=== PATIENT | male | born 1970 | race Caucasian/White ===

== ENCOUNTER 2024-07-26 08:21 | Outpatient (AMB) | payer BC, SELFPAY ==
--- NOTE | 2024-07-26 08:25 | MHC.PC.OV ---
Vital Signs 07/26/24 08:59 Height 6 ft Weight 229 lb 2 oz BMI 31.1 BP 124/70 Blood Pressure Location Lt brachial Position Sitting Respiration 13 Pulse 56 Pulse Source Pulse Oximeter Temp 97.5 F Temp Source Oral Pulse Oximetry (%) 98 Oxygen Delivery Method Room Air Intake Visit Reasons: Prescription refills Intake Note: New patient to establish care and patient also needs refill on meds. 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 Allergies No Known Allergies Allergy (Verified 07/26/24 09:33) Medication List - Last Reconciled 07/26/24 by Crista Hammond, [facility]- albuterol-budesonide 90-80 mcg/actuation 2 inhalations inhalation DAILY PRN fenofibrate 160 mg PO DAILY lisinopril-hydrochlorothiazide 20-12.5 mg 1 tab PO DAILY montelukast 10 mg PO DAILY tadalafil 5 mg PO DAILY tamsulosin 0.4 mg PO DAILY Tobacco use date assessed: 07/26/24 Dental Screening Dental Screen Date: 07/26/24 Did you have a dental visit in the last 12 months?: Yes Did you have a dental problem in the last 6 months where you did not have access to dental care?: No Was dental information given to patient?: Patient has dentist HPI HPI Comments History of Present Illness Details 53 y/o M with anemia, R bakers cyst, low Testosterone, Renal cysts, Bilat nephromegaly (US 08/2023, MRI 02/2023 Bosniak IIF L cyst) L renal cyst requires US q6-12months, T11 Vertebral hemangioma, JETT on CPAP, HTN, CHLOE, Asthma, HLD, R banda cyst, chronic low back pain, cigar use, eczema, BPH with LUTS, Surgery: L medial meniscectomy 2022, amputation of toe L and R foot d/t necrotizing fascitis and several other ortho surgeries Social: , Retired Government, 1 dtr Health Maintenance Colon 2020 + polyp, repeat 5 years Tdap 2024, admin today Specialists: Podiatry Ortho Renal Here today to est care Previous PCP: Hattie Be, records reviewed; last visit 04/2024 Low Testosterone - uses T gel, needs refill - sent. Renal cyst and Bilar nephromegaly - incidental finding on imaging done for his back; has not been told of PCK however US and MRI are suspicous for this. JETT on CPAP - [facility]. Using as directed. Head strap wears out q2 months HTN managed on current meds, would like to get off if able. Taking lots of supplements. Asthma - exercise induced, sparing use of ERIC, Tdap updated today, Cigar smoker BPH with LUTS on flomax. 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 Needs handicap placard. Completed and returned to him today Has chronic foot pain; uses inserts; will need podiatry referral in the future but not now. Exam Awake alert NAD Scleras nonicteric RRR LS CTAB Abd soft, nontender Mood and affect appropriate Plan Refill on meds sent to [facility] today Renal referral RTO 6-9 mo CPE with labs, sooner PRN l Total time spent caring for the patient today was 60 minutes. This includes time spent before the visit reviewing the chart, time spent during the visit, and time spent after the visit on documentation, reviewing laboratory results, diagnostic imaging, medications, performing a medically necessary evaluation, counseling on diagnoses, care coordination, ordering appropriate tests, ordering appropriate medications, review of tests performed by other providers, reporting test results with the patient, communication with other healthcare providers. [facility] Medical History (Updated 07/26/24 @ 12:37 by Crista Hammond, [facility]) Arthritis Asthma Hemangioma of vertebral body High cholesterol Synovial cyst of popliteal space [Banda], right knee Surgical History (Updated 07/26/24 @ 09:15 by Alan Grajeda MA) H/O shoulder surgery History of colonoscopy (~2020) Family History (Updated 07/26/24 @ 09:15 by Alan Grajeda MA) Father Diabetes Social History (Updated 07/26/24 @ 09:16 by Alan Grajeda MA) Household Members: Spouse Both parents involved: No Caregiver staying overnight: No Housing: House Are you a primary intensive care nurse to a significant other at home: No Do you presently have visiting nurse or other home services: No 75 years or older and lives alone: No Alcohol intake: current Alcohol intake frequency: a few times a month Patient Tobacco Use Status: Never used Tobacco e-Cigarette/Vaping Use: Never Used Second Hand Smoke Exposure: No Current occupational status: unemployed and retired Cognitive needs: No Hearing needs: No Vision needs: No Questionnaire PHQ-9 Over the last 2 weeks, how often have you been bothered by any of the following problems? 1. Little interest or pleasure in doing things: not at all 2. Feeling down, depressed, or hopeless: not at all 3. Trouble falling or staying asleep, or sleeping too much: not at all 4. Feeling tired or having little energy: not at all 5. Poor appetite or overeating: not at all 6. Feeling bad about yourself - or that you are a failure or have let yourself or your family down: not at all 7. Trouble concentrating on things, such as reading the newspaper or watching television: not at all 8. Moving or speaking so slowly that other people could have noticed. Or the opposite - being so fidgety or restless that you have been moving around a lot more than usual: not at all 9. Thoughts that you would be better off or of hurting yourself in some way: not at all Total score: 0 Depression Screening Interpretation: Negative Depression Screening Done: Yes 51673 - PHQ-9 Billing: Yes Source: Developed by Drs. Yves Gillespie, Yamini Cabrera, Shon Prater and colleagues, with an educational shree from [employer]. Thrive Questionnaire Date Thrive assessed: 07/26/24 I am a: Patient What is your living situation today?: I have a steady place to live Within the past 12 months, did the food you bought not last and you didn't have the money to get more?: Never true Within the past 12 months, did you worry whether your food would run out before you got money to buy more?: Never true Do you have trouble paying for medicines?: No Do you have trouble getting transportation to medical appointments?: No Do you have trouble paying your heating and electricity bill?: No Do you have trouble taking care of your child, family member or friend?: No Do you have trouble with day-to-day activities such as bathing, preparing meals, shopping, managing finances, etc.?: No Are you currently unemployed and looking for a job?: No Are you interested in more education?: No Please select the resources that you would like help with: None Currently or been in a relationship where the following occur: No concerns reported THRIVE Score: 0 AUDIT C Alcohol Use Questionnaire (AUDIT-C) 1. How often do you have a drink containing alcohol?: Never 3. How often do you have six or more drinks on one occasion?: Never Total Score: 0 Score Reviewed/Action Taken: Yes CHLOE-7 AMB Questionnaire CHLOE-7 Date CHLOE - 7 assessed: 07/26/24 Feeling nervous, anxious, or on edge: 0 = Not at all Not being able to stop or control worryin = Not at all Worrying too much about different things: 0 = Not at all Trouble relaxin = Not at all Being so restless that it is hard to sit still: 0 = Not at all Becoming easily annoyed or irritable: 0 = Not at all Feeling afraid as if something awful might happen: 0 = Not at all Total CHLOE-7 score (0-4 normal; 5-9 mild; 10-14 moderate; 15-21 severe): 0 Source: Developed by Drs. Yves Gillespie, Yamini Cabrera, Shon Prater and colleagues, with an educational shree from [employer]. CHLOE-7 Assessment Billing CHLOE-7 Assessment Tool: CHLOE-7 Assessment 65320 Physical exam (Primary Care) Vital Signs: Last Vital Signs Temp 97.5 F 07/26/24 08:59 Pulse 56 07/26/24 08:59 Resp 13 07/26/24 08:59 BP 124/70 07/26/24 08:59 Pulse Ox 98 07/26/24 08:59 Oxygen Delivery Method Room Air 07/26/24 08:59 BMI result Body Mass Index 31.1 BMI Assessment/Plan discussion: High BMI High, discussed plan: lifestyle Tobacco/Smoking Status: Tobacco use Status Tobacco use date assessed 07/26/24 07/26/24 08:26 Patient Tobacco Use Status Never used Tobacco 07/26/24 09:16 e-Cigarette/Vaping Use Never Used 07/26/24 09:16 PHQ-9: PHQ-9 Score PHQ-9: Total score 0 07/26/24 09:33 Depression Screening Interpretation: Negative Thrive Assessment: Date of Thrive Assessment Date Thrive assessed 07/26/24 07/26/24 08:26 Currently or been in a relationship where the following occur: No concerns reported Immunizations Boostrix Tdap 2.5 Lf unit-8 mcg-5 Lf/0.5 mL intramuscular syringe Performing Provider: IRINA Dyer [place] [facility] [place] [facility] Administered by: Alan Grajeda MA on 07/26/24 09:07 Dose Route Admin Location Dispensed Lot Number Expiration Date NDC Crop Or Livestock Tenant Farmer 0.5 mL IM Right Deltoid 0.5 mL [id number] 10/14/26 [id number] [employer] VIS Given Date VIS Provided VIS Publication Date 07/26/24 Single Vaccine 20 Eligibility Eligibility Date Funding Source Not [facility] Eligible 07/26/24 Private Coding Level of Care Code New Pt Level 5 (70993) Complex EM visit Add On G2211 Diagnoses Encounter to establish care Z76.89 Amputated toe of left foot S98.132A Amputated toe of right foot S98.131A Bilateral renal cysts N28.1 BPH w urinary obs/LUTS N40.1; N13.8 Mixed hyperlipidemia E78.2 Hyperlipidemia type: mixed hyperlipidemia CHLOE (generalized anxiety disorder) F41.1 Primary hypertension I10 Hypertension type: primary hypertension Nephromegaly N28.81 JETT on CPAP G47.33 Mild intermittent asthma without complication J45.20 Asthma complication type: uncomplicated Obesity (BMI 30-39.9) E66.9 Need for Tdap vaccination Z23 Low testosterone in male R79.89 Additional Codes CHLOE-7 Assessment Billing - CHLOE-7 Assessment Tool: CHLOE-7 Assessment 42670 ([id number]) PHQ-9 - 27767 - PHQ-9 Billing: Yes ([id number]) Assessment & Plan Assessment & Plan (1) Encounter to establish care: Code(s): Z76.89 - Persons encountering health services in other specified circumstances (2) Amputated toe of left foot: Comment: active Code(s): S98.132A - Complete traumatic amputation of one left lesser toe, initial encounter Category: Medical (3) Amputated toe of right foot: Comment: active Code(s): S98.131A - Complete traumatic amputation of one right lesser toe, initial encounter Category: Medical (4) Bilateral renal cysts: Comment: (US 08/2023, MRI 02/2023 Bosniak IIF L cyst) L renal cyst requires US q6-12 months [place] [facility] [place] Code(s): N28.1 - Cyst of kidney, acquired Category: Medical (5) BPH w urinary obs/LUTS: Comment: on flomax Code(s): N40.1 - Benign prostatic hyperplasia with lower urinary tract symptoms; N13.8 - Other obstructive and reflux uropathy Category: Medical (6) HLD (hyperlipidemia): Comment: on fenofibrate Code(s): E78.5 - Hyperlipidemia, unspecified Category: Medical Qualifiers: Hyperlipidemia type: mixed hyperlipidemia Qualified Code(s): E78.2 - Mixed hyperlipidemia (7) CHLOE (generalized anxiety disorder): Comment: stable w/o meds Code(s): F41.1 - Generalized anxiety disorder Category: Medical (8) HTN (hypertension): Comment: at goal on lis/hctz wants to stop Code(s): I10 - Essential (primary) hypertension Category: Medical Qualifiers: Hypertension type: primary hypertension Qualified Code(s): I10 - Essential (primary) hypertension (9) Nephromegaly: Comment: (US 08/2023, MRI 02/2023 Bosniak IIF L cyst) referral to [facility] [place] Code(s): N28.81 - Hypertrophy of kidney Category: Medical (10) JETT on CPAP: Comment: [place] Code(s): G47.33 - Obstructive sleep apnea (adult) (pediatric) Category: Medical (11) Mild intermittent asthma: Comment: prn eric Code(s): J45.20 - Mild intermittent asthma, uncomplicated Category: Medical Qualifiers: Asthma complication type: uncomplicated Qualified Code(s): J45.20 - Mild intermittent asthma, uncomplicated (12) Obesity (BMI 30-39.9): Code(s): E66.9 - Obesity, unspecified Category: Medical (13) Need for Tdap vaccination: Code(s): Z23 - Encounter for immunization Category: Medical (14) Low testosterone in male: Code(s): R79.89 - Other specified abnormal findings of blood chemistry Category: Medical Plan . Orders: Orders TDaP Immunization Today Z23 - Encounter for immunization Comprehensive Met. Panel Today E78.2 - Mixed hyperlipidemia, I10 - Essential (primary) hypertension, R79.89 - Other specified abnormal findings of blood chemistry Lipid Panel Today E78.2 - Mixed hyperlipidemia, I10 - Essential (primary) hypertension, R7.89 - Other specified abnormal findings of blood chemistry Microalbumin, Random (w Creat) Today E78.2 - Mixed hyperlipidemia, I10 - Essential (primary) hypertension, R7.89 - Other specified abnormal findings of blood chemistry Vitamin D 25-OH Total Today E78.2 - Mixed hyperlipidemia, I10 - Essential (primary) hypertension, R7.89 - Other specified abnormal findings of blood chemistry PSA, Ultra Sensitive Today E78.2 - Mixed hyperlipidemia, I10 - Essential (primary) hypertension, R79.89 - Other specified abnormal findings of blood chemistry Complete Blood Count no Diff Today E78.2 - Mixed hyperlipidemia, I10 - Essential (primary) hypertension, R7.89 - Other specified abnormal findings of blood chemistry Hemoglobin A1c Today E78.2 - Mixed hyperlipidemia, I10 - Essential (primary) hypertension, R7.89 - Other specified abnormal findings of blood chemistry TSH reflex Free T4 Today E78.2 - Mixed hyperlipidemia, I10 - Essential (primary) hypertension, R7.89 - Other specified abnormal findings of blood chemistry Vitamin B12 and Folate Today E78.2 - Mixed hyperlipidemia, I10 - Essential (primary) hypertension, R7.89 - Other specified abnormal findings of blood chemistry Testosterone, Total Today E78.2 - Mixed hyperlipidemia, I10 - Essential (primary) hypertension, R7.89 - Other specified abnormal findings of blood chemistry Referrals Nephrology Referral N28.1 - Cyst of kidney, acquired, N28.81 - Hypertrophy of kidney Medications: New tadalafil 2.5 mg PO DAILY lisinopril-hydrochlorothiazide 20-12.5 mg 0.5 tabs PO DAILY 45 tabs 2RF montelukast 10 mg PO DAILY 90 tabs 2RF testosterone apply 4 pump amount over max area of EACH upper arm and shoulder 4 pumps topical DAILY 75 grams 5RF fenofibrate 160 mg PO DAILY 90 tabs 2RF albuterol sulfate 90 mcg/actuation 2 puffs inhalation Q4-6H 30 days PRN 8.5 grams 0RF shortness of breath or wheezing Patient Instructions: Walk-In Care (Urgent Care): We Make it Easy Walk-in for urgent medical issues such as: ? Seasonal Allergies ? Insect Bites ? Cough ? Diarrhea ? Acute Asthma Attacks ? Back, Knee or Joint Pain ? Ear Infection ? Fever without a Rash ? Headaches ? Nausea ? [place] [facility], Rash or Skin Irritation ? Sore Throat ? Sports Physicals ? Vomiting Most insurances are accepted. Patients do not need to be part of the [facility] to seek care at the walk-in clinic. Locations [address] [place] [address] ? [phone] [facility] [facility] in [place] provides services to ages 18 and over. Open Thursday-Thursday: 8 a.m. to 5 p.m. and Thursday: 9 a.m. to 3 p.m.* *Hours may vary due to staffing availability. To confirm Walk-In Care hours in [place], please call [phone]. [address] [place] [address] ? [phone] [facility] in [place] provides services to ages 12 and over. Open Thursday-Thursday: 8 a.m. to 5 p.m. Hours may vary due to staffing availability. To confirm Walk-In Care hours in [place], please call [phone]. LABORATORY SERVICES: [facility] [place] Primary Location [address] [place] [address] Thursday through Thursday 6:00 AM ? 5:00 PM Thursday 7:00 AM ? 11:00 AM* [phone] The [facility] is centrally located near the front entrance of the [facility] for easy outpatient access. Convenient parking is provided for outpatients. *Hours may vary due to staffing availability. To confirm Laboratory hours for any location, please call [phone]. Offsite Location For your convenience, we offer offsite laboratory draw stations at the following locations: [address] [place] [address] ? [facility] [address], [address] [place] [address] Thursday through Thursday 7:30 AM ? 1:00 PM* [phone] *Hours may vary due to staffing availability. To confirm Laboratory hours for any location, please call [phone]. [place] ? [address] Thursday through Thursday 6:00 AM ? 3:30 PM* Thursday 6:30 AM ? 3 PM* [phone] *Hours may vary due to staffing availability. To confirm Laboratory hours for any location, please call [phone]. [address] [facility] Thursday through Thursday 7:30 AM ? 4:00 PM* [phone] *Hours may vary due to staffing availability. To confirm Laboratory hours for any location, please call [phone]. [address] [facility] Thursday through 9:00 AM ? 4:00 PM* *Hours may vary due to staffing availability. To confirm Laboratory hours for any location, please call [phone]. Appointments are not necessary. Walk-ins are welcome. Like all the departments throughout the [facility], our Lab undergoes frequent reviews to ensure the quality and accuracy of test results, and our staff takes special pride in its status as a nationally accredited facility. Patient Portal: ONE PATIENT. ONE RECORD. BETTER CARE. [facility] has a fully integrated, cutting-edge mobile electronic health information system that has revolutionized the way we care for our patients and manage our organization. This system improves communication and coordination enabling us to provide safe, higher-quality care, and an overall positive experience for staff and patients. Our first priority, as always, is to deliver the highest quality care possible. The system is running in the background supporting that priority. This portal is for all [facility] and [facility] services and practices. If you are experiencing any technical difficulties with enrolling or logging into the Patient Portal please complete the [facility] Patient [place] Technical Support Form. [facility] now offers a new secure on-line interactive tool for patients to review their health information ? ?Patient Portal. This interactive web portal will enable patients and their families to take an active role in their care by providing easy, secure access to their health information via the internet. The Patient Portal provides patients with instant access to their health information, including laboratory results, medications, allergies, demographic information, visit history, and more. In addition to managing their own care, parents and health care proxies with authorized consent will appreciate the ability to access the records of those individuals for whom they provide care. Please note: if you wish to gain access (Proxy) to another patient?s portal, you will be required to come to the Medical Records Department in person at [facility]. Both the patient giving proxy access and the proxy will need to provide photo identification and complete the appropriate authorization. The Patient Portal also allows track their appointments online. The [facility] [place] also saves patients time by allowing them to submit updates to their demographic and contact information prior to their visits. Portal email notifications will also alert patients to any new activity on their portal, such as test results and new appointments. In order to initially enroll in the [facility] Patient Portal, you will need to enter some required information including the following: your [facility] Medical Record number your personal home email address name date of Please note: In order to enroll in the [facility] Patient Portal, we need to have your email address on file in your electronic medical record. ?The email address needs to be specific for one person (yourself) in order for your Portal enrollment to be successful. ?You can update your email address in person with our Registration staff when you are registering for a hospital visit. ?Otherwise, you will need to come to the Health Information Management (Medical Records) Department at [facility]. ?We are open from Thursday ? Thursday from 7:30 a.m. ? 4:30 p.m. ?You will be required to present a photo id. Once you have successfully enrolled in the Patient Portal, you will receive a one-time user id and password for the Portal, sent to your email address. ?This will allow you to log into the Patient Portal within 99 hrs and reset your own logon id and password, and define personal security questions. ?Once your permanent login and password have been set, you can log into the [facility] Patient Portal at any time via the blue button above or from the Portal Logon button on any page of the [facility] website. [facility] encourage all of our patients to enroll in Patient Portal as it presents a valuable opportunity for patients and their families to actively participate in their care and stay healthy Welcome to [facility]. ?We look forward to working with you.
[2024-07-26 08:59] VITALS: BP 124/70; PULSE 56; RESP 13; TEMP 36.4; O2SAT 98; BMI 31.1
== END 2024-07-26 09:54 | disposition home or self-care (01) ==
LOC: HO.HMCFM 08:22
PROVIDERS: PCP Nurse Practitioner Family; Visit Provider Nurse Practitioner Family
DX: S98.132A Complete traumatic amputation of one left lesser toe, initial encounter (principal); S98.131A Complete traumatic amputation of one right lesser toe, initial encounter; Z76.89 Persons encountering health services in other specified circumstances; N28.1 Cyst of kidney, acquired; N40.1 Benign prostatic hyperplasia with lower urinary tract symptoms; N13.8 Other obstructive and reflux uropathy; E78.2 Mixed hyperlipidemia; F41.1 Generalized anxiety disorder; I10 Essential (primary) hypertension; N28.81 Hypertrophy of kidney; G47.33 Obstructive sleep apnea (adult) (pediatric); J45.20 Mild intermittent asthma, uncomplicated; Z23 Encounter for immunization

== ENCOUNTER → 2024-07-26 08:21 | Outpatient (BNVA) | payer BC, SELFPAY | PROVIDERS: PCP Nurse Practitioner Family; Visit Provider Nurse Practitioner Family | DX: Z76.89 Persons encountering health services in other specified circumstances (principal); Z23 Encounter for immunization; N28.1 Cyst of kidney, acquired; N40.1 Benign prostatic hyperplasia with lower urinary tract symptoms; N13.8 Other obstructive and reflux uropathy; E78.2 Mixed hyperlipidemia; F41.1 Generalized anxiety disorder; I10 Essential (primary) hypertension; N28.81 Hypertrophy of kidney; G47.33 Obstructive sleep apnea (adult) (pediatric); J45.20 Mild intermittent asthma, uncomplicated; E66.9 Obesity, unspecified; Z68.31 Body mass index [BMI] 31.0-31.9, adult; R79.89 Other specified abnormal findings of blood chemistry; Z79.899 Other long term (current) drug therapy; Z89.422 Acquired absence of other left toe(s); Z89.421 Acquired absence of other right toe(s); Z99.89 Dependence on other enabling machines and devices; Z13.31 Encounter for screening for depression; Z13.30 Encounter for screening examination for mental health and behavioral disorders, unspecified | CPT/HCPCS: 90471; 90715; 96127 ==

== ENCOUNTER 2024-07-28 13:13 | Outpatient (AMB) | payer BC, SELFPAY ==
--- NOTE | 2024-07-28 13:27 | HO.NEPHOV ---
Vital Signs 07/28/24 13:28 Height 6 ft Weight 223 lb 6 oz BMI 30.3 BP 130/70 Blood Pressure Location Lt brachial Position Sitting Pulse 86 Pulse Source Pulse Oximeter Pulse Oximetry (%) 97 Oxygen Delivery Method Room Air Intake Visit Reasons: INP:Polycystic kidney disease, See US and MRI test Inspector Shells Required: No Accompanied by: Self / Same As Patient Allergies No Known Allergies Allergy (Verified 07/28/24 13:28) HPI Comments Details: 53-year-old gentleman with past medical history of Hypertension, hyperlipidemia, JETT on CPAP is here to establish care. He had a fall last year and underwent MRI in 02/2023 which showed multiple bilateral simple renal cysts and a 12x 25mm Bosniak IIF cyst in left kidney. Ultrasound done in August 2023 showed right knee was 13.1 cm with multiple cortical cyst, left kidney is 14.8 cm with multiple cortical cyst with a 2.4 into 2.7 cm Bosniak 2 F cyst. He is here to establish care. [facility] Medical History (Updated 07/28/24 @ 14:29 by Jaiden Del Rosario MD) Arthritis High cholesterol Asthma Hemangioma of vertebral body Synovial cyst of popliteal space [Banda], right knee Surgical History H/O shoulder surgery History of colonoscopy (~2020) Family History Father Diabetes Social History Household Members: Spouse Both parents involved: No Caregiver staying overnight: No Housing: House Are you a primary medicare contact specialist to a significant other at home: No Do you presently have visiting nurse or other home services: No 75 years or older and lives alone: No Alcohol intake: current Alcohol intake frequency: a few times a month Patient Tobacco Use Status: Never used Tobacco e-Cigarette/Vaping Use: Never Used Second Hand Smoke Exposure: No Current occupational status: unemployed and retired Cognitive needs: No Hearing needs: No Vision needs: No Review of Systems Const Details: Const Denies body aches, Denies chills. Eyes Denies blurry vision and Denies change in vision ENT Denies bleeding gums and Denies change in voice Card Denies chest pain and Denies leg ulcers Resp Denies cough and Denies excessive phlegm production GI Denies abdominal pain and Denies bloating Denies hematuria, Denies urinary frequency and Denies difficulty voiding Musc Denies abnormal gait Neuro Denies Neuro-related abnormal movements, Denies abnormal gait and Denies behavioral changes Psych Denies behavioral changes and Denies change in appetite Endo Denies change in body appearance, Denies cold intolerance, Denies excessive sweating and Denies fatigue Physical Exam Vital Signs: Last Vital Signs Pulse 86 07/28/24 13:28 BP 130/70 07/28/24 13:28 Pulse Ox 97 07/28/24 13:28 Oxygen Delivery Method Room Air 07/28/24 13:28 BMI result Body Mass Index 30.3 General: Well-built healthy-appearing middle-aged male, looks stressed Nutritional Appearance: well built and nourished Eyes: appearance normal, both eyes and all related structures; Alignment and Position: alignment normal and position normal Neck: No lymphadenopathy, no thyromegaly Resp: bilateral air entry equal, no added sounds present Cardio: Regular rate, regular rhythm; Heart sounds: S1 normal heart sound present and S2 normal heart sound present, no edema GI: soft, nontender, no guarding, no hepatosplenomegaly : bladder normal to inspection, bladder normal to palpation, no renal angle tenderness Skin: no rashes or lesions noted and elasticity normal Neuro: oriented to person, oriented to place, oriented to time and moves all extremities Results Reviewed Nephrology Results: No Data to Display Assessment & Plan Assessment & Plan (1) HTN (hypertension): Code(s): I10 - Essential (primary) hypertension Category: Medical Qualifiers: Hypertension type: primary hypertension Qualified Code(s): I10 - Essential (primary) hypertension (2) Obesity (BMI 30-39.9): Code(s): E66.9 - Obesity, unspecified Category: Medical (3) Nephromegaly: Comment: (US 08/2023, MRI 02/2023 Bosniak IIF L cyst) Code(s): N28.81 - Hypertrophy of kidney Category: Medical (4) Bilateral renal cysts: Code(s): N28.1 - Cyst of kidney, acquired Category: Medical (5) JETT on CPAP: Comment: Lencho Code(s): G47.33 - Obstructive sleep apnea (adult) (pediatric) Category: Medical (6) Cystic disease of kidney: Code(s): Q61.9 - Cystic kidney disease, unspecified Category: Medical Plan Multiple bilateral renal cyst: Possibility of autosomal recessive polycystic kidney disease can not be ruled out, there is no family history of PCKD Mom 89 years old- HTN, arrythmias; dad at 64 had heart failure/obesity. Youngest of 6 siblings, one brother from from pancreatic cancer. No family history of kidney disease or liver disease. 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 Plan: - we will get MRI of bilateral kidneys to look for any signs of polycystic kidney disease - explained him that he needs a yearly ultrasound follow-up of Bosniak 2 F kidney cysts. (also explained him what are kidney cysts, how do they progress and when to intervene). - explained him to drink at least 3 L of water every day to suppress vasopressin - explained him to stopped smoking (smokes cigar once in a while), explained him the benefits of losing weight - explained him about the benefits of good blood pressure control - we will get urine protein creatinine ratio, urine albumin creatinine ratio, urinalysis and a BMP. If there is significant proteinuria we will increase the dose of lisinopril. We will look at the renal function, no indication for any other disease modifying therapy unless there is progression of the renal disease. HTN: - well-controlled on lisnopril 20/HCTZ 12.5 Spent about 45 minutes of time, 10 minutes in chart review, 10 minutes in documentation and lab orders, 25 minutes in encounter, explaining him the plan of action, prognosis. Orders: Orders Microalbumin, Random (w Creat) 1 Day Q61.9 - Cystic kidney disease, unspecified Total Protein Urine Random 1 Day Q61.9 - Cystic kidney disease, unspecified Creatinine Urine 1 Day Q61.9 - Cystic kidney disease, unspecified MR abd polycystic kid wo con 1 Day Q61.9 - Cystic kidney disease, unspecified Basic Metabolic Panel 1 Day Q61.9 - Cystic kidney disease, unspecified UA and rflx microscopic 1 Day Q61.9 - Cystic kidney disease, unspecified Coding Level of Care Code New Pt Level 4 (86823) Diagnoses Primary hypertension I10 Hypertension type: primary hypertension Obesity (BMI 30-39.9) E66.9 Nephromegaly N28.81 Bilateral renal cysts N28.1 JETT on CPAP G47.33 Cystic disease of kidney Q61.9
[2024-07-28 13:28] VITALS: BP 130/70; PULSE 86; O2SAT 97; BMI 30.3
== END 2024-07-28 14:28 | disposition home or self-care (01) ==
LOC: HO.HKAS 13:14
PROVIDERS: PCP Nurse Practitioner Family; Referring Provider Nurse Practitioner Family; Visit Provider Internal Medicine Critical Care Medicine
DX: I10 Essential (primary) hypertension (principal); E66.9 Obesity, unspecified; N28.81 Hypertrophy of kidney; N28.1 Cyst of kidney, acquired; G47.33 Obstructive sleep apnea (adult) (pediatric); Q61.9 Cystic kidney disease, unspecified
CPT/HCPCS: 99204

== ENCOUNTER → 2024-07-28 13:13 | Outpatient (BNVA) | payer BC, SELFPAY | PROVIDERS: PCP Nurse Practitioner Family; Referring Provider Nurse Practitioner Family; Visit Provider Internal Medicine Critical Care Medicine ==

== ENCOUNTER 2024-08-01 11:42 | Outpatient (REF) | payer BC, SELFPAY ==
--- OUTSIDE RECORDS SUMMARY | 2024-08-01 13:19 | XMS_ITS | Continuity of Care Document ---
Author Organization [facility] Address [address] [place] [address] Phone Care Team Providers Care Manager Of Financial Name Role Phone Glenn Zheng MD Unavailable [...] PREP FOR COST/INSURANCE - $40 Coupon, BIN: [id number], PCN: [id number], Group: [id number], ID: [id number] Naprosyn 500 mg tablet take 1 tablet [...] route every day 10 MG - Active Procedures Procedure Date Orthotic Molded To Patient Model 2022 Orthotic Molded To Patient Model 2022 No Service Colonoscopy Flexible; W/removal Lesions Moderate Sedation 15 Min Level Iv-surg Path Gross/micro Administration Inj. Allergy- Single Orthotic Molded To Patient Model 2021 Administration Inj. Allergy- Single Administration Inj. Allergy- Single Postop Followup Visit Included In Global Office Or Out Patient E&M Est Moderate F Administration Inj. Allergy- Single Diastolic BP 80-89mm Hg Systolic BP 130 To 139mm Hg Routine Venipunct/finger/heel 2 Prostate Spec Antig; Tot Office Or Out Patient E&M Est Moderate J Arthrocentesis aspir inj Valerie 2 Xray, Shoulder, Complete, Ortho Views Zackery Administration Inj. Allergy- Single Postop Followup Visit Included In Global Administration Inj. Allergy- Single Administration Inj. Allergy- Single Xray, Foot, Complete, 3 Views 1 Postop Followup Visit Included In Global Part Exc Bone; Tarsal Ex Talus Office Or Out Patient E&M Est Moderate D Diastolic BP 80-89mm Hg Systolic BP 140mm Hg Xray, Foot, Complete, 3 Views 1 Post Op Cast Shoe Pro Serv-immunotx; 1/mx Antig 1 Administration Inj. Allergy- Single Administration Inj. Allergy- Single Office Or Out Patient E&M Est - Low Administration Inj. Allergy- Single Adminstration Inj. Immunization 1 Flu Vaccince Flublok Administration Inj. Allergy- Single Administration Inj. Allergy- Single Administration Inj. Allergy- Single Administration Inj. Allergy- Single Administration Inj. Allergy- Single Administration Inj. Allergy- Single Adminstration Inj. Allergy- Multidose Ap Office Or Out Patient E&M Est Moderate F Diastolic BP 90mm Hg Systolic BP 140mm Hg Orthotic Molded To Patient Model 2020 Orthotic Molded To Patient Model 2020 Administration Inj. Allergy- Single Office Or Out Patient E&M New Low-mod Tangential Biopsy Skin Single 1 Administration Inj. Allergy- Single Administration Inj. Allergy- Single Pro Serv-immunotx; 1/mx Antig 0 Administration Inj. Allergy- Single Administration Inj. Allergy- Single Adminstration Inj. Immunization 1 Zoster Vaccine-Shingrix Administration Inj. Allergy- Single Adminstration Inj. Immunization 1 Flu Vaccine Quad .5 ML Administration Inj Immun- Ea Add Vaccine Prevnar 13 Administration Inj. Allergy- Single Administration Inj. Allergy- Single Administration Inj. Allergy- Single Office Or Out Patient E&M Est Moderate A Diastolic BP 80-89mm Hg Systolic BP 130 To 139mm Hg Prostate Spec Antig; Tot Comp Metabolic Panel Routine Venipunct/finger/heel 0 Complete Blood Count; Hgb/pltlt Automate d Administration Inj. Allergy- Single Orthotic Molded To Patient Model 2019 Administration Inj. Allergy- Single Office Visit Established Moderate Diastolic BP 80-89mm Hg Systolic BP 130 To 139mm Hg Administration Inj. Allergy- Single Pro Serv-immunotx; 1/mx Antig 0 Administration Inj. Allergy- Single Administration Inj. Allergy- Single Administration Inj. Allergy- Single Office Visit Established - Low 20 Orthotic Molded To Patient Model 2019 Cv Stress Test W/Suprvsn Interpret & Rep ort Administration Inj. Allergy- Single Adminstration Inj. Immunization 1 Flu Vaccine Quad .5 ML Office Visit Established - Moderate-high Diastolic BP 90mm Hg Systolic BP 140mm Hg Administration Inj. Allergy- Single Administration Inj. Allergy- Single Administration Inj. Allergy- Single Administration Inj. Allergy- Single Administration Inj. Allergy- Single Pro Serv-immunotx; 1/mx Antig 9 Administration Inj. Allergy- Single Administration Inj. Allergy- Single Administration Inj. Allergy- Single Administration Inj. Allergy- Single Orthotic Molded To Patient Model 2018 Administration Inj. Allergy- Single Office Visit Established - Low 19 Administration Inj. Allergy- Single Administration Inj. Allergy- Single Administration Inj. Allergy- Single Administration Inj. Allergy- Single Routine Venipunct/finger/heel 9 Lipid Panel Comp Metabolic Panel Prostate Spec Antig; Tot Office Visit Established Moderate Diastolic BP 90mm Hg Systolic BP 140mm Hg Administration Inj. Allergy- Single Administration Inj. Allergy- Single Pro Serv-immunotx; 1/mx Antig 9 No Service Lower Extremity Venous Doppler Unilatera l Administration Inj. Allergy- Single Office Visit Established Moderate Administration Inj. Allergy- Single Diastolic BP 90mm Hg Systolic BP 140mm Hg Administration Inj. Allergy- Single Office Visit Established - Low 18 Orthotic Molded To Patient Model 2017 Office Consult New/established Minimal S Office Visit Established - Low 18 Administration Inj. Allergy- Single Administration Inj. Allergy- Single Administration Inj. Allergy- Single Office Visit Established - Moderate-high Diastolic BP 80-89mm Hg Systolic BP 140mm Hg Administration Inj. Allergy- Single Office Visit Established Moderate Arthrocentesis aspir inj Valerie 8 Lidocaine Injection Triamcinolone Czehlaeyl33 Mg Kenalog Jul Administration Inj. Allergy- Single Postop Followup Visit Included In Global Postop Followup Visit Included In Global Arthrocentesis aspir inj Valerie 8 MRI, Upper Extremity, Joint (shoulder, E lbow, Wrist), Wo Contrast Postop Followup Visit Included In Global Office Visit Established - Low 18 Diastolic BP 80-89mm Hg Systolic BP < 130mm Hg Administration Inj. Allergy- Single Inj Testosterone Cypionate 1 Mg 018 Injection Administration Theraputic Routine Venipunct/finger/heel 8 Complete Blood Count; Hgb/pltlt Automate d Inj Testosterone Cypionate 1 Mg 018 Injection Administration Theraputic Administration Inj. Allergy- Single Postop Followup Visit Included In Inj Testosterone Cypionate 1 Mg 018 Injection Administration Theraputic Administration Inj. Allergy- Single Inj Testosterone Cypionate 1 Mg 018 Injection Administration Theraputic Administration Inj. Allergy- Single Postop Followup Visit Included In Inj Testosterone Cypionate 1 Mg 018 Injection Administration Theraputic Administration Inj. Allergy- Single Scope Shldr Surg; Repr Slap Le 18 Arthroscp Shouldr Surg;debrid 8 Arthro Shoulder, Biceps Tenodesis Arthroscpy Shldr; Decomp Subac 18 Inj Testosterone Cypionate 1 Mg 2 018 Injection Administration Theraputic Administration Inj. Allergy- Single Inj Testosterone Cypionate 1 Mg 018 Injection Administration Theraputic Administration Inj. Allergy- Single Pro Serv-immunotx; 1/mx Antig 8 Inj Testosterone Cypionate 1 Mg 018 Injection Administration Theraputic Administration Inj. Allergy- Single Office Visit Established Moderate MRI, Upper Extremity, Joint (shoulder, E lbow, Wrist), Wo Contrast Office Visit Established Moderate Xray, Shoulder, Complete, Ortho Views Ja Injection Administration Theraputic Administration Inj. Allergy- Single Inj Testosterone Cypionate 1 Mg 018 Inj Testosterone Cypionate 1 Mg 017 Injection Administration Theraputic Administration Inj. Allergy- Single Arthrocentesis aspir inj Valerie 7 Inj. Depo-Medrol 40 Mg Diastolic BP 80-89mm Hg Systolic BP < 130mm Hg Phlebotomy Therap (separt Proc 17 Routine Venipunct/finger/heel 7 Routine Venipunct/finger/heel 7 Sex Hormone Binding Glob Testosterone; Tot Lipid Panel Comp Metabolic Panel Prostate Spec Antig; Tot Complete Blood Count; Hgb/pltlt Automate d Inj Testosterone Cypionate 1 Mg 017 Injection Administration Theraputic Adminstration Inj. Immunization 1 Flu Vaccine Quad 3 Years And Older Administration Inj. Allergy- Single Office Visit Established Moderate Diastolic BP 80-89mm Hg Systolic BP 140mm Hg Inj Testosterone Cypionate 1 Mg 017 Injection Administration Theraputic Administration Inj. Allergy- Single Inj Testosterone Cypionate 1 Mg 017 Injection Administration Theraputic Administration Inj. Allergy- Single Inj Testosterone Cypionate 1 Mg 017 Injection Administration Theraputic Administration Inj. Allergy- Single Inj Testosterone Cypionate 1 Mg 017 Injection Administration Theraputic Administration Inj. Allergy- Single Inj Testosterone Cypionate 1 Mg 017 Injection Administration Theraputic Administration Inj. Allergy- Single Administration Inj. Allergy- Single Inj Testosterone Cypionate 1 Mg 017 Injection Administration Theraputic Inj Testosterone Cypionate 1 Mg 017 Injection Administration Theraputic Administration Inj. Allergy- Single Inj Testosterone Cypionate 1 Mg 017 Injection Administration Theraputic Administration Inj. Allergy- Single Pro Serv-immunotx; 1/mx Antig 7 Inj Testosterone Cypionate 1 Mg 017 Injection Administration Theraputic Administration Inj. Allergy- Single Inj Testosterone Cypionate 1 Mg 017 Injection Administration Theraputic Administration Inj. Allergy- Single Inj Testosterone Cypionate 1 Mg 017 Injection Administration Theraputic Administration Inj. Allergy- Single Injection Administration Theraputic Inj Testosterone Cypionate 1 Mg 017 Administration Inj. Allergy- Single Inj Testosterone Cypionate 1 Mg 017 Injection Administration Theraputic Inj Testosterone Cypionate 1 Mg 017 Injection Administration Theraputic Administration Inj. Allergy- Single Inj Testosterone Cypionate 1 Mg 017 Injection Administration Theraputic Administration Inj. Allergy- Single Office Visit Established Moderate Inj Testosterone Cypionate 1 Mg 017 Administration Inj. Allergy- Single Injection Administration Theraputic Inj Testosterone Cypionate 1 Mg 017 Administration Inj. Allergy- Single Injection Administration Theraputic Pro Serv-immunotx; 1/mx Antig 6 Inj Testosterone Cypionate 1 Mg 016 Injection Administration Theraputic Administration Inj. Allergy- Single Inj Testosterone Cypionate 1 Mg 016 Injection Administration Theraputic Administration Inj. Allergy- Single Inj Testosterone Cypionate 1 Mg 016 Injection Administration Theraputic Administration Inj. Allergy- Single Inj Testosterone Cypionate 1 Mg 016 Injection Administration Theraputic Administration Inj. Allergy- Single Inj Testosterone Cypionate 1 Mg 016 Injection Administration Theraputic Administration Inj. Allergy- Single Hip 2-3 Views Routine Venipunct/finger/heel 6 Sex Hormone Binding Glob Testosterone; Tot Adminstration Inj. Immunization 1 Flu Vaccine Quad 3 Years And Older Preven Meds E&m Estab Pt; 40-64 Yrs Routine Venipunct/finger/heel 6 Complete Blood Count; Hgb/pltlt Automate d Sex Hormone Binding Glob Testosterone; Tot Lipid Panel Prostate Spec Antig; Tot Inj Testosterone Cypionate 1 Mg 016 Injection Administration Theraputic Administration Inj. Allergy- Single Inj Testosterone Cypionate 1 Mg 016 Injection Administration Theraputic Administration Inj. Allergy- Single Inj Testosterone Cypionate 1 Mg 016 Injection Administration Theraputic Administration Inj. Allergy- Single Inj Testosterone Cypionate 1 Mg 016 Administration Inj. Allergy- Single Injection Administration Theraputic Office Visit New - Moderate Office Visit Established Moderate Inj Testosterone Cypionate 1 Mg 016 Injection Administration Theraputic Administration Inj. Allergy- Single Inj Testosterone Cypionate 1 Mg 016 Injection Administration Theraputic Administration Inj. Allergy- Single Inj Testosterone Cypionate 1 Mg 016 Injection Administration Theraputic Administration Inj. Allergy- Single Administration Inj. Allergy- Single Inj Testosterone Cypionate 1 Mg 016 Injection Administration Theraputic Office Visit Established Moderate Inj Testosterone Cypionate 1 Mg 016 Injection Administration Theraputic Administration Inj. Allergy- Single Pro Serv-immunotx; 1/mx Antig 6 Injection Administration Theraputic Inj Testosterone Cypionate 1 Mg 016 Administration Inj. Allergy- Single Administration Inj. Allergy- Single Inj Testosterone Cypionate 1 Mg 016 Injection Administration Theraputic Administration Inj. Allergy- Single Inj Testosterone Cypionate 1 Mg 016 Injection Administration Theraputic Administration Inj. Allergy- Single Inj Testosterone Cypionate 1 Mg 016 Injection Administration Theraputic Administration Inj. Allergy- Single Administration Inj. Allergy- Single Inj Testosterone Cypionate 1 Mg 016 Injection Administration Theraputic Inj Testosterone Cypionate 1 Mg 016 Injection Administration Theraputic Administration Inj. Allergy- Single Pro Serv-immunotx; 1/mx Antig 6 Administration Inj. Allergy- Single Administration Inj. Allergy- Single Inj Testosterone Cypionate 1 Mg 015 Injection Administration Theraputic Administration Inj. Allergy- Single Inj Testosterone Cypionate 1 Mg 015 Injection Administration Theraputic Administration Inj. Allergy- Single Sleep Study; W/4+ Parameters W/airway Th erapy Inj Testosterone Cypionate 1 Mg 015 Administration Inj. Allergy- Single Injection Administration Theraputic Inj Testosterone Cypionate 1 Mg -2 015 Injection Administration Theraputic Administration Inj. Allergy- Single Administration Inj. Allergy- Single Noninvasive Oximetry; Overnite 15 Routine Venipunct/finger/heel 5 Complete Blood Count; Hgb/pltlt Automate d Lipid Panel Comp Metabolic Panel Prostate Spec Antig; Tot Preven Meds E&m Estab Pt; 40-64 Yrs Inj Testosterone Cypionate 1 Mg 015 Injection Administration Theraputic Lower Extremity Venous Doppler Unilatera l Office Visit Established Moderate Adminstration Inj. Immunization 1 Flu Vaccine Quad 3 Years And Older Office Visit Established - Low 15 Adminstration Inj. Immunization 1 Flu Vaccine Quad 3 Years And Older Inj Testosterone Cypionate 1 Mg 015 Inj Xolair Per 5mg Injection Administration Theraputic Inj Testosterone Cypionate 1 Mg 015 Inj Xolair Per 5mg Injection Administration Theraputic Inj Xolair Per 5mg Injection Administration Theraputic Inj Testosterone Cypionate 1 Mg 015 Administration Inj. Allergy- Single Injection Administration Theraputic Inj Xolair Per 5mg Inj Testosterone Cypionate 1 Mg 015 Injection Administration Theraputic Administration Inj. Allergy- Single Inj Testosterone Cypionate 1 Mg 015 Injection Administration Theraputic Administration Inj. Allergy- Single Pro Serv-immunotx; 1/mx Antig 5 Administration Inj. Allergy- Single Inj Testosterone Cypionate 1 Mg 015 Injection Administration Theraputic Inj Xolair Per 5mg Injection Administration Theraputic Inj Testosterone Cypionate 1 Mg 015 Administration Inj. Allergy- Single Injection Administration Theraputic Administration Inj. Allergy- Single Inj Testosterone Cypionate 1 Mg 015 Injection Administration Theraputic Excision Benign Lesion Trunk; 1.1 To 2.0 Inj Xolair Per 5mg Injection Administration Theraputic Inj Testosterone Cypionate 1 Mg 015 Injection Administration Theraputic Administration Inj. Allergy- Single Office Visit Established Moderate Administration Inj. Allergy- Single Inj Xolair Per 5mg Inj Testosterone Cypionate 1 Mg 015 Injection Administration Theraputic Inj Testosterone Cypionate 1 Mg 015 Injection Administration Theraputic Administration Inj. Allergy- Single Administration Inj. Allergy- Single Injection Administration Theraputic Inj Testosterone Cypionate 1 Mg 015 Pro Serv-immunotx; 1/mx Antig 4 No Service Administration Inj. Allergy- Single Inj. Depo-Testosterone Cypionate-1 Cc-20 0 Mg Injection Administration Theraputic Administration Inj. Allergy- Single Inj Xolair Per 5mg Inj. Depo-Testosterone Cypionate-1 Cc-20 0 Mg Injection Administration Theraputic Administration Inj. Allergy- Single Inj Xolair Per 5mg Inj. Depo-Testosterone Cypionate-1 Cc-20 0 Mg Injection Administration Theraputic Administration Inj. Allergy- Single Inj. Depo-Testosterone Cypionate-1 Cc-20 0 Mg Inj Xolair Per 5mg Injection Administration Theraputic Adminstration Inj. Immunization 1 Flu Vaccine Quad 3 Years And Older Administration Inj. Allergy- Single Inj. Depo-Testosterone Cypionate-1 Cc-20 0 Mg Inj Xolair Per 5mg Injection Administration Theraputic Office Visit Established Moderate Inj Xolair Per 5mg Injection Administration Theraputic Inj. Depo-Testosterone Cypionate-1 Cc-20 0 Mg Administration Inj. Allergy- Single Injection Administration Theraputic No Service Administration Inj. Allergy- Single Inj. Depo-Testosterone Cypionate-1 Cc-20 0 Mg Inj Xolair Per 5mg Injection Administration Theraputic Administration Inj. Allergy- Single Pro Serv-immunotx; 1/mx Antig 4 Sleep Study; W/4+ Parameters W/airway Th erapy Inj Xolair Per 5mg Inj. Depo-Testosterone Cypionate-1 Cc-20 0 Mg Injection Administration Theraputic Administration Inj. Allergy- Single Postop Followup Visit Included In Inj. Depo-Testosterone Cypionate-1 Cc-20 0 Mg Inj Xolair Per 5mg Injection Administration Theraputic Administration Inj. Allergy- Single Inj. Depo-Testosterone Cypionate-1 Cc-20 0 Mg Injection Administration Theraputic Inj Xolair Per 5mg Postop Followup Visit Included In Global Inj Xolair Per 5mg Injection Administration Theraputic Inj. Depo-Testosterone Cypionate-1 Cc-20 0 Mg Inj. Depo-Testosterone Cypionate-1 Cc-20 0 Mg Injection Administration Theraputic Administration Inj. Allergy- Single Inj Xolair Per 5mg Injection Administration Theraputic Postop Followup Visit Included In Inj. Depo-Testosterone Cypionate-1 Cc-20 0 Mg Injection Administration Theraputic Administration Inj. Allergy- Single Inj Xolair Per 5mg Administration Inj. Allergy- Single Administration Inj. Allergy- Single Inj. Depo-Testosterone Cypionate-1 Cc-20 0 Mg Injection Administration Theraputic Inj Xolair Per 5mg Injection Administration Theraputic Postop Followup Visit Included In Global Inj. Depo-Testosterone Cypionate-1 Cc-20 0 Mg Injection Administration Theraputic Repr Tend/musc-arm/elb-ea-chris/ 14 Scope Shldr Surg; Repr Slap Le 14 Scope Shldr Surg;dist Clavicul 14 Arthroscpy Shldr; Decomp Subac 14 Office Visit New - Moderate MRI, Upper Extremity, Joint (shoulder, E lbow, Wrist), Wo Contrast Administration Inj. Allergy- Single No Service Noninvasive Ear Or Pulse Oximetry - Oxyg en Sat Single Inj Xolair Per 5mg Injection Administration Theraputic Xray, Shoulder, Complete, Ortho Views Ap Office Visit Established Moderate Inj. Depo-Testosterone Cypionate-1 Cc-20 0 Mg Injection Administration Theraputic Administration Inj. Allergy- Single Inj Xolair Per 5mg Injection Administration Theraputic Inj. Depo-Testosterone Cypionate-1 Cc-20 0 Mg Injection Administration Theraputic Pro Serv-immunotx; 1/mx Antig 4 Administration Inj. Allergy- Single Inj Xolair Per 5mg Inj. Depo-Testosterone Cypionate-1 Cc-20 0 Mg Injection Administration Theraputic Administration Inj. Allergy- Single Administration Inj. Allergy- Single Inj Xolair Per 5mg Inj. Depo-Testosterone Cypionate-1 Cc-20 0 Mg Injection Administration Theraputic Administration Inj. Allergy- Single Inj Xolair Per 5mg Administration Inj. Allergy- Single Inj. Depo-Testosterone Cypionate-1 Cc-20 0 Mg Administration Inj. Allergy- Single Inj Xolair Per 5mg Injection Administration Theraputic No Service Administration Inj. Allergy- Single Office Visit Established Moderate Inj Xolair Per 5mg Injection Administration Theraputic Administration Inj. Allergy- Single Inj. Depo-Testosterone Cypionate-1 Cc-20 0 Mg Injection Administration Theraputic Administration Inj. Allergy- Single Inj Xolair Per 5mg Injection Administration Theraputic Inj. Depo-Testosterone Cypionate-1 Cc-20 0 Mg Injection Administration Theraputic Administration Inj. Allergy- Single Inj Xolair Per 5mg Injection Administration Theraputic Administration Inj. Allergy- Single Inj. Depo-Testosterone Cypionate-1 Cc-20 0 Mg Injection Administration Theraputic Pro Serv-immunotx; 1/mx Antig 3 Administration Inj. Allergy- Single Adminstration Inj. Allergy- Multidose Inj Xolair Per 5mg Injection Administration Theraputic Inj. Depo-Testosterone Cypionate-1 Cc-20 0 Mg Injection Administration Theraputic Administration Inj. Allergy- Single Administration Inj. Allergy- Single Inj Xolair Per 5mg Inj. Depo-Testosterone Cypionate-1 Cc-20 0 Mg Injection Administration Theraputic Level Iv-surg Path Gross/micro 13 Excision Benign Lesion Scalp; 0.6 To 1.0 cm Level Iii-surg Path Gross/micro 013 Administration Inj. Allergy- Single Inj Xolair Per 5mg Inj. Depo-Testosterone Cypionate-1 Cc-20 0 Mg Injection Administration Theraputic Administration Inj. Allergy- Single Inj Xolair Per 5mg Inj. Depo-Testosterone Cypionate-1 Cc-20 0 Mg Injection Administration Theraputic Administration Inj. Allergy- Single Administration Inj. Allergy- Single Inj Xolair Per 5mg Inj. Depo-Testosterone Cypionate-1 Cc-20 0 Mg Injection Administration Theraputic Administration Inj. Allergy- Single Inj. Depo-Testosterone Cypionate-1 Cc-20 0 Mg Inj Xolair Per 5mg Injection Administration Theraputic Administration Inj. Allergy- Single Office Visit Established - Low 13 Inj Xolair Per 5mg Inj. Depo-Testosterone Cypionate-1 Cc-20 0 Mg Injection Administration Theraputic Administration Inj. Allergy- Single Administration Inj. Allergy- Single Inj. Depo-Testosterone Cypionate-1 Cc-20 0 Mg Injection Administration Theraputic Inj Xolair Per 5mg Administration Inj. Allergy- Single Inj. Depo-Testosterone Cypionate-1 Cc-20 0 Mg Injection Administration Theraputic Inj Xolair Per 5mg Inj. Depo-Testosterone Cypionate-1 Cc-20 0 Mg Injection Administration Theraputic Inj Xolair Per 5mg Administration Inj. Allergy- Single Inj. Depo-Testosterone Cypionate-1 Cc-20 0 Mg Injection Administration Theraputic Inj Xolair Per 5mg Pro Serv-immunotx; 1/mx Antig 3 Administration Inj. Allergy- Single Inj. Depo-Testosterone Cypionate-1 Cc-20 0 Mg Injection Administration Theraputic Inj Xolair Per 5mg Administration Inj. Allergy- Single Inj Xolair Per 5mg Inj. Depo-Testosterone Cypionate-1 Cc-20 0 Mg Injection Administration Theraputic Administration Inj. Allergy- Single No Service Routine Venipunct/finger/heel 3 Lipid Panel Complete Blood Count; Hgb/pltlt Automate d Hepatic Function Panel Sex Hormone Binding Glob Testosterone; Tot Administration Inj. Allergy- Single Lipoprotein Direct Measur; Ldl 13 Administration Inj. Allergy- Single Inj. Depo-Testosterone Cypionate-1 Cc-20 0 Mg Inj Xolair Per 5mg Injection Administration Theraputic Administration Inj. Allergy- Single Inj Xolair Per 5mg Inj. Depo-Testosterone Cypionate-1 Cc-20 0 Mg Injection Administration Theraputic Administration Inj. Allergy- Single Inj Xolair Per 5mg Injection Administration Theraputic Inj. Depo-Testosterone Cypionate-1 Cc-20 0 Mg Injection Administration Theraputic Administration Inj. Allergy- Single Administration Inj. Allergy- Single Administration Inj. Allergy- Single Inj Xolair Per 5mg Inj. Depo-Testosterone Cypionate-1 Cc-20 0 Mg Injection Administration Theraputic Administration Inj. Allergy- Single Inj Xolair Per 5mg Inj. Depo-Testosterone Cypionate-1 Cc-20 0 Mg Injection Administration Theraputic Pro Serv-immunotx; 1/mx Antig 3 Administration Inj. Allergy- Single Inj. Depo-Testosterone Cypionate-1 Cc-20 0 Mg Injection Administration Theraputic Inj Xolair Per 5mg Administration Inj. Allergy- Single Inj Xolair Per 5mg Inj. Depo-Testosterone Cypionate-1 Cc-20 0 Mg Injection Administration Theraputic Administration Inj. Allergy- Single Inj. Depo-Testosterone Cypionate-1 Cc-20 0 Mg Injection Administration Theraputic Inj Xolair Per 5mg Administration Inj. Allergy- Single Inj Xolair Per 5mg Inj. Depo-Testosterone Cypionate-1 Cc-20 0 Mg Injection Administration Theraputic Administration Inj. Allergy- Single Inj. Depo-Testosterone Cypionate-1 Cc-20 0 Mg Injection Administration Theraputic Inj Xolair Per 5mg Inj Xolair Per 5mg Inj. Depo-Testosterone Cypionate-1 Cc-20 0 Mg Injection Administration Theraputic Administration Inj. Allergy- Single Inj Xolair Per 5mg Injection Administration Theraputic Administration Inj. Allergy- Single Inj Xolair Per 5mg Injection Administration Theraputic Administration Inj. Allergy- Single Administration Inj. Allergy- Single Inj. Depo-Testosterone Cypionate-1 Cc-20 0 Mg Injection Administration Theraputic Administration Inj. Allergy- Single Administration Inj. Allergy- Single Inj. Depo-Testosterone Cypionate-1 Cc-20 0 Mg Inj Xolair Per 5mg Injection Administration Theraputic No Service Administration Inj. Allergy- Single Inj. Depo-Testosterone Cypionate-1 Cc-20 0 Mg Injection Administration Theraputic Inj Xolair Per 5mg Administration Inj. Allergy- Single Inj. Depo-Testosterone Cypionate-1 Cc-20 0 Mg Injection Administration Theraputic Inj Xolair Per 5mg Injection Administration Theraputic Pro Serv-immunotx; 1/mx Antig 2 Administration Inj. Allergy- Single Administration Inj. Allergy- Single Inj. Depo-Testosterone Cypionate-1 Cc-20 0 Mg Injection Administration Theraputic Inj Xolair Per 5mg Injection Administration Theraputic Administration Inj. Allergy- Single Adminstration Inj. Allergy- Multidose Au Inj. Depo-Testosterone Cypionate-1 Cc-20 0 Mg Injection Administration Theraputic Inj Xolair Per 5mg Injection Administration Theraputic Administration Inj. Allergy- Single Office Visit Established Moderate Administration Inj. Allergy- Single Inj. Depo-Testosterone Cypionate-1 Cc-20 0 Mg Injection Administration Theraputic Inj Xolair Per 5mg Injection Administration Theraputic Administration Inj. Allergy- Single Administration Inj. Allergy- Single Administration Inj. Allergy- Single Inj Xolair Per 5mg Injection Administration Theraputic Inj. Depo-Testosterone Cypionate-1 Cc-20 0 Mg Injection Administration Theraputic Administration Inj. Allergy- Single Administration Inj. Allergy- Single Inj Xolair Per 5mg Inj. Depo-Testosterone Cypionate-1 Cc-20 0 Mg Injection Administration Theraputic Inj. Depo-Testosterone Cypionate-1 Cc-20 0 Mg Injection Administration Theraputic Inj Xolair Per 5mg Administration Inj. Allergy- Single Administration Inj. Allergy- Single Pro Serv-immunotx; 1/mx Antig 2 Inj. Depo-Testosterone Cypionate-1 Cc-20 0 Mg Inj Xolair Per 5mg Injection Administration Theraputic Noninvasive Ear Or Pulse Oximetry - Oxyg en Sat Single Routine Venipunct/finger/heel 2 Lipid Panel Complete Blood Count; Hgb/pltlt Automate d Hepatic Function Panel Prostate Spec Antig; Tot Thyroxine; Free Thyroid Stim Hormone Administration Inj. Allergy- Single Office Visit Established Moderate Inj Xolair Per 5mg Inj. Depo-Testosterone Cypionate-1 Cc-20 0 Mg Injection Administration Theraputic Administration Inj. Allergy- Single Administration Inj. Allergy- Single Inj. Depo-Testosterone Cypionate-1 Cc-20 0 Mg Injection Administration Theraputic Inj Xolair Per 5mg Administration Inj. Allergy- Single Administration Inj. Allergy- Single Inj. Depo-Testosterone Cypionate-1 Cc-20 0 Mg Inj Xolair Per 5mg Injection Administration Theraputic Administration Inj. Allergy- Single Inj. Depo-Testosterone Cypionate-1 Cc-20 0 Mg Injection Administration Theraputic Inj Xolair Per 5mg Administration Inj. Allergy- Single Inj. Depo-Testosterone Cypionate-1 Cc-20 0 Mg Inj Xolair Per 5mg Injection Administration Theraputic Administration Inj. Allergy- Single Inj. Depo-Testosterone Cypionate-1 Cc-20 0 Mg Injection Administration Theraputic Inj Xolair Per 5mg Administration Inj. Allergy- Single Inj. Depo-Testosterone Cypionate-1 Cc-20 0 Mg Injection Administration Theraputic Inj Xolair Per 5mg Administration Inj. Allergy- Single Inj. Depo-Testosterone Cypionate-1 Cc-20 0 Mg Injection Administration Theraputic Inj Xolair Per 5mg Injection Administration Theraputic Pro Serv-immunotx; 1/mx Antig 2 Administration Inj. Allergy- Single Administration Inj. Allergy- Single Administration Inj. Allergy- Single Inj Xolair Per 5mg Inj. Depo-Testosterone Cypionate-1 Cc-20 0 Mg Injection Administration Theraputic Administration Inj. Allergy- Single Inj Xolair Per 5mg Injection Administration Theraputic Inj. Depo-Testosterone Cypionate-1 Cc-20 0 Mg Injection Administration Theraputic Administration Inj. Allergy- Single Administration Inj. Allergy- Single Administration Inj. Allergy- Single Inj. Depo-Testosterone Cypionate-1 Cc-20 0 Mg Inj Xolair Per 5mg Injection Administration Theraputic Administration Inj. Allergy- Single Administration Inj. Allergy- Single Office Visit Established - Moderate Destruction Of Lesion Inj. Depo-Testosterone Cypionate-1 Cc-20 0 Mg Injection Administration Theraputic Inj Xolair Per 5mg Administration Inj. Allergy- Single Administration Inj. Allergy- Single Inj. Depo-Testosterone Cypionate-1 Cc-20 0 Mg Injection Administration Theraputic Inj Xolair Per 5mg Administration Inj. Allergy- Single Pro Serv-immunotx; 1/mx Antig 1 Administration Inj. Allergy- Single Inj. Depo-Testosterone Cypionate-1 Cc-20 0 Mg Injection Administration Theraputic Administration Inj. Allergy- Single Inj Xolair Per 5mg Injection Administration Theraputic Injection Administration Theraputic Inj Xolair Per 5mg Inj. Depo-Testosterone Cypionate-1 Cc-20 0 Mg Injection Administration Theraputic Administration Inj. Allergy- Single Administration Inj. Allergy- Single Administration Inj. Allergy- Single Inj. Depo-Testosterone Cypionate-1 Cc-20 0 Mg Administration Inj. Allergy- Single Injection Administration Theraputic Administration Inj. Allergy- Single Routine Venipunct/finger/heel 1 Agt-dna/rna; Neisser Gonorrhea 11 Agt-dna/rna; Chlamydia Trach-a 11 Antib; Hiv-1 & Hiv-2 Sngl Assa 11 Syphilis Test; Qual Acute Hepatitis Panel Inj Rocephin 250 Mg Injection Administration Theraputic Office Visit New - Moderate Inj Rocephin 250 Mg Routine Venipunct/finger/heel 1 Agt-dna/rna; Chlamydia Trach-a 11 Antib; Hiv-1 & Hiv-2 Sngl Assa 11 Acute Hepatitis Panel Syphilis Test; Qual Inj. Depo-Testosterone Cypionate-1 Cc-20 0 Mg Administration Inj. Allergy- Single Injection Administration Theraputic Administration Inj. Allergy- Single Administration Inj. Allergy- Single Inj. Depo-Testosterone Cypionate-1 Cc-20 0 Mg Injection Administration Theraputic Administration Inj. Allergy- Single Administration Inj. Allergy- Single Administration Inj. Allergy- Single Routine Venipunct/finger/heel 1 Gg; Ige Office Visit Established - Moderate Administration Inj. Allergy- Single Inj. Depo-Testosterone Cypionate-1 Cc-20 0 Mg Administration Inj. Allergy- Single Injection Administration Theraputic Pro Serv-immunotx; 1/mx Antig 1 Administration Inj. Allergy- Single Inj. Depo-Testosterone Cypionate-1 Cc-20 0 Mg Administration Inj. Allergy- Single Injection Administration Theraputic Administration Inj. Allergy- Single Administration Inj. Allergy- Single Inj. Depo-Testosterone Cypionate-1 Cc-20 0 Mg Administration Inj. Allergy- Single Injection Administration Theraputic Administration Inj. Allergy- Single Administration Inj. Allergy- Single Routine Venipunct/finger/heel 1 Complete Blood Count; Hgb/pltlt Automate d Hepatic Function Panel Sex Hormone Binding Glob Testosterone; Tot Administration Inj. Allergy- Single Inj. Depo-Testosterone Cypionate-1 Cc-20 0 Mg Injection Administration Theraputic Administration Inj. Allergy- Single Inj. Depo-Testosterone Cypionate-1 Cc-20 0 Mg Injection Administration Theraputic Administration Inj. Allergy- Single Office Visit Established - Moderate Pro Serv-immunotx; 1/mx Antig 1 Administration Inj. Allergy- Single Administration Inj. Allergy- Single Administration Inj. Allergy- Single Inj. Depo-Testosterone Cypionate-1 Cc-20 0 Mg Injection Administration Theraputic Administration Inj. Allergy- Single Office Visit Established - Moderate Adacel 7IM Adminstration Inj. Immunization 1 Administration Inj. Allergy- Single Administration Inj. Allergy- Single Inj. Depo-Testosterone Cypionate-1 Cc-20 0 Mg Injection Administration Theraputic Administration Inj. Allergy- Single Inj. Depo-Testosterone Cypionate-1 Cc-20 0 Mg Administration Inj. Allergy- Single Administration Inj. Allergy- Single Inj. Depo-Testosterone Cypionate-1 Cc-20 0 Mg Injection Administration Theraputic Administration Inj. Allergy- Single Urinalysis Dipstick/tablet; W/micro Office Visit Established Low After Hours Service Urinalysis Dipstick/tablet; W/micro Administration Inj. Allergy- Single Inj. Depo-Testosterone Cypionate-1 Cc-20 0 Mg Administration Inj. Allergy- Single Inj. Depo-Testosterone Cypionate-1 Cc-20 0 Mg Administration Inj. Allergy- Single Administration Inj. Allergy- Single Inj. Depo-Testosterone Cypionate-1 Cc-20 0 Mg Injection Administration Theraputic Administration Inj. Allergy- Single Pro Serv-immunotx; 1/mx Antig Administration Inj. Allergy- Single Administration Inj. Allergy- Single Inj. Depo-Testosterone Cypionate-1 Cc-20 0 Mg Injection Administration Theraputic Administration Inj. Allergy- Single Administration Inj. Allergy- Single Inj. Depo-Testosterone Cypionate-1 Cc-20 0 Mg Administration Inj. Allergy- Single Inj. Depo-Testosterone Cypionate-1 Cc-20 0 Mg Administration Inj. Allergy- Single Injection Administration Theraputic No Service Inj. Depo-Testosterone Cypionate-1 Cc-20 0 Mg Injection Administration Theraputic Administration Inj. Allergy- Single Administration Inj. Allergy- Single Pro Serv-immunotx; 1/mx Antig 1 Inj. Depo-Testosterone Cypionate-1 Cc-20 0 Mg Injection Administration Theraputic Administration Inj. Allergy- Single Administration Inj. Allergy- Single Administration Inj. Allergy- Single Administration Inj. Allergy- Single Inj. Depo-Testosterone Cypionate-1 Cc-20 0 Mg Inj. Depo-Testosterone Cypionate Up To 1 00 MG Injection Administration Theraputic Lipoprotein Direct Measur; Ldl 11 Routine Venipunct/finger/heel 1 Lipid Panel Prostate Spec Antig; Tot Office Visit Established Low Routine Venipunct/finger/heel 1 Lipid Panel Prostate Spec Antig; Tot Administration Inj. Allergy- Single Administration Inj. Allergy- Single Inj. Depo-Testosterone Cypionate-1 Cc-20 0 Mg Administration Inj. Allergy- Single Administration Inj. Allergy- Single Administration Inj. Allergy- Single Injection Administration Theraputic Inj. Depo-Testosterone Cypionate-1 Cc-20 0 Mg Administration Inj. Allergy- Single Administration Inj. Allergy- Single Administration Inj. Allergy- Single Inj. Depo-Testosterone Cypionate-1 Cc-20 0 Mg Inj. Depo-Testosterone Cypionate-1 Cc-20 0 Mg Administration Inj. Allergy- Single Injection Administration Theraputic Administration Inj. Allergy- Single Inj. Depo-Testosterone Cypionate-1 Cc-20 0 Mg Administration Inj. Allergy- Single Pro Serv-immunotx; 1/mx Antig 0 Administration Inj. Allergy- Single Administration Inj. Allergy- Single Inj. Depo-Testosterone Cypionate-1 Cc-20 0 Mg Injection Administration Theraputic Administration Inj. Allergy- Single Inj. Depo-Testosterone Cypionate-1 Cc-20 0 Mg Administration Inj. Allergy- Single Injection Administration Theraputic Administration Inj. Allergy- Single Administration Inj. Allergy- Single Administration Inj. Allergy- Single Administration Inj. Allergy- Single Inj. Depo-Testosterone Cypionate-1 Cc-20 0 Mg Administration Inj. Allergy- Single Routine Venipunct/finger/heel [address]; Hg/pltlt Ct Auto/compl 10 Hepatic Function Panel Inj. Depo-Testosterone Cypionate-1 Cc-20 0 Mg Administration Inj. Allergy- Single Routine Venipunct/finger/heel 0 Hepatic Function Panel Complete Blood Count; Hgb/pltlt Automate d Inj. Depo-Testosterone Cypionate-1 Cc-20 0 Mg Injection Administration Theraputic Administration Inj. Allergy- Single Administration Inj. Allergy- Single Administration Inj. Allergy- Single Administration Inj. Allergy- Single Administration Inj. Allergy- Single Administration Inj. Allergy- Single Inj. Depo-Testosterone Cypionate-1 Cc-20 0 Mg Administration Inj. Allergy- Single Administration Inj. Allergy- Single Administration Inj. Allergy- Single Pro Serv-immunotx; 1/mx Antig 0 Inj. Depo-Testosterone Cypionate-1 Cc-20 0 Mg Perq W/allerg Extract-spec # T 10 Injection Administration Theraputic Inj. Depo-Testosterone Cypionate-1 Cc-20 0 Mg Inj. Depo-Testosterone Cypionate-1 Cc-20 0 Mg Injection Administration Theraputic Inj. Depo-Testosterone Cypionate-1 Cc-20 0 Mg Injection Administration Theraputic Inj. Depo-Testosterone Cypionate-1 Cc-20 0 Mg Injection Administration Theraputic Inj. Depo-Testosterone Cypionate-1 Cc-20 0 Mg Injection Administration Theraputic Inj. Depo-Testosterone Cypionate-1 Cc-20 0 Mg Injection Administration Theraputic Injection Administration Theraputic Inj. Depo-Testosterone Cypionate-1 Cc-20 0 Mg Inj. Depo-Testosterone Cypionate-1 Cc-20 0 Mg Inj. Depo-Testosterone Cypionate-1 Cc-20 0 Mg Injection Administration Theraputic Inj. Depo-Testosterone Cypionate-1 Cc-20 0 Mg Inj. Depo-Testosterone Cypionate-1 Cc-20 0 Mg Injection Administration Theraputic Inj. Depo-Testosterone Cypionate-1 Cc-20 0 Mg Inj. Depo-Testosterone Cypionate-1 Cc-20 0 Mg Injection Administration Theraputic Inj. Depo-Testosterone Cypionate-1 Cc-20 0 Mg Inj. Depo-Testosterone Cypionate-1 Cc-20 0 Mg Injection Administration Theraputic Inj. Depo-Testosterone Cypionate-1 Cc-20 0 Mg Injection Administration Theraputic Inj. Depo-Testosterone Cypionate-1 Cc-20 0 Mg Inj. Depo-Testosterone Cypionate-1 Cc-20 0 Mg Injection Administration Theraputic Injection Administration Theraputic Inj. Depo-Testosterone Cypionate-1 Cc-20 0 Mg Inj. Depo-Testosterone Cypionate-1 Cc-20 0 Mg Inj. Depo-Testosterone Cypionate-1 Cc-20 0 Mg Inj. Depo-Testosterone Cypionate-1 Cc-20 0 Mg Injection Administration Theraputic Routine Venipunct/finger/heel 0 Testosterone; Free Routine Venipunct/finger/heel 0 Testosterone; Free Lipid Panel Hepatic Function Panel Testosterone; Tot As per patient privacy policy some of the clinical information may not be visible. Advance Directives Directive Yes / No Effective Date File Name No Information Encounters Encounter Description Practice Location Reason(s) For Visit Diagnoses Date Provider Providers Copied on Encounter [facility], [address] [place] [address], [facility], tel:[phone] [facility] No Information 3 Norm Glenn. [address], [facility], . tel:[phone] [facility], [address] [place] [address], [facility], tel:[phone] [facility] No Information 3 Norm Glenn. [address], [facility], . [phone] [facility] [address] [place] [address], [facility], tel:[phone] [facility] History of partial amputation of toe of right footHistory of partial amputation of toe of left foot 3 Isabella Wang. [address], [id number], [place]. [phone] Referring Provider: Felipe Hutchison, [address], [address]. tel:[phone] [facility], [address] [place] [address], [facility], tel:[phone] [facility] No Information 3 Norm Glenn. [address], [facility], [place]. tel:[phone] [facility], [address] [place] [address], [facility], tel:[phone] [facility] No Information 2 Norm Glenn. [address], [facility], . [phone] [facility], [address] [place] [address], [facility], tel:[phone] [facility] No Information 2 Norm Elizabeth. [address] [place], [address], [place]. tel:[phone] [facility], [address] [place] [address], [address], tel:[phone] [facility] Encounter for screening for malignant neoplasm of colonBenign neoplasm of ascending colonDvrtclos of lg int w/o perforation or abscess w/o bleeding 2 Demond Samuesl. [address], [place], [place], [id number], [place]. tel:[phone] Referring Provider: Arvind Lagos, [address], [place], [address]. tel:[phone] [address], [place], [facility], [place] tel:[phone] [facility] Benign neoplasm of ascending colon 2 Ding Hu. [address], [place], [place], [id number]. tel:[phone] Referring Provider: Arvind aLgos, [address], [place], [address]. tel:[phone] [facility], [address] [place] [address], [facility], [place] tel:[phone] [facility] Allergic rhinitis due to pollen 2 Norm Elizabeth. [address], [facility], [place]. tel:[phone] Referring Provider: Glenn Valle, [address] [place] [address], [address]. tel:[phone] [facility], [address] [place] [address], [address], [place] tel:[phone] [facility] No Information 2 Demond Samuels. [address], [place], [place], [id number], [place]. tel:[phone] [facility], [address] [place] [address], [facility], [place] tel:[phone] [facility] Abnormal gaitHistory of partial amputation of toe of left footHistory of partial amputation of toe of right foot 2 Naomijennifer Felipe. [address], [id number], [place]. tel:[phone] Referring Provider: Felipe Hutchison, [address], [address]. tel:[phone] [facility], [address] [place] [address], [facility], tel:[phone] [facility] Allergic rhinitis due to pollen 2 Norm Elizabeth. [address], [facility], . tel:[phone] Referring Provider: Glenn Valle, [address], [address]. tel:[phone] [facility], [address], [facility], tel:[phone] [facility] No Information 2 Norm Elizabeth. [address], [facility], . tel:[phone] [facility], [address], [facility], tel:[phone] [facility] Allergic rhinitis due to pollen 2 Norm Elizabeth. [address], [facility], . tel:[phone] Referring Provider: Glenn Valle, [address], [address]. tel:[phone] [facility], [address], [facility], tel:[phone] [facility] History of partial amputation of toe of right footHistory of partial amputation of toe of left footPain aggravated by activities of daily livingAbnorma l gait 2 Isabella Wang. [address], [id number], . tel:[phone] Referring Provider: Felipe Hutchison, [address], [address]. tel:[phone] Office Or Out Patient E&M Est [facility], [place], [address] [place] [address], [facility], tel:[phone] [facility] *Moving- has questions about moving records and allergy (chief complaint) Seasonal allergic rhinitis due to pollenProstat e cancer screeningLow testosteroneO SA (obstructive sleep apnea)Essenti al hypertensionB johanna mass index (BMI) 33.0-33.9, adultAllergic rhinitis due to pollenEncount er for screening for other disorder 2 Norm Elizabeth. [address], [facility], . tel:[phone] Referring Provider: Glenn Valle, [address], [facility]. tel:[phone] Office Or Out Patient E&M Est [facility], [place], [address] [place] [address], [facility], [place] tel:[phone] [facility] left shoulder (chief complaint) Pain, joint, shoulder, left 2 Bill Plummer. [address], [place], [place], [id number], [place]. tel:[phone] Referring Provider: Elian Leyva, [address], [place], [address]. tel:[phone] [facility], [address] [place] [address], [facility], [place] tel:[phone] [facility] Allergic rhinitis due to pollen 2 Norm Elizabeth. [address], [facility], [place]. tel:[phone] Referring Provider: Glenn Valle, [address], [address]. tel:[phone] [facility], [address] [place] [address], [facility], tel:[phone] [facility] *Suture Removal (chief complaint) Postoperative examinationBo dy mass index (BMI) 33.0-33.9, adult Bill-0 2 Jill Dent. [address], [id number], [place]. [phone] Referring Provider: Felipe Hutchison, [address], [address]. tel:[phone] [facility], [address] [place] [address], [address], [place] tel: [phone] [facility] Allergic rhinitis due to pollen 1 Norm Elizabeth. [facility] [address], [address], [place]. tel:[phone] Referring Provider: Glenn Valle, [address], [address]. tel:[phone] [facility], [address] [place] [address], [address], [place] tel: [phone] [facility] Allergic rhinitis due to pollen 1 Norm Elizabeth. [address], [address], [place]. [phone] Referring Provider: Glenn Valle, [address], [address]. [phone] [facility], [address] [place] [address], [address], [place] tel: [phone] [facility] Exostosis of left footHistory of partial amputation of toe of left foot 1 Isabella Wang. [address], [id number], [place]. [phone] Referring Provider: Felipe Hutchison, [address], [address]. tel:[phone] [facility], [address] [place] [address], [address], [place] tel: [phone] [facility] Other specified disorders of bone, ankle and footAcquired absence of other left toe(s) Jan- 1 Isabella Wang. [address], [id number], [place]. tel:[phone] Referring Provider: Felipe Hutchison, [address] [place] [address], [address]. tel:[phone] Office Or Out Patient E&M Est Moderate [address], [address], [place] tel:[phone] [facility] Pre op Lt foot (chief complaint) Exostosis of left footEncounter for screening for other disorder 1 Isabella Wang. [address], [id number], [place]. tel:[phone] Referring Provider: Felipe Hutchison, [facility] [address], [address]. tel:[phone] [facility], [address], [address], [place] tel:[phone] [facility] Allergic rhinitis due to pollen 1 Norm Ho [address] [place] [address], [address], [place]. tel:[phone] Referring Provider: Glenn Valle, [address] [place] [address], [address]. tel:[phone], [address], [place] tel:[phone] [facility] Allergic rhinitis due to pollen 1 Norm Ho [facility] [address], [address], [place]. tel:[phone] Referring Provider: Glenn Valle, [facility] [address], [address]. tel:[phone] [facility], [address] [place] [address], [address], [place] tel:[phone] [facility] Allergic rhinitis due to pollen 1 Norm Ho [facility] [place] [address], [facility], . tel:[phone] Referring Provider: Glenn Valle, [facility] [address], [address]. tel:[phone] Office Or Out Patient E&M [address], [facility], tel:[phone] [facility] History of partial amputation of toe of left footExostosis of left foot 1 Isabella Wang. [facility] [address], [id number], [place]. tel:[phone] Referring Provider: Felipe Hutchison, [address] [place] [address], [address]. tel:[phone], [facility], [phone] [facility] Allergic rhinitis due to pollen 1 Norm Elizabeth. [address] [place] [address], [facility], . tel:[phone] Referring Provider: Glenn Valle, [facility] [address], [address]. tel:[phone], [place] [facility] tel:[phone] [facility] Allergic rhinitis due to pollen Sep-2 0- 1 Norm Elizabeth. [address], [facility], [place]. tel:[phone] Referring Provider: Glenn Valle, [facility] [address], [address]. tel:[phone], [facility], tel:[phone] [facility] Allergic rhinitis due to pollen Sep-0 - 1 Norm Ho [facility] [address], [facility], [place]. tel:[phone] Referring Provider: Glenn Valle, [facility] [address], [facility]. tel:[phone] [facility], [address] [place] [address], [address], [place] tel:[phone] [facility] Allergic rhinitis due to pollen 1 Norm Ho [address], [address], . [phone] Referring Provider: Glenn Valle, [address], [address]. tel:[phone] [facility], [address] [place] [address], [address], [place] tel:[phone] [facility] Allergic rhinitis due to pollen 1 Norm Ho [facility] [address], [address], [place]. [phone] Referring Provider: Glenn Valle, [address], [address]. tel:[phone] [place], [place] [address]er [facility], [address] [place] [address], [address], [place] tel:[phone] [facility] Allergic rhinitis due to pollen 1 Norm Ho [facility] [address], [address], [place]. [phone] Referring Provider: Glenn Valle, [address], [address]. tel:[phone] [facility], [address] [place] [address], [address], [place] tel:[phone] [facility] Allergic rhinitis due to pollen 1 Norm Ho [address], [address], [place]. tel:[phone] Referring Provider: Glenn Valle, [address], [address]. tel:[phone] [facility], [address] [place] [address], [address], [place] tel:[phone] [facility] Allergic rhinitis due to pollen 1 Norm Ho [facility] [address], [facility], . tel:[phone] Referring Provider: Glenn Valle, [address], [address]. tel:[phone] Office Or Out Patient E&M Est Moderate [facility], [address], [facility], tel:[phone] [facility] *Leg Pain (chief complaint) Left leg painSeasonal allergic rhinitis due to pollenBody mass index (BMI) 35.0-35.9, adultEncounte r for screening for other disorder 1 Norm Elizabeth. [address], [facility], . tel:[phone] Referring Provider: Glenn Valle, [address], [facility]. tel:[phone], [facility], tel:[phone] [facility] Pt's custom inserts came in, pt billed for 2 pair (chief complaint) History of partial amputation of toe of right footHistory of partial amputation of toe of left foot 1 Isabella Wang. [address], [id number], [place]. tel:[phone] Referring Provider: Felipe Hutchison, [address], [address]. tel:[phone], [facility], tel:[phone] [facility] Allergic rhinitis due to pollen 1 Norm Elizabeth. [address], [facility], [place]. tel:[phone] Referring Provider: Glenn Valle, [address], [facility]. tel:[phone] Office Or Out Patient E&M New Low-mod [facility], [address], [facility], [place] tel:[phone] [facility] Seborrheic dermatitisNeo plasm of uncertain behavior of skin 1 Mary Iniguez. [address], [id number], [place]. tel:[phone] Referring Provider: Dre Delgadillo, [address], [address]. [phone] [facility], [address] [place] [address], [address], [place] tel:[phone] [facility] Allergic rhinitis due to pollen 1 Norm Ho [facility] [address], [facility], . tel:[phone] Referring Provider: Glenn Valle, [address], [address]. tel:[phone] [facility], [address] [place] [address], [address], [place] tel:[phone] [facility] Allergic rhinitis due to pollen 1 Norm Ho [address], [address], . tel:[phone] Referring Provider: Glenn Valle, [address], [address]. tel:[phone] [facility], [address] [place] [address], [address], tel:[phone] [facility] Allergic rhinitis due to pollen Jan- 0 Norm Ho [address], [address], [place]. tel:[phone] Referring Provider: Glenn Valle, [address], [address]. tel:[phone] [facility], [address] [place] [address], [address], tel:[phone] [facility] Allergic rhinitis due to pollen Jan- 0 Norm Ho [address], [facility], [place]. tel:[phone] Referring Provider: Glenn Valle, [address], [address]. tel:[phone] [facility], [address], [address], [place] tel:[phone] [facility] Allergic rhinitis due to pollen Nov-1 3-202 0 Norm Ho [facility] [address], [facility], [place]. tel:[phone] Referring Provider: Glenn Valle, [address], [address]. tel:[phone] [place] [address], [address], [facility], tel:[phone] [facility] Allergic rhinitis due to pollen Nov-0 0 Norm Ho [address] [place] [address], [facility], . tel:[phone] Referring Provider: Glenn Valle, [facility] [address], [address]. tel:[phone] [place] [address], [address], [facility], tel:[phone] [facility] Allergic rhinitis due to pollen Nov-0 - 0 Norm Ho [address], [facility], [place]. tel:[phone] Referring Provider: Glenn Valle, [address], [address]. tel:[phone] [place] [address], [address], [address], [place] tel:[phone] [facility] Allergic rhinitis due to pollen Sep-1 - 0 Norm Ho [facility] [address], [facility], [place]. tel:[phone] Referring Provider: Glenn Valle, [address], [address]. tel:[phone] Office Or Out Patient E&M Est Moderate [address], [facility], [place] tel:[phone] [facility] *Cyst (chief complaint) Essential hypertensionP rostate cancer screeningLoca lized infection of skinAllergic rhinitis due to pollenBody mass index (BMI) 34.0-34.9, adultEncounte r for screening for other disorder 0 Norm Elizabeth. [address], [facility], [place]. tel:[phone] Referring Provider: Glenn Valle, [address], [facility]. tel:[phone] [facility], [address] [place] [address], [facility], tel:[phone] [facility] *Allergy Shot (62452) (chief complaint) Allergic rhinitis due to pollen Jul- 0 Norm Elizabeth. [address], [facility], [place]. tel:[phone] Referring Provider: Glenn Valle, [address], [facility]. tel:[phone] [facility], [address] [place] [address], [address], [place] tel:[phone] [facility] Pt called stating he wanted another pair of custom inse (chief complaint) History of partial amputation of toe of right footHistory of partial amputation of toe of left foot 0 Isabella Wang. [address], [id number], [place]. tel:[phone] Referring Provider: Felipe Hutchison, [address], [address]. tel:[phone] [facility], [address] [place] [address], [address], [place] tel:[phone] [facility] Allergic rhinitis due to pollen 0 Norm Elizabeth. [address], [address], [place]. tel:[phone] Referring Provider: Glenn Valle, [address], [address]. tel:[phone] Office Visit Established Moderate [facility], [address] [place] [address], [address], [place] tel:[phone] [facility] *Med Review (chief complaint) Viral warts, unspecified typeChronic bilateral low back pain, unspecified whether sciatica presentOther chronic painBody mass index (BMI) 32.0-32.9, [facility] for screening for other disorder 0 Norm Ho [address] [place] [address], [facility], [place]. tel:[phone] Referring Provider: Glenn Valle, [address] [place] [address], [address]. tel:[phone] [facility], [address] [place] [address], [facility], [phone] [facility] Allergic rhinitis due to pollen 0 Norm Ho [address] [place] [address], [facility], [place]. tel:[phone] Referring Provider: Glenn Valle, [facility] [address], [address]. tel:[phone] [facility], [address] [place] [address], [facility], [place] tel:[phone] [facility] Allergic rhinitis due to pollen Apr-2 0 Norm Ho [address] [place] [address], [facility], [place]. tel:[phone] Referring Provider: Glenn Valle, [facility] [address], [address]. tel:[phone] [facility], [address] [place] [address], [address], [place] tel:[phone] [facility] Allergic rhinitis due to pollen Apr-3 0 Norm Ho [facility] [address], [address], [place]. tel:[phone] Referring Provider: Glenn Valle, [facility] [address], [address]. tel:[phone] [facility] [address], [address], tel:[phone] [facility] Allergic rhinitis due to pollen 0 Norm Elizabeth. [address], [facility], . tel:[phone] Referring Provider: Glenn Valle, [address], [address]. tel:[phone], [address], tel:[phone] [facility] Allergic rhinitis due to pollen 0 Norm Elizabeth. [address], [facility], . tel:[phone] Referring Provider: Glenn Valle, [address], [address]. tel:[phone] Office Visit [facility] - [address], [facility], tel:[phone] [facility] re check inserts, callus (chief complaint) History of partial amputation of toe of right foot 0 Isabella Wang. [address], [id number], [place]. tel:[phone] Referring Provider: Felipe Hutchison, [address], [address]. tel:[phone], [facility], tel:[phone] [facility] Stress Test (chief complaint) Precordial chest pain 0 Checketts Lyndon. [address], [id number], [place]. tel:[phone] Referring Provider: Glenn Valle, [address], [address]. tel:[phone], [address], tel:[phone] [facility] Allergic rhinitis due to pollen 0- 0 Norm Ho [facility] [address], [facility], . tel:[phone] Referring Provider: Glenn Valle, [facility] [address], [address]. tel:[phone] Office Visit Established - Moderate-hig h [facility], [address], [facility], tel:[phone] [facility] *ER F/U (chief complaint) Anterior chest wall painAnxietyEs sential hypertensionB johanna mass index (BMI) 33.0-33.9, adultEncounte r for screening for other disorder 6 0 Norm Ho [address] [place] [address], [facility], . tel:[phone] Referring Provider: Glenn Valle, [facility] [address], [address]. tel:[phone] [facility], [address], [facility], tel:[phone] [facility] Allergic rhinitis due to pollen Jan- 9 Norm Ho [address] [place] [address], [facility], . tel:[phone] Referring Provider: Glenn Valle, [address], [address]. tel:[phone] [facility], [address], [facility], tel:[phone] [facility] Allergic rhinitis due to pollen 9 Norm Ho [facility] [address], [facility], . tel:[phone] Referring Provider: Glenn Valle, [facility] [address], [address]. tel:[phone] [facility], [address] [place] [address], [facility], tel:[phone] [facility] Allergic rhinitis due to pollen 0 9 Norm Ho [address], [address], [place]. tel:[phone] Referring Provider: Glenn Valle, [address], [address]. tel:[phone] [facility], [address] [place] [address], [address], [place] tel:[phone] [facility] Allergic rhinitis due to pollen Sep-2 6-201 9 Norm Elizabeth. [address], [address], [place]. tel:[phone] Referring Provider: Glenn Valle, [address], [address]. tel:[phone] [facility], [address], [address], [place] tel:[phone] [facility] Allergic rhinitis due to pollen Sep-2 0-201 9 Norm Elizabeth. [address], [facility], [place]. tel:[phone] Referring Provider: Glenn Valle, [address], [address]. tel:[phone] [facility], [address] [place] [address], [address], [place] tel:[phone] [facility] Allergic rhinitis due to pollen Sep-1 1-201 9 Norm Elizabeth. [address], [address], [place]. [phone] Referring Provider: Glenn Valle, [address], [address]. tel:[phone] [facility], [address] [place] [address], [address], [place] tel:[phone] [facility] Allergic rhinitis due to pollen Sep-0 6-201 9 Norm Elizabeth. [address], [address], [place]. tel:[phone] Referring Provider: Glenn Valle, [address], [address]. tel:[phone] [facility], [address] [place] [address], [address], [place] tel:[phone] [facility] Allergic rhinitis due to pollen 9 Norm Elizabeth. [facility] [address], [address], [place]. tel:[phone] Referring Provider: Glenn Valle, [address], [address]. tel:[phone] [facility], [address] [place] [address], [address], [place] tel:[phone] [facility] Allergic rhinitis due to pollen 9 Norm Elizabeth. [address], [address], [place]. tel:[phone] Referring Provider: Glenn Valle, [address], [address]. tel:[phone] [facility], [address], [address], tel:[phone] [facility] Allergic rhinitis due to pollen Norm Ho [address], [address], [place]. tel:[phone] Referring Provider: Glenn Valle, [address], [address]. [phone] [facility], [address], [address], [place] tel:[phone] [facility] custom inserts (chief complaint) History of partial amputation of toe of right footHistory of partial amputation of toe of left foot 9 Isabella Wang. [address], [id number], [place]. tel:[phone] Referring Provider: Felipe Hutchison, [address], [address]. tel:[phone] [facility], [address] [place] [address], [address], [place] tel:[phone] [facility] Allergic rhinitis due to pollen 9 Norm Ho [address], [address], [place]. tel:[phone] Referring Provider: Glenn Valle, [address], [address]. tel:[phone] Office Visit Established - [facility], [address], [address], [place] tel:[phone] [facility] History of partial amputation of toe of right footHistory of partial amputation of toe of left foot Hebert-0 9 Isabella Wang. [address], [id number], [place]. tel:[phone] Referring Provider: Felipe Hutchison, [address], [address]. tel:[phone], [address], [place] tel:[phone] [facility] Allergic rhinitis due to pollen June- 0 9 Norm Elizabeth. [address], [address], [place]. tel:[phone] Referring Provider: Glenn Valle, [address], [address]. tel:[phone], [address], [place] tel:[phone] [facility] Allergic rhinitis due to pollen May-2 9 Norm Elizabeth. [address], [address], [place]. tel:[phone] Referring Provider: Glenn Valle, [address], [address]. tel:[phone] [facility], [address], [address], tel:[phone] [facility] Allergic rhinitis due to pollen May- 2- 9 Norm Elizabeth. [address], [address], [place]. tel:[phone] Referring Provider: Glenn Valle, [address], [address]. tel:[phone] [facility], [address], [address], [place] tel:[phone] [facility] Allergic rhinitis due to pollen Apr-2 9 Norm Ho [address], [address], [place]. tel:[phone] Referring Provider: Glenn Valle, [address], [address]. tel:[phone] [facility], [address], [address], [place] tel:[phone] [facility] Malignant essential hypertensionO ther intermediate school teacher (current) drug therapy 9 Norm Ho [address], [facility], [place]. tel:[phone] Referring Provider: Glenn Valle, [address], [facility]. tel:[phone] Office Visit Established Moderate [facility], [address], [address], [place] tel:[phone] [facility] bp check and wart on hand (chief complaint) Hypertension, unspecified typeLong term use of drugViral warts, unspecified typeBody mass index (BMI) 34.0-34.9, adultEncounte r for screening for other disorder 0 9 Norm Ho [address], [facility], [place]. tel:[phone] Referring Provider: Glenn Valle, [address], [address]. tel:[phone] [facility], [address], [address], [place] tel:[phone] [facility] Allergic rhinitis due to pollen Apr-0 9 Norm Ho [address], [facility], [place]. tel:[phone] Referring Provider: Glenn Valle, [address], [address]. tel:[phone] [facility], [address] [place] [address], [address], [place] tel:[phone] [facility] Allergic rhinitis due to pollen 9 Norm Elizabeth. [facility] [address], [address], [place]. tel:[phone] Referring Provider: Glenn Valle, [address], [address]. tel:[phone] [facility], [address] [place] [address], [address], [place] tel:[phone] [facility] Allergic rhinitis due to pollen 9 Norm Elizabeth. [facility] [address], [address], [place]. tel:[phone] Referring Provider: Glenn Valle, [address], [address]. tel:[phone] [facility], [address] [place] [address], [facility], [place] tel:[phone] [facility] No Information 9 Norm Elizabeth. [address], [facility], [place]. tel:[phone] Referring Provider: Glenn Valle, [address], [address]. tel:[phone] [facility], [address] [place] [address], [address], [place] tel:[phone] [facility] Pain in right legAllergic rhinitis due to pollen 8 Norm Elizabeth. [address], [address], [place]. tel:[phone] Referring Provider: Glenn Valle, [address], [address]. tel:[phone] Office Visit Established Moderate [facility], [address] [place] [address], [address], [place] [phone] [facility] Rt leg pain and swelling (chief complaint) Right leg painAllergic rhinitis due to pollenBody mass index (BMI) 19 or less, adultAllergic rhinitis due to pollenEncount er for screening for other disorder 8 Norm Elizabeth. [address], [facility], [place]. tel:[phone] Referring Provider: Glenn Valle, [address], [address]. tel:[phone] [facility], [address], [facility], tel:[phone] [facility] Allergic rhinitis due to pollen Dec- 8 Norm Elizabeth. [address], [address], [place]. tel:[phone] Referring Provider: Glenn Valle, [address], [facility]. tel:[phone] Office Visit [facility], [address], [facility], tel:[phone] [facility] History of partial amputation of toe of right footHistory of partial amputation of toe of left foot Sep-1 8 Isabella Wang. [address], [id number], [place]. tel:[phone] Referring Provider: Felipe Hutchison, [address], [address]. tel:[phone] Office Consult New/establis hed Minimal [facility], [address], [address], [place] tel:[phone] [facility] History of partial amputation of toe of left footHistory of partial amputation of toe of right footPain aggravated by activities of daily living Sep-0 8 Isabella Wang. [address], [id number], [place]. tel:[phone] Referring Provider: Felipe Hutchison, [address], [address]. tel:[phone] [facility], [address], [address], [place] tel:[phone] [facility] Allergic rhinitis due to pollen Sep- 8 Norm Ho [facility] [address], [address], [place]. tel:[phone] Referring Provider: Glenn Valle, [address], [address]. [phone] [facility], [address], [address], [place] tel:[phone] [facility] Allergic rhinitis due to pollen Sep- 8 Norm oH [address], [address], [place]. tel:[phone] Referring Provider: Glenn Valle, [address], [address]. tel:[phone] [facility], [address], [address], [place] tel:[phone] [facility] Allergic rhinitis due to pollen Sep-0 8 Norm Ho [address], [address], [place]. tel:[phone] Referring Provider: Glenn Valle, [address], [address]. tel:[phone] Office Visit Established - Moderate-hig h [facility], [address], [address], [place] tel:[phone] [facility] [facility] *Lower back pain (chief complaint) Strain of lumbar region, initial encounterBody mass index (BMI) 34.0-34.9, adultEncounte r for screening for other disorder 8 Karthik Edgar. [address], [place], [place], [id number], [place]. tel:[phone] Referring Provider: Herve Meraz, [address], [place], [address]. tel:[phone] [facility], [address] [place] [address], [address], [place] tel:[phone] [facility] Allergic rhinitis due to pollen 8 Norm Elizabeth. [address], [address], [place]. tel:[phone] Referring Provider: Glenn Valle, [address], [address]. tel:[phone] Office Visit Established [facility], [place], [address] [place] [address], [address], [place] tel:[phone] [facility] 4 month left shoulder (chief complaint) Impingement syndrome of left shoulder 8 Bill Plummer. [address], [place], [place], [id number], [place]. tel:[phone] Referring Provider: Elian Leyva, [address], [place], [address]. tel:[phone] [facility], [address] [place] [address], [address], [place] tel:[phone] [facility] Seasonal allergic rhinitis due to pollen Norm Elizabeth. [address], [address], [place]. tel:[phone] Referring Provider: Glenn Valle, [address], [address]. tel:[phone] [facility], [address] [place] [address], [address], [place] tel:[phone] [facility] * LT Shoulder (chief complaint) Superior glenoid labrum lesion of left shoulder, subsequent encounter 8 Law Rodriguez. [address], [place], [place], [id number], [place]. tel:[phone] Referring Provider: Elian Leyva, [address], [place], [address]. tel:[phone] [facility], [address] [place] [address], [address], [place] tel:[phone] [facility] *Left shoulder (chief complaint) Superior glenoid labrum lesion of left shoulder, subsequent encounterInco mplete rotatr-cuff tear/ruptr of l shoulder, not trauma Apr- 8 Bill Plummer. [address], [place], [place], [id number], [place]. tel:[phone] Referring Provider: Elian Leyva, [address], [place], [address]. tel:[phone] [facility], [address] [place] [address], [address], [place] tel:[phone] [facility] Superior glenoid labrum lesion of left shoulder, subs encntr Apr- 8 Bill Plummer. [address], [place], [place], [id number], [place]. tel:[phone] Referring Provider: Elian Leyva, [address], [place], [address]. tel:[phone] [facility], [address], [address], [place] tel:[phone] [facility] *L shoulder (chief complaint) Superior glenoid labrum lesion of left shoulder, subsequent encounterBody mass index (BMI) 34.0-34.9, adult May- 8 Bill Plummer. [address], [place], [place], [id number], [place]. tel:[phone] Referring Provider: Elian Leyva, [address], [place], [address]. tel:[phone] Office Visit Established - Low [facility], [address] [place] [address], [address], [place] tel:[phone] [facility] *testosterone injections (chief complaint) Low testosteroneB johanna mass index (BMI) 34.0-34.9, adultEncounte r for screening for other disorder May- 8 Norm Elizabeth. [address], [address], [place]. tel:[phone] Referring Provider: Glenn Valle, [address], [address]. tel:[phone] [facility], [address], [facility], [place] tel:[phone] [facility] Seasonal allergic rhinitis due to pollenTesticu lar hypofunction Apr-0 9-201 8 Norm Ho [address], [facility], [place]. tel:[phone] Referring Provider: Glenn Valle, [address], [address]. [phone] [facility], [address] [place] [address], [facility], [place] tel:[phone] [facility] Testicular hypofunction Mar-2 2-201 8 Norm Ho [address] [place] [address], [facility], [place]. tel:[phone] Referring Provider: Glenn Valle, [address], [facility]. [phone] [facility], [address], [facility], tel:[phone] [facility] Seasonal allergic rhinitis due to pollen Mar-2 0-201 8 Norm Ho [address], [facility], [place]. tel:[phone] Referring Provider: Glenn Valle, [address], [facility]. tel:[phone] [facility], [address], [facility], [place] tel:[phone] [facility] 4 week left shoulder (chief complaint) Superior glenoid labrum lesion of left shoulder, subsequent encounter Mar-2 0-201 8 Law Rodriguez. [address], [place], [place], [id number], [place]. tel:[phone] Referring Provider: Elian Leyva, [address], [place], [address]. tel:[phone] [facility], [address] [place] [address], [address], [place] tel:[phone] [facility] Testicular hypofunctionA llergic rhinitis due to pollen Mar-1 6-201 8 Norm Ho [address], [address], [place]. tel:[phone] Referring Provider: Glenn Valle, [address], [address]. tel:[phone], [address], [place] tel:[phone] [facility] Testicular hypofunctionA llergic rhinitis due to pollen 8 Norm Elizabeth. [address], [address], [place]. tel:[phone] Referring Provider: Glenn Valle, [address], [address]. tel:[phone], [address], [place] tel:[phone] [facility] *post Op (chief complaint) Superior glenoid labrum lesion of left shoulder, subs encntrIncompl ete rotatr-cuff tear/ruptr of l shoulder, not trauma 8 Bill Plummer. [address], [place], [place], [id number], [place]. tel:[phone] Referring Provider: Elian Leyva, [address], [place], [address]. tel:[phone], [address], [place] tel:[phone] [facility] Testicular hypofunctionA llergic rhinitis due to pollen Mar- 8 Norm Elizabeth. [address], [address], [place]. tel:[phone] Referring Provider: Glenn Valle, [address], [address]. tel:[phone] [facility], [address], [address], [place] tel:[phone] [facility] Superior glenoid labrum lesion of left shoulder, subs encntrIncompl ete rotatr-cuff tear/ruptr of l shoulder, not traumaBicipit al tendinitis, left shoulderImpin gement syndrome of left shoulder 8 Bill Plummer. [address], [place], [place], [id number], [place]. tel:[phone] Referring Provider: Elian Leyva, [address], [place], [address]. tel:[phone] [facility], [address] [place] [address], [address], [place] tel:[phone] [facility] Testicular hypofunctionS easonal allergic rhinitis due to pollen 8 Norm Ho [address] [place] [address], [address], [place]. tel:[phone] Referring Provider: Glenn Valle, [address], [address]. tel:[phone] [facility], [address], [address], tel:[phone] [facility] Testicular hypofunctionA llergic rhinitis due to pollen 8 Norm Ho [address], [address], [place]. tel:[phone] Referring Provider: Glenn Valle, [address], [address]. tel:[phone] [facility], [address], [address], tel:[phone] [facility] Allergic rhinitis due to pollen 8 Norm Ho [address], [address], [place]. tel:[phone] Referring Provider: Glenn Valle, [address], [address]. tel:[phone] [facility], [address] [place] [address], [address], [place] tel:[phone] [facility] Testicular hypofunctionN on-seasonal allergic rhinitis due to pollen 8 Norm Ho [address], [address], . tel:[phone] Referring Provider: Glenn Zheng O, [address] [place], [address]. tel:[phone] Office Visit Established Moderate [facility], [address] [place] [address], [address], [phone] [facility] *L shoulder (chief complaint) Pain in left shoulderSuper ior glenoid labrum lesion of left shoulder, subsequent encounterArth ritis of left acromioclavic ular jointBody mass index (BMI) 36.0-36.9, adult 8 Law Rodriguez. [address], [place], [place], [id number], [place]. tel:[phone] Referring Provider: Elian Leyva, [address], [place], [address]. tel:[phone] [facility], [address], [facility], tel:[phone] [facility] Pain in left shoulder 8 Bill Plummer. [address], [place], [place], [id number], [place]. tel:[phone] Referring Provider: Elian Leyva, [address], [place], [address]. tel:[phone] Office Visit Established Moderate [facility], [address] [place] [address], [facility], [place] tel:[phone] [facility] left shoulder pain (chief complaint) Acute pain of left shoulder 8 Bill Plummer. [address], [place], [place], [id number], [place]. tel:[phone] Referring Provider: Elian Leyva, [address], [place], [address]. tel:[phone] [facility], [address] [place] [address], [address], [place] [phone] [facility] Non-seasonal allergic rhinitis due to pollenTesticu lar hypofunction 8 Norm Elizabeth. [address], [address], [place]. tel:[phone] Referring Provider: Glenn Valle, [address], [address]. tel:[phone] [facility], [address], [address], [place] tel:[phone] [facility] Testicular hypofunctionA llergic rhinitis due to pollen Norm Elizabeth. [address], [address], [place]. tel:[phone] Referring Provider: Glenn Valle, [address], [address]. tel:[phone] [facility], [address], [address], [place] tel:[phone] [facility] *Left Shoulder Injection (chief complaint) Acute pain of left shoulderEncou nter for screening for other disorder Norm Ho [address], [address], [place]. tel:[phone] Referring Provider: Glenn Valle, [address], [address]. tel:[phone] [facility], [address], [address], [place] tel:[phone] [facility] Secondary polycythemia Norm Ho [address], [address], [place]. tel:[phone] Referring Provider: Glenn Valle, [address], [address]. tel:[phone] Office Visit Established [facility], [place], [address], [address], [place] tel:[phone] [facility] *Medication Review (chief complaint) Testicular hypofunctionP rostate cancer screeningScre ening cholesterol levelAllergic rhinitis due to pollenLeft arm painLong term use of drugBody mass index (BMI) 35.0-35.9, adultEncounte r for screening for other disorder Norm Elizabeth. [address], [address], [place]. tel:[phone] Referring Provider: Glenn Valle, [address], [address]. tel:[phone] [facility], [address] [place] [address], [address], [place] tel:[phone] [facility] Testicular hypofunctionA llergic rhinitis due to pollen Dec- Norm Elizabeth. [address], [address], [place]. tel:[phone] Referring Provider: Glenn Valle, [address], [address]. tel:[phone] [facility], [address] [place] [address], [address], [place] tel:[phone] [facility] Testicular hypofunctionA llergic rhinitis due to pollen Norm Ho [address], [address], [place]. tel:[phone] Referring Provider: Glenn Valle, [address], [address]. tel:[phone] [facility], [address] [place] [address], [address], [place] tel:[phone] [facility] Testicular hypofunctionA llergic rhinitis due to pollen Norm Ho [address], [facility], [place]. tel:[phone] Referring Provider: Glenn Valle, [address], [address]. tel:[phone] [facility], [address] [place] [address], [address], [place] tel:[phone] [facility] Testicular hypofunctionA llergic rhinitis due to pollen Norm Ho [address], [facility], [place]. tel:[phone] Referring Provider: Glenn Valle, [address], [address]. [phone], [address], tel:[phone] [facility] Testicular hypofunctionC hronic seasonal allergic rhinitis due to pollenAllergi c rhinitis due to animal (cat) (dog) hair and dander Norm Elizabeth. [address], [facility], [place]. [phone] Referring Provider: Glenn Valle, [facility] [address], [address]. tel:[phone], [facility], [place] tel:[phone] [facility] Allergic rhinitis due to pollenTesticu lar hypofunction Norm Elizabeth. [address], [facility], [place]. [phone] Referring Provider: Glenn Valle, [address], [address]. [phone], [facility], tel:[phone] [facility] Testicular hypofunctionC hronic seasonal allergic rhinitis due to pollen Norm Elizabeth. [address], [facility], [place]. [phone] Referring Provider: Glenn Valle, [address], [address]. tel:[phone], [facility], tel:[phone] [facility] Testicular hypofunctionA llergic rhinitis due to pollen Norm Elizabeth. [address], [facility], [place]. [phone] Referring Provider: Glenn Valle, [address], [address]. tel:[phone] [facility], [address] [place] [address], [address], [place] tel: [phone] [facility] Allergic rhinitis due to pollen Hebert-2 7 Norm Elizabeth. [address], [facility], [place]. tel:[phone] Referring Provider: Glenn Valle, [address], [address]. tel:[phone] [facility], [address] [place] [address], [address], [place] tel: [phone] [facility] Testicular hypofunctionA llergic rhinitis due to pollen Hebert-0 7 Norm Elizabeth. [address], [facility], [place]. tel:[phone] Referring Provider: Glenn Valle, [address], [address]. tel:[phone] [facility], [address] [place] [address], [facility], [place] tel: [phone] [facility] Testicular hypofunctionA llergic rhinitis due to pollen June- 7 Norm Elizabeth. [address], [facility], [place]. tel:[phone] Referring Provider: Glenn Valle, [address], [address]. tel:[phone] [facility], [address] [place] [address], [facility], [place] tel: [phone] [facility] Testicular hypofunctionA llergic rhinitis due to pollen June-0 7 Norm Elizabeth. [address], [address], [place]. tel:[phone] Referring Provider: Glenn Valle, [address], [address]. tel:[phone] [facility], [address] [place] [address], [address], [place] tel: [phone] [facility] Low testosteroneA llergic rhinitis due to pollen, unspecified rhinitis seasonality 7 Norm Elizabeth. [facility] [address], [address], . tel:[phone] Referring Provider: Glenn Valle, [address], [address]. tel:[phone] [facility], [address], [address], tel:[phone] [facility] Testicular hypofunction 7 Norm Elizabeth. [facility] [address], [facility], [place]. tel:[phone] Referring Provider: Glenn Valle, [facility] [address], [address]. tel:[phone] [facility], [address], [facility], tel:[phone] [facility] Testicular hypofunctionA llergic rhinitis due to pollen 7 Norm Ho [address], [facility], [place]. tel:[phone] Referring Provider: Glenn Valle, [address], [address]. tel:[phone] [facility], [address], [facility], [place] tel:[phone] [facility] Testicular hypofunctionA llergic rhinitis due to pollen 7 Norm Elizabeth. [address], [facility], [place]. tel:[phone] Referring Provider: Glenn Valle, [facility] [address], [address]. tel:[phone] Office Visit Established [facility], [place], [address], [facility], tel:[phone] [facility] follow up right shoulder (chief complaint)ravi n with bilateral elbow (chief complaint) Chronic right shoulder painOther chronic painBiceps tendinitis of right upper extremity 7 Law Rodriguez. [address], [place], [place], [id number], . tel:[phone] Referring Provider: Elian Leyva, [address], [place], [address]. tel:[phone] [facility], [address] [place] [address], [facility], tel:[phone] [facility] Testicular hyperfunction Allergic rhinitis due to pollen Feb-2 6- 7 Norm Elizabeth. [address] [place] [address], [facility], [place]. tel:[phone] Referring Provider: Glenn Valle, [facility] [address], [address]. tel:[phone] [facility], [address] [place] [address], [facility], [phone] [facility] Testicular hypofunctionA llergic rhinitis due to pollen Feb-0 9 7 Norm Elizabeth. [address] [place] [address], [facility], . tel:[phone] Referring Provider: Glenn Valle, [address], [address]. tel:[phone] [facility], [address] [place] [address], [facility], tel:[phone] [facility] Allergic rhinitis due to pollen Dec-2 8-201 6 Norm Elizabeth. [facility] [address], [facility], . tel:[phone] Referring Provider: Glenn Valle, [address], [address]. tel:[phone] [facility], [address] [place] [address], [address], tel:[phone] [facility] Testicular hypofunctionA llergic rhinitis due to pollen Dec-2 2-201 6 Norm Elizabeth. [address], [facility], [place]. tel:[phone] Referring Provider: Glenn Valle, [address], [address]. tel:[phone] [facility], [address] [place] [address], [address], tel:[phone] [facility] Testicular hypofunctionA llergic rhinitis due to pollen Dec-0 9-201 6 Norm Elizabeth. [address], [facility], [place]. tel:[phone] Referring Provider: Glenn Valle, [address], [address]. [phone] [facility], [address] [place] [address], [facility], [place] tel:[phone] [facility] Testicular hypofunctionA llergic rhinitis due to pollen Dec-2 2- 6 Norm Elizabeth. [address], [facility], [place]. tel:[phone] Referring Provider: Glenn Valle, [address], [address]. tel:[phone] [facility], [address] [place] [address], [facility], [place] tel:[phone] [facility] Testicular hypofunctionA llergic rhinitis due to pollen Dec- 0-201 6 Norm Elizabeth. [address], [facility], [place]. tel:[phone] Referring Provider: Glenn Valle, [address], [address]. [phone] [facility], [address] [place] [address], [facility], [place] tel:[phone] [facility] Testicular hypofunctionA llergic rhinitis due to pollen Nov-2 4-201 6 Norm Elizabeth. [address], [facility], [place]. tel:[phone] Referring Provider: Glenn Valle, [address], [address]. tel:[phone] Prev Meds E&m Estab Pt; 40-64 Yrs [facility], [address] [place] [address], [facility], [place] tel:[phone] [facility] * Physical (chief complaint) Routine physical examinationOS A (obstructive sleep apnea)Moderat e persistent asthma without complicationL eft hip painTesticula r hypofunctionB johanna mass index (BMI) 35.0-35.9, adult 6 Norm Elizabeth. [address], [facility], . tel:[phone] Referring Provider: Glenn Valle, [address], [facility]. [phone] [facility], [address] [place] [address], [facility], [place] tel:[phone] [facility] Testicular hypofunctionA llergic rhinitis due to pollen 6 Norm Elizabeth. [address], [facility], [place]. tel:[phone] Referring Provider: Glenn Valle, [address], [facility]. tel:[phone] [facility], [address] [place] [address], [facility], [place] tel:[phone] [facility] Testicular hypofunctionA llergic rhinitis due to pollen 6 Norm Elizabeth. [address], [facility], [place]. tel:[phone] Referring Provider: Glenn Valle, [address], [address]. [phone] [facility], [address] [place] [address], [facility], [place] tel:[phone] [facility] Testicular hypofunctionA llergic rhinitis due to pollen 6 Norm Elizabeth. [address], [facility], [place]. tel:[phone] Referring Provider: Glenn Valle, [address], [address]. tel:[phone] [facility], [address] [place] [address], [facility], tel:[phone] [facility] Testicular hypofunctionA llergic rhinitis due to pollen 6 Norm Elizabeth. [address], [address], [place]. tel:[phone] Referring Provider: Glenn Valle, [address], [address]. tel:[phone] Office Visit New - Moderate [facility], [address] [place] [address], [address], tel:[phone] [facility] corns B/L foot (chief complaint) Amputation foot, bilat ^Complete traumatic amputation of left foot, level unsp, initCallus of footBody mass index (BMI) 33.0-33.9, adult 6 Jill Dent. [address], [id number], [place]. tel:[phone] Referring Provider: Glenn Valle, [address], [address]. tel:[phone] Office Visit Established Moderate [facility], [address] [place] [address], [address], [place] [phone] [facility] *back pain (chief complaint) Acute bilateral low back pain without sciaticaCorn of footBody mass index (BMI) 34.0-34.9, adult 6 Norm Elizabeth. [address], [address], [place]. tel:[phone] Referring Provider: Glenn Valle, [address], [address]. tel:[phone] [facility], [address] [place] [address], [address], [place] tel:[phone] [facility] Testicular hypofunctionS easonal allergic rhinitisAller gic rhinitis due to pollen 6 Norm Elizabeth. [address], [address], [place]. tel:[phone] Referring Provider: Glenn Valle, [address], [address]. tel:[phone] [facility], [address] [place] [address], [address], tel:[phone] [facility] Testicular hypofunctionA llergic rhinitis due to pollen 6 Norm Elizabeth. [address], [facility], . tel:[phone] Referring Provider: Glenn Valle, [address], [address]. tel:[phone] [facility], [address], [facility], [place] tel:[phone] [facility] Seasonal allergic rhinitisTesti cular hypofunctionA llergic rhinitis due to pollen 6 Norm Elizabeth. [address], [facility], . tel:[phone] Referring Provider: Glenn Valle, [address], [facility]. tel:[phone] [facility], [address], [facility], tel:[phone] [facility] Testicular dysfunction, unspecifiedAl lergic rhinitis due to pollen Norm Elizabeth. [address], [facility], . tel:[phone] Referring Provider: Glenn Valle, [address], [address]. tel:[phone] Office Visit Established Moderate [facility], [address], [facility], tel:[phone] [facility] *left foot problem (chief complaint)*re view medications (chief complaint) Chronic left-sided low back pain without sciaticaNon morbid obesity due to excess caloriesAcute deep vein thrombosis (DVT) of other specified vein of right lower extremityCorn 6 Norm Elizabeth. [address], [facility], [place]. tel:[phone] Referring Provider: Greyson Zheng MD, 7321 [facility] [address], [place], [address]. tel:[phone] [facility], [address] [place] [address], [address], tel: [phone] [facility] Low testosteroneA llergic rhinitis due to pollen Apr-1 1-201 6 Norm Elizabeth. [address], [facility], [place]. tel:[phone] Referring Provider: Glenn Valle, [address], [address]. tel:[phone] [facility], [address] [place] [address], [facility], [place] tel: [phone] [facility] Allergic rhinitis due to pollen Mar-3 0-201 6 Norm Ho [facility] [address], [facility], [place]. tel:[phone] Referring Provider: Glenn Valle, [address], [address]. tel:[phone] [place] [address], [address] [place] [address], [facility], [place] tel: [phone] [facility] Testicular hypofunctionA llergic rhinitis due to pollen Mar-2 8-201 6 Norm Ho [address], [facility], [place]. tel:[phone] Referring Provider: Glenn Valle, [address], [address]. tel:[phone] [facility], [address] [place] [address], [facility], [place] tel: [phone] [facility] Allergic rhinitis due to pollen Mar-2 1-201 6 Norm Ho [address], [facility], [place]. tel:[phone] Referring Provider: Glenn Valle, [address], [address]. tel:[phone] [facility], [address] [place] [address], [facility], [place] tel: [phone] [facility] Low testosteroneA llergic rhinitis due to pollen Mar-1 4-201 6 Norm Ho [address], [facility], . tel:-[phone] Referring Provider: Glenn Valle, [address], [address]. tel:[phone] [facility], [address] [place] [address], [facility], tel:[phone] [facility] Low testosteroneA llergic rhinitis due to pollen 6 Norm Elizabeth. [address], [facility], [place]. tel:[phone] Referring Provider: Glenn Valle, [address], [address]. [phone] [facility], [address] [place] [address], [facility], [place] tel:[phone] [facility] Low testosteroneA llergic rhinitis due to pollen 6 Norm Elizabeth. [address], [facility], [place]. tel:[phone] Referring Provider: Glenn Valle, [address], [address]. tel:[phone] [facility], [address], [facility], tel:[phone] [facility] Allergic rhinitis due to pollenLow testosterone 6 Norm Elizabeth. [address], [facility], [place]. tel:[phone] Referring Provider: Glenn Valle, [address], [address]. tel:[phone] [facility], [address] [place] [address], [address], [place] tel:[phone] [facility] Testicular hypofunctionA llergic rhinitis due to pollen 6 Norm Elizabeth. [address], [facility], [place]. [phone] Referring Provider: Glenn Valle, [address], [address]. tel:[phone] [place] [address], [address] [place] [address], [address], [place] tel:[phone] [facility] Allergic rhinitis due to pollen Bill-0 6-201 6 Norm Ho [address], [facility], [place]. tel:[phone] Referring Provider: Glenn Valle, [address], [address]. tel:[phone] [place] [address], [address] [place] [address], [address], [place] tel:[phone] [facility] Allergic rhinitis due to pollen Bill-0 5-201 6 Norm Ho [facility] [address], [facility], [place]. [phone] Referring Provider: Glenn Valle, [address], [address]. tel:[phone] [place] [address], [address] [place] [address], [facility], [place] tel:[phone] [facility] Allergic rhinitis due to pollenLow testosterone Dec-2 8-201 5 Norm Ho [address], [address], [place]. tel:[phone] Referring Provider: Glenn Valle, [address], [address]. tel:[phone] [place] [address], [address] [place] [address], [facility], [place] tel:[phone] [facility] Allergic rhinitis due to pollen Dec-0 7-201 5 Norm Ho [address], [address], [place]. [phone] Referring Provider: Glenn Valle, [address], [address]. tel:-[phone] [facility], [address] [place] [address], [address], [place] tel:[phone] [facility] Testicular hypofunctionA llergic rhinitis due to pollen Nov-3 0-201 5 Norm Ho [address], [facility], . tel:[phone] Referring Provider: Glenn Valle, [address], [address]. tel:-[phone] [facility], [address], [facility], tel:[phone] [facility] Obstructive sleep apnea 5 Kb Jamison. [address], [id number], [place]. [phone] Referring Provider: Glenn Valle, [address], [address]. tel:-[phone], [facility], tel:[phone] [facility] Testicular hypofunctionA llergic rhinitis due to pollen 5 Norm Ho [address], [facility], . [phone] Referring Provider: Glenn Valle, [address], [facility]. tel:[phone] [facility], [address], [facility], tel:[phone] [facility] Testicular hypofunctionA llergic rhinitis due to pollen 5 Nrom Ho [address], [facility], . tel:-[phone] Referring Provider: Glenn Valle, [address], [facility]. [phone] [facility], [address] [place] [address], [facility], [place] tel:[phone] [facility] Obstructive sleep apnea 5 Norm Ho [facility] [address], [facility], [place]. [phone] [facility], [address] [place] [address], [facility], tel: [phone] [facility] Allergic rhinitis due to pollenAllergi c rhinitis due to animal (cat) (dog) hair and danderCODING COMPLETE 5 Norm Ho [address], [address], [place]. tel:[phone] Referring Provider: Glenn Valle, [address], [address]. tel:[phone], [address], [place] tel: [phone] [facility] No Information Sep-3 5 Kb Jamison. [address], [id number], [place]. tel:[phone] Referring Provider: Glenn Valle, [address], [address]. [phone] [facility] E&m Estab Pt; 40-[address], [address], [place] tel: [phone] [facility] *Physical Exam (chief complaint) Routine medical examTesticula r dysfunctionDV T (deep venous thrombosis)Ob structive sleep apnea Sep-2 5 Norm Ho [address], [facility], [place]. [phone] Referring Provider: Glenn Valle, [address], [address]. tel:[phone], [address], [place] tel: [phone] [facility] Other testicular hypofunction Sep-2 5 Norm Ho [address], [address], [place]. [phone] Referring Provider: Glenn Valle, [address], [address]. tel:[phone], [address], [place] tel: [phone] [facility] No Information Sep-1 5 Norm Ho [address], [facility], . tel:[phone] Referring Provider: Glenn Valle, [facility] [address], [address]. tel:[phone] Office Visit Established Moderate [facility], [address], [facility], tel:[phone] [facility] *Rt Leg Pain (chief complaint) Deep vein blood clot of right lower extremity Sep-1 5- 5 Norm Elizabeth. [facility] [address], [facility], [place]. tel:[phone] Referring Provider: Glenn Valle, [facility] [address], [facility]. tel:[phone] Office Visit Established - Low [facility], [address], [facility], tel:[phone] [facility] *moles (chief complaint) No Information Sep-0 5 Norm Elizabeth. [facility] [address], [facility], [place]. tel:[phone] Referring Provider: Glenn Valle, [address], [address]. tel:[phone] [facility], [address], [facility], [place] tel:[phone] [facility] Testicular dysfunctionAs thma Sep-0 5 Norm Elizabeth. [address], [facility], [place]. tel:[phone] Referring Provider: Glenn Valle, [address], [address]. tel:[phone] [facility], [address], [facility], [place] tel:[phone] [facility] Testicular dysfunctionAs thma Aug- 5 Norm Ho [address], [facility], [place]. tel:[phone] Referring Provider: Glenn Valle, [facility] [address], [facility]. tel:[phone] [facility], [address] [place] [address], [address], [place] tel: [phone] [facility] Allergic rhinitis 5 Norm Ho [address], [address], [place]. tel:[phone] Referring Provider: Glenn Valle, [address], [address]. tel:[phone] [facility], [address] [place] [address], [address], [place] tel: [phone] [facility] Testicular Dysfunct NosAllergic Rhinitis Nos 5 Norm Ho [address], [address], [place]. tel:[phone] Referring Provider: Glenn Valle, [address], [address]. tel:[phone] [facility], [address] [place] [address], [address], [place] tel: [phone] [facility] AsthmaTesticu lar hypofunction 5 Norm Ho [address], [address], [place]. tel:[phone] Referring Provider: Glenn Valle, [address], [address]. tel:[phone] [facility], [address] [place] [address], [address], [place] tel: [phone] [facility] Allergic Rhinitis Nos 5 Norm Ho [address], [address], [place]. tel:[phone] Referring Provider: Glenn Valle, [address], [address]. tel:[phone] [facility], [address] [place] [address], [address], [place] tel:[phone] [facility] Testicular Dysfunct NosAllergic Rhinitis Nos 5 Norm Ho [address], [facility], [place]. tel:[phone] Referring Provider: Glenn Valle, [address], [address]. tel:[phone] [facility], [address] [place] [address], [facility], [place] tel:[phone] [facility] Allergic Rhinitis Nos Apr-2 8 5 Norm Ho [facility] [address], [facility], [place]. tel:[phone] Referring Provider: Glenn Valle, [address], [address]. [phone] [facility], [address], [facility], [place] tel:[phone] [facility] Allergic Rhinitis NosTesticular hypofunction Apr-2 7 5 Norm Elizabeth. [address], [facility], [place]. tel:[phone] Referring Provider: Glenn Valle, [address], [address]. tel:[phone] [facility], [address], [facility], [place] tel:[phone] [facility] Extrinsic asthma Apr-2 5 Norm Ho [address], [facility], [place]. tel:[phone] Referring Provider: Glenn Valle, [address], [address]. tel:[phone] [facility], [address] [place] [address], [address], [place] tel:[phone] [facility] *Sutures out (chief complaint) Testicular hypofunctionA llergic Rhinitis NosVisit for suture removal Apr-1 3-201 5 Norm Ho [facility] [address], [address], [place]. tel:[phone] Referring Provider: Glenn Valle, [address], [address]. tel:[phone] [facility], [address], [facility], [place] tel: [phone] [facility] * post op (chief complaint) Allergic Rhinitis NosTesticular hypofunctionS ebaceous cyst Apr-3 5 Norm Ho [facility] [address], [facility], [place]. tel:[phone] Referring Provider: Glenn Valle, [address], [address]. [phone] [facility], [address], [facility], [place] tel:[phone] [facility] Asthma Apr-2 5 Norm Ho [facility] [address], [facility], [place]. tel:[phone] Referring Provider: Glenn Valle, [address], [facility]. tel:[phone] [facility], [address], [facility], [place] tel:[phone] [facility] Testicular hypofunctionA llergic Rhinitis Nos Apr- 5 Norm Ho [address], [facility], [place]. tel:[phone] Referring Provider: Glenn Valle, [address], [address]. tel:[phone] Office Visit Established Moderate [facility], [address], [facility], [place] tel:[phone] [facility] *Chest Cold/Bronchit is (chief complaint) No Information Apr-0 5 Norm Ho [address], [facility], [place]. tel:[phone] Referring Provider: Glenn Valle, [address], [address]. tel:[phone] [facility], [address] [place] [address], [facility], [place] tel:[phone] [facility] Allergic Rhinitis Nos Feb- 5 Norm Ho [address], [address], [place]. tel:[phone] Referring Provider: Glenn Valle, [address], [address]. tel:[phone] [facility], [address] [place] [address], [address], [place] tel:[phone] [facility] AsthmaTesticu lar hypofunction 5 Norm Elizabeth. [address], [address], [place]. tel:[phone] Referring Provider: Glenn Valle, [address], [address]. tel:[phone] [facility], [address] [place] [address], [address], [place] tel:[phone] [facility] Testicular hypofunction 5 Norm Ho [address], [facility], [place]. tel:[phone] Referring Provider: Glenn Valle, [address], [address]. tel:[phone] [facility], [address] [place] [address], [address], [place] tel:[phone] [facility] Allergic Rhinitis Nos 5 Norm Elizabeth. [address], [facility], [place]. tel:[phone] Referring Provider: Glenn Valle, [address], [address]. tel:[phone] [facility], [address] [place] [address], [address], [place] tel:[phone] [facility] Allergic Rhinitis NosTesticular hypofunction 5 Norm Ho [address], [facility], [place]. tel:[phone] Referring Provider: Glenn Valle, [address], [address]. tel:[phone] [facility], [address], [address], [place] tel: [phone] [facility] Allergic Rhinitis Nos Jan- 4 Norm GlennAlon [facility] [address], [address], [place]. tel:[phone] Referring Provider: Glenn Valle, [address], [address]. tel:[phone] [facility], [address], [address], [place] tel:[phone] [facility] No Information Jan- 4 Norm Ho [address], [address], [place]. tel:[phone] Referring Provider: Glenn Valle, [address], [address]. tel:[phone] [facility], [address], [facility], [place] tel: [phone] [facility] Allergic Rhinitis NosTesticular hypofunction Jan- 4 Norm Ho [address], [facility], [place]. tel:[phone] Referring Provider: Glenn Valle, [address], [address]. tel:[phone] [facility], [address] [place] [address], [address], [place] tel: [phone] [facility] Allergic Rhinitis Nos Jan-0 4 Norm Ho [address], [facility], [place]. tel:[phone] Referring Provider: Glenn Valle, [address], [address]. tel:[phone] [facility], [address] [place] [address], [address], [place] tel:[phone] [facility] AsthmaTesticu lar hypofunction Jan-0 4 Norm Ho [address], [facility], [place]. tel:[phone] Referring Provider: Glenn Valle, [address], [address]. tel:[phone] [facility], [address] [place] [address], [address], [place] tel:[phone] [facility] Allergic Rhinitis Nos Dec-1 7201 4 Norm Glenn. [address], [address], [place]. [phone] Referring Provider: Glenn Valle, [address], [address]. tel:[phone] [facility], [address] [place] [address], [address], [place] tel:[phone] [facility] Asthma, unspecifiedTe sticular hypofunction Dec- 0-201 4 Norm Glenn. [address], [address], [place]. [phone] Referring Provider: Glenn Valle, [address], [address]. tel:[phone] [facility], [address] [place] [address], [address], [place] tel:[phone] [facility] Allergic Rhinitis Nos Dec-0 3201 4 Norm Glenn. [address], [address], [place]. [phone] Referring Provider: Glenn Valle, [address], [address]. tel:[phone] [facility], [address] [place] [address], [address], [place] tel:[phone] [facility] Asthma, unspecifiedTe sticular hypofunction 7201 4 Norm Glenn. [address], [address], [place]. [phone] Referring Provider: Glenn Valle, [address], [address]. tel:[phone] [facility], [address] [place] [address], [address], [place] tel:[phone] [facility] Allergic Rhinitis Nos Nov-2 0 4 Norm Elizabeth. [address], [facility], [place]. tel:[phone] Referring Provider: Glenn Valle, [address], [address]. tel:[phone] [facility], [address] [place] [address], [facility], [place] tel:[phone] [facility] Other testicular hypofunctionA sthma, unspecified Oct-0 6 4 Norm Elizabeth. [address], [facility], [place]. tel:[phone] Referring Provider: Glenn Valle, [address], [facility]. tel:[phone] Office Visit Established Moderate [facility], [address], [facility], [place] tel:[phone] [facility] *chest congestion, uri (chief complaint) No Information Oct-2 4 Norm Elizabeth. [address], [facility], [place]. tel:[phone] Referring Provider: Glenn Valle, [address], [facility]. tel:[phone] [facility], [address] [place] [address], [facility], [place] tel:[phone] [facility] Allergic rhinitis Sep-1 4 Norm Elizabeth. [address], [facility], [place]. tel:[phone] Referring Provider: Glenn Valle, [address], [address]. tel:[phone] [facility], [address] [place] [address], [facility], [place] tel:[phone] [facility] Allergic rhinitis, cause unspecifiedOt her testicular hypofunctionA llergic Rhinitis Nos Sep-0 4 Norm Elizabeth. [address], [facility], [place]. tel:[phone] Referring Provider: Glenn Valle, [address], [address]. tel:[phone] [facility], [address] [place] [address], [address], [place] tel:[phone] [facility] No Information 4 Norm Elizabeth. [address], [address], [place]. [phone] Referring Provider: Glenn Valle, [address], [address]. tel:[phone] [facility], [address] [place] [address], [address], [place] tel: [phone] [facility] Allergic rhinitis, cause unspecifiedAl lergic Rhinitis Nos 4 Norm Elizabeth. [address], [address], [place]. [phone] Referring Provider: Glenn Valle, [address], [address]. tel:[phone] [facility], [address] [place] [address], [address], [place] tel:[phone] [facility] Other testicular hypofunctionA sthma, unspecified 4 Norm Elizabeth. [address], [address], [place]. tel:-[phone] Referring Provider: Glenn Valle, [address], [address]. tel:[phone] [facility], [address] [place] [address], [address], [place] tel: [phone] [facility] Allergic rhinitis, cause unspecifiedAl lergic Rhinitis Nos 4 Norm Elizabeth. [address], [address], [place]. tel:[phone] Referring Provider: Glenn Valle, [address], [address]. tel:[phone] [facility], [address] [place] [address], [address], [place] tel: [phone] [facility] Allergic Rhinitis Nos 4 Norm Elizabeth. [address], [address], [place]. tel:[phone] Referring Provider: Glenn Valle, [address], [address]. tel:[phone], [address], [place] tel: [phone] [facility] No Information 4 Kb Jamison. [address], [id number], [place]. tel:[phone] Referring Provider: Glenn Valle, [address], [address]. tel:-[phone], [address], [place] tel:[phone] [facility] Asthma, unspecifiedTe sticular hypofunction 4 Norm Elizabeth. [address], [address], [place]. tel:[phone] Referring Provider: Glenn Valle, [address], [address]. tel:[phone] [facility], [address], [address], [place] tel:[phone] [facility] No Information 4 Norm Elizabeth. [address], [address], [place]. tel:[phone] Referring Provider: Glenn Valle, [address], [address]. tel:[phone], [address], [place] tel:[phone] [facility] shoulder surgery followup (chief complaint) Shoulder pain 4 Bill Plummer. [address], [place], [place], [id number], [place]. tel:[phone] Referring Provider: Elian Leyva, [address], [place], [address]. tel:[phone] [facility], [address] [place] [address], [address], [place] tel: [phone] [facility] No Information 4-201 4 Norm Glenn. [address] [place] [address], [address], [place]. tel:[phone] Referring Provider: Glenn Valle, [address], [address]. tel:[phone] [facility], [address] [place] [address], [address], [place] tel: [phone] [facility] No Information 8 4 Norm Elizabeth. [address] [place] [address], [facility], [place]. tel:[phone] Referring Provider: Glenn Valle, [address], [address]. tel:[phone] [facility], [address] [place] [address], [facility], [place] tel: [phone] [facility] No Information 3 4 Norm Elizabeth. [address] [place] [address], [facility], [place]. tel:[phone] Referring Provider: Glenn Valle, [address], [address]. tel:[phone] [facility], [address] [place] [address], [facility], [place] tel: [phone] [facility] shoulder pain (chief complaint) No Information 4 Bill Plummer. [address], [place], [place], [id number], [place]. tel:[phone] Referring Provider: Elian Leyva, [address], [place], [address]. tel:[phone] [facility], [address] [place] [address], [address], [place] tel: [phone] [facility] No Information 4 Norm Glenn. [address], [address], [place]. tel:[phone] Referring Provider: Glenn Valle, [address], [address]. tel:[phone] [facility], [address] [place] [address], [address], [place] tel:[phone] [facility] No Information Jul-0 2 4 Norm Elizabeth. [address], [address], [place]. tel:[phone] Referring Provider: Glenn Valle, [address], [address]. tel:[phone] [facility], [address] [place] [address], [address], [place] tel:[phone] [facility] No Information 4 Norm Glenn. [address], [address], [place]. tel:[phone] Referring Provider: Glenn Valle, [address], [address]. tel:[phone] [facility], [address] [place] [address], [address], [place] tel:[phone] [facility] No Information 4 Norm Elizabeth. [address], [address], [place]. tel:[phone] Referring Provider: Glenn Valle, [address], [address]. tel:[phone] [facility], [address] [place] [address], [address], [place] tel:[phone] [facility] shoulder surgery (chief complaint) Superior glenoid labrum lesion 0 4 Bill Plummer. [address], [place], [place], [id number], [place]. tel:[phone] Referring Provider: Elian Leyva, [address], [place], [address]. tel:[phone] [facility], [address] [place] [address], [address], [place] tel:[phone] [facility] No Information June- 9- 4 Norm Glenn. [facility] [address], [facility], [place]. tel:[phone] Referring Provider: Glenn Valle, [address], [address]. tel:[phone] [facility], [address] [place] [address], [facility], [place] tel:[phone] [facility] Extrinsic asthma June-1 3-201 4 Norm Glenn. [address] [place] [address], [address], [place]. tel:[phone] Referring Provider: Glenn Valle, [address] [place] [address], [address]. tel:[phone] [facility], [address] [place] [address], [facility], [place] tel:[phone] [facility] No Information June-0 8-201 4 Norm Glenn. [address] [place] [address], [facility], [place]. tel:[phone] Referring Provider: Glenn Valle, [facility] [address], [address]. tel:[phone] [facility], [address] [place] [address], [address], [place] tel:[phone] [facility] No Information June-0 5-201 4 Norm Ho [address] [place] [address], [facility], [place]. tel:[phone] Referring Provider: Glenn Valle, [facility] [address], [address]. tel:[phone] [facility], [address] [place] [address], [facility], [place] tel:[phone] [facility] No Information May-2 9-201 4 Norm Ho [address] [place] [address], [facility], [place]. tel:[phone] Referring Provider: Glenn Valle, [address], [address]. tel:[phone] [facility], [address] [place] [address], [address], [place] tel:[phone] [facility] shoulder (chief complaint) Superior glenoid labrum lesion 4 Bill Plummer. [address], [place], [place], [id number], [place]. [phone] Referring Provider: Elian Leyva, [address], [place], [address]. tel:[phone] [facility], [address] [place] [address], [address], [place] tel:[phone] [facility] No Information 4 Norm Elizabeth. [address], [address], [place]. [phone] Referring Provider: Glenn Valle, [address], [address]. tel:[phone] [facility], [address] [place] [address], [address], [place] tel:[phone] [facility] Sprain Shoulder/arm NecJt Derangment Nec-shlderLoc Prim Osteoart-shld erRotator Cuff Synd Nos 4 Bill Plummer. [address], [place], [place], [id number], [place]. tel:[phone] Referring Provider: Elian Leyva, [address], [place], [address]. [phone] Office Visit New - Moderate [facility], [address] [place] [address], [address], [place] tel:[phone] [facility] shoulder (chief complaint) Pectoralis muscle rupture 4 Bill Plummer. [address], [place], [place], [id number], [place]. tel:[phone] Referring Provider: Elian Leyva, [address], [place], [address]. tel:[phone] [facility], [address] [place] [address], [address], [place] tel: [phone] [facility] No Information May-1 4-201 4 Norm Elizabeth. [address] [place] [address], [address], [place]. tel:[phone] Referring Provider: Glenn Valle, [address] [place] [address], [address]. tel:[phone] [facility], [address] [place] [address], [address], [place] tel: [phone] [facility] No Information May-1 4-201 4 Norm GlennAlon [address] [place] [address], [facility], [place]. tel:[phone] Referring Provider: Glenn Valle, [address] [place] [address], [address]. tel:[phone] [facility], [address] [place] [address], [facility], [place] tel: [phone] [facility] No Information May-1 0-201 4 Norm Glenn. [address] [place] [address], [address], [place]. tel:[phone] Referring Provider: Glenn Valle, [address] [place] [address], [address]. tel:[phone] Office Visit Established Moderate [facility], [address], [address], [place] tel: [phone] [facility] Joint Pain-shlder Apr-1 0-201 4 Norm GlennAlon [address] [place] [address], [address], [place]. tel:[phone] Referring Provider: Glenn Valle, [facility] [address], [address]. tel:[phone] [facility], [address] [place] [address], [address], [place] tel: [phone] [facility] No Information Apr-0 7-201 4 Norm Ho [address] [place] [address], [facility], [place]. tel:[phone] Referring Provider: Glenn Valle, [address], [address]. tel:[phone] [facility], [address] [place] [address], [address], [place] tel: [phone] [facility] No Information Apr-0 3-201 4 Norm Glenn. [address], [facility], [place]. tel:[phone] Referring Provider: Glenn Valle, [address], [address]. tel:[phone] [facility], [address] [place] [address], [address], [place] tel: [phone] [facility] No Information Mar-2 7-201 4 Norm Glenn. [address] [place] [address], [facility], [place]. tel:[phone] Referring Provider: Glenn Valle, [address], [address]. tel:[phone] [facility], [address] [place] [address], [facility], [place] tel: [phone] [facility] Testicular Dysfunct Nos Mar-2 5-201 4 Norm Glenn. [facility] [address], [facility], [place]. tel:[phone] Referring Provider: Glenn Valle, [address], [address]. tel:[phone] [facility], [address] [place] [address], [facility], [place] tel: [phone] [facility] No Information Apr-1 9-201 4 Norm Glenn. [address] [place] [address], [facility], [place]. tel:[phone] Referring Provider: Glenn Valle, [address], [address]. tel:[phone] [facility], [address] [place] [address], [facility], [place] tel: [phone] [facility] No Information Mar-1 7-201 4 Norm Elizabeth. [address], [address], [place]. tel:[phone] Referring Provider: Glenn Valle, [address], [address]. tel:[phone] [facility], [address] [place] [address], [address], [place] tel:[phone] [facility] Extrinsic asthma, unspecified Mar-1 3-201 4 Norm Elizabeth. [address], [address], [place]. tel:[phone] Referring Provider: Glenn Valle, [address], [address]. tel:[phone] [facility], [address] [place] [address], [address], [place] tel:[phone] [facility] No Information Mar-1 0-201 4 Norm Elizabeth. [address], [address], [place]. tel:[phone] Referring Provider: Glenn Valle, [address], [address]. tel:[phone] [facility], [address] [place] [address], [address], [place] tel:[phone] [facility] No Information Mar-0 4-201 4 Norm Elizabeth. [address], [address], [place]. [phone] Referring Provider: Glenn Valle, [address], [address]. tel:[phone] [facility], [address] [place] [address], [address], [place] tel:[phone] [facility] Asthma Feb-2 7-201 4 Norm Elizabeth. [address], [address], [place]. tel:[phone] Referring Provider: Glenn Valle, [address], [address]. tel:[phone] [facility], [address] [place] [address], [address], [place] tel: [phone] [facility] No Information 4 Norm Elizabeth. [facility] [address], [address], [place]. tel:[phone] Referring Provider: Glenn Valle, [address], [address]. tel:[phone] [facility], [address] [place] [address], [address], [place] tel:[phone] [facility] No Information 4 Norm Elizabeth. [address], [address], [place]. tel:[phone] Referring Provider: Glenn Valle, [address], [address]. tel:[phone] [facility], [address], [address], [place] tel:[phone] [facility] No Information 4 Norm Elizabeth. [address], [address], [place]. tel:[phone] Referring Provider: Glenn Valle, [address], [address]. tel:[phone] [facility], [address] [place] [address], [address], [place] tel:[phone] [facility] No Information 4 Norm Elizabeth. [address], [facility], [place]. tel:[phone] Referring Provider: Glenn Valle, [address], [address]. tel:[phone] [facility], [address] [place] [address], [address], [place] tel:[phone] [facility] No Information 4 Norm Elizabeth. [facility] [address], [address], [place]. tel:[phone] Referring Provider: Glenn Valle, [address], [address]. tel:[phone] [facility], [address] [place] [address], [address], [place] tel:[phone] [facility] No Information 4 Norm Glenn. [address], [address], [place]. tel:[phone] Referring Provider: Glenn Valle, [address], [address]. tel:[phone] Office Visit Established Moderate [facility], [address] [place] [address], [address], [place] tel:[phone] [facility] CoughInsomnia NecAllergic Rhinitis Nos 4 Norm Elizabeth. [address], [address], [place]. tel:[phone] Referring Provider: Glenn Valle, [address], [address]. tel:[phone] [facility], [address] [place] [address], [address], [place] tel:[phone] [facility] No Information 4 Norm Elizabeth. [address], [address], [place]. tel:[phone] Referring Provider: Glenn Valle, [address], [address]. tel:[phone] [facility], [address] [place] [address], [address], [place] tel:[phone] [facility] No Information 4 Norm Glenn. [address], [address], [place]. tel:[phone] Referring Provider: Glenn Valle, [address], [address]. tel:[phone] [facility], [address] [place] [address], [address], [place] tel:[phone] [facility] No Information 4 Norm Elizabeth. [address], [address], [place]. tel:[phone] Referring Provider: Glenn Valle, [address], [address]. tel:[phone] [facility], [address] [place] [address], [address], [place] tel: [phone] [facility] No Information Dec-3 0-201 3 Norm Elizabeth. [address], [address], [place]. tel:[phone] Referring Provider: Glenn Valle, [address], [address]. tel:[phone] [facility], [address] [place] [address], [address], [place] tel: [phone] [facility] No Information Dec-2 3-201 3 Norm Elizabeth. [address], [address], [place]. tel:[phone] Referring Provider: Glenn Valle, [address], [address]. tel:[phone] [facility], [address] [place] [address], [address], [place] tel: [phone] [facility] No Information Dec-1 7-201 3 Norm Elizabeth. [address], [address], [place]. tel:[phone] Referring Provider: Glenn Valle, [address], [address]. tel:[phone] [facility], [address] [place] [address], [address], [place] tel: [phone] [facility] No Information Dec-1 2-201 3 Norm Elizabeth. [address], [address], [place]. tel:[phone] Referring Provider: Glenn Valle, [address], [address]. tel:[phone] [facility], [address] [place] [address], [address], [place] tel:[phone] [facility] No Information Dec-1 0-201 3 Norm Elizabeth. [address], [address], [place]. tel:[phone] Referring Provider: Glenn Valle, [address], [address]. tel:[phone] [facility], [address] [place] [address], [address], [place] tel:[phone] [facility] No Information Dec-0 5-201 3 Norm Elizabeth. [address], [address], [place]. tel:[phone] Referring Provider: Glenn Valle, [address], [address]. tel:[phone] [facility], [address] [place] [address], [address], [place] tel:[phone] [facility] No Information Dec-0 2-201 3 Norm Elizabeth. [address], [address], [place]. tel:[phone] Referring Provider: Glenn Valle, [address], [address]. tel:[phone] [facility], [address] [place] [address], [address], [place] tel:[phone] [facility] No Information Dec-2 3 Norm Elizabeth. [address], [address], [place]. tel:[phone] Referring Provider: Glenn Valle, [address], [address]. tel:[phone] [facility], [address] [place] [address], [address], [place] tel:[phone] [facility] No Information Dec-1 9 3 Norm Elizabeth. [address], [address], [place]. tel:[phone] Referring Provider: Glenn Valle, [address], [address]. tel:[phone] [facility], [address] [place] [address], [address], [place] tel: [phone] [facility] No Information 3 Norm Elizabeth. [address], [address], [place]. [phone] Referring Provider: Glenn Valle, [address], [address]. tel:[phone] [facility], [address] [place] [address], [address], [place] tel: [phone] [facility] Skin lumps 3 Norm Ho [address] [place] [address], [facility], [place]. [phone] Referring Provider: Glenn Valle, [address], [address]. tel:[phone] [facility], [address], [facility], [place] tel:[phone] [facility] Sebaceous cyst 3 Elsi Lui. [address], [id number], [place]. [phone] Referring Provider: Glenn Valle, [address], [address]. tel:[phone] [facility], [address], [address], [place] tel: [phone] [facility] No Information 3 Norm Ho [address], [facility], [place]. [phone] Referring Provider: Glenn Valle, [address], [address]. tel:[phone] [facility], [address], [address], [place] tel:[phone] [facility] No Information 3 Norm Ho [address], [address], [place]. [phone] Referring Provider: Glenn Valle, [address], [address]. tel:[phone] [facility], [address] [place] [address], [address], [place] tel: [phone] [facility] No Information Oct-2 4-201 3 Norm Elizabeth. [address], [address], [place]. [phone] Referring Provider: Glenn Valle, [address], [address]. tel:[phone] [facility], [address] [place] [address], [address], [place] tel: [phone] [facility] No Information Oct-1 5-201 3 Norm Elizabeth. [address] [place] [address], [address], [place]. tel:[phone] Referring Provider: Glenn Valle, [address], [address]. tel:[phone] [facility], [address] [place] [address], [address], [place] tel:[phone] [facility] No Information Oct-1 0-201 3 Norm Elizabeth. [address], [address], [place]. tel:[phone] Referring Provider: Glenn Valle, [address], [address]. tel:[phone] [facility], [address] [place] [address], [address], [place] tel: [phone] [facility] No Information Oct-0 8-201 3 Norm Elizabeth. [address], [address], [place]. [phone] Referring Provider: Glenn Valle, [address], [address]. tel:[phone] [facility], [address] [place] [address], [address], [place] tel: [phone] [facility] No Information Sep-3 0-201 3 Norm Elizabeth. [address], [address], [place]. tel:-[phone] Referring Provider: lGenn Valle, [address], [address]. tel:[phone] [facility], [address] [place] [address], [address], [place] tel:[phone] [facility] No Information Sep-2 4-201 3 Norm Elizabeth. [address], [facility], [place]. tel:[phone] Referring Provider: Glenn Valle, [facility] [address], [address]. tel:[phone] [facility], [address], [facility], [place] tel:[phone] [facility] No Information Sep-1 6-201 3 Norm Elizabeth. [address] [place] [address], [facility], [place]. tel:[phone] Referring Provider: Glenn Valle, [facility] [address], [address]. tel:[phone] Office Visit Established - Low [facility], [address], [facility], [place] tel:[phone] [facility] Joint Pain-shlderAl lergic Rhinitis Nos Sep-1 0-201 3 Norm Elizabeth. [address] [place] [address], [facility], [place]. [phone] Referring Provider: Glenn Valle, [address], [address]. tel:[phone] [facility], [address] [place] [address], [address], [place] tel:[phone] [facility] No Information Sep-0 3-201 3 Norm Elizabeth. [address] [place] [address], [address], [place]. tel:[phone] Referring Provider: Glenn Valle, [address], [address]. tel:[phone] [facility], [address] [place] [address], [address], [place] tel:[phone] [facility] No Information Sep-2 3 Norm Glenn. [address], [address], [place]. tel:[phone] Referring Provider: Glenn Valle, [address], [address]. tel:[phone] [facility], [address] [place] [address], [address], [place] tel:[phone] [facility] No Information Sep-2 2 3 Norm Glenn. [address], [address], [place]. tel:[phone] Referring Provider: Glenn Valle, [address], [address]. tel:[phone] [facility], [address] [place] [address], [address], [place] tel:[phone] [facility] No Information Sep-2 3 Norm Glenn. [address], [address], [place]. tel:[phone] Referring Provider: Glenn Valle, [address], [address]. tel:[phone] [facility], [address] [place] [address], [address], [place] tel:[phone] [facility] No Information Sep-0 3 Norm Glenn. [address], [address], [place]. tel:[phone] Referring Provider: Glenn Valle, [address], [address]. tel:[phone] [facility], [address] [place] [address], [address], [place] tel:[phone] [facility] Asthma 0 3 Norm Glenn. [address], [address], [place]. tel:[phone] Referring Provider: Glenn Valle, [address], [address]. tel:[phone] [facility], [address] [place] [address], [address], [place] tel: [phone] [facility] No Information Aug-1 5-201 3 Norm Elizabeth. [address], [facility], [place]. tel:[phone] Referring Provider: Glenn Valle, [address], [facility]. tel:[phone] [facility], [address] [place] [address], [facility], [place] tel:[phone] [facility] No Information Aug-0 8-201 3 Norm Elizabeth. [address] [place] [address], [facility], [place]. tel:[phone] Referring Provider: Glenn Valle, [address], [facility]. tel:[phone] [facility], [address] [place] [address], [facility], [place] tel:[phone] [facility] No Information Aug-0 2-201 3 Norm Elizabeth. [address], [facility], [place]. tel:[phone] Referring Provider: Glenn Valle, [address], [address]. tel:[phone] [facility], [address] [place] [address], [facility], [place] tel: [phone] [facility] No Information Aug-0 1-201 3 Norm Elizabeth. [address], [facility], [place]. tel:[phone] Referring Provider: Glenn Valle, [address], [address]. tel:[phone] [facility], [address] [place] [address], [facility], [place] tel:[phone] [facility] No Information Hebert-2 5-201 3 Norm Glenn. [address], [facility], [place]. tel:[phone] Referring Provider: Glenn Valle, [address], [address]. tel:[phone] [facility], [address] [place] [address], [address], [place] tel: [phone] [facility] No Information Jul-1 8 3 Norm Elizabeth. [address], [address], [place]. tel:[phone] Referring Provider: Glenn Valle, [address], [address]. tel:[phone] [facility], [address] [place] [address], [address], [place] tel: [phone] [facility] No Information Jul-1 2 3 Norm Elizabeth. [address], [address], [place]. tel:[phone] Referring Provider: Glenn Valle, [address], [address]. tel:[phone] [facility], [address] [place] [address], [address], [place] tel: [phone] [facility] Extrinsic asthma Jul-0 3 Norm GlennAlon [address], [address], [place]. tel:[phone] Referring Provider: Glenn Valle, [address], [address]. tel:[phone] [facility], [address] [place] [address], [address], [place] tel: [phone] [facility] No Information Jul-0 3201 3 Norm Elizabeth. [address], [address], [place]. tel:[phone] Referring Provider: Glenn Valle, [address], [address]. tel:[phone] [facility], [address] [place] [address], [address], [place] tel: [phone] [facility] No Information June-2 9-201 3 Norm Elizabeth. [address], [address], [place]. tel:[phone] Referring Provider: Glenn Valle, [address], [address]. tel:[phone] [facility], [address] [place] [address], [address], [place] tel:[phone] [facility] No Information May-2 1-201 3 Norm ElizabethAlon [address], [address], [place]. tel:[phone] Referring Provider: Glenn Valle, [address], [address]. tel:[phone] [facility], [address] [place] [address], [facility], [place] tel:[phone] [facility] Testicular hypofunctionA llergic rhinitis May-1 3-201 3 Norm Ho [address], [facility], [place]. tel:[phone] Referring Provider: Glenn Valle, [address], [address]. tel:[phone] [facility], [address] [place] [address], [facility], [place] tel:[phone] [facility] No Information May-0 9-201 3 Norm Elizabeth. [address], [address], [place]. tel:[phone] Referring Provider: Glenn Valle, [address], [address]. tel:[phone] [facility], [address] [place] [address], [address], [place] tel:[phone] [facility] No Information May-0 7-201 3 Norm Ho [address], [address], [place]. tel:[phone] Referring Provider: Glenn Valle, [address], [address]. tel:[phone] [facility], [address] [place] [address], [address], [place] tel:[phone] [facility] No Information Apr-3 0-201 3 Norm Glenn. [facility] [address], [address], [place]. tel:[phone] Referring Provider: Glenn Valle, [address], [address]. tel:[phone] [facility], [address] [place] [address], [facility], [place] tel:[phone] [facility] No Information Apr-2 3-201 3 Norm Elizabeth. [address], [address], [place]. tel:[phone] Referring Provider: Glenn Valle, [address], [address]. tel:[phone] [facility], [address], [address], [place] tel:[phone] [facility] No Information Apr-1 6-201 3 Norm Glenn. [address], [address], [place]. tel:[phone] Referring Provider: Glenn Valle, [address], [address]. tel:[phone] [facility], [address] [place] [address], [address], [place] tel:[phone] [facility] No Information Apr-1 2-201 3 Norm Glenn. [address], [address], [place]. tel:[phone] Referring Provider: Glenn Valle, [address], [address]. tel:[phone] [facility], [address] [place] [address], [address], [place] tel:[phone] [facility] No Information Apr-0 8-201 3 Norm Glenn. [address], [address], [place]. tel:[phone] Referring Provider: Glenn Valle, [address], [address]. tel:[phone] [facility], [address] [place] [address], [address], [place] tel:[phone] [facility] No Information Apr-0 2-201 3 Norm Elizabeth. [address], [address], [place]. tel:[phone] Referring Provider: Glenn Valle, [address], [address]. tel:[phone] [facility], [address] [place] [address], [address], [place] tel:[phone] [facility] No Information Mar-2 - 3 Norm Glenn. [address], [address], [place]. tel:[phone] Referring Provider: Glenn Valle, [address], [address]. tel:[phone] [facility], [address] [place] [address], [facility], [place] tel:[phone] [facility] No Information Mar-2 -201 3 Norm Elizabeth. [address], [address], [place]. tel:[phone] Referring Provider: Glenn Valle, [address], [address]. tel:[phone] [facility], [address] [place] [address], [address], [place] tel: [phone] [facility] No Information Mar-1 - 3 Norm Glenn. [address], [address], [place]. tel:[phone] Referring Provider: Glenn Valle, [address], [address]. tel:[phone] [facility], [address] [place] [address], [address], [place] tel:[phone] [facility] No Information Mar-1 5-201 3 Norm Glenn. [address], [facility], [place]. tel:[phone] Referring Provider: Glenn Valle, [address], [address]. tel:[phone] [facility], [address] [place] [address], [address], [place] tel:[phone] [facility] No Information Mar-0 6-201 3 Norm Elizabeth. [address], [address], [place]. tel:[phone] Referring Provider: Glenn Valle, [address], [address]. tel:[phone] [facility], [address] [place] [address], [address], [place] tel: [phone] [facility] No Information Mar-0 4-201 3 Norm Glenn. [address] [place] [address], [address], [place]. tel:[phone] Referring Provider: Glenn Valle, [address], [address]. tel:[phone] [facility], [address] [place] [address], [address], [place] tel: [phone] [facility] No Information Mar-0 1-201 3 Norm GlennAlon [address], [address], [place]. tel:[phone] Referring Provider: Glenn Valle, [address], [address]. tel:[phone] [facility], [address] [place] [address], [address], [place] tel: [phone] [facility] No Information Feb-2 2-201 3 Norm Elizabeth. [address], [address], [place]. tel:[phone] Referring Provider: Glenn Valle, [address], [address]. tel:[phone] [facility], [address] [place] [address], [address], [place] tel: [phone] [facility] No Information Feb-1 4-201 3 Norm Elizabeth. [address], [address], [place]. tel:[phone] Referring Provider: Glenn Valle, [address], [address]. tel:[phone] [facility], [address] [place] [address], [address], [place] tel:[phone] [facility] No Information 3 Norm Elizabeth. [address], [address], [place]. tel:[phone] Referring Provider: Glenn Valle, [address], [address]. tel:[phone] [facility], [address] [place] [address], [address], [place] tel:[phone] [facility] No Information 3 Norm Elizabeth. [address], [address], [place]. tel:[phone] Referring Provider: Glenn Valle, [address], [address]. tel:[phone] [facility], [address] [place] [address], [address], [place] tel:[phone] [facility] No Information 3 Norm Elizabeth. [address], [address], [place]. tel:[phone] Referring Provider: Glenn Valle, [address], [address]. tel:[phone] [facility], [address] [place] [address], [address], [place] tel:[phone] [facility] No Information 3 Norm Elizabeth. [address], [address], [place]. tel:[phone] Referring Provider: Glenn Valle, [address], [address]. tel:[phone] [facility], [address] [place] [address], [address], [place] tel: [phone] [facility] No Information 0 7-201 3 Norm Elizabeth. [address], [facility], [place]. tel:[phone] Referring Provider: Glenn Valle, [address], [address]. tel:[phone] [facility], [address] [place] [address], [facility], [place] tel:[phone] [facility] No Information Feb-0 2-201 3 Norm Elizabeth. [address], [facility], [place]. tel:[phone] Referring Provider: Glenn Valle, [address], [address]. tel:[phone] [facility], [address] [place] [address], [facility], [place] tel: [phone] [facility] No Information Jan- 2 Norm Elizabeth. [address], [facility], [place]. tel:[phone] Referring Provider: Glenn Valle, [address], [address]. tel:[phone] [facility], [address] [place] [address], [facility], [place] tel:[phone] [facility] No Information Jan-1 0-201 2 Norm Elizabeth. [address], [facility], [place]. tel:[phone] Referring Provider: Glenn Valle, [address], [address]. tel:[phone] [facility], [address] [place] [address], [facility], [place] tel:[phone] [facility] No Information Jan-0 6-201 2 Norm Elizabeth. [address], [facility], [place]. tel:[phone] Referring Provider: Glenn Valle, [address], [facility]. tel:[phone] [facility], [address] [place] [address], [address], [place] tel: [phone] [facility] No Information 2 Norm Elizabeth. [facility] [address], [facility], [place]. tel:[phone] Referring Provider: Glenn Valle, [address], [address]. tel:[phone] [facility], [address] [place] [address], [facility], [place] tel: [phone] [facility] No Information 2 Norm Glenn. [address] [place] [address], [facility], [place]. tel:[phone] Referring Provider: Glenn Valle, [address], [facility]. tel:[phone] [facility], [address] [place] [address], [facility], [place] tel: [phone] [facility] No Information 2 Norm Glenn. [address], [facility], [place]. tel:[phone] Referring Provider: Glenn Valle, [address], [address]. tel:[phone] [facility], [address] [place] [address], [facility], [place] tel: [phone] [facility] No Information 0 2 Norm Glenn. [address], [facility], [place]. tel:[phone] Referring Provider: Glenn Valle, [address], [address]. tel:[phone] [facility], [address] [place] [address], [facility], [place] tel:[phone] [facility] No Information 0 2 Norm Glenn. [facility] [address], [facility], [place]. tel:[phone] Referring Provider: Glenn Valle, [address], [address]. tel:[phone] [facility], [address] [place] [address], [address], [place] tel:[phone] [facility] No Information Dec-0 1-201 2 Norm Elizabeth. [address], [address], [place]. tel:[phone] Referring Provider: Glenn Valle, [address], [address]. tel:[phone] [facility], [address] [place] [address], [address], [place] tel:[phone] [facility] No Information Nov-2 9 2 Norm Elizabeth. [address], [address], [place]. tel:[phone] Referring Provider: Glenn Valle, [address], [address]. tel:[phone] [facility], [address] [place] [address], [address], [place] tel:[phone] [facility] No Information 2 2- 2 Norm Elizabeth. [address], [address], [place]. [phone] Referring Provider: Glenn Valle, [address], [address]. tel:[phone] [facility], [address] [place] [address], [address], [place] tel: [phone] [facility] No Information 6 2 Moonjosiah Max. [address], [id number], [place]. tel:[phone] Referring Provider: Max Valdez, [address], [address]. tel:[phone] [facility], [address] [place] [address], [address], [place] tel:[phone] [facility] No Information 2 Norm lEizabeth. [address], [address], [place]. tel:[phone] Referring Provider: Glenn Valle, [address], [address]. tel:[phone] [facility], [address] [place] [address], [address], [place] tel:[phone] [facility] No Information Nov-0 2 Norm Elizabeth. [address], [address], [place]. tel:[phone] Referring Provider: Glenn Valle, [address], [address]. tel:[phone] [facility], [address], [address], [place] tel:[phone] [facility] No Information Oct-2 2 Norm Glenn. [address], [facility], [place]. tel:[phone] Referring Provider: Glenn Valle, [address], [address]. tel:[phone] [facility], [address] [place] [address], [address], [place] tel:[phone] [facility] No Information 2 Norm Elizabeth. [address], [address], [place]. tel:[phone] Referring Provider: Glenn Valle, [address], [address]. tel:[phone] [facility], [address] [place] [address], [address], [place] tel:[phone] [facility] No Information Oct- 2 Norm Elizabeth. [address], [address], [place]. tel:[phone] Referring Provider: Glenn Valle, [address], [address]. tel:[phone] [facility], [address] [place] [address], [address], [place] tel:[phone] [facility] No Information Sep-1 8-201 2 Norm Elizabeth. [facility] [address], [facility], [place]. tel:[phone] Referring Provider: Glenn Valle, [address], [address]. tel:[phone] [facility], [address] [place] [address], [facility], [place] tel:[phone] [facility] No Information Sep-1 3-201 2 Norm Elizabeth. [address], [facility], [place]. tel:[phone] Referring Provider: Glenn Valle, [address], [facility]. tel:[phone] [facility], [address], [facility], [place] tel:[phone] [facility] No Information Sep-1 0-201 2 Norm Elizabeth. [address], [facility], [place]. tel:[phone] Referring Provider: Glenn Valle, [address], [facility]. tel:[phone] [facility], [address] [place] [address], [facility], [place] tel:[phone] [facility] No Information Sep-0 4-201 2 Norm Glenn. [address], [facility], [place]. tel:[phone] Referring Provider: Glenn Valle, [address], [address]. tel:[phone] [facility], [address] [place] [address], [facility], [place] tel:[phone] [facility] No Information Aug-3 0-201 2 Norm Elizabeth. [address], [facility], [place]. tel:[phone] Referring Provider: Glenn Valle, [address], [facility]. tel:[phone] [facility], [address] [place] [address], [address], [place] tel:[phone] [facility] No Information 2 Norm Ho [address], [address], [place]. [phone] Referring Provider: Glenn Valle, [address], [address]. tel:-[phone] Office Visit Established Moderate [facility], [address] [place] [address], [address], [place] tel:[phone] [facility] Joint Pain-shlderDe pression 2 Norm Ho [address], [facility], [place]. tel:[phone] Referring Provider: Glenn Valle, [address], [address]. tel:[phone] [facility], [address] [place] [address], [facility], [place] tel:[phone] [facility] No Information 2 Norm Ho [address], [facility], [place]. [phone] Referring Provider: Glenn Valle, [address], [address]. tel:[phone] [facility], [address] [place] [address], [facility], [place] tel:[phone] [facility] No Information 2 Norm Ho [address], [address], [place]. [phone] Referring Provider: Glenn Valle, [address], [address]. tel:-[phone] [facility], [address] [place] [address], [address], [place] tel:[phone] [facility] No Information 2 Norm Ho [address], [facility], [place]. tel:[phone] Referring Provider: Glenn Valle, [address], [address]. tel:[phone] [facility], [address] [place] [address], [facility], [place] tel:[phone] [facility] No Information Sep-0 6-201 2 Norm Glenn. [address], [facility], [place]. tel:[phone] Referring Provider: Glenn Valle, [address], [address]. tel:[phone] [facility], [address] [place] [address], [facility], [place] tel:[phone] [facility] No Information Sep-0 2-201 2 Norm Glenn. [address], [facility], [place]. tel:[phone] Referring Provider: Glenn Valle, [address], [facility]. tel:[phone] [facility], [address] [place] [address], [facility], [place] tel: [phone] [facility] No Information 3 0201 2 Norm Glenn. [address], [facility], [place]. tel:[phone] Referring Provider: Glenn Valle, [address], [facility]. tel:[phone] [facility], [address] [place] [address], [facility], [place] tel: [phone] [facility] No Information 2 6201 2 Norm Glenn. [address], [facility], [place]. [phone] Referring Provider: Glenn Valle, [address], [address]. tel:[phone] [facility], [address] [place] [address], [facility], [place] tel: [phone] [facility] No Information 2 Norm Glenn. [address], [address], [place]. tel:[phone] Referring Provider: Glenn Valle, [address], [address]. tel:[phone] [facility], [address] [place] [address], [address], [place] tel:[phone] [facility] No Information 2 Norm Glenn. [address], [address], [place]. tel:[phone] Referring Provider: Glenn Valle, [address], [address]. tel:[phone] [facility], [address] [place] [address], [address], [place] tel:[phone] [facility] No Information 2 Norm Glenn. [address], [facility], [place]. tel:[phone] Referring Provider: Glenn Valle, [address], [address]. tel:[phone] [facility], [address] [place] [address], [address], [place] tel:[phone] [facility] No Information 2 Norm Glenn. [address], [address], [place]. tel:[phone] Referring Provider: Glenn Valle, [address], [address]. tel:[phone] [facility], [address] [place] [address], [address], [place] tel:[phone] [facility] No Information 2 Norm Glenn. [address], [address], [place]. tel:[phone] Referring Provider: Glenn Valle, [address], [address]. tel:[phone] [facility], [address], [facility], [place] tel: [phone] [facility] No Information 2 Norm GlennAlon [address] [place] [address], [facility], [place]. [phone] Referring Provider: Glenn Valle, [address] [place] [address], [address]. tel:[phone] [facility], [address], [facility], [place] tel: [phone] [facility] No Information 2 Norm GlennAlon [address] [place] [address], [facility], [place]. [phone] Referring Provider: Glenn Valle, [address] [place] [address], [facility]. [phone] Office Visit Established Moderate [address], [facility], [place] tel:[phone] [facility] Respiratory Abnorm NecCoughEncnt r Long-rx Use NecFatigue 2 Norm Ho [address] [place] [address], [facility], [place]. tel:[phone] Referring Provider: Glenn Valle, [address] [place] [address], [address]. tel:[phone] [facility], [address], [facility], tel:[phone] [facility] No Information 2 Norm Ho [address], [facility], [place]. [phone] Referring Provider: Glenn Valle, [facility] [address], [address]. tel:[phone] [facility], [address], [facility], [place] tel:[phone] [facility] No Information 2 Norm Ho [facility] [address], [facility], [place]. tel:[phone] Referring Provider: Glenn Valle, [address], [address]. tel:[phone] [facility], [address] [place] [address], [address], [place] tel: [phone] [facility] No Information May-2 4-201 2 Norm GlennAlon [address], [address], [place]. tel:[phone] Referring Provider: Glenn Valle, [address], [address]. tel:[phone] [facility], [address] [place] [address], [address], [place] tel:[phone] [facility] No Information May-2 1-201 2 Norm Glenn. [address] [place] [address], [address], [place]. [phone] Referring Provider: Glenn Valle, [address], [address]. tel:[phone] [facility], [address] [place] [address], [address], [place] tel:[phone] [facility] No Information May-1 0-201 2 Norm GlennAlon [address], [address], [place]. tel:[phone] Referring Provider: Glenn Valle, [address], [address]. tel:[phone] [facility], [address] [place] [address], [address], [place] tel: [phone] [facility] No Information May-0 3-201 2 Norm Elizabeth. [address], [address], [place]. [phone] Referring Provider: Glenn Valle, [address], [address]. tel:[phone] [facility], [address] [place] [address], [address], [place] tel:[phone] [facility] No Information Apr-3 0-201 2 Norm Elizabeth. [address], [address], [place]. tel:[phone] Referring Provider: Glenn Valle, [address], [address]. tel:[phone] [facility], [address] [place] [address], [address], [place] tel: [phone] [facility] No Information Apr-2 3-201 2 Norm Elizabeth. [address], [address], [place]. tel:[phone] Referring Provider: Glenn Valle, [address], [address]. tel:[phone] [facility], [address] [place] [address], [address], [place] tel: [phone] [facility] No Information Apr-1 6-201 2 Norm Elizabeth. [address], [address], [place]. tel:[phone] Referring Provider: Glenn Valle, [address], [address]. tel:[phone] [facility], [address] [place] [address], [address], [place] tel: [phone] [facility] No Information Apr-0 9-201 2 Norm Elizabeth. [address], [address], [place]. tel:[phone] Referring Provider: Glenn Valle, [address], [address]. tel:[phone] [facility], [address] [place] [address], [address], [place] tel: [phone] [facility] No Information Apr-0 2-201 2 Norm Elizabeth. [address], [address], [place]. tel:[phone] Referring Provider: Glenn Valle, [address], [address]. tel:[phone] [facility], [address] [place] [address], [address], [place] tel:[phone] [facility] No Information Mar-2 1-201 2 Norm Glenn. [address], [address], [place]. tel:[phone] Referring Provider: Glenn Valle, [address], [address]. tel:[phone] [facility], [address], [address], [place] tel:[phone] [facility] No Information Mar-1 9201 2 Norm Elizabeth. [address], [address], [place]. tel:[phone] Referring Provider: Glenn Valle, [address], [address]. tel:[phone] [facility], [address], [address], [place] tel:[phone] [facility] No Information Apr-1 2-201 2 Norm Glenn. [address], [address], [place]. tel:[phone] Referring Provider: Glenn Valle, [address], [address]. tel:[phone] [facility], [address] [place] [address], [address], [place] tel:[phone] [facility] No Information Mar-0 5 2 Norm Glenn. [address], [address], [place]. tel:[phone] Referring Provider: Glenn Valle, [address], [address]. tel:[phone] [facility], [address], [address], [place] tel:[phone] [facility] No Information Fe- 2 Norm Glenn. [address], [address], [place]. tel:[phone] Referring Provider: Glenn Valle, [address], [address]. tel:[phone] [facility], [address] [place] [address], [facility], [place] tel:[phone] [facility] No Information 2 Norm Glenn. [address] [place] [address], [facility], [place]. tel:[phone] Referring Provider: Glenn Valle, [address], [facility]. tel:[phone] [facility], [address] [place] [address], [facility], [place] tel:[phone] [facility] No Information 2 Norm Glenn. [address] [place] [address], [facility], [place]. tel:[phone] Referring Provider: Glenn Valle, [address], [facility]. tel:[phone] [facility], [address] [place] [address], [facility], [place] tel: [phone] [facility] No Information 2 Norm Elizabeth. [address], [facility], [place]. tel:[phone] Referring Provider: Glenn Valle, [address], [facility]. tel:[phone] [facility], [address] [place] [address], [facility], [place] tel: [phone] [facility] No Information 2 Norm Elizabeth. [address], [facility], [place]. tel:[phone] Referring Provider: Glenn Valle, [address], [facility]. tel:[phone] [facility], [address] [place] [address], [facility], [place] tel:[phone] [facility] No Information b 2 Norm Elizabeth. [address], [facility], [place]. tel:[phone] Referring Provider: Glenn Valle, [address], [address]. tel:[phone] [facility], [address] [place] [address], [address], [place] tel:[phone] [facility] No Information 2 Norm Elizabeth. [address], [address], [place]. tel:[phone] Referring Provider: Glenn Valle, [address], [address]. tel:[phone] [facility], [address] [place] [address], [address], [place] tel: [phone] [facility] No Information 2 Norm Elizabeth. [address], [address], [place]. tel:[phone] Referring Provider: Glenn Valle, [address], [address]. tel:[phone] [facility], [address] [place] [address], [address], [place] tel: [phone] [facility] No Information 2 Norm Glenn. [address], [address], [place]. tel:[phone] Referring Provider: Glenn Valle, [address], [address]. tel:[phone] [facility], [address] [place] [address], [address], [place] tel: [phone] [facility] No Information 2 Norm Elizabeth. [address], [address], [place]. tel:[phone] Referring Provider: Glenn Valle, [address], [address]. tel:[phone] [facility], [address] [place] [address], [address], [place] tel: [phone] [facility] No Information 2 Norm Elizabeth. [address], [address], [place]. tel:[phone] Referring Provider: Glenn Valle, [address], [address]. tel:[phone] [facility], [address] [place] [address], [address], [place] tel:[phone] [facility] No Information 2 Norm Elizabeth. [address], [address], [place]. tel:[phone] Referring Provider: Glenn Valle, [address], [address]. tel:[phone] [facility], [address], [address], [place] tel:[phone] [facility] No Information 2 Norm Glenn. [address], [address], [place]. tel:[phone] Referring Provider: Glenn Valle, [address], [address]. tel:[phone] [facility], [address] [place] [address], [address], [place] tel:[phone] [facility] No Information 2 Norm Elizabeth. [address], [address], [place]. tel:[phone] Referring Provider: Glenn Valle, [address], [address]. tel:[phone] [facility], [address] [place] [address], [address], [place] tel:[phone] [facility] No Information 2 Norm Elizabeth. [address], [address], [place]. tel:[phone] Referring Provider: Glenn Valle, [address], [address]. tel:[phone] Office Visit Established - Moderate [facility], [address], [address], [place] tel:[phone] [facility] hip (chief complaint)mol es (chief complaint)all ergy shot (chief complaint) Pain In LimbSeborrhei c Keratosis NecAllergic Rhinitis Nos 2 Norm Ho [address], [address], [place]. tel:[phone] Referring Provider: Glenn Valle, [address], [address]. tel:[phone] [facility], [address] [place] [address], [address], [place] tel:[phone] [facility] Ext Asthma W/o Stat Asth 1 Norm Ho [address] [place] [address], [facility], [place]. [phone] Referring Provider: Glenn Valle, [address], [address]. tel:[phone] [facility], [address] [place] [address], [facility], [place] tel:[phone] [facility] No Information 1 Norm Ho [address], [facility], [place]. tel:[phone] Referring Provider: Glenn Valle, [address], [address]. tel:[phone] [facility], [address] [place] [address], [address], [place] tel:[phone] [facility] No Information 1 Norm Ho [address], [address], [place]. tel:[phone] Referring Provider: Glenn Valle, [address], [address]. tel:[phone] [facility], [address] [place] [address], [address], [place] tel:[phone] [facility] No Information 1 Norm Ho [address], [facility], [place]. tel:[phone] Referring Provider: Glenn Valle, [address], [address]. tel:[phone] [facility], [address] [place] [address], [address], [place] tel: [phone] [facility] No Information Dec-0 9-201 1 Norm GlennAlon [address], [facility], [place]. tel:[phone] Referring Provider: Gelnn Valle, [address], [address]. tel:[phone] [facility], [address] [place] [address], [facility], [place] tel: [phone] [facility] No Information Dec-0 6-201 1 Norm Ho [address], [facility], [place]. tel:[phone] Referring Provider: Glenn Valle, [address], [facility]. tel:[phone] [facility], [address] [place] [address], [address], [place] tel: [phone] [facility] No Information Dec-0 6-201 1 Norm GlennAlon [address], [facility], [place]. tel:[phone] Referring Provider: Glenn Valle, [address], [address]. tel:[phone] [facility], [address] [place] [address], [facility], [place] tel: [phone] [facility] No Information Dec-0 1-201 1 Norm GlennAlon [address], [facility], [place]. tel:[phone] Referring Provider: Glenn Valle, [address], [address]. tel:[phone] [facility], [address] [place] [address], [facility], [place] tel: [phone] [facility] No Information 1 Norm Glenn. [address], [address], [place]. tel:[phone] Referring Provider: Glenn Valle, [address], [address]. tel:[phone] [facility], [address] [place] [address], [address], [place] tel:[phone] [facility] No Information 1 Norm Glenn. [address], [address], [place]. tel:[phone] Referring Provider: Glenn Valle, [address], [address]. tel:-[phone] [facility], [address] [place] [address], [address], [place] tel:[phone] [facility] No Information 1 Norm Elizabeth. [address], [address], [place]. tel:[phone] Referring Provider: Glenn Valle, [address], [address]. tel:[phone] [facility], [address] [place] [address], [address], [place] tel:[phone] [facility] No Information 1 Norm Elizabeth. [address], [address], [place]. [phone] Referring Provider: Glenn Valle, [address], [address]. tel:[phone] [facility], [address] [place] [address], [address], [place] tel:[phone] [facility] No Information 1 Norm Elizabeth. [address], [address], [place]. tel:[phone] Referring Provider: Glenn Valle, [address], [address]. tel:-[phone] [facility], [address] [place] [address], [address], [place] tel:[phone] [facility] No Information 1 Norm Ho [address], [address], [place]. tel:[phone] Referring Provider: Glenn Valle, [address], [address]. tel:[phone] [facility], [address] [place] [address], [address], [place] tel:[phone] [facility] No Information 1 Norm Ho [address], [address], [place]. tel:[phone] Referring Provider: Glenn Valle, [address], [address]. tel:[phone] Office Visit New - Moderate [facility], [address] [place] [address], [address], [place] tel:[phone] [facility] back pain (chief complaint) Genital Herpes NecGenital Herpes Nos 1 Chris Bower. [address], [place], [place], [id number], [place]. tel:[phone] Referring Provider: Bryan Wadsworth, [address], [address]. tel:[phone] [facility], [address] [place] [address], [address], [place] tel:[phone] [facility] No Information 1 Norm Ho [address], [address], [place]. [phone] Referring Provider: Glenn Valle, [address], [address]. tel:[phone] [facility], [address] [place] [address], [address], [place] tel:[phone] [facility] No Information 1 Norm Ho [address], [facility], [place]. tel:[phone] Referring Provider: Glenn Valle, [address], [address]. tel:[phone] [facility], [address] [place] [address], [address], [place] tel: [phone] [facility] No Information Nov- 1 Norm Glenn. [address], [facility], [place]. tel:[phone] Referring Provider: Glenn Valle, [address], [address]. tel:[phone] [facility], [address] [place] [address], [address], [place] tel: [phone] [facility] No Information Nov-0 [address]Al[address] [place] [address], [facility], [place]. [phone] Referring Provider: Glenn Valle, [address], [address]. tel:[phone] [facility], [address] [place] [address], [address], [place] tel: [phone] [facility] No Information Oct-2 1 Norm GlennAlon [facility] [address], [facility], [place]. tel:[phone] Referring Provider: Glenn Valle, [address], [address]. tel:[phone] [facility], [address] [place] [address], [facility], [place] tel: [phone] [facility] No Information Oct-2 1 Norm GlennAlon [address] [place] [address], [address], [place]. tel:[phone] Referring Provider: Gelnn Valle, [address], [address]. tel:[phone] Office Visit Established - Moderate [facility], [address] [place] [address], [facility], [place] tel: [phone] [facility] No Information Sep-2 3-201 1 Norm Glenn. [address], [address], [place]. tel:[phone] Referring Provider: Glenn Valle, [address], [address]. tel:[phone] [facility], [address] [place] [address], [address], [place] tel:[phone] [facility] No Information Sep-2 2-201 1 Norm Glenn. [address], [address], [place]. tel:[phone] Referring Provider: Glenn Valle, [address], [address]. tel:[phone] [facility], [address] [place] [address], [address], [place] tel:[phone] [facility] No Information Sep-2 0-201 1 Norm Elizabeth. [address], [address], [place]. tel:[phone] Referring Provider: Glenn Valle, [address], [address]. tel:[phone] [facility], [address] [place] [address], [address], [place] tel:[phone] [facility] No Information Sep-1 4-201 1 Norm Elizabeth. [address], [address], [place]. tel:[phone] Referring Provider: Glenn Valle, [address], [address]. tel:[phone] [facility], [address] [place] [address], [address], [place] tel:[phone] [facility] No Information Sep-1 3-201 1 Norm Elizabeth. [address], [address], [place]. tel:[phone] Referring Provider: Glenn Valle, [address], [address]. tel:[phone] [facility], [address] [place] [address], [address], [place] tel:[phone] [facility] No Information Sep-0 1 Norm GlennAlon [address], [address], [place]. tel:[phone] Referring Provider: Glenn Valle, [address], [address]. tel:[phone] [facility], [address] [place] [address], [address], [place] tel:[phone] [facility] Allergic Rhinitis Nos Sep-0 - 1 Norm GlennAlon [address], [address], [place]. tel:[phone] Referring Provider: Glenn Valle, [address], [address]. tel:[phone] [facility], [address], [address], [place] tel:[phone] [facility] No Information Sep-3 1 Norm Ho [address], [address], [place]. tel:[phone] Referring Provider: Glenn Valle, [address], [address]. tel:[phone] [facility], [address] [place] [address], [address], [place] tel:[phone] [facility] No Information Sep-2 1 Norm Ho [address], [address], [place]. tel:[phone] Referring Provider: Glenn Valle, [address], [address]. tel:[phone] [facility], [address] [place] [address], [address], [place] tel:[phone] [facility] No Information Sep-1 1 Norm Ho [address], [address], [place]. tel:[phone] Referring Provider: Glenn Valle, [address], [address]. tel:[phone] [facility], [address] [place] [address], [address], [place] tel: [phone] [facility] No Information 1 Norm Ho [address], [facility], [place]. [phone] Referring Provider: Glenn Valle, [address], [address]. tel:[phone] [facility], [address] [place] [address], [address], [place] tel: [phone] [facility] No Information 1 Norm Ho [address], [facility], [place]. [phone] Referring Provider: Glenn Valle, [address], [address]. tel:[phone] [facility], [address] [place] [address], [facility], [place] tel: [phone] [facility] Testicular Hypofunc NecCODING COMPLETE 1 Norm Ho [address], [facility], [place]. tel:[phone] Referring Provider: Glenn Valle, [address], [address]. tel:-[phone] Office Visit Established - Moderate [facility], [address] [place] [address], [address], [place] tel: [phone] [facility] R foot pain (chief complaint) Kidney StonePain In LimbKidney StoneAllergic Rhinitis Nos 1 Norm Elizabeth. [address], [facility], [place]. [phone] Referring Provider: Glenn Valle, [address], [address]. tel:[phone] [facility], [address] [place] [address], [facility], [place] tel: [phone] [facility] No Information Aug- 1 Norm Elizabeth. [address], [address], [place]. tel:[phone] Referring Provider: Glenn Valle, [address], [address]. tel:[phone] [facility], [address], [address], [place] tel:[phone] [facility] No Information 1 Norm Elizabeth. [address], [address], [place]. tel:[phone] Referring Provider: Glenn Valle, [facility] [address], [address]. tel:[phone] [facility], [address], [facility], [place] tel:[phone] [facility] No Information Aug-0 1 Norm Ho [address], [facility], [place]. tel:[phone] Referring Provider: Glenn Valle, [facility] [address], [address]. tel:[phone] [facility], [address], [facility], [place] tel:[phone] [facility] No Information 0 1 Norm Elizabeth. [address], [address], [place]. [phone] Referring Provider: Glenn Valle, [facility] [address], [address]. tel:[phone] [facility], [address], [address], [place] tel:[phone] [facility] No Information 1 Norm Ho [facility] [address], [facility], [place]. tel:[phone] Referring Provider: Glenn Valle, [address], [address]. tel:[phone] Office Visit Established - Moderate [facility], [address] [place] [address], [address], tel: [phone] [facility] wound check (chief complaint) No Information Jul- 1 Félix Poe. [address], [id number], [place]. tel:[phone] Referring Provider: Lui Delgadillo, [address], [address]. tel:[phone] [facility], [address] [place] [address], [facility], [place] tel: [phone] [facility] No Information Jul- 1 Norm Ho [address] [place] [address], [facility], . tel:[phone] Referring Provider: Glenn Valle, [facility] [address], [facility]. tel:[phone] [facility], [address] [place] [address], [facility], tel: [phone] [facility] No Information Jul- 1 Norm Ho [address] [place] [address], [facility], . tel:-[phone] Referring Provider: Glenn Valle, [facility] [address], [address]. tel:[phone] [facility], [address] [place] [address], [facility], tel: [phone] [facility] No Information Jul-0 1 Norm Ho [address], [facility], [place]. tel:[phone] Referring Provider: Glenn Valle, [facility] [address], [facility]. tel:[phone] [facility], [address] [place] [address], [facility], tel:[phone] [facility] No Information 1 Norm Ho [facility] [address], [facility], [place]. tel:[phone] Referring Provider: Glenn Valle, [address], [address]. tel:[phone] [facility], [address] [place] [address], [address], [place] tel:[phone] [facility] No Information 1 Norm Elizabeth. [address], [address], [place]. [phone] Referring Provider: Glenn Valle, [address], [address]. tel:[phone] [facility], [address] [place] [address], [address], [place] tel:[phone] [facility] No Information 1 Norm Elizabeth. [address], [address], [place]. [phone] Referring Provider: Glenn Valle, [address], [address]. tel:[phone] Office Visit Established [facility], [address] [place] [address], [address], [place] tel:[phone] [facility] UTI (chief complaint) No Information 1 Vitor Ponce. [address], [id number], [place]. [phone] Referring Provider: Kris Gan, [address], [address]. tel:[phone] [facility], [address] [place] [address], [address], [place] tel:[phone] [facility] No Information June- 1 Norm Elizabeth. [address], [address], [place]. [phone] Referring Provider: Glenn Valle, [address], [address]. tel:[phone] [facility], [address] [place] [address], [address], [place] tel: [phone] [facility] No Information May-2 1 Norm Glenn. [address], [address], [place]. tel:[phone] Referring Provider: Glenn Valle, [address], [address]. tel:[phone] [facility], [address] [place] [address], [address], [place] tel: [phone] [facility] No Information May-1 1 Norm Glenn. [address], [address], [place]. tel:[phone] Referring Provider: Glenn Valle, [address], [address]. tel:[phone] [facility], [address] [place] [address], [address], [place] tel:[phone] [facility] No Information May-1 1 Norm Ho [address], [address], [place]. tel:[phone] Referring Provider: Glenn Valle, [address], [address]. tel:[phone] [facility], [address] [place] [address], [address], [place] tel:[phone] [facility] No Information May-0 1 Norm Elizabeth. [address], [address], [place]. tel:[phone] Referring Provider: Glenn Valle, [address], [address]. tel:[phone] [facility], [address] [place] [address], [address], [place] tel:[phone] [facility] No Information Apr-0 1 Norm Ho [address], [address], [place]. tel:[phone] Referring Provider: Glenn Valle, [address], [address]. tel:[phone] [facility], [address] [place] [address], [address], [place] tel:[phone] [facility] No Information Mar-3 1-201 1 Norm Ho [address], [address], [place]. tel:[phone] Referring Provider: Glenn Valle, [address], [address]. tel:[phone] [facility], [address] [place] [address], [address], [place] tel:[phone] [facility] No Information Mar-2 9- 1 Norm Ho [address], [address], [place]. [phone] Referring Provider: Glenn Valle, [address], [address]. tel:[phone] [facility], [address] [place] [address], [address], [place] tel:[phone] [facility] No Information Mar-2 4- 1 Norm Ho [address], [address], [place]. tel:[phone] Referring Provider: Glenn Valle, [address], [address]. tel:[phone] [facility], [address] [place] [address], [address], [place] tel:[phone] [facility] No Information Mar-1 1 Norm Ho [address], [address], [place]. tel:[phone] Referring Provider: Glenn Valle, [address], [address]. tel:[phone] [facility], [address] [place] [address], [address], [place] tel:[phone] [facility] No Information Mar-0 7-201 1 Norm Ho [address], [address], [place]. tel:[phone] Referring Provider: Glenn Valle, [address], [address]. tel:[phone] [facility], [address] [place] [address], [address], [place] tel:[phone] [facility] No Information Feb-2 3 1 Norm Ho [address], [address], [place]. tel:[phone] Referring Provider: Glenn Valle, [address], [address]. tel:[phone] [facility], [address] [place] [address], [address], [place] tel:[phone] [facility] No Information b-2 2 1 Norm Ho [address], [address], [place]. tel:[phone] Referring Provider: Glenn Valle, [address], [address]. tel:[phone] [facility], [address] [place] [address], [address], [place] tel: [phone] [facility] No Information b-1 0- 1 Norm Ho [address], [address], [place]. tel:[phone] Referring Provider: Glenn Valle, [address], [address]. tel:[phone] [facility], [address] [place] [address], [address], [place] tel: [phone] [facility] No Information Feb-0 1 Norm Ho [address], [address], [place]. tel:[phone] Referring Provider: Glenn Valle, [address], [address]. tel:[phone] [facility], [address] [place] [address], [address], [place] tel:[phone] [facility] No Information Feb-0 2 1 Norm Ho [address], [address], [place]. [phone] Referring Provider: Glenn Valle, [address], [address]. tel:[phone] [facility], [address] [place] [address], [address], [place] tel: [phone] [facility] No Information 1 Norm Glenn. [address], [address], [place]. tel:[phone] Referring Provider: Glenn Valle, [address], [address]. tel:[phone] [facility], [address] [place] [address], [address], [place] tel:[phone] [facility] No Information 1 Norm Ho [facility] [address], [address], [place]. tel:[phone] Referring Provider: Glenn Valle, [address], [address]. tel:[phone] [facility], [address] [place] [address], [address], [place] tel:[phone] [facility] No Information 1 Norm Glenn. [address], [address], [place]. tel:[phone] Referring Provider: Glenn Valle, [address], [address]. tel:[phone] [facility], [address] [place] [address], [address], [place] tel: [phone] [facility] No Information 1 Norm Glenn. [facility] [address], [address], [place]. tel:[phone] Referring Provider: Glenn Valle, [address], [address]. tel:[phone] [facility], [address] [place] [address], [address], [place] tel: [phone] [facility] No Information 1 Norm Ho [address], [address], [place]. tel:[phone] Referring Provider: Glenn Valle, [address], [address]. tel:[phone] Office Visit Established [address], [address], [place] tel:[phone] [facility] recheck Medications (chief complaint) No Information 1 Norm Ho [address], [address], [place]. tel:[phone] Referring Provider: Glenn Valle, [address], [address]. tel:-[phone] [facility], [address], [address], [place] tel:[phone] [facility] No Information 1 Norm Ho [address], [address], [place]. tel:[phone] Referring Provider: Glenn Valle, [address], [address]. tel:-[phone] [facility], [address], [address], [place] tel:[phone] [facility] No Information 0 Norm Ho [address], [address], [place]. tel:[phone] Referring Provider: Glenn Valle, [address], [address]. tel:[phone] [facility], [address], [address], [place] tel:[phone] [facility] No Information 0 Norm Ho [address], [address], [place]. [phone] Referring Provider: Glenn Valle, [address], [address]. tel:[phone] [facility], [address] [place] [address], [facility], [place] tel: [phone] [facility] No Information Dec-1 7-201 0 Norm GlennAlon [address] [place] [address], [facility], [place]. tel:[phone] Referring Provider: Glenn Valle, [address] [place] [address], [facility]. tel:[phone] [facility], [address] [place] [address], [facility], [place] tel: [phone] [facility] No Information Dec-1 4-201 0 Norm Ho [address] [place] [address], [facility], [place]. tel:[phone] Referring Provider: Glenn Valle, [address] [place] [address], [facility]. tel:[phone] [facility], [address], [facility], [place] tel: [phone] [facility] No Information Dec-0 7-201 0 Norm Ho [address] [place] [address], [facility], [place]. tel:[phone] Referring Provider: Glenn Valle, [address] [place] [address], [facility]. tel:[phone] [facility], [address] [place] [address], [facility], [place] tel: [phone] [facility] No Information Dec-0 2-201 0 Norm Ho [address] [place] [address], [facility], [place]. tel:[phone] Referring Provider: Glenn Valle, [facility] [address], [address]. tel:[phone] [facility], [address] [place] [address], [facility], [place] tel:[phone] [facility] No Information Nov-3 0-201 0 Norm Ho [address] [place] [address], [facility], [place]. tel:[phone] Referring Provider: Glenn Valle, [address], [address]. tel:[phone] [facility], [address] [place] [address], [address], [place] tel: [phone] [facility] No Information 2 3-201 0 Norm Glenn. [address], [address], [place]. tel:[phone] Referring Provider: Glenn Valle, [address], [address]. tel:[phone] [facility], [address] [place] [address], [address], [place] tel: [phone] [facility] No Information 0 Norm Elizabeth. [address], [address], [place]. tel:[phone] Referring Provider: Glenn Valle, [address], [address]. tel:[phone] [facility], [address] [place] [address], [address], [place] tel: [phone] [facility] No Information 0 Norm Elizabeth. [address], [address], [place]. tel:[phone] Referring Provider: Glenn Valle, [address], [address]. tel:[phone] [facility], [address] [place] [address], [address], [place] tel: [phone] [facility] No Information 0 Norm Glenn. [address], [address], [place]. tel:[phone] Referring Provider: Glenn Valle, [address], [address]. tel:[phone] [facility], [address] [place] [address], [address], [place] tel: [phone] [facility] No Information 0 9-201 0 Norm Glenn. [address], [address], [place]. tel:[phone] Referring Provider: Glenn Valle, [address], [address]. tel:[phone] [facility], [address] [place] [address], [address], [place] tel:[phone] [facility] No Information Nov-0 4-201 0 Norm Elizabeth. [address], [address], [place]. tel:[phone] Referring Provider: Glenn Valle, [address], [address]. tel:[phone] [facility], [address] [place] [address], [address], [place] tel:[phone] [facility] No Information Nov-2 8-201 0 Norm Glenn. [address], [address], [place]. [phone] Referring Provider: Glenn Valle, [facility] [address], [address]. tel:[phone] [facility], [address] [place] [address], [address], [place] tel:[phone] [facility] No Information Nov-2 6-201 0 Norm Glenn. [address], [address], [place]. [phone] Referring Provider: Glenn Valle, [address], [address]. tel:[phone] [facility], [address] [place] [address], [address], [place] tel:[phone] [facility] No Information Nov-2 1-201 0 Norm Glenn. [facility] [address], [address], [place]. tel:[phone] Referring Provider: Glenn Valle, [address], [address]. tel:[phone] [facility], [address] [place] [address], [address], [place] tel:[phone] [facility] No Information Oct-1 9-201 0 Norm Glenn. [address], [address], [place]. [phone] Referring Provider: Glenn Valle, [address], [address]. tel:[phone] [facility], [address], [address], [place] tel:[phone] [facility] No Information Oct-1 5-201 0 Norm Glenn. [address], [address], [place]. [phone] Referring Provider: Glenn Valle, [address], [address]. tel:-[phone] [facility], [address], [address], [place] tel:[phone] [facility] No Information Nov-1 2-201 0 Norm Elizabeth. [address], [address], [place]. tel:[phone] Referring Provider: Glenn Valle, [address], [address]. tel:[phone] [facility], [address], [address], [place] tel:[phone] [facility] No Information Oct-0 7-201 0 Norm Elizabeth. [address], [address], [place]. tel:-[phone] Referring Provider: Glenn Valle, [address], [address]. tel:[phone] [facility], [address], [address], [place] tel:[phone] [facility] No Information Oct-0 5-201 0 Norm Elizabeth. [address], [address], [place]. tel:-[phone] Referring Provider: Glenn Valle, [address], [address]. tel:[phone] [facility], [address] [place] [address], [address], [place] tel:[phone] [facility] No Information Oct-0 1-201 0 Norm Glenn. [facility] [address], [address], [place]. tel:[phone] Referring Provider: Glenn Valle, [address], [address]. tel:[phone] [facility], [address] [place] [address], [address], [place] tel: [phone] [facility] No Information Sep-2 9-201 0 Norm Elizabeth. [address] [place] [address], [facility], [place]. tel:[phone] Referring Provider: Glenn Valle, [address], [address]. tel:[phone] [facility], [address] [place] [address], [facility], [place] tel: [phone] [facility] No Information Sep-2 3-201 0 Norm Elizabeth. [address], [facility], [place]. tel:-[phone] Referring Provider: Glenn Valle, [address], [address]. tel:[phone] [facility], [address] [place] [address], [address], [place] tel:[phone] [facility] No Information Sep-2 2-201 0 Norm Ho [address], [facility], [place]. tel:[phone] Referring Provider: Glenn Valle, [address], [address]. tel:[phone] [facility], [address] [place] [address], [facility], [place] tel:[phone] [facility] No Information Sep-1 6-201 0 Norm Ho [address], [address], [place]. tel:-[phone] Referring Provider: Glenn Valle, [address], [address]. tel:[phone] [facility], [address] [place] [address], [address], [place] tel:[phone] [facility] allergies (chief complaint) Sleep Apnea, ObstructiveAs thma W/o Status Asthm Sep-0 8-201 0 Norm Elizabeth. [address], [address], [place]. tel:[phone] Referring Provider: Glenn Valle, [address], [address]. tel:[phone] [facility], [address] [place] [address], [address], [place] tel:[phone] [facility] No Information Oct-0 7-201 0 oNrm Elizabeth. [address], [facility], [place]. tel:[phone] Referring Provider: Glenn Valle, [address], [address]. [phone] [facility], [address] [place] [address], [facility], [place] tel:[phone] [facility] depotestoster one inj. (chief complaint) No Information Sep-2 0-201 0 Norm Elizabeth. [address], [address], [place]. tel:[phone] Referring Provider: Glenn Valle, [address], [address]. tel:[phone] [facility], [address] [place] [address], [facility], [place] tel:[phone] [facility] No Information 7201 0 Sand[place] Ted. [facility] [address], [id number], [place]. tel:[phone] Referring Provider: Glenn Valle, [address], [address]. [phone] [facility], [address] [place] [address], [facility], [place] tel:[phone] [facility] No Information Jluis-0 8-201 0 Norm Glenn. [address], [address], [place]. [phone] Referring Provider: Glenn Valle, [address], [address]. tel:[phone] [facility], [address], [address], [place] tel: [phone] [facility] No Information Hebert-2 8-201 0 Norm Glenn. [address], [address], [place]. tel:-[phone] Referring Provider: Glenn Valle, [address], [address]. tel:[phone] [facility], [address], [address], [place] tel:[phone] [facility] No Information Hebert-1 0-201 0 Norm Elizabeth. [address], [address], [place]. tel:[phone] Referring Provider: Glenn Valle, [address], [address]. tel:[phone] [facility], [address] [place] [address], [address], [place] tel:[phone] [facility] No Information Hebert-0 1-201 0 Norm Elizabeth. [address], [address], [place]. tel:-[phone] Referring Provider: Glenn Valle, [address], [address]. tel:[phone] [facility], [address], [address], [place] tel:[phone] [facility] No Information May-1 3-201 0 Norm Glenn. [address], [address], [place]. tel:-[phone] Referring Provider: Glenn Valle, [address], [address]. tel:[phone] [facility], [address] [place] [address], [address], [place] tel:[phone] [facility] injection (chief complaint) No Information May- 0-201 0 [place] [address] [place] [address], [address], [place]. tel:[phone] Referring Provider: Glenn Valle, [facility] [address], [address]. tel:[phone] [facility], [address] [place] [address], [address], [place] tel: [phone] [facility] No Information 5-201 0 Norm Ho [address] [place] [address], [facility], [place]. [phone] Referring Provider: Glenn Valle, [address] [place] [address], [address]. tel:[phone] [facility], [address] [place] [address], [facility], [place] tel:[phone] [facility] No Information 1-201 0 Norm Ho [facility] [address], [address], [place]. tel:[phone] Referring Provider: Glenn Valle, [facility] [address], [address]. tel:[phone] [facility], [address] [place] [address], [facility], [place] tel: [phone] [facility] [facility] blood work recheck (chief complaint) No Information 6-201 0 Norm Ho [address], [address], [place]. tel:[phone] Referring Provider: Glenn Valle, [facility] [address], [address]. tel:[phone] [facility], [address], [facility], [place] tel:[phone] [facility] consult (chief complaint) No Information 2-201 0 Norm Ho [facility] [address], [address], [place]. tel:[phone] Referring Provider: Glenn Valle, [address], [address]. tel:[phone] Family History Family Member Type Diagnosis Age [...] Record Payers Payer name Insurance type Covered libertarian ID Authoriza tion(s) [facility] [id number] [facility] [id number] [facility] [id number] [facility] [id number] [facility] [id number] [facility] [id number] [facility] [id number] [facility] [id number] [facility] [id number] Social History Type Description Quantity Date Captured Comments Sex Male Smoking Status No Information Chief Complaint And Reason For Visit No Information Reason For Referral Reason For Referral No Information Plan Of Treatment Date Type [...] C scre ening. Due on due Goal Td vaccine. Due on due Goal Lipid panel. Due on due Goal COVID-19 Vaccine due Goal Colonoscopy. Due on due Goal Consider PSA Scr eening. Due on due Goal Tdap due Goal Pneumococcal vaccine (Prevna r 13) due Goal Influenza vaccin e. Due on due Goal Lipid panel. Due on due Goal COVID-19 Vaccine due Goal Zoster vaccine ( 2nd). Due on due Goal Td vaccine. Due on due Goal Tdap due Goal Colonoscopy. Due on 022 due Goal FIT-DNA (Cologua rd). Due on due Goal Consider PSA Scr eening. Due on due Goal FIT. Due on due Goal FOBT. Due on due Goal Zoster vaccine (1st) due Goal Zoster vaccine due Goal PHQ9/Depr/Suicid e Rsk Assessment. Due on due Goal Diabetes screeni ng. Due on due Goal ECG. Due on due Goal Colonoscopy. Due on due Goal Tdap due Goal PHQ9/Depr/Suicid e Rsk Assessment. Due on due Goal Diabetes screeni ng. Due on due Goal ECG. Due on due Goal COVID-19 Vaccine due Goal Zoster vaccine due Goal Influenza vaccin e. Due on due Goal FIT. Due on due Goal Pneumococcal vaccine (Prevna r 13) due Goal Consider PSA Scr eening. Due on due Goal FOBT. Due on due Goal Zoster vaccine ( 2nd). Due on due Goal Zoster vaccine (1st) due Goal FIT-DNA (Cologua rd). Due on due Goal Td vaccine. Due on due Goal Lipid panel. Due on due Goal Colonoscopy. Due on due Goal Zoster vaccine (1st) due Goal Influenza vaccin e. Due on due Goal FIT. Due on due Goal FOBT. Due on due Goal FIT-DNA (Cologua rd). Due on due Goal PHQ9/Depr/Suicid e Rsk Assessment. Due on due Goal Zoster vaccine ( 2nd). Due on due Goal Diabetes screeni ng. Due on due Goal ECG. Due on due Goal Tdap due Goal COVID-19 Vaccine due Goal Lipid panel. Due on due Goal Pneumococcal vaccine (Prevna r 13) due Goal Zoster vaccine due Goal Consider PSA Scr eening. Due on due Goal Td vaccine. Due on due Goal Zoster vaccine (1st) due Goal FIT. Due on due Goal Lipid panel. Due on due Goal Zoster vaccine ( 2nd). Due on due Goal Diabetes screeni ng. Due on due Goal ECG. Due on due Goal FIT-DNA (Cologua rd). Due on due Goal Consider PSA Scr eening. Due on due Goal Tdap due Goal Zoster vaccine due Goal Td vaccine. Due on due Goal Colonoscopy. Due on due Goal Influenza vaccin e. Due on due Goal COVID-19 Vaccine due Goal PHQ9/Depr/Suicid e Rsk Assessment. Due on due Goal FOBT. Due on due Goal Pneumococcal vaccine (Prevna r 13) due Goal PHQ9/Depr/Suicid e Rsk Assessment. Due on due Goal Tdap due Goal Diabetes screeni ng. Due on due Goal ECG. Due on due Goal Zoster vaccine ( 2nd). Due on due Goal Colonoscopy. Due on due Goal Pneumococcal vaccine (Prevna r 13) due Goal Zoster vaccine (1st) due Goal FIT. Due on due Goal Consider PSA Scr eening. Due on due Goal Td vaccine. Due on due Goal Zoster vaccine due Goal FOBT. Due on due Goal Influenza vaccin e. Due on due Goal COVID-19 Vaccine . Due on due Goal Lipid panel. Due on due Goal FIT-DNA (Cologua rd). Due on due Goal Colonoscopy. Due on due Goal Tdap due Goal Zoster vaccine ( 2nd). Due on due Goal FIT-DNA (Cologua rd). Due on due Goal FIT. Due on due Goal Zoster vaccine due Goal Consider PSA Scr eening. Due on due Goal Lipid panel. Due on due Goal Zoster vaccine (1st) due Goal Pneumococcal vaccine (Prevna r 13) due Goal COVID-19 Vaccine . Due on due Goal FOBT. Due on due Goal Td vaccine. Due on due Goal Diabetes screeni ng. Due on due Goal PHQ9/Depr/Suicid e Rsk Assessment. Due on due Goal ECG. Due on due Goal Influenza vaccin e. Due on due Goal Zoster vaccine ( 2nd). Due on due Goal Diabetes screeni ng. Due on due Goal COVID-19 Vaccine . Due on due Goal FIT. Due on due Goal Consider PSA Scr eening. Due on due Goal FOBT. Due on due Goal Td vaccine. Due on due Goal Zoster vaccine due Goal Lipid panel. Due on due Goal Zoster vaccine (1st) due Goal Colonoscopy. Due on due Goal ECG. Due on due Goal PHQ9/Depr/Suicid e Rsk Assessment. Due on due Goal Tdap due Goal Pneumococcal vaccine (Prevna r 13) due Goal FIT-DNA (Cologua rd). Due on due Goal Influenza vaccin e. Due on due Goal FIT-DNA (Cologua rd). Due on due Goal Zoster vaccine ( 2nd). Due on due Goal COVID-19 Vaccine . Due on due Goal FOBT. Due on due Goal Tdap due Goal Colonoscopy. Due on due Goal Zoster vaccine due Goal Consider PSA Scr eening. Due on due Goal Lipid panel. Due on due Goal FIT. Due on due Goal Zoster vaccine (1st) due Goal Diabetes screeni ng. Due on due Goal Pneumococcal vaccine (Prevna r 13) due Goal ECG. Due on due Goal PHQ9/Depr/Suicid e Rsk Assessment. Due on due Goal Influenza vaccin e. Due on due Goal Td vaccine. Due on due Goal Tdap due Goal FIT-DNA (Cologua rd). Due on due Goal Colonoscopy. Due on due Goal ECG. Due on due Goal Influenza vaccin e. Due on due Goal Zoster vaccine (1st) due Goal Pneumococcal vaccine (Prevna r 13) due Goal Diabetes screeni ng. Due on due Goal FIT. Due on due Goal Consider PSA Scr eening. Due on due Goal COVID-19 Vaccine . Due on due Goal Lipid panel. Due on due Goal Td vaccine. Due on due Goal FOBT. Due on due Goal PHQ9/Depr/Suicid e Rsk Assessment. Due on due Goal Zoster vaccine due Goal Zoster vaccine ( 2nd). Due on due Goal Td vaccine. Due on due Goal PHQ9/Depr/Suicid e Rsk Assessment. Due on due Goal Zoster vaccine ( [...] Due on due Goal Tdap due Goal FIT-DNA (Cologua rd). Due on due Goal Zoster vaccine due Goal Pneumococcal vaccine (Prevna r 13) due Goal Colonoscopy. Due on due Goal Consider PSA Scr eening. Due on due Goal FOBT. Due on due Goal COVID-19 Vaccine . Due on due Goal Influenza vaccin e. Due on due Goal Zoster vaccine due Goal Tdap due Goal Lipid panel. Due on due Goal FIT. Due on due Goal Zoster vaccine ( 2nd). Due on due Goal Zoster vaccine (1st) due Goal PHQ9/Depr/Suicid e Rsk Assessment. Due on due Goal Diabetes screeni ng. Due on due Goal ECG. Due on due Goal FIT-DNA (Cologua rd). Due on due Goal Td vaccine. Due on due Goal FOBT. Due on due Goal Tdap due Goal Zoster vaccine due Goal ECG. Due on due Goal Pneumococcal vaccine (Prevna r 13) due Goal Consider PSA Scr eening. Due on due Goal Diabetes screeni ng. Due on due Goal PHQ9/Depr/Suicid e Rsk Assessment. Due on due Goal Lipid panel. Due on due Goal FIT. Due on due Goal Zoster vaccine (1st) due Goal Influenza vaccin e. Due on due Goal Zoster vaccine ( 2nd). Due on due Goal FIT-DNA (Cologua rd). Due on due Goal Colonoscopy. Due on due Goal Zoster vaccine due Goal Zoster vaccine (1st) due Goal Diabetes screeni ng. Due on due Goal ECG. Due on due Goal FIT-DNA (Cologua rd). Due on due Goal Consider PSA Scr eening. Due on due Goal Zoster vaccine ( 2nd). Due on due Goal FOBT. Due on due Goal PHQ9/Depr/Suicid e Rsk Assessment. Due on due Goal FIT. Due on due Goal Tdap due Goal Pneumococcal vaccine (Prevna r 13) due Goal Influenza vaccin e. Due on due Goal Lipid panel. Due on due Goal Colonoscopy. Due on due Goal Influenza vaccin e. Due on due Goal PHQ9/Depr/Suicid e Rsk Assessment. Due on due Goal Zoster vaccine due Goal FOBT. Due on due Goal Tdap due Goal Consider PSA Scr eening. Due on due Goal Colonoscopy. Due on due Goal Pneumococcal vaccine (Prevna r 13) due Goal Diabetes screeni ng. Due on due Goal Lipid panel. Due on due Goal FIT. Due on due Goal Zoster vaccine (1st) due Goal ECG. Due on due Goal Zoster vaccine ( 2nd). Due on due Goal FIT-DNA (Cologua rd). Due on due Goal Diabetes screeni ng. Due on due Goal ECG. Due on due Goal PHQ9/Depr/Suicid e Rsk Assessment. Due on due Goal Consider PSA Scr eening. Due on due Goal Lipid panel. Due on due Goal Influenza vaccin e. Due on due Goal Tdap due Goal Influenza vaccin e. Due on due Goal ECG. Due on due Goal Diabetes screeni ng. Due on due Goal Consider PSA Scr eening. Due on due Goal PHQ9/Depr/Suicid e Rsk [...] risk ass essment. Due on due Goal ECG. Due on [...] risk ass essment. Due on due Goal ECG. Due on due Goal Influenza vaccin e. Due on due Goal Consider PSA Scr eening. Due on due Goal Tdap due Goal ECG. Due on due Goal Diabetes screeni ng. Due on due Goal Suicide risk ass essment. Due on due Goal PHQ9. Due on due Goal Influenza vaccin e. Due on due Goal Lipid panel. Due on due Goal Tdap due Goal Lipid panel. Due on due Goal Influenza vaccin e. Due on due Goal PHQ9. Due on due Goal Suicide risk ass essment. Due on due Goal ECG. Due on due Goal Diabetes screeni ng. Due on due Goal Lipid panel. Due on due Goal Suicide risk ass essment. Due on due Goal PHQ9. Due on due Goal Tdap due Goal [...] PSA Scr eening. Due on due Goal Diabetes screeni ng. [...] Influenza vaccin e. Due on due Goal PHQ9. Due on [...] due Goal PSA. Due on due Goal Influenza Vaccin e. Due on due Goal TD Vaccine. Due on due Goal H&P. Due on due Goal TSH. Due on due Goal AST. Due on due Goal ALT. Due on due Referral Ordered: Xray, Foot, [...] ay, Shoulder, Complete, Ortho Views Left shoulder ([id number]), Body Site: shoulder, Sent on: Sent Future Order: Radiology Order Xr ay, Foot, Complete, 3 Views Left foot ([id number]), Body Site: foot, Sent on: Sent Future Order: Radiology Order Xr ay, Foot, Complete, 3 Views Left foot ([id number]), Body Site: foot, Sent on: Sent Future Order: Radiology Order Lo wer Extremity Venous Doppler Unilateral Right leg ([id number]), Body Site: leg, Sent on: Sent Future Order: Radiology Order Lo wer Extremity Venous Doppler, Bilateral Right leg ([id number]), Body Site: leg, Sent on: Sent Future Order: Radiology Order MR I, Upper Extremity, Joint (shoulder, Elbow, Wrist), Wo Contrast Left shoulder ([id number]), Body Site: shoulder, Sent on: Sent Future Order: Radiology Order MR I, Upper Extremity, Joint (shoulder, Elbow, Wrist), Wo Contrast Left shoulder ([id number]), Body Site: shoulder, Sent on: Sent Future Order: Radiology Order Xr ay, Shoulder, Complete, Ortho Views Left shoulder ([id number]), Body Site: shoulder, Sent on: Sent Future Order: Radiology Order Hi p 2-3 Views Left ([id number]), Sent on: Sent Future Order: Lab Order Free Tracey t. Index (FTI) ([id number]), Sent on: Sent Future Order: Lab Order PATHOLOG Y, LEVEL IV (PATH4), Sent on: Sent History Of Present Illness Encounter Date Complaint History Of Prese nt Illness *Moving- has brittneyio ns about moving records and allergy left shoulder *Suture Removal Pre op Lt foot *Leg Pain Pt's custom inserts came in, pt billed for 2 pair *Cyst *Allergy Shot (16213) Pt called stating he wanted another pair [...] MRI results *L shoulder (comments) This peter ent is a 46-year-old male who returns to [...] and off. Really bad 1 week ago. *review medications *left foot problem *Physical Exam Patient presents for a physical. [...] lying down. *Chest Cold/Bronchitis *chest congestion, uri Functional Status Date Functional Assessmen t No Information Instructions Date Instruction Additional Infor teja Provided [...] Impingement syndrome of left shoulder Patient/problem spec ifi education/handout(s) given Related to Incomplete rotatr-cuff tear/ruptr of l shoulder, not trauma Provided disease spe cific handouts/patient education. Related to Superior glenoid labrum lesion of left shoulder, subs encntr pt education given Related to [place] pain of left shoulder We will call you wit h your blood results. Related to Routine medical exam Followup in 2 or 3 w eeks. Sooner if he should worsen. Related to Deep vein blood clot of right lower extremity Followup in 10 days for suture removal. Watch for any signs of infection. Related to Sebaceous cyst Assessments Type Assessment Date No Information Patient Care Teams Name Effective Dates (start - stop) Status Members No Information
[2024-08-01 14:20] LABS: Appearance Urine Clear; Color Urine Yellow; Glucose Urine UA Negative (Negative); Leukocyte Esterase Urine Negative (Negative); Nitrite Urine Negative (Negative); PH 7.5 (5.0-9.0); Specific Gravity - Urine <= 1.005 (1.005-1.025); Urine Blood Negative (Negative); Urine Ketones Negative (Negative); Urine Protein Negative (Neg-Trace)
[2024-08-01 14:34] LABS: Anion Gap 11 (12-20); Blood Urea Nitrogen 22 mg/dL (9-16); Carbon Dioxide 24 mmol/L (22-29); Chloride 109 mmol/L (96-108); Estimated Glomerular Filt Rate > 60; Glucose Random 96 mg/dL (60-115); Sodium 140 mmol/L (135-145)
[2024-08-01 14:59] LABS: Creatinine Urine 20.89 mg/dL; Microalbumin Urine < 5.0 mg/L; Total Protein Urine Random < 7 mg/dL (<12)
== END 2024-08-01 11:43 | disposition home or self-care (01) ==
LOC: HO.WFDLDS 11:42
PROVIDERS: Visit Provider Internal Medicine Critical Care Medicine
DX: Q61.9 Cystic kidney disease, unspecified (principal)
CPT/HCPCS: 36415; 80048; 81003; 82570; 84156

== ENCOUNTER 2024-08-08 18:16 | Outpatient (REF) | payer BC, SELFPAY ==
--- NOTE | ~2024-08-08 | MR_ITS ---
EXAMINATION: MR ABDOMEN WITHOUT IV CONTRAST HISTORY: Q61.9 - Cystic kidney disease, unspecified. TECHNIQUE: Sagittal, axial, and coronal T2, axial in and out of phase T1-weighted gradient echo, and axial fat suppressed T1 and fat-suppressed T2-weighted MR images of the abdomen were obtained. COMPARISON: There are no prior studies available for comparison. FINDINGS: There is no significant signal loss within the liver on opposed phase imaging to suggest steatosis. There are 10 mm T2 hyperintense foci in the left lobe, consistent with cysts or hemangiomas. There is no intra or extrahepatic biliary dilatation. The gallbladder is unremarkable. The spleen and pancreas have an unremarkable unenhanced appearance. The adrenals are unremarkable. The right kidney demonstrates multiple probable cysts measuring 9 mm at the upper pole, 1.8 cm at the lateral aspect of the interpolar region, 1.9 cm the medial aspect of the interpolar region, and 10 mm the lower pole. The left kidney demonstrates a probable 11 mm cyst at the upper pole and 2.1 and 0.8 cm probable cysts at the lower pole. At the posterior aspect of the interpolar region, there is a 2.8 cm multiseptated cystic lesion. Complete evaluation is not possible without intravenous contrast administration. There is no hydronephrosis. There is a retroaortic left renal vein. No retroperitoneal lymphadenopathy or ascites is identified in the upper abdomen. There is a probable hemangioma in the T11 vertebral body. There is slight spondylolisthesis of L3 on L4. MR/MR abd polycystic kid wo con IMPRESSION: Multiple probable bilateral renal cysts are identified as described above. There is a 2.8 cm multiseptated cystic lesion at the posterior aspect of the interpolar region of the left kidney which is incompletely evaluated without intravenous contrast. A postcontrast examination is recommended. If this is not possible, ultrasound follow-up is recommended. Electronically signed by: Yves Goff MD 08/09/2024 07:12 AM EDT
== END 2024-08-08 18:17 | disposition home or self-care (01) ==
LOC: HO.MRI 18:16
PROVIDERS: Visit Provider Internal Medicine Critical Care Medicine
DX: Q61.9 Cystic kidney disease, unspecified (principal)
CPT/HCPCS: 74181

== ENCOUNTER → 2024-08-08 18:24 | Outpatient (BNV) | payer BC, SELFPAY | PROVIDERS: Visit Provider Radiology Diagnostic Radiology | DX: N20.0 Calculus of kidney (principal) | CPT/HCPCS: 74181 ==

== ENCOUNTER 2024-10-25 10:45 | Outpatient (AMB) | payer BC, SELFPAY ==
--- NOTE | 2024-10-25 07:54 | MHC.PC.OV ---
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 Allergies No Known Allergies Allergy (Verified 10/25/24 14:32) Medication List - Last Reconciled 10/25/24 by Crista Hammond [facility]- albuterol sulfate 90 mcg/actuation 2 puffs inhalation Q4-6H PRN 30 days fenofibrate 160 mg PO DAILY lisinopril-hydrochlorothiazide 20-12.5 mg 0.5 tabs PO DAILY montelukast 10 mg PO DAILY tadalafil 2.5 mg PO DAILY tamsulosin 0.4 mg PO DAILY testosterone 4 pumps topical DAILY Tobacco use date assessed: 07/26/24 Dental Screening Dental Screen Date: 07/26/24 HPI HPI Comments History of Present Illness Details 53 y/o M with anemia, R bakers cyst, low Testosterone, Renal cysts, Bilat nephromegaly (US 08/2023, MRI 02/2023 Bosniak IIF L cyst) L renal cyst requires US q6-12months, T11 Vertebral hemangioma, JETT on CPAP, HTN, CHLOE, Asthma, HLD, R banda cyst, chronic low back pain, cigar use, eczema, BPH with LUTS, Surgery: L medial meniscectomy 2022, amputation of toe L and R foot d/t necrotizing fascitis and several other ortho surgeries Social: , Retired Government, 1 dtr family hx: Mom 89 years old- HTN, arrythmias; dad at 64 had heart failure/obesity. Youngest of 6 siblings, one brother from from pancreatic cancer. No family history of kidney disease or liver disease. Health Maintenance Colon 2020 + polyp, repeat 5 years Tdap 2024 Specialists: Podiatry Ortho Renal Telehealth visit today: Requesting Vitamin b12, CBC, Ultra Senstive estradiol and Testosterone Free and Total to be ordered for [facility] in [place]. States will only be covered if ordered by PCP. Hormone pellets placed 3 weeks ago; unsure if will cont to do this or not. Needs labs to be done before next appt 11/28/24 Plan Labs ordered advised to get them done 7-10 days before appt discussed uro referral for T therapy in the future (d/t cost); prefers more natural methods. but will consider if needed. Telehealth Attestation I attest that this visit was conducted via telehealth and the documentation accurately reflects the discussion and interactions with the patient. The patient has been explained that this is an interactive (audio/video) telehealth encounter and what that consists of. The patient understands and wishes to proceed. [employer] platform was used. Total time spent caring for the patient today was 15 minutes. This includes time spent before the visit reviewing the chart, time spent during the visit, and time spent after the visit on documentation, reviewing laboratory results, diagnostic imaging, medications, performing a medically necessary evaluation, counseling on diagnoses, care coordination, ordering appropriate tests, ordering appropriate medications, review of tests performed by other providers, reporting test results with the patient, communication with other healthcare providers. [facility] Medical History (Updated 07/28/24 @ 14:29 by Jaiden Del Rosario MD) Arthritis Asthma Hemangioma of vertebral body High cholesterol Synovial cyst of popliteal space [Banda], right knee Surgical History H/O shoulder surgery History of colonoscopy (~2020) Family History Father Diabetes Social History Household Members: Spouse Both parents involved: No Caregiver staying overnight: No Housing: House Are you a primary wound care specialist to a significant other at home: No Do you presently have visiting nurse or other home services: No 75 years or older and lives alone: No Alcohol intake: current Alcohol intake frequency: a few times a month Patient Tobacco Use Status: Never used Tobacco e-Cigarette/Vaping Use: Never Used Second Hand Smoke Exposure: No Current occupational status: unemployed and retired Cognitive needs: No Hearing needs: No Vision needs: No Questionnaire Thrive Questionnaire Date Thrive assessed: 07/26/24 CHLOE-7 AMB Questionnaire CHLOE-7 Date CHLOE - 7 assessed: 07/26/24 Source: Developed by Drs. Yves Gillespie, Yamini Cabrera, Shon Prater and colleagues, with an educational shree from [employer]. Physical exam (Primary Care) Tobacco/Smoking Status: Tobacco use Status Tobacco use date assessed 07/26/24 10/25/24 07:55 Patient Tobacco Use Status Never used Tobacco 10/25/24 07:55 e-Cigarette/Vaping Use Never Used 10/25/24 07:55 Thrive Assessment: Date of Thrive Assessment Date Thrive assessed 07/26/24 10/25/24 07:55 Telehealth Telehealth Telehealth Platform: [facility] Location of provider rendering services: practice address Location of patient: address on file Patient Identification confirmed using: Name, : Yes Telehealth method: voice only Patient verbally consented to treatment: Yes Patient verbally consented to billing insurance company: Yes Patient informed of any privacy concerns related to visit: Yes Minutes spent on Phone/Video with Pt.: 8 Coding Level of Care Code Tele Est Pt Level 2 (10145) Complex EM visit Add On G2211 Diagnoses Low testosterone in male R79.89 Assessment & Plan Assessment & Plan (1) Low testosterone in male: Code(s): R7.89 - Other specified abnormal findings of blood chemistry Category: Medical Plan . Orders: Orders Estradiol Ultra Sensitive Today R7. - Other specified abnormal findings of blood chemistry Complete Blood Count no Diff Today R7. - Other specified abnormal findings of blood chemistry Testosterone, Free/Total Today R79.89 - Other specified abnormal findings of blood chemistry Vitamin B12 Today R7.89 - Other specified abnormal findings of blood chemistry
== END 2024-10-25 14:39 | disposition home or self-care (01) ==
LOC: HO.HMCFM 10:45
PROVIDERS: PCP Nurse Practitioner Family; Visit Provider Nurse Practitioner Family
DX: R79.89 Other specified abnormal findings of blood chemistry (principal)

== ENCOUNTER 2024-11-11 12:39 | Outpatient (REF) | payer BC, SELFPAY ==
[2024-11-11 14:37] LABS: Hematocrit 41.8 % (42.0-52.0); Hemoglobin 13.6 g/dl (14.0-18.0); Mean Corpuscular HGB Conc 32.5 g/dl (31.0-36.0); Mean Corpuscular Hemoglobin 29.1 pg (27.0-33.0); Mean Corpuscular Volume 89.5 fL (80.0-98.0); NRBC Abs Auto 0.000 X10*3/uL (0.0-0.012); NRBC Pct Auto 0.0 /100WBC (0.0-0.2); Platelet Count 293 X10*3/uL (160-400); Red Blood Count 4.67 X10*6/uL (4.60-5.80); White Blood Count 7.3 X10*3/uL (4.8-10.8)
[2024-11-11 15:05] LABS: Alanine Aminotransferase 23 U/L (0-40); Albumin Level 4.3 g/dL (3.5-5.0); Alkaline Phosphatase 55 U/L (39-117); Anion Gap 10 (12-20); Aspartate Amino Transferase 24 U/L (5-37); Blood Urea Nitrogen 14 mg/dL (9-16); Calcium 9.5 mg/dL (8.4-10.2); Carbon Dioxide 23 mmol/L (22-29); Chloride 113 mmol/L (96-108); Cholesterol 130 mg/dL (<200); Estimated Glomerular Filt Rate > 60; HDL Cholesterol 31 mg/dL (>40); Potassium 4.4 mmol/L (3.3-5.1); Sodium 142 mmol/L (135-145); Total Protein 6.6 g/dL (6.5-8.0); Triglycerides 99 mg/dL (<150)
[2024-11-11 15:19] LABS: Folate 8.9 ng/mL (> or = 4.0); Vitamin B12 503 pg/mL (200-900)
[2024-11-16 19:33] LABS: PSA, Ultra Sensitive 1.22 ng/mL
[2024-11-17 17:23] LABS: Testosterone, Free 140.0 pg/mL (35.0-155.0)
[2024-12-02 06:59] LABS: Estradiol Ultra Sensitive 13 pg/mL (< OR = 29)
== END 2024-11-11 12:40 | disposition home or self-care (01) ==
LOC: HO.WFDLDS 12:39
PROVIDERS: Visit Provider Nurse Practitioner Family
DX: E78.2 Mixed hyperlipidemia (principal); I10 Essential (primary) hypertension; R79.89 Other specified abnormal findings of blood chemistry; Z12.5 Encounter for screening for malignant neoplasm of prostate; Z13.21 Encounter for screening for nutritional disorder
CPT/HCPCS: 36415; 80053; 80061; 82306; 82607; 82670; 82746; 83036; 84153; 84402; 84403; 84443; 85027

== ENCOUNTER 2024-11-25 08:10 | Emergency (ER) | payer BC, SELFPAY ==
--- NOTE | ~2024-11-25 | US_ITS ---
EXAMINATION: US TRIPLEX LOWER EXTREMITY, RIGHT CLINICAL INFORMATION: Right leg swelling. History of DVT. COMPARISON: None available. TECHNIQUE: Color-flow triplex imaging with spectral analysis and compression Doppler were performed on the right lower extremity. FINDINGS: There is mixed hyper and hypoechoic material seen in the proximal and mid right greater saphenous vein extending 1.9 cm from the saphenofemoral junction. This is partially occlusive. The greater saphenous vein appears noncompressible in the thigh. The visualized right greater saphenous vein is patent and compressible in the calf. Respiratory variation, normal compression and augmented flow are noted in the deep veins. The common femoral vein, superficial femoral vein, profunda femoral vein, popliteal vein and midcalf peroneal and posterior tibial venous segments show no evidence of deep venous thrombosis. There is no Banda's cyst. US/US venous duplex LE RT IMPRESSION: Thrombus in the proximal and mid greater saphenous vein extending 1.9 cm from the saphenofemoral junction, uncertain age. This is mixed echogenicity and partially occlusive. The vein is noncompressible questionable for both acute and chronic thrombus. Consider short-term follow-up exam in several days to evaluate for interval change. Findings were communicated to Susanita. Magallanse by telephone 11/25/2024 at 10:57 AM. Electronically signed by: Yolanda Hodge MD 11/25/2024 11:02 AM EDT
[2024-11-25 08:30] VITALS: BP 129/80; PULSE 61; RESP 16; TEMP 36.8; O2SAT 98; BMI 31.2
--- NOTE | 2024-11-25 08:32 | ED.GENADULT ---
HPI - General Adult General Chief complaint: Extremity Injury, Lower Stated complaint: possible blood clot R leg Time Seen by Provider: 11/25/24 08:14 Source: patient and family Mode of arrival: ambulatory Limitations: no limitations History of Present Illness ED Provider: GUILLERMINA Magallanes HPI narrative: This is a 54-year-old male history of hypertension, BPH, GERD, asthma, hyperlipidemia, mild anemia who presents to the emergency department with an aching pain to the medial aspect of right thigh. He denies any strenuous activity that could have caused this. He does report years ago he had history of DVT to right calf he was on Xarelto for this for 6 months and later discontinued this medication per Dr. Lovett. He denies associated chest pain, shortness of breath, nausea, vomiting, lower extremity numbness, tingling, fevers, chills. Patient on HRT and smokes cigars Related Data Home Medications ?Medication ?Instructions ?Recorded ?Confirmed tadalafil 5 mg tablet 2.5 mg PO DAILY 07/26/24 10/25/24 Previous Rx's ?Medication ?Instructions ?Recorded albuterol sulfate 90 mcg/actuation 2 puff inhalation Q4-6H PRN 07/26/24 aerosol inhaler shortness of breath or wheezing 30 days #8.5 grams fenofibrate 160 mg tablet 160 mg PO DAILY #90 tabs 07/26/24 lisinopril 20 0.5 tab PO DAILY #45 tabs 07/26/24 mg-hydrochlorothiazide 12.5 mg tablet montelukast 10 mg tablet 10 mg PO DAILY #90 tabs 07/26/24 testosterone 4 pump topical DAILY #75 grams 07/26/24 tamsulosin 0.4 mg capsule 0.4 mg PO DAILY #90 caps 08/25/24 apixaban 5 mg (74 tabs) tablets in 5 mg PO BID dvt #74 ea 11/25/24 a dose pack (Eliquis DVT-PE Treat 30D Start) Allergies Allergy/AdvReac Type Severity Reaction Status Date / Time No Known Allergies Allergy Verified 11/25/24 08:32 Review of Systems Review of Systems: Yes all other systems are reviewed and are negative PMFSH Past Medical History Attestation statement: The following information was validated with the patient. Source: old records reviewed and nursing notes reviewed Medical History Arthritis High cholesterol Asthma Hemangioma of vertebral body Synovial cyst of popliteal space [Banda], right knee Surgical History H/O shoulder surgery History of colonoscopy (~2020) Family History Family History Father Diabetes Social History Social History Household Members: Spouse Housing: House Are you a primary home day care provider to a significant other at home: No Do you presently have visiting nurse or other home services: No Alcohol intake: current Alcohol intake frequency: a few times a month Patient Tobacco Use Status: Never used Tobacco Smoked in Last 30 Days: No e-Cigarette/Vaping Use: Never Used Second Hand Smoke Exposure: No Use of substances other than those prescribed or required for medical reasons: No Advance Directives: Yes Advance Directives Information Provided: Yes Advance Directives on File: No Do you have a plan to hurt others: No Plan Current occupational status: unemployed and retired Cognitive needs: No Hearing needs: No Vision needs: No Physical Exam ED Exam Exam: Appearance: Alert.? Oriented X3.? No acute distress.? Head: Normocephalic, atraumatic, no step-offs or deformities Eyes: Pupils equal, round and reactive to light.? ENT: Pharynx normal.? Neck: Normal inspection.? Neck supple.? CVS: Normal heart rate and rhythm.? Pulses normal.? Respiratory: No respiratory distress.? Breath sounds normal.? Abdomen: Soft and nontender.? Skin: Skin warm and dry.? Normal skin color.? Normal skin turgor.? Extremities: No lower extremity edema.? No calf ttp. 5/5 strength to bilateral upper and lower extremities + amputated toe of right foot amputated toe of left foot, distal sensation intact bilaterally, 2+ dorsalis pedis, anterior tibialis and posterior tibialis pulses equal bilateral. Back: No midline tenderness, no C-spine tenderness, full range of motion, no CVA tenderness bilaterally Neuro: Oriented X 3.? No motor deficit.? No sensory deficit. CN 2-12 intact Vital Signs: Vital Signs - 24 hr 11/25/24 08:30 11/25/24 08:42 Temperature 98.2 F 97.6 F Pulse Rate 61 66 Respiratory Rate 16 16 Blood Pressure 129/80 123/71 Pulse Oximetry 98 97 Oxygen Delivery Method Room Air Room Air BMI result Body Mass Index 31.2 vss Course Reevaluation(s) Reevaluation #1: CBC with a normocytic anemia. Chemistry unremarkable. Coags unremarkable. Time: 09:05 Reevaluation #2: DVT stuy w/ a thrombus to greater saphenous vein to saphenous femoral junction. Will give 10 mg of Eliquis now educated patient on anticoagulant use. He verbalizes understanding and is willing to take this at home. He understands the risks of taking this medication he will follow up with PCP as he likely requires further evaluation as he has had multiple DVTs. Time: 10:57 Reevaluation #3: I spoke to patient's PCP Crista Cooper, she is okay with patient continuing aspirin and Eliquis. She wants patient to call and schedule follow up for repeat ultrasound of right lower extremity. And further evaluation of possible hypercoagulable state. Educated patient on diagnosis and treatment plan, answered all question, patient verbalizes understanding. At this time patient will be discharged home, advised to return with new or worsening symptoms. Educated on worrisome signs and symptoms and when to return. At this time I feel comfortable discharge home. Time: 11:12 Medications Administered Discontinued Medications Generic Name Dose Route Start Last Admin Trade Name Freq PRN Reason Stop Dose Admin Apixaban 10 mg 11/25/24 10:58 11/25/24 11:08 Apixaban 5 Mg Tablet PO 11/25/24 10:59 10 mg ONCE ONE Administration Medical Decision Making Medical Decision Making [facility] Narrative: 54-year-old male presents with aching pain to right medial thigh history of DVT in the past. Not currently anticoagulated. No chest pain or shortness of breath Physical examination no lower extremity edema, normal distal sensation normal pulses. History and physical exam concerning for possible muscle ache versus DVT which will be ruled out. I do not suspect acute threat to limb or arterial occlusion. Unlikely rhabdo Plan labs, imaging Differential Diagnosis Differential Diagnoses: The differential diagnosis associated with the presentation includes (History and physical exam concerning for possible muscle ache versus DVT which will be ruled out. I do not suspect acute threat to limb or arterial occlusion. Unlikely rhabdo) Admission/Observation Consideration of admission/observation: Escalation of care including admission/observation considered Lab Data MDM Lab Attestation statement: I reviewed the patient's lab results. 11/25/24 08:49 11/25/24 08:49 Labs: Lab Results 11/25/24 Range/Units 08:49 WBC 7.7 (4.8-10.8) X10*3/uL RBC 4.68 (4.60-5.80) X10*6/uL Hgb 13.3 L (14.0-18.0) g/dl Hct 41.3 L (42.0-52.0) % MCV 88.2 (80.0-98.0) fL MCH 28.4 (27.0-33.0) pg MCHC 32.2 (31.0-36.0) g/dl RDW 13.3 (11.0-16.0) % Plt Count 238 (160-400) X10*3/uL MPV 8.6 L (9.4-12.4) fL Immature Gran % (Auto) 0.6 H (0.0-0.4) % Neut % (Auto) 63.9 (45-73) % Lymph % (Auto) 19.2 L (20-40) % [place] % (Auto) 11.5 H (2-11) % Eos % (Auto) 4.0 (0-4) % Baso % (Auto) 0.8 (0-2) % Lymph # (Auto) 1.5 (1.2-4.9) X10*3/uL [place] # (Auto) 0.9 (0.1-1.2) X10*3/uL Eos # (Auto) 0.3 (0.0-0.4) X10*3/uL Baso # (Auto) 0.1 (0.0-0.2) X10*3/uL Abs Immat Gran (auto) 0.05 H (0.00-0.03) X10*3/uL Absolute Neuts (auto) 4.9 (2.0-8.3) x10*3/uL Absolute Nucleated RBC 0.000 (0.0-0.012) X10*3/uL Nucleated RBC % (auto) 0.0 (0.0-0.2) /100WBC PT 12.8 H (10.9-12.4) SEC INR 1.1 (0.9-1.1) Sodium 142 (135-145) mmol/L Potassium 3.9 (3.3-5.1) mmol/L Chloride 110 H (96-108) mmol/L Carbon Dioxide 23 (22-29) mmol/L Anion Gap 13 (12-20) BUN 14 (9-16) mg/dL Creatinine 1.08 (0.5-1.4) mg/dL Estim Creat Clear Calc 96.5 Estimated GFR > 60 Random Glucose 111 (60-115) mg/dL Calcium 9.2 (8.4-10.2) mg/dL Total Bilirubin 0.4 (0.0-1.0) mg/dL AST 24 (5-37) U/L ALT 16 (0-40) U/L Alkaline Phosphatase 50 (39-117) U/L Total Protein 6.5 (6.5-8.0) g/dL Albumin 4.3 (3.5-5.0) g/dL Independent Interpretation I performed an independent interpretation of an: Ultrasound Radiology Impression Discussion of test interpretation with radiology: I have reviewed the radiologist's reading. Independent Historian Clinical information obtained from an independent historian. History obtained from or confirmed by: Spouse External Record Review External record reviewed: Inpatient record, Office record, Outpatient record, Prior outpatient labs, Prior outpatient radiology, Primary care record and Outside ED record Critical Care Time Critical Care Time Critical Care Time: Yes Total Critical Care Time: 35 Attestation: I attest to this time spent taking care of the patient, obtaining history, physical, reviewing labs, imaging, treatment of patients condition +/- specialist/hospitalist consult +/- procedure Discharge Plan Discharge Clinical Impression: DVT (deep venous thrombosis) Patient Disposition: Home, Self-Care Instructions: Deep Vein Thrombosis (ED), Blood Thinners (ED) Additional Instructions: Take your medications as prescribed. If you were prescribed antibiotics today, it is important that you take your medication to their entirety, do not skip any doses, do not finish them early. Follow-up with your primary care provider this week. Return to the emergency department with new or worsening symptoms. Such as fevers, chills, chest pain, shortness of breath, nausea, vomiting, dizziness, headache, vision changes, lethargy In case of emergency call 911 On ultrasound you were noted to have a DVT US/US venous duplex LE RT IMPRESSION: Thrombus in the proximal and mid greater saphenous vein extending 1.9 cm from the saphenofemoral junction, uncertain age. This is mixed echogenicity and partially occlusive. The vein is noncompressible questionable for both acute and chronic thrombus. Consider short-term follow-up exam in several days to evaluate for interval change. Prescriptions: [place] DVT-PE Treat 30D Start 5 mg (74 tabs) tablets,dose pack 5 mg PO BID Qty: 74 0RF Rx Instructions: Take 10 mg b.i.d. x7 days followed by 5 mg b.i.d. thereafter. No Action tamsulosin 0.4 mg capsule 0.4 mg PO DAILY Qty: 90 2RF tadalafil 5 mg tablet 2.5 mg PO DAILY fenofibrate 160 mg tablet 160 mg PO DAILY Qty: 90 2RF lisinopril-hydrochlorothiazide 20-12.5 mg tablet 0.5 tab PO DAILY Qty: 45 2RF montelukast 10 mg tablet 10 mg PO DAILY Qty: 90 2RF albuterol sulfate 90 mcg/actuation HFA aerosol inhaler 2 puff inhalation Q4-6H PRN (Reason: shortness of breath or wheezing) 30 Days Qty: 8.5 0RF testosterone 20.25 mg/1.25 gram (1.62 %) gel in metered-dose pump 4 pump topical DAILY Qty: 75 5RF Rx Instructions: apply 4 pump amount over max area of EACH upper arm and shoulder Referrals: Crista Hammond, [facility]ING[facility]NOT[facility] [Primary Care Provider, Internal Medicine] - 1 week Stand Alone Forms: Work/School Release Print Language: Libyan
[2024-11-25 08:42] VITALS: BP 123/71; PULSE 66; RESP 16; TEMP 36.4; O2SAT 97
[2024-11-25 08:54] LABS: MANUAL DIFF FLAG NO
[2024-11-25 08:55] LABS: Hematocrit 41.3 % (42.0-52.0); Hemoglobin 13.3 g/dl (14.0-18.0); Imm Gran Abs Auto 0.05 X10*3/uL (0.00-0.03); Imm Gran Pct Auto 0.6 % (0.0-0.4); Lymphocytes Absolute Auto 1.5 X10*3/uL (1.2-4.9); Mean Corpuscular HGB Conc 32.2 g/dl (31.0-36.0); Mean Corpuscular Hemoglobin 28.4 pg (27.0-33.0); Mean Corpuscular Volume 88.2 fL (80.0-98.0); NRBC Abs Auto 0.000 X10*3/uL (0.0-0.012); NRBC Pct Auto 0.0 /100WBC (0.0-0.2); Platelet Count 238 X10*3/uL (160-400); Red Blood Count 4.68 X10*6/uL (4.60-5.80); White Blood Count 7.7 X10*3/uL (4.8-10.8)
[2024-11-25 09:00] LABS: INTERNATIONAL NORM RATIO 1.1 (0.9-1.1); Prothrombin Time 12.8 SEC (10.9-12.4)
[2024-11-25 09:10] LABS: Alanine Aminotransferase 16 U/L (0-40); Albumin Level 4.3 g/dL (3.5-5.0); Alkaline Phosphatase 50 U/L (39-117); Anion Gap 13 (12-20); Aspartate Amino Transferase 24 U/L (5-37); Blood Urea Nitrogen 14 mg/dL (9-16); Calcium 9.2 mg/dL (8.4-10.2); Carbon Dioxide 23 mmol/L (22-29); Chloride 110 mmol/L (96-108); Creatinine Clr Calc Pharmacy 96.5; Estimated Glomerular Filt Rate > 60; Potassium 3.9 mmol/L (3.3-5.1); Sodium 142 mmol/L (135-145); Total Protein 6.5 g/dL (6.5-8.0)
[2024-11-25 11:27] VITALS: BP 123/71; PULSE 66; RESP 16; TEMP 36.4; O2SAT 97
== END 2024-11-25 11:27 | disposition home or self-care (01) ==
PROVIDERS: Physician Assistant; Emergency Provider Emergency Medicine Emergency Medical Services; PCP Nurse Practitioner Family
DX: I82.4Y1 Acute embolism and thrombosis of unspecified deep veins of right proximal lower extremity (principal); Z89.432 Acquired absence of left foot; Z89.421 Acquired absence of other right toe(s); Z79.899 Other long term (current) drug therapy
CPT/HCPCS: 36415; 80053; 85025; 85610; 93971; 99284

== ENCOUNTER → 2024-11-25 08:14 | Outpatient (BNV) | payer BC, SELFPAY | PROVIDERS: Emergency Provider Emergency Medicine Emergency Medical Services; PCP Nurse Practitioner Family; Visit Provider Radiology Diagnostic Radiology | DX: I82.811 Embolism and thrombosis of superficial veins of right lower extremity (principal) | CPT/HCPCS: 93971 ==

== ENCOUNTER 2024-12-02 10:56 | Outpatient (AMB) | payer BC, SELFPAY ==
[2024-12-02 10:59] VITALS: BP 114/68; PULSE 66; O2SAT 96; BMI 32.1
--- NOTE | 2024-12-02 10:59 | HO.NEPHOV_ITS ---
Vital Signs 12/02/24 10:59 Height 6 ft Weight 237 lb BMI 32.1 BP 114/68 Blood Pressure Location Lt brachial Position Sitting Pulse 66 Pulse Source Pulse Oximeter Pulse Oximetry (%) 96 Oxygen Delivery Method Room Air Intake Visit Reasons: follow up confirmed Diet Clerk Required: No Accompanied by: Self / Same As Patient Allergies No Known Allergies Allergy (Verified 12/02/24 11:01) HPI Comments Details: 53-year-old gentleman with past medical history of Hypertension, hyperlipidemia, JETT on CPAP is here to establish care. He had a fall last year and underwent MRI in 02/2023 which showed multiple bilateral simple renal cysts and a 12x 25mm Bosniak IIF cyst in left kidney. Ultrasound done in August 2023 showed right kidney 13.1 cm with multiple cortical cyst, left kidney is 14.8 cm with multiple cortical cyst with a 2.4 x 2.7 cm Bosniak 2 F cyst. Repeat MRI on 07/2024 showed multiple renal cysts, Right kidney: 9 mm right upper pole, 1.8 cm, 1.9 cm and 1 cm in lower pole Left kidney: 11 cm upper pole, 2.1 cm and 2.8 cm in the lower pole Recently had blood clot in his right sephanous vein a week ago started on eliquis. Possibly related to pelleted testosterone? needs further workup by primary care. [facility] Medical History Arthritis High cholesterol Asthma Hemangioma of vertebral body Synovial cyst of popliteal space [Banda], right knee Surgical History H/O shoulder surgery History of colonoscopy (~2020) Family History Father Diabetes Social History Household Members: Spouse Both parents involved: No Caregiver staying overnight: No Housing: House Are you a primary hospice care consultant to a significant other at home: No Do you presently have visiting nurse or other home services: No 75 years or older and lives alone: No Alcohol intake: current Alcohol intake frequency: a few times a month Patient Tobacco Use Status: Never used Tobacco e-Cigarette/Vaping Use: Never Used Second Hand Smoke Exposure: No Current occupational status: unemployed and retired Cognitive needs: No Hearing needs: No Vision needs: No Review of Systems Const Details: Const : no body aches, no chills, no excessive sweating Eyes: no blurry vision and no change in vision ENT: no bleeding gums and no change in voice, no dizziness Card: no chest pain, no shortness of breath Resp: no cough, no excessive phlegm production, no SOB GI: no abdominal pain and no nausea, no vomiting : no hematuria, no urinary frequency and no difficulty voiding Musc: no abnormal gait, no bone pain Neuro: no abnormal movements, no abnormal gait and no behavioral changes Psych: no behavioral changes and no change in appetite Endo: no excessive sweating and no fatigue Physical Exam Vital Signs: BMI result Body Mass Index 32.1 General: not in any acute distress, comfortable, sitting on the chair Nutritional Appearance: well nourished and weight Eyes: normal position, no icterus Neck: No lymphadenopathy, no thyromegaly Resp: bilateral air entry equal, no added sounds present Cardio: normal S1, S2 heard, no murmur heard, no edema GI: soft, nontender, no guarding, no hepatosplenomegaly : bladder normal to inspection, bladder normal to palpation, no renal angle tenderness Skin: no rashes or lesions noted and elasticity normal Neuro: oriented to person, oriented to place, oriented to time and moves all extremities Results Reviewed Nephrology Results: Hgb, (14.0-18.0) 13.3 g/dl L 11/25/24 WBC, (4.8-10.8) 7.7 X10*3/uL 11/25/24 Plt Count, (160-400) 238 X10*3/uL 11/25/24 Sodium, (135-145) 142 mmol/L 11/25/24 Potassium, (3.3-5.1) 3.9 mmol/L 11/25/24 Chloride, (96-108) 110 mmol/L H 11/25/24 Carbon Dioxide, (22-29) 23 mmol/L 11/25/24 BUN, (9-16) 14 mg/dL 11/25/24 Creatinine, (0.5-1.4) 1.08 mg/dL 11/25/24 Calcium, (8.4-10.2) 9.2 mg/dL 11/25/24 Urine Protein, (Neg-Trace) Negative mg/dL 08/01/24 Urine Creatinine 20.89 mg/dL 08/01/24 Assessment & Plan Assessment & Plan (1) Nephromegaly: Comment: (US 08/2023, MRI 02/2023 Bosniak IIF L cyst) Code(s): N28.81 - Hypertrophy of kidney Category: Medical (2) Cystic disease of kidney: Code(s): Q61.9 - Cystic kidney disease, unspecified Category: Medical (3) Nephromegaly: Comment: (US 08/2023, MRI 02/2023 Bosniak IIF L cyst) Code(s): N28.81 - Hypertrophy of kidney Category: Medical (4) Cystic disease of kidney: Code(s): Q61.9 - Cystic kidney disease, unspecified Category: Medical (5) HTN (hypertension): Code(s): I10 - Essential (primary) hypertension Category: Medical Qualifiers: Hypertension type: primary hypertension Qualified Code(s): I10 - Essential (primary) hypertension Plan Multiple bilateral renal cyst: Possibility of autosomal recessive polycystic kidney disease can not be ruled out, there is no family history of PCKD Mom 89 years old- HTN, arrythmias; dad at 64 had heart failure/obesity. Youngest of 6 siblings, one brother from from pancreatic cancer. No family history of kidney disease or liver disease. 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 Plan: - MRI of the kidneys showing multiple kidney cysts ; 4 big ones in right and 3 in the left. The largest in the left has slightly increased when compared to last year - explained him that he needs a yearly ultrasound follow-up of Bosniak 2 F kidney cysts. (also explained him what are kidney cysts, how do they progress and when to intervene). - explained him to drink at least 3 L of water every day to suppress vasopressin - low-salt intake to prevent fluid accumulation in the cyst - explained him to stopped smoking (smokes cigar once in a while), explained him the benefits of losing weight - explained him about the benefits of good blood pressure control; continue lisinopril 20 hydrochlorothiazide 12.5 combination. - urinalysis clean, no proteinuria. Creatinine stable around 1.08. No indication for any other disease modifying therapy unless there is progression of the renal disease. Orders: Orders MR abdomen wo/w con 8 Months I10 - Essential (primary) hypertension, N28.81 - Hypertrophy of kidney, Q61.9 - Cystic kidney disease, unspecified Basic Metabolic Panel 8 Months I10 - Essential (primary) hypertension, N28.81 - Hypertrophy of kidney, Q61.9 - Cystic kidney disease, unspecified UA and rflx microscopic 8 Months I10 - Essential (primary) hypertension, N28.81 - Hypertrophy of kidney, Q61.9 - Cystic kidney disease, unspecified Total Protein Urine Random 8 Months I10 - Essential (primary) hypertension, N28.81 - Hypertrophy of kidney, Q61.9 - Cystic kidney disease, unspecified Microalbumin, Random (w Creat) 8 Months I10 - Essential (primary) hypertension, N28.81 - Hypertrophy of kidney, Q61.9 - Cystic kidney disease, unspecified Coding Level of Care Code Est Pt Level 4 (72158) Diagnoses Nephromegaly N28.81 Cystic disease of kidney Q61.9 Primary hypertension I10 Hypertension type: primary hypertension
== END 2024-12-02 11:43 | disposition home or self-care (01) ==
LOC: HO.HKAS 10:57
PROVIDERS: PCP Nurse Practitioner Family; Visit Provider Internal Medicine Critical Care Medicine
DX: N28.81 Hypertrophy of kidney (principal); Q61.9 Cystic kidney disease, unspecified; I10 Essential (primary) hypertension
CPT/HCPCS: 99214

== ENCOUNTER 2024-12-06 09:37 | Outpatient (AMB) | payer BC, SELFPAY ==
--- NOTE | 2024-12-06 09:40 | MHC.PC.OV ---
Vital Signs 12/06/24 09:45 Height 6 ft Weight 235 lb BMI 31.9 BP 138/78 Blood Pressure Location Lt brachial Position Sitting Respiration 13 Pulse 63 Pulse Source Pulse Oximeter Temp 97.6 F Temp Source Oral Pulse Oximetry (%) 96 Oxygen Delivery Method Room Air Intake Visit Reasons: DC from [facility] [place] on 11/25 for Blood Clot. Intake Note: DC from [facility] [place] on 11/25 for blood clot. 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 Allergies No Known Allergies Allergy (Verified 12/06/24 09:41) Tobacco use date assessed: 12/06/24 Dental Screening Dental Screen Date: 12/06/24 Did you have a dental visit in the last 12 months?: Yes Did you have a dental problem in the last 6 months where you did not have access to dental care?: No Was dental information given to patient?: Patient has dentist HPI HPI Comments History of Present Illness Details 54 y/o M with anemia, R bakers cyst, low Testosterone, Renal cysts, Bilat nephromegaly (US 08/2023, MRI 02/2023 Bosniak IIF L cyst) L renal cyst requires US q6-12months, T11 Vertebral hemangioma, JETT on CPAP, HTN, CHLOE, Asthma, HLD, R banda cyst, chronic low back pain, cigar use, eczema, BPH with LUTS, Hx of DVT RLE Surgery: L medial meniscectomy 2022, amputation of toe L and R foot d/t necrotizing fascitis and several other ortho surgeries Social: , Retired Government, 1 dtr family hx: Mom 89 years old- HTN, arrythmias; dad at 64 had heart failure/obesity. Youngest of 6 siblings, one brother from from pancreatic cancer. No family history of kidney disease or liver disease. Health Maintenance Colon 2020 + polyp, repeat 5 years Tdap 2024 Specialists: Podiatry Orth[facility] Ren[facility] History of Present Illness The patient is a 54-year-old male presenting with follow-up for a blood clot in the right saphenous vein. Deep Vein Thrombosis of the right saphenous vein: - Diagnosed 11/25/24, treated with Eliquis. Tolerated w/o side effects; does not want to stay on it life long if does not have to - No history of surgery/injury prior to this episode. - Recent imaging ruled out Banda's cyst. - Thigh sensation improved after starting treatment. - Risk factors: cigar smoker, marijuana use, testosterone pellets History of previous calf Deep Vein Thrombosis: - Occurred previously in the same leg. - Treated with 6 months of Xarelto; cause unknown. - This did potentially happen after knee surgery on the R side Review of Systems - Cardiovascular: Denies any recent chest pain or shortness of breath. - Musculoskeletal: Reports previous sensation in the thigh, now resolved. - General: Denies recent surgeries or injuries before clot episode. Physical Exam General: Well developed, well nourished, in no acute distress. Appears stated age. Accompanied by Head: Normocephalic, atraumatic. Eyes: Pupils are equal, round and reactive to light and accommodation. Conjunctivae are clear. Lungs: Clear to auscultation bilaterally. No rales, rhonchi or wheeze noted. Good air flow in all meade. Heart: Regular rate and rhythm 2/6 murmur, R sternal border, new since last exam. Musculoskeletal: Joints are nontender, without swelling, redness, or effusions. Pulses: Peripheral pulses are equal and palpable bilaterally. Amputation of toes to R foot. Extremities: No clubbing, cyanosis nor edema is noted. Psych: Mood and affect appropriate. Results -[facility] [place] Ed work up/notes reviewed. Discussion Notes I discussed with the patient the diagnosis of right saphenous vein DVT and the importance of continuing Eliquis. We reviewed the history of prior DVT and potential factors such as testosterone therapy. I emphasized the difference between provoked and unprovoked DVT and the implications for long-term therapy. We discussed the option of consulting hematology for further evaluation to determine the need for lifelong anticoagulation. The importance of understanding the financial aspects and insurance considerations of treatment was also considered. Physical activity is encouraged along w/ reducing/eliminating modifiable risk factors. An echocardiogram was recommended to investigate the newly detected heart murmur. The patient agreed to proceed with these steps, including a hematology referral and echocardiogram scheduling, with consent documented for ongoing management and diagnostic evaluation. Patient was given time to ask questions. All questions were answered to their satisfaction. Assessment and Plan 1. Deep Vein Thrombosis of the right saphenous vein - Continue Eliquis. Hematology referral @ [facility] [place] to eval need for lifelong anti-coag. - Reduce/eliminate risk factors. - Echocardiogram planned to investigate heart murmur, which is newly noted today. 2. History of previous calf Deep Vein Thrombosis, RLE - Review past management. Further evaluation required via hematology. - was on xarelto x 6 mo Patient Instructions - Continue taking Eliquis as prescribed. - Engage in regular physical activity. - Await contact for echocardiogram and hematology appointments. - Report any new or worsening symptoms immediately. - Seek care if chest pain, sob or worsening sx. - RTO as scheduled, sooner PRN Consent Patient was informed and verbally consented to the use of an ambient scribe for clinic note documentation during this visit. Total time spent caring for the patient today was 45 minutes. This includes time spent before the visit reviewing the chart, time spent during the visit, and time spent after the visit on documentation, reviewing laboratory results, diagnostic imaging, medications, performing a medically necessary evaluation, counseling on diagnoses, care coordination, ordering appropriate tests, ordering appropriate medications, review of tests performed by other providers, reporting test results with the patient, communication with other healthcare providers. [facility] Medical History Arthritis High cholesterol Asthma Hemangioma of vertebral body Synovial cyst of popliteal space [Banda], right knee Surgical History H/O shoulder surgery History of colonoscopy (~2020) Family History Father Diabetes Social History Household Members: Spouse Both parents involved: No Caregiver staying overnight: No Housing: House Are you a primary clinical care manager to a significant other at home: No Do you presently have visiting nurse or other home services: No 75 years or older and lives alone: No Alcohol intake: current Alcohol intake frequency: a few times a month Patient Tobacco Use Status: Never used Tobacco e-Cigarette/Vaping Use: Never Used Second Hand Smoke Exposure: No Current occupational status: unemployed and retired Cognitive needs: No Hearing needs: No Vision needs: No Questionnaire PHQ-9 Over the last 2 weeks, how often have you been bothered by any of the following problems? 1. Little interest or pleasure in doing things: not at all 2. Feeling down, depressed, or hopeless: not at all 3. Trouble falling or staying asleep, or sleeping too much: not at all 4. Feeling tired or having little energy: not at all 5. Poor appetite or overeating: not at all 6. Feeling bad about yourself - or that you are a failure or have let yourself or your family down: not at all 7. Trouble concentrating on things, such as reading the newspaper or watching television: not at all 8. Moving or speaking so slowly that other people could have noticed. Or the opposite - being so fidgety or restless that you have been moving around a lot more than usual: not at all 9. Thoughts that you would be better off or of hurting yourself in some way: not at all Total score: 0 Depression Screening Interpretation: Negative Depression Screening Done: Yes Source: Developed by Drs. Yves Gillespie, Yamini Cabrera, Shon Prater and colleagues, with an educational shree from [employer]. Thrive Questionnaire Date Thrive assessed: 12/06/24 I am a: Patient What is your living situation today?: I have a steady place to live Within the past 12 months, did the food you bought not last and you didn't have the money to get more?: Never true Within the past 12 months, did you worry whether your food would run out before you got money to buy more?: Never true Do you have trouble paying for medicines?: No Do you have trouble getting transportation to medical appointments?: No Do you have trouble paying your heating and electricity bill?: No Do you have trouble taking care of your child, family member or friend?: No Do you have trouble with day-to-day activities such as bathing, preparing meals, shopping, managing finances, etc.?: No Are you currently unemployed and looking for a job?: No Are you interested in more education?: No Please select the resources that you would like help with: None Currently or been in a relationship where the following occur: No concerns reported THRIVE Score: 0 CHLOE-7 AMB Questionnaire CHLOE-7 Date CHLOE - 7 assessed: 12/06/24 Feeling nervous, anxious, or on edge: 0 = Not at all Not being able to stop or control worryin = Not at all Worrying too much about different things: 0 = Not at all Trouble relaxin = Not at all Being so restless that it is hard to sit still: 0 = Not at all Becoming easily annoyed or irritable: 0 = Not at all Feeling afraid as if something awful might happen: 0 = Not at all Total CHLOE-7 score (0-4 normal; 5-9 mild; 10-14 moderate; 15-21 severe): 0 Source: Developed by Drs. Yves Gillespie, Yamini Cabrera, Shon Prater and colleagues, with an educational shree from [employer]. CHLOE-7 Assessment Billing CHLOE-7 Assessment Tool: CHLOE-7 Assessment 68637 Physical exam (Primary Care) Vital Signs: Last Vital Signs Temp 97.6 F 12/06/24 09:45 Pulse 63 12/06/24 09:45 Resp 13 12/06/24 09:45 BP 138/78 12/06/24 09:45 Pulse Ox 96 12/06/24 09:45 Oxygen Delivery Method Room Air 12/06/24 09:45 BMI result Body Mass Index 31.9 Tobacco/Smoking Status: Tobacco use Status Tobacco use date assessed 12/06/24 12/06/24 09:43 Patient Tobacco Use Status Never used Tobacco 12/06/24 09:40 e-Cigarette/Vaping Use Never Used 12/06/24 09:40 PHQ-9: PHQ-9 Score PHQ-9: Total score 0 12/06/24 09:43 Depression Screening Interpretation: Negative Thrive Assessment: Date of Thrive Assessment Date Thrive assessed 12/06/24 12/06/24 09:43 Currently or been in a relationship where the following occur: No concerns reported Coding Level of Care Code Est Pt Level 5 (22984) Complex EM visit Add On G2211 Diagnoses Hospital discharge follow-up Z09 Acute deep vein thrombosis (DVT) of right lower extremity, unspecified vein I82.401 DVT location: lower extremity Affected thrombotic vein of extremity: unspecified vein of extremity Chronicity: acute Laterality: right Newly recognized heart murmur R01.1 Additional Codes CHLOE-7 Assessment Billing - CHLOE-7 Assessment Tool: CHLOE-7 Assessment 44314 ([id number]) Assessment & Plan Assessment & Plan (1) Hospital discharge follow-up: Code(s): Z09 - Encounter for follow-up examination after completed treatment for conditions other than malignant neoplasm (2) DVT (deep venous thrombosis): Onset Date: ~11/2024 Code(s): I82.409 - Acute embolism and thrombosis of unspecified deep veins of unspecified lower extremity Category: Medical Qualifiers: DVT location: lower extremity Affected thrombotic vein of extremity: unspecified vein of extremity Chronicity: acute Laterality: right Qualified Code(s): I82.401 - Acute embolism and thrombosis of unspecified deep veins of right lower extremity (3) Newly recognized heart murmur: Onset Date: ~12/06/24 Code(s): R01.1 - Cardiac murmur, unspecified Category: Medical Plan . Orders: Orders CA echo transthoracic complete Today I82.409 - Acute embolism and thrombosis of unspecified deep veins of unspecified lower extremity, R01.1 - Cardiac murmur, unspecified Referrals Hematology & Oncology Referral I82.409 - Acute embolism and thrombosis of unspecified deep veins of unspecified lower extremity
[2024-12-06 09:45] VITALS: BP 138/78; PULSE 63; RESP 13; TEMP 36.4; O2SAT 96; BMI 31.9
== END 2024-12-06 10:15 | disposition home or self-care (01) ==
LOC: HO.HMCFM 09:38
PROVIDERS: PCP Nurse Practitioner Family; Visit Provider Nurse Practitioner Family
DX: Z09 Encounter for follow-up examination after completed treatment for conditions other than malignant neoplasm (principal); I82.401 Acute embolism and thrombosis of unspecified deep veins of right lower extremity; R01.1 Cardiac murmur, unspecified

== ENCOUNTER → 2024-12-06 09:37 | Outpatient (BNVA) | payer BC, SELFPAY | PROVIDERS: PCP Nurse Practitioner Family; Visit Provider Nurse Practitioner Family | DX: Z09 Encounter for follow-up examination after completed treatment for conditions other than malignant neoplasm (principal); I82.401 Acute embolism and thrombosis of unspecified deep veins of right lower extremity; R01.1 Cardiac murmur, unspecified; Z13.31 Encounter for screening for depression; Z13.39 Encounter for screening examination for other mental health and behavioral disorders | CPT/HCPCS: 96127 ==

== ENCOUNTER → 2024-12-13 07:56 | Outpatient (REF) | payer BC, SELFPAY ==
--- OUTSIDE RECORDS SUMMARY | 2022-10-22 10:51 | XMS_ITS | Continuity of Care Document ---
Author Organization [facility] Address [address] [place] [address] Phone Care Team Providers Care Retail Salesworker Name Role Phone Glenn Zheng MD Unavailable Unavailable Allergies, Adverse Reactions, Alerts Substance Reaction Status Criticality No Known Allergies Active No Inform ation Medications Medication Instructions Dosage Effective Dates (start - stop) Status Comments MONTELUKAST 10MG TABLETS TAKE 1 TABLET B Y MOUTH EVERY DAY IN THE EVENING - Active FENOFIBRATE 160MG TABLETS TAKE 1 TABLET BY MOUTH EVERY DAY 1 - Active LISINOPRIL-HCTZ 20/12.5MG TABLETS TAKE 1 TABLET BY MOUTH EVERY DAY - Active FLUTICASONE/SALM DISK 100/50MCG 60S INHALE 1 PUFF BY MOUTH EVERY 12 HOURS - Active ESCITALOPRAM 10MG TABLETS TAKE 1 TABLET BY MOUTH EVERY DAY - Active Clenpiq 10 mg-3.5 gram-12 gram/160 mL oral solution Follow the prep instructions that were emailed to you from the doctor office. - Active OK TO SUBSTITUTE WITH OTHER BOWEL PREP FOR COST/INSURANCE - $40 Coupon, BIN: [id number], PCN: [id number], Group: [id number], ID: [id number] Naprosyn 500 mg tablet take 1 tablet by oral route 2 times every day with food 500 MG - Active Zanaflex 4 mg tablet take 0.5-1 tablet by oral route every 8 hours as needed not to exceed 3 doses in 24 hours - Active Depo-Testosterone 200 mg/mL intramuscular oil Inject 1/2 cc every week - Active PA Approved from: 06/02/2021-06/16 ALBUTEROL HFA INH (200 PUFFS)8.5GM INHALE 1 PUFF BY MOUTH EVERY 4 TO 6 HOURS NEEDED - Active hydrochlorothiazide 12.5 mg tablet take 1 tablet by oral route every day 12.5 MG - Active lisinopril 10 mg tablet take 1 tablet by oral route every day 10 MG - Active Advance Directives Directive Yes / No Effective Date File Name No Information Encounters Encounter Description Practice Location Reason(s) For Visit Diagnoses Date Provider [facility], [address] [place] [address], [facility], tel:[phone] [facility] No Information 3 Norm Elizabeth. [address], [facility], . tel:[phone] 40 [facility], [address] [place] [address], [facility], tel:[phone] [facility] No Information 3 Norm Elizabeth. [address], [facility], . tel:[phone] 40 [facility], [address] [place] [address], [facility], tel:[phone] [facility] History of partial amputation of toe of right footHistory of partial amputation of toe of left foot 3 Isabella Wang. [address], [id number], [place]. tel:[phone] 40 [facility], [address] [place] [address], [facility], tel:[phone] [facility] No Information 3 Norm Elizabeth. [address], [facility], . tel:[phone] 40 [facility], [address] [place] [address], [facility], tel:[phone] [facility] No Information 2 Norm Glenn. [address] [place], [address], [place]. tel:[phone] [address], [address], [place] tel: [phone] [facility] No Information 2 Norm Glenn. [address] [place], [address], [place]. tel:[phone] [facility] [address] [place] [address], [address], [place] tel: [phone] [facility] [place] Encounter for screening for malignant neoplasm of colonBenign neoplasm of ascending colonDvrtclos of lg int w/o perforation or abscess w/o bleeding 2 Demond Arvind. [address], [place], [place], [id number], [place]. tel:[phone] 40 [facility], [address] [place] [address], [address], [place] tel: [phone] [facility] [place] Benign neoplasm of ascending colon 2 Ding Hu. [address], [place], [place], [id number]. tel:[phone] 40 [facility], [address] [place] [address], [address], [place] tel:[phone] [facility] Allergic rhinitis due to pollen 2 Norm Glenn. [address] [place], [address], [place]. tel:[phone] 40 [facility], [address] [place] [address], [address], [place] tel: [phone] [facility] [place] No Information 2 Demond Arvind. [address], [place], [place], [id number], [place]. tel:[phone] 40 [facility], [address] [place] [address], [address], [place] tel:[phone] [facility] Lashae Abnormal gaitHistory of partial amputation of toe of left footHistory of partial amputation of toe of right foot 2 Isabella Wang. [address], [id number], [place]. tel:[phone] 40 [facility], [address] [place] [address], [address], [place] tel:[phone] [facility] Allergic rhinitis due to pollen 2 Norm Glenn. [address], [facility], [place]. tel:[phone] 40 [facility], [address] [place] [address], [address], [place] tel:[phone] [facility] No Information 2 Norm Glenn. [address], [facility], [place]. tel:[phone] [address] [place] [address], [address] [place] [address], [facility], tel:[phone] [facility] Allergic rhinitis due to pollen 2 Norm Glenn. [address], [facility], [place]. tel:[phone] [address] [place] [address], [address] [place] [address], [facility], tel:[phone] [facility] History of partial amputation of toe of right footHistory of partial amputation of toe of left footPain aggravated by activities of daily livingAbnormal gait 2 Isabella Wang. [address], [id number], [place]. tel:[phone] 40 [facility], [address] [place] [address], [facility], [place] tel:[phone] [facility] *Moving- has questions about moving records and allergy (chief complaint) Seasonal allergic rhinitis due to pollenProstate cancer screeningLow testosteroneOSA (obstructive sleep apnea)Essential hypertensionBody mass index (BMI) 33.0-33.9, adultAllergic rhinitis due to pollenEncounter for screening for other disorder 2 Norm Glenn. [address], [address], [place]. tel:[phone] 40 [facility], [address] [place] [address], [address], [place] tel:[phone] [facility] left shoulder (chief complaint) Pain, joint, shoulder, left 2 Bill Plummer. [address], [place], [place], [id number], [place]. tel:[phone] 40 [facility], [address] [place] [address], [address], [place] tel: [phone] [facility] Allergic rhinitis due to pollen 2 Norm Glenn. [address], [facility], [place]. tel:[phone] 40 [facility], [address] [place] [address], [address], [place] tel:[phone] [facility] *Suture Removal (chief complaint) Postoperative examinationBody mass index (BMI) 33.0-33.9, adult 2 Jill Dent. [address], [id number], [place]. tel:[phone] 40 [facility], [address] [place] [address], [address], [place] tel:[phone] [facility] Allergic rhinitis due to pollen Jan- 1 Norm Glenn. [address], [address], [place]. tel:[phone] 40 [facility], [address] [place] [address], [address], [place] tel:[phone] [facility] Allergic rhinitis due to pollen Jan- 1 Norm Glenn. [address], [address], [place]. tel:[phone] 40 [facility], [address] [place] [address], [address], [place] tel:[phone] [facility] [place] Exostosis of left footHistory of partial amputation of toe of left foot 1 Isabella Wang. [address], [id number], [place]. [phone] 40 [facility], [address] [place] [address], [address], [place] tel: [phone] [facility] Other specified disorders of bone, ankle and footAcquired absence of other left toe(s) 1 Flparkeron Felipe. [address], [id number], [place]. [phone] 40 [facility], [address] [place] [address], [address], [place] tel: [phone] [facility] Pre op Lt foot (chief complaint) Exostosis of left footEncounter for screening for other disorder 1 Flparkeron Felipe. [address], [id number], [place]. [phone] [address] [place] [address], [address] [place] [address], [address], tel: [phone] [facility] Allergic rhinitis due to pollen 1 Norm Glenn. [address], [address], [place]. [phone] 40 [facility], [address] [place] [address], [address], [place] tel: [phone] [facility] Allergic rhinitis due to pollen 1 Norm Glenn. [address], [address], [place]. [phone] [address] [place] [address], [address] [place] [address], [address], [place] tel: [phone] [facility] Allergic rhinitis due to pollen 1 Norm Glenn. [address], [address], [place]. [phone] 40 [facility], [address] [place] [address], [address], [place] tel: [phone] [facility] History of partial amputation of toe of left footExostosis of left foot 1 Flitton Felipe. [address], [id number], [place]. tel:[phone] 40 [facility], [address] [place] [address], [address], tel: [phone] [facility] Allergic rhinitis due to pollen Nov- 1 Norm Glenn. [address], [facility], . tel:[phone] 40 [facility], [address] [place] [address], [facility], tel:[phone] [facility] Allergic rhinitis due to pollen Sep-2 1 Norm Glenn. [address], [facility], . tel:[phone] 40 [facility], [address] [place] [address], [facility], tel: [phone] [facility] Allergic rhinitis due to pollen Sep-0 1 Norm Glenn. [address], [facility], . tel:[phone] 40 [facility], [address] [place] [address], [facility], tel:[phone] [facility] Allergic rhinitis due to pollen Sep-2 1 Norm Glenn. [address], [facility], . tel:[phone] 40 [facility], [address] [place] [address], [facility], tel: [phone] [facility] Allergic rhinitis due to pollen Sep- 1 Norm Glenn. [address], [facility], . tel:[phone] 40 [facility], [address] [place] [address], [facility], tel:[phone] [facility] Allergic rhinitis due to pollen Hebert-2 1 Norm Glenn. [address], [facility], . tel:[phone] 40 [facility], [address] [place] [address], [facility], tel:[phone] [facility] Allergic rhinitis due to pollen 1 Norm Glenn. [address], [facility], . tel:[phone] 40 [facility], [address] [place] [address], [facility], tel:[phone] [facility] Allergic rhinitis due to pollen 1 Norm Glenn. [address], [facility], . tel:[phone] 40 [facility], [address] [place] [address], [facility], tel:[phone] [facility] *Leg Pain (chief complaint) Left leg painSeasonal allergic rhinitis due to pollenBody mass index (BMI) 35.0-35.9, adultEncounter for screening for other disorder 1 Norm Glenn. [address], [facility], . tel:[phone] [address] [place] [address], [address] [place] [address], [facility], tel:[phone] [facility] Pt's custom inserts came in, pt billed for 2 pair (chief complaint) History of partial amputation of toe of right footHistory of partial amputation of toe of left foot 1 Isabella Wang. [address], [id number], [place]. tel:[phone] [address] [place] [address], [address] [place] [address], [facility], tel: [phone] [facility] Allergic rhinitis due to pollen 1 Norm Elizabeth. [address], [facility], . tel:[phone] 40 [facility], [address] [place] [address], [facility], tel: [phone] [facility] Seborrheic dermatitisNeoplas m of uncertain behavior of skin 1 Simba Erickson. [address], [id number], [place]. [phone] 40 [facility], [address] [place] [address], [address], tel: [phone] [facility] Allergic rhinitis due to pollen Fe-0 1 Norm Glenn. [address], [facility], . tel:[phone] 40 [facility], [address] [place] [address], [facility], tel: [phone] [facility] Allergic rhinitis due to pollen Feb-0 1 Norm Glenn. [address], [facility], . tel:[phone] 40 [facility], [address] [place] [address], [facility], tel: [phone] [facility] Allergic rhinitis due to pollen Dec-2 0 Norm Glenn. [address], [facility], . tel:[phone] 40 [facility], [address] [place] [address], [facility], tel: [phone] [facility] Allergic rhinitis due to pollen Dec-1 0 Norm Glenn. [address], [facility], . tel:[phone] 40 [facility], [address] [place] [address], [facility], tel: [phone] [facility] Allergic rhinitis due to pollen Dec-1 0 Norm Glenn. [address], [facility], . tel:[phone] 40 [facility], [address] [place] [address], [facility], tel:[phone] [facility] Allergic rhinitis due to pollen Dec-0 0 Norm Glenn. [address], [facility], . [phone] 40 [facility], [address] [place] [address], [facility], tel: [phone] [facility] Allergic rhinitis due to pollen Nov- 0 Norm Glenn. [address], [facility], . [phone] 40 [facility], [address] [place] [address], [facility], tel: [phone] [facility] Allergic rhinitis due to pollen Oct- 0 Norm Glenn. [address], [facility], [place]. [phone] 40 [facility], [address] [place] [address], [facility], [place] tel: [phone] [facility] *Cyst (chief complaint) Essential hypertensionProst ate cancer screeningLocalize d infection of skinAllergic rhinitis due to pollenBody mass index (BMI) 34.0-34.9, adultEncounter for screening for other disorder 0 Norm Glenn. [address], [facility], [place]. [phone] 40 [facility], [address] [place] [address], [facility], tel: [phone] [facility] *Allergy Shot (80244) (chief complaint) Allergic rhinitis due to pollen Jul-2 0 Norm Glenn. [address], [facility], . [phone] 40 [facility], [address] [place] [address], [facility], [place] tel: [phone] [facility] Pt called stating he wanted another pair of custom inse (chief complaint) History of partial amputation of toe of right footHistory of partial amputation of toe of left foot Jul-0 0 Isabella Wang. [address], [id number], [place]. [phone] [address] [place] [address], [address] [place] [address], [facility], [place] tel: [phone] [facility] Allergic rhinitis due to pollen Hebert-0 4- 0 Norm Glenn. [address], [facility], [place]. tel:[phone] 40 [facility], [address] [place] [address], [facility], tel: [phone] [facility] *Med Review (chief complaint) Viral warts, unspecified typeChronic bilateral low back pain, unspecified whether sciatica presentOther chronic painBody mass index (BMI) 32.0-32.9, [facility] other disorder 0 Norm Glenn. [address], [facility], [place]. tel:[phone] 40 [facility], [address] [place] [address], [facility], tel: [phone] [facility] Allergic rhinitis due to pollen June- 0 Norm Glenn. [address], [facility], . tel:[phone] 40 [facility], [address] [place] [address], [facility], tel: [phone] [facility] Allergic rhinitis due to pollen Apr-2 0- 0 Norm Glenn. [address], [facility], [place]. [phone] 40 [facility], [address] [place] [address], [facility], tel: [phone] [facility] Allergic rhinitis due to pollen Mar-3 0 Norm Glenn. [address], [facility], [place]. [phone] 40 [facility], [address] [place] [address], [facility], [place] tel:[phone] [facility] Allergic rhinitis due to pollen Mar-2 0 Norm Glenn. [address], [facility], [place]. tel:[phone] 40 [facility], [address] [place] [address], [facility], [place] tel: [phone] [facility] Allergic rhinitis due to pollen 0 Norm Glenn. [address], [address], [place]. tel:[phone] 40 [facility], [address] [place] [address], [address], [place] tel:[phone] [facility] Lashae re check inserts, callus (chief complaint) History of partial amputation of toe of right foot 0 Flitton Felipe. [address], [id number], [place]. tel:[phone] 40 [facility], [address] [place] [address], [address], [place] tel:[phone] [facility] Stress Test (chief complaint) Precordial chest pain 0 Checketts Lyndon. [address], [id number], [place]. tel:[phone] 40 [facility], [address] [place] [address], [facility], [place] tel:[phone] [facility] Allergic rhinitis due to pollen 0 Norm Glenn. [address], [address], [place]. tel:[phone] 40 [facility], [address] [place] [address], [address], [place] tel:[phone] [facility] *ER F/U (chief complaint) Anterior chest wall painAnxietyEssent ial hypertensionBody mass index (BMI) 33.0-33.9, adultEncounter for screening for other disorder 0 Norm Glenn. [address], [address], [place]. tel:[phone] 40 [facility], [address] [place] [address], [address], [place] tel:[phone] [facility] Allergic rhinitis due to pollen 201 9 Norm Glenn. [address], [facility], [place]. tel:[phone] 40 [facility], [address] [place] [address], [address], tel:[phone] [facility] Allergic rhinitis due to pollen Nov-1 5-201 9 Norm Glenn. [address], [facility], . tel:[phone] 40 [facility], [address] [place] [address], [facility], tel:[phone] [facility] Allergic rhinitis due to pollen Nov-0 1-201 9 Norm Glenn. [address], [facility], [place]. tel:[phone] 40 [facility], [address] [place] [address], [facility], tel:[phone] [facility] Allergic rhinitis due to pollen Sep-2 6-201 9 Norm Glenn. [address], [facility], . tel:[phone] 40 [facility], [address] [place] [address], [facility], tel:[phone] [facility] Allergic rhinitis due to pollen Sep-2 0-201 9 Norm Glenn. [address], [facility], . tel:[phone] 40 [facility], [address] [place] [address], [facility], tel:[phone] [facility] Allergic rhinitis due to pollen Sep-1 1-201 9 Norm Glenn. [address], [facility], . tel:[phone] 40 [facility], [address] [place] [address], [facility], tel:[phone] [facility] Allergic rhinitis due to pollen Sep-0 6-201 9 Norm Glenn. [address], [facility], . tel:[phone] 40 [facility], [address] [place] [address], [facility], tel:[phone] [facility] Allergic rhinitis due to pollen Aug-1 6-201 9 Norm Glenn. [address], [address], [place]. tel:[phone] 40 [facility], [address] [place] [address], [address], [place] tel:[phone] [facility] Allergic rhinitis due to pollen Aug-3 9 Norm Glenn. [address], [address], [place]. tel:[phone] 40 [facility], [address] [place] [address], [address], [place] tel:[phone] [facility] Allergic rhinitis due to pollen Aug-0 9 Norm Glenn. [address], [address], [place]. tel:[phone] 40 [facility], [address] [place] [address], [address], [place] tel:[phone] [facility] Bill for custom inserts (chief complaint) History of partial amputation of toe of right footHistory of partial amputation of toe of left foot Hebert-2 5 9 Flitton Felipe. [address], [id number], [place]. tel:[phone] 40 [facility], [address] [place] [address], [address], [place] tel:[phone] [facility] Allergic rhinitis due to pollen Jul- 9 Norm Glenn. [address], [address], [place]. tel:[phone] 40 [facility], [address] [place] [address], [address], [place] tel:[phone] [facility] History of partial amputation of toe of right footHistory of partial amputation of toe of left foot Hebert-0 3- 9 Flitton Felipe. [address], [id number], [place]. tel:[phone] 40 [facility], [address] [place] [address], [address], [place] tel:[phone] [facility] Allergic rhinitis due to pollen 9 Norm Glenn. [address], [facility], [place]. tel:[phone] 40 [facility], [address] [place] [address], [facility], [place] tel:[phone] [facility] Allergic rhinitis due to pollen Apr-2 5-201 9 Norm Glenn. [address], [facility], [place]. tel:[phone] 40 [facility], [address] [place] [address], [facility], [place] tel:[phone] [facility] Allergic rhinitis due to pollen Apr-1 2-201 9 Norm Glenn. [address] [address], [facility], [place]. tel:[phone] 40 [facility], [address] [place] [address], [facility], [place] tel:[phone] [facility] Allergic rhinitis due to pollen Mar-2 - 9 Norm Glenn. [address], [facility], [place]. tel:[phone] 40 [facility], [address] [place] [address], [facility], [place] tel:[phone] [facility] Malignant essential hypertensionOther fpc (current) drug therapy Mar-2 7- 9 Norm Glenn. [address], [facility], [place]. tel:[phone] 40 [facility], [address] [place] [address], [facility], [place] tel:[phone] [facility] bp check and wart on hand (chief complaint) Hypertension, unspecified typeLong term use of drugViral warts, unspecified typeBody mass index (BMI) 34.0-34.9, adultEncounter for screening for other disorder Mar-0 5-201 9 Norm Glenn. [address], [facility], [place]. tel:[phone] 40 [facility], [address] [place] [address], [facility], [place] tel:[phone] [facility] Allergic rhinitis due to pollen Mar-0 4-201 9 Norm Glenn. [address], [facility], [place]. tel:[phone] 40 [facility], [address] [place] [address], [facility], [place] tel:[phone] [facility] Allergic rhinitis due to pollen 9 Norm Glenn. [address], [facility], [place]. tel:[phone] 40 [facility], [address] [place] [address], [facility], [place] tel:[phone] [facility] Allergic rhinitis due to pollen 9 Norm Glenn. [address], [facility], [place]. tel:[phone] 40 [facility], [address] [place] [address], [facility], tel:[phone] [facility] No Information 9 Norm Glenn. [address], [facility], [place]. tel:[phone] 40 [facility], [address] [place] [address], [facility], [place] tel:[phone] [facility] Pain in right legAllergic rhinitis due to pollen 8 Norm Glenn. [address], [facility], [place]. tel:[phone] 40 [facility], [address] [place] [address], [facility], [place] tel:[phone] [facility] Rt leg pain and swelling (chief complaint) Right leg painAllergic rhinitis due to pollenBody mass index (BMI) 19 or less, adultAllergic rhinitis due to pollenEncounter for screening for other disorder 8 Norm Glenn. [address], [facility], [place]. tel:[phone] 40 [facility], [address] [place] [address], [facility], [place] tel:[phone] [facility] Allergic rhinitis due to pollen 8 Norm Glenn. [address], [address], . tel:[phone] 40 [facility], [address] [place] [address], [address], [place] tel:[phone] [facility] History of partial amputation of toe of right footHistory of partial amputation of toe of left foot Sep-1 1-201 8 Isabella Wang. [address], [id number], [place]. tel:[phone] 40 [facility], [address] [place] [address], [facility], [place] tel: [phone] [facility] History of partial amputation of toe of left footHistory of partial amputation of toe of right footPain aggravated by activities of daily living Sep-0 5- 8 Rajivon Felipe. [address], [id number], [place]. tel:[phone] 40 [facility], [address] [place] [address], [facility], tel:[phone] [facility] Allergic rhinitis due to pollen Sep-2 8 Norm Glenn. [address], [facility], [place]. tel:[phone] 40 [facility], [address] [place] [address], [facility], [place] tel:[phone] [facility] Allergic rhinitis due to pollen Sep-2 3 8 Norm Glenn. [address], [facility], [place]. tel:[phone] 40 [facility], [address] [place] [address], [address], [place] tel:[phone] [facility] Allergic rhinitis due to pollen Aug-0 - 8 Norm Glenn. [address], [facility], [place]. tel:[phone] 40 [facility], [address] [place] [address], [facility], [place] tel:[phone] [facility] *Lower back pain (chief complaint) Strain of lumbar region, initial encounterBody mass index (BMI) 34.0-34.9, adultUc Medical Centerer for screening for other disorder 8 Karthik Herve. [address], [place], [place], [id number], [place]. tel:[phone] 40 [facility], [address] [place] [address], [address], [place] tel:[phone] [facility] Allergic rhinitis due to pollen 8 Norm Elizabeth. [address] [place], [address], [place]. tel:[phone] 40 [facility], [address] [place] [address], [address], [place] tel:[phone] [facility] 4 month left shoulder (chief complaint) Impingement syndrome of left shoulder 8 Bill Plummer. [address], [place], [place], [id number], [place]. tel:[phone] 40 [facility], [address] [place] [address], [address], [place] tel:[phone] [facility] Seasonal allergic rhinitis due to pollen 8 Norm Elizabeth. [address], [address], [place]. tel:[phone] 40 [facility], [address] [place] [address], [address], [place] tel:[phone] [facility] * LT Shoulder (chief complaint) Superior glenoid labrum lesion of left shoulder, subsequent encounter 8 Law Rodriguez. [address], [place], [place], [id number], [place]. tel:[phone] 40 [facility], [address] [place] [address], [address], [place] tel:[phone] [facility] *Left shoulder (chief complaint) Superior glenoid labrum lesion of left shoulder, subsequent encounterIncomple te rotatr-cuff tear/ruptr of l shoulder, not trauma 8 Bill Plummer. [address], [place], [place], [id number], [place]. tel:[phone] 40 [facility], [address] [place] [address], [address], [place] tel: [phone] [facility] Superior glenoid labrum lesion of left shoulder, subs encntr Apr-1 8 Bill Plummer. [address], [place], [place], [id number], [place]. tel:[phone] 40 [facility], [address] [facility], [place], [address], [place] tel: [phone] [facility] *L shoulder (chief complaint) Superior glenoid labrum lesion of left shoulder, subsequent encounterBody mass index (BMI) 34.0-34.9, adult Apr-1 8 Bill Plummer. [address], [place], [place], [id number], [place]. tel:[phone] 40 [facility], [address] [place] [address], [address], [place] tel: [phone] [facility] *testosterone injections (chief complaint) Low testosteroneBody mass index (BMI) 34.0-34.9, adultEncmercy medical center merced dominican campuser for screening for other disorder Apr-1 2-201 8 Norm Elizabeth. [address], [address], [place]. tel:[phone] 40 [facility], [address] [place] [address], [address], [place] tel: [phone] [facility] Seasonal allergic rhinitis due to pollenTesticular hypofunction Apr-0 9-201 8 Norm Elizabeth. [address], [address], [place]. tel:[phone] 40 [facility], [address] [place] [address], [address], [place] tel: [phone] [facility] Testicular hypofunction Mar-2 2-201 8 Norm Elizabeth. [address], [address], [place]. tel:[phone] 40 [facility], [address] [place] [address], [address], [place] tel: [phone] [facility] Seasonal allergic rhinitis due to pollen Mar-2 0-201 8 Norm Elizabeth. [address], [address], [place]. tel:[phone] 40 [facility], [address], [place], [address], [place] tel:[phone] [facility] 4 week left shoulder (chief complaint) Superior glenoid labrum lesion of left shoulder, subsequent encounter 8 Michael. [address], [place], [place], [id number], [place]. tel:[phone] 40 [facility], [address], [place], [address], [place] tel:[phone] [facility] Testicular hypofunctionAller gic rhinitis due to pollen 8 Norm Glenn. [address], [address], [place]. tel:[phone] 40 [facility], [address] [place] [address], [address], [place] tel:[phone] [facility] Testicular hypofunctionAller gic rhinitis due to pollen 8 Norm Elizabeth. [address], [address], [place]. tel:[phone] 40 [facility], [address] [place] [address], [address], [place] tel:[phone] [facility] *post Op (chief complaint) Superior glenoid labrum lesion of left shoulder, subs encntrIncomplete rotatr-cuff tear/ruptr of l shoulder, not trauma 8 Bill Plummer. [address], [place], [place], [id number], [place]. tel:[phone] 40 [facility], [address] [place] [address], [address], [place] tel:[phone] [facility] Testicular hypofunctionAller gic rhinitis due to pollen 8 Norm Glenn. [address], [address], [place]. tel:[phone] 40 [facility], [address] [place] [address], [address], [place] tel:[phone] [facility] Superior glenoid labrum lesion of left shoulder, subs encntrIncomplete rotatr-cuff tear/ruptr of l shoulder, not traumaBicipital tendinitis, left shoulderImpingeme nt syndrome of left shoulder 8 Bill Plummer. [address], [place], [place], [id number], [place]. tel:[phone] 40 [facility], [address] [place] [address], [address], [place] tel: [phone] [facility] Testicular hypofunctionSeaso nal allergic rhinitis due to pollen 8 Norm Glenn. [address], [address], [place]. [phone] 40 [facility], [address] [place] [address], [address], [place] tel: [phone] [facility] Testicular hypofunctionAller gic rhinitis due to pollen 8 Norm Glenn. [address], [address], [place]. tel:[phone] 40 [facility], [address] [place] [address], [address], [place] tel: [phone] [facility] Allergic rhinitis due to pollen 8 Norm Glenn. [address], [address], [place]. [phone] 40 [facility], [address] [place] [address], [address], [place] tel: [phone] [facility] Testicular hypofunctionNon-s easonal allergic rhinitis due to pollen 8 Norm Glenn. [address], [address], [place]. tel:[phone] 40 [facility], [address] [place] [address], [address], [place] tel: [phone] [facility] *L shoulder (chief complaint) Pain in left shoulderSuperior glenoid labrum lesion of left shoulder, subsequent encounterArthriti s of left acromioclavicular jointBody mass index (BMI) 36.0-36.9, adult 8 Law Rodriguez. [address], [place], [place], [id number], [place]. tel:[phone] 40 [facility], [address] [facility], [place], [address], [place] tel:[phone] [facility] Pain in left shoulder 8 Bill Plummer. [address], [place], [place], [id number], [place]. tel:[phone] 40 [facility], [address] [place] [address], [address], [place] tel:[phone] [facility] left shoulder pain (chief complaint) Acute pain of left shoulder 8 Bill Elian. [address], [place], [place], [id number], [place]. tel:[phone] 40 [facility], [address] [place] [address], [address], [place] tel:[phone] [facility] Non-seasonal allergic rhinitis due to pollenTesticular hypofunction 8 Norm Glenn. [address], [address], [place]. tel:[phone] 40 [facility], [address] [place] [address], [address], [place] tel:[phone] [facility] Testicular hypofunctionAller gic rhinitis due to pollen 7 Norm Glenn. [address], [address], [place]. tel:[phone] 40 [facility], [address] [place] [address], [address], [place] tel:[phone] [facility] *Left Shoulder Injection (chief complaint) Acute pain of left shoulderEncounter for screening for other disorder 7 Norm Glenn. [address], [address], [place]. tel:[phone] 40 [facility], [address] [place] [address], [address], [place] tel:[phone] [facility] Secondary polycythemia Jan-0 7 Norm Glenn. [address], [address], [place]. tel:[phone] 40 [facility], [address] [place] [address], [address], [place] tel:[phone] [facility] *Medication Review (chief complaint) Testicular hypofunctionProst ate cancer screeningScreenin g cholesterol levelAllergic rhinitis due to pollenLeft arm painLong term use of drugBody mass index (BMI) 35.0-35.9, adultEncounter for screening for other disorder Dec-2 7 Norm Glenn. [address], [address], [place]. tel:[phone] 40 [facility], [address] [place] [address], [address], [place] tel:[phone] [facility] Testicular hypofunctionAller gic rhinitis due to pollen 7 Norm Glenn. [address], [facility], [place]. tel:[phone] 40 [facility], [address] [place] [address], [address], [place] tel:[phone] [facility] Testicular hypofunctionAller gic rhinitis due to pollen Nov- 7 Norm Glenn. [address], [address], [place]. tel:[phone] 40 [facility], [address] [place] [address], [address], [place] tel:[phone] [facility] Testicular hypofunctionAller gic rhinitis due to pollen Oct-2 7 Norm Glenn. [address], [address], [place]. tel:[phone] 40 [facility], [address] [place] [address], [address], [place] tel:[phone] [facility] Testicular hypofunctionAller gic rhinitis due to pollen Sep- 7 Norm Glenn. [address], [facility], [place]. tel:[phone] 40 [facility], [address] [place] [address], [address], [place] tel: [phone] [facility] Testicular hypofunctionChron ic seasonal allergic rhinitis due to pollenAllergic rhinitis due to animal (cat) (dog) hair and dander 7 Norm Glenn. [address], [facility], . tel:[phone] 40 [facility], [address] [place] [address], [facility], [place] tel: [phone] [facility] Allergic rhinitis due to pollenTesticular hypofunction 7 Norm Glenn. [address], [facility], [place]. tel:[phone] 40 [facility], [address] [place] [address], [facility], tel: [phone] [facility] Testicular hypofunctionChron ic seasonal allergic rhinitis due to pollen 7 Norm Glenn. [address], [facility], [place]. tel:[phone] 40 [facility], [address] [place] [address], [facility], [place] tel:[phone] [facility] Testicular hypofunctionAller gic rhinitis due to pollen Hebert-2 - 7 Norm Glenn. [address], [facility], [place]. tel:[phone] 40 [facility], [address] [place] [address], [facility], [place] tel: [phone] [facility] Allergic rhinitis due to pollen Hebert-2 2-201 7 Norm Glenn. [address], [facility], [place]. tel:[phone] 40 [facility], [address] [place] [address], [facility], [place] tel:[phone] [facility] Testicular hypofunctionAller gic rhinitis due to pollen Hebert-0 7 Norm Glenn. [address], [facility], [place]. tel:[phone] 40 [facility], [address] [place] [address], [address], [place] tel: [phone] [facility] Testicular hypofunctionAller gic rhinitis due to pollen 7 Norm Glenn. [address], [facility], [place]. tel:[phone] 40 [facility], [address] [place] [address], [address], [place] tel: [phone] [facility] Testicular hypofunctionAller gic rhinitis due to pollen June-0 7 Norm Glenn. [address], [address], [place]. tel:[phone] 40 [facility], [address] [place] [address], [facility], [place] tel: [phone] [facility] Low testosteroneAller gic rhinitis due to pollen, unspecified rhinitis seasonality 7 Norm Glenn. [address], [facility], [place]. tel:[phone] 40 [facility], [address] [place] [address], [address], [place] tel: [phone] [facility] Testicular hypofunction Apr-3 0- 7 Norm Glenn. [address], [facility], [place]. tel:[phone] 40 [facility], [address] [place] [address], [facility], [place] tel: [phone] [facility] Testicular hypofunctionAller gic rhinitis due to pollen Apr- 7 Norm Glenn. [address], [facility], [place]. tel:[phone] 40 [facility], [address] [place] [address], [address], [place] tel: [phone] [facility] Testicular hypofunctionAller gic rhinitis due to pollen Fe- 7 Norm Glenn. [address], [facility], [place]. tel:[phone] 40 [facility], [address] [place] [address], [address], [place] tel:[phone] [facility] follow up right shoulder (chief complaint)pain with bilateral elbow (chief complaint) Chronic right shoulder painOther chronic painBiceps tendinitis of right upper extremity Law Rodriguez. [address], [place], [place], [id number], [place]. tel:[phone] 40 [facility], [address] [place] [address], [address], [place] tel:[phone] [facility] Testicular hyperfunctionAlle rgic rhinitis due to pollen 7 Norm Glenn. [address], [address], [place]. tel:[phone] 40 [facility], [address] [place] [address], [address], [place] tel:[phone] [facility] Testicular hypofunctionAller gic rhinitis due to pollen Feb- 7 Norm Glenn. [address], [address], [place]. tel:[phone] 40 [facility], [address] [place] [address], [address], [place] tel:[phone] [facility] Allergic rhinitis due to pollen Dec-2 8-201 6 Norm Glenn. [address], [address], [place]. tel:[phone] 40 [facility], [address] [place] [address], [address], [place] tel: [phone] [facility] Testicular hypofunctionAller gic rhinitis due to pollen Dec-2 2-201 6 Norm Glenn. [address], [address], [place]. tel:[phone] 40 [facility], [address] [place] [address], [address], [place] tel:[phone] [facility] Testicular hypofunctionAller gic rhinitis due to pollen Dec-0 9-201 6 Norm Glenn. [address], [address], [place]. tel:[phone] 40 [facility], [address] [place] [address], [address], [place] tel: [phone] [facility] Testicular hypofunctionAller gic rhinitis due to pollen Dec- 2 6 Norm Glenn. [address], [facility], . tel:[phone] 40 [facility], [address] [place] [address], [facility], tel:[phone] [facility] Testicular hypofunctionAller gic rhinitis due to pollen Dec- 0-201 6 Norm Glenn. [address], [facility], [place]. tel:[phone] 40 [facility], [address] [place] [address], [facility], tel: [phone] [facility] Testicular hypofunctionAller gic rhinitis due to pollen Nov- 4 6 Norm Glenn. [address], [facility], . tel:[phone] 40 [facility], [address] [place] [address], [facility], [place] tel: [phone] [facility] * Physical (chief complaint) Routine physical examinationOSA (obstructive sleep apnea)Moderate persistent asthma without complicationLeft hip painTesticular hypofunctionBody mass index (BMI) 35.0-35.9, adult Nov- 8- 6 Norm Glenn. [address], [facility], . tel:[phone] 40 [facility], [address] [place] [address], [facility], tel:[phone] [facility] Testicular hypofunctionAller gic rhinitis due to pollen Nov- 3- 6 Norm Glenn. [address], [facility], [place]. tel:[phone] 40 [facility], [address] [place] [address], [facility], [place] tel:[phone] [facility] Testicular hypofunctionAller gic rhinitis due to pollen Oct- 6- 6 Norm Glenn. [address], [facility], [place]. tel:[phone] 40 [facility], [address] [place] [address], [address], [place] tel:[phone] [facility] Testicular hypofunctionAller gic rhinitis due to pollen Norm Elizabeth. [address], [address], [place]. tel:[phone] 40 [facility], [address] [place] [address], [address], [place] tel:[phone] [facility] Testicular hypofunctionAller gic rhinitis due to pollen Norm Elizabeth. [address], [address], [place]. tel:[phone] 40 [facility], [address] [place] [address], [address], [place] tel:[phone] [facility] corns B/L foot (chief complaint) Amputation foot, bilat ^Complete traumatic amputation of left foot, level unsp, initCallus of footBody mass index (BMI) 33.0-33.9, adult 6 [facility]. [address], [id number], [place]. tel:[phone] 40 [facility], [address] [place] [address], [address], [place] tel:[phone] [facility] *back pain (chief complaint) Acute bilateral low back pain without sciaticaCorn of footBody mass index (BMI) 34.0-34.9, adult Norm Elizabeth. [address], [address], [place]. tel:[phone] 40 [facility], [address] [place] [address], [address], [place] tel:[phone] [facility] Testicular hypofunctionSeaso nal allergic rhinitisAllergic rhinitis due to pollen Norm Elizabeth. [address], [address], [place]. tel:[phone] 40 [facility], [address] [place] [address], [address], [place] tel:[phone] [facility] Testicular hypofunctionAller gic rhinitis due to pollen 6 Norm Glenn. [address], [facility], . tel:[phone] 40 [facility], [address] [place] [address], [facility], tel:[phone] [facility] Seasonal allergic rhinitisTesticula r hypofunctionAller gic rhinitis due to pollen 6 Norm Glenn. [address], [facility], [place]. tel:[phone] 40 [facility], [address] [place] [address], [facility], tel:[phone] [facility] Testicular dysfunction, unspecifiedAllerg ic rhinitis due to pollen 6 Norm Glenn. [address], [facility], . tel:[phone] [facility], [address] [place] [address], [facility], [place] tel: [phone] [facility] *left foot problem (chief complaint)*review medications (chief complaint) Chronic left-sided low back pain without sciaticaNon morbid obesity due to excess caloriesAcute deep vein thrombosis (DVT) of other specified vein of right lower extremityCorn May- 2 6 Norm Glenn. [address], [facility], . tel:[phone] 40 [facility], [address] [place] [address], [facility], [place] tel:[phone] [facility] Low testosteroneAller gic rhinitis due to pollen 6 Norm Glenn. [address], [facility], [place]. tel:[phone] 40 [facility], [address] [place] [address], [facility], tel:[phone] [facility] Allergic rhinitis due to pollen 0 6 Norm Glenn. [address], [facility], [place]. tel:[phone] 40 [facility], [address] [place] [address], [address], [place] tel:[phone] [facility] Testicular hypofunctionAller gic rhinitis due to pollen Mar-2 8- 6 Norm Glenn. [address], [address], [place]. tel:[phone] 40 [facility], [address] [place] [address], [address], [place] tel:[phone] [facility] Allergic rhinitis due to pollen Mar-2 - 6 Norm Glenn. [address], [address], [place]. tel:[phone] 40 [facility], [address] [place] [address], [address], [place] tel:[phone] [facility] Low testosteroneAller gic rhinitis due to pollen Mar-1 - 6 Norm Glenn. [address], [facility], [place]. tel:[phone] 40 [facility], [address] [place] [address], [address], [place] tel:[phone] [facility] Low testosteroneAller gic rhinitis due to pollen Fe-2 6 Norm Glenn. [address], [facility], [place]. tel:[phone] 40 [facility], [address] [place] [address], [address], [place] tel:[phone] [facility] Low testosteroneAller gic rhinitis due to pollen Feb-0 6 Norm Glenn. [address], [facility], [place]. tel:[phone] 40 [facility], [address] [place] [address], [address], [place] tel:[phone] [facility] Allergic rhinitis due to pollenLow testosterone Bill- 6 Norm Glenn. [address], [facility], [place]. tel:[phone] 40 [facility], [address] [place] [address], [address], tel:[phone] [facility] Testicular hypofunctionAller gic rhinitis due to pollen Bill-1 1-201 6 Norm Glenn. [address], [facility], . tel:[phone] 40 [facility], [address] [place] [address], [address], tel:[phone] [facility] Allergic rhinitis due to pollen Bill-0 6-201 6 Norm Glenn. [address], [facility], [place]. tel:[phone] 40 [facility], [address] [place] [address], [facility], tel:[phone] [facility] Allergic rhinitis due to pollen Bill-0 5-201 6 Norm Glenn. [address], [facility], . tel:[phone] 40 [facility], [address] [place] [address], [facility], tel:[phone] [facility] Allergic rhinitis due to pollenLow testosterone Dec-2 8-201 5 Norm Glenn. [address], [facility], [place]. tel:[phone] 40 [facility], [address] [place] [address], [facility], tel:[phone] [facility] Allergic rhinitis due to pollen Dec-0 7-201 5 Norm Glenn. [address], [facility], [place]. tel:[phone] 40 [facility], [address] [place] [address], [facility], [place] tel:[phone] [facility] Testicular hypofunctionAller gic rhinitis due to pollen Nov-3 0-201 5 Norm Glenn. [address], [facility], [place]. tel:[phone] 40 [facility], [address] [place] [address], [facility], [place] tel:[phone] [facility] Obstructive sleep apnea Nov-1 6-201 5 Kb Jamison. [address], [id number], [place]. tel:[phone] 40 [facility], [address] [place] [address], [facility], [place] tel:[phone] [facility] Testicular hypofunctionAller gic rhinitis due to pollen Nov- 3-201 5 Norm Elizabeth. [address], [facility], [place]. tel:[phone] 40 [facility], [address] [place] [address], [facility], [place] tel:[phone] [facility] Testicular hypofunctionAller gic rhinitis due to pollen Nov- 6 5 Norm Elizabeth. [address], [facility], [place]. tel:[phone] 40 [facility], [address], [facility], tel: [phone] [facility] Obstructive sleep apnea Nov-0 7 5 Norm Elizabeth. [address], [facility], [place]. tel:[phone] [address], [facility], [place] tel:[phone] [facility] Allergic rhinitis due to pollenAllergic rhinitis due to animal (cat) (dog) hair and danderCODING COMPLETE Nov-0 5 Norm Glenn. [address] [place] [address], [facility], [place]. tel:[phone] 40 [facility], [address] [place] [address], [facility], [place] tel:[phone] [facility] No Information Sep-3 0 5 Kb Jamison. [address], [id number], [place]. tel:[phone] 40 [facility] [address], [facility], [place] tel:[phone] [facility] *Physical Exam (chief complaint) Routine medical examTesticular dysfunctionDVT (deep venous thrombosis)Obstru ctive sleep apnea Sep-2 8- 5 Norm Glenn. [address], [facility], [place]. tel:[phone] 40 [facility], [address] [place] [address], [facility], [place] tel: [phone] [facility] Other testicular hypofunction Sep-2 5 Norm Glenn. [address], [facility], [place]. tel:[phone] 40 [facility], [address] [place] [address], [facility], [place] tel: [phone] [facility] No Information Sep-1 5 Norm Glenn. [address], [facility], [place]. tel:[phone] 40 [facility], [address] [place] [address], [facility], [place] tel: [phone] [facility] *Rt Leg Pain (chief complaint) Deep vein blood clot of right lower extremity Sep-1 5 Norm Glenn. [address], [facility], [place]. tel:[phone] 40 [facility], [address] [place] [address], [facility], [place] tel: [phone] [facility] *moles (chief complaint) No Information Sep-0 5 Norm Glenn. [address], [facility], [place]. tel:[phone] 40 [facility], [address] [place] [address], [facility], [place] tel:[phone] [facility] Testicular dysfunctionAsthma Sep-0 5 Norm Glenn. [address], [facility], [place]. tel:[phone] 40 [facility], [address] [place] [address], [facility], [place] tel:[phone] [facility] Testicular dysfunctionAsthma Aug- 5 Norm Glenn. [address], [facility], [place]. tel:[phone] 40 [facility] [address] [place] [address], [address], [place] tel: [phone] [facility] Allergic rhinitis Aug- 5 Norm Glenn. [address], [facility], [place]. tel:[phone] 40 [facility], [address] [place] [address], [address], [place] tel: [phone] [facility] Testicular Dysfunct NosAllergic Rhinitis Nos Aug-0 9-201 5 Norm Glenn. [address], [address], [place]. tel:[phone] 40 [facility], [address] [place] [address], [facility], [place] tel: [phone] [facility] AsthmaTesticular hypofunction 5 Norm Glenn. [address], [facility], [place]. tel:[phone] 40 [facility], [address] [place] [address], [facility], [place] tel: [phone] [facility] Allergic Rhinitis Nos June- 6201 5 Norm Glenn. [address], [facility], [place]. tel:[phone] 40 [facility], [address] [place] [address], [facility], [place] tel: [phone] [facility] Testicular Dysfunct NosAllergic Rhinitis Nos June- 5 Nomr Glenn. [address], [facility], [place]. tel:[phone] 40 [facility], [address] [place] [address], [address], [place] tel: [phone] [facility] Allergic Rhinitis Nos May-2 8201 5 Norm Glenn. [address], [facility], [place]. tel:[phone] 40 [facility], [address] [place] [address], [address], [place] tel: [phone] [facility] Allergic Rhinitis NosTesticular hypofunction Apr-2 7-201 5 Norm Glenn. [address], [address], [place]. tel:[phone] 40 [facility], [address] [place] [address], [address], [place] tel:[phone] [facility] Extrinsic asthma May-2 - 5 Norm Glenn. [address], [facility], [place]. tel:[phone] 40 [facility], [address] [place] [address], [facility], [place] tel:[phone] [facility] *Sutures out (chief complaint) Testicular hypofunctionAller gic Rhinitis NosVisit for suture removal May- 5 Norm Glenn. [address], [facility], [place]. tel:[phone] 40 [facility], [address] [place] [address], [facility], [place] tel: [phone] [facility] * post op (chief complaint) Allergic Rhinitis NosTesticular hypofunctionSebac eous cyst Mar-3 - 5 Norm Glenn. [address], [address], [place]. tel:[phone] 40 [facility], [address] [place] [address], [facility], [place] tel:[phone] [facility] Asthma Apr-2 5 Norm Glenn. [address], [facility], [place]. tel:[phone] 40 [facility], [address] [place] [address], [facility], [place] tel:[phone] [facility] Testicular hypofunctionAller gic Rhinitis Nos Apr-1 5 Norm Glenn. [address], [facility], [place]. tel:[phone] 40 [facility], [address] [place] [address], [address], [place] tel:[phone] [facility] *Chest Cold/Bronchitis (chief complaint) No Information Mar-0 9- 5 Norm Glenn. [address], [facility], [place]. tel:[phone] 40 [facility], [address] [place] [address], [address], [place] tel: [phone] [facility] Allergic Rhinitis Nos Mar- 3- 5 Norm Glenn. [address], [facility], [place]. tel:[phone] 40 [facility], [address] [place] [address], [address], [place] tel: [phone] [facility] AsthmaTesticular hypofunction Fe-02 18- 5 Norm Glenn. [address], [facility], [place]. tel:[phone] 40 [facility], [address] [place] [address], [facility], [place] tel: [phone] [facility] Testicular hypofunction 5 Norm Glenn. [address], [facility], [place]. tel:[phone] 40 [facility], [address] [place] [address], [address], [place] tel: [phone] [facility] Allergic Rhinitis Nos 2- 5 Norm Glenn. [address], [facility], [place]. tel:[phone] 40 [facility], [address] [place] [address], [address], [place] tel: [phone] [facility] Allergic Rhinitis NosTesticular hypofunction 5-201 5 Norm Glenn. [address], [facility], [place]. tel:[phone] 40 [facility], [address] [place] [address], [address], [place] tel: [phone] [facility] Allergic Rhinitis Nos 4 Norm Glenn. [address], [facility], [place]. tel:[phone] 40 [facility], [address] [place] [address], [address], [place] tel: [phone] [facility] No Information Dec-1 5-201 4 Norm Glenn. [address], [facility], . tel:[phone] 40 [facility], [address] [place] [address], [facility], [place] tel: [phone] [facility] Allergic Rhinitis NosTesticular hypofunction Dec-1 5-201 4 Norm Glenn. [address], [facility], [place]. tel:[phone] 40 [facility], [address] [place] [address], [facility], [place] tel: [phone] [facility] Allergic Rhinitis Nos Dec-0 8-201 4 Norm Glenn. [address], [facility], [place]. tel:[phone] 40 [facility], [address] [place] [address], [facility], tel: [phone] [facility] AsthmaTesticular hypofunction Dec-0 1-201 4 Norm Glenn. [address], [facility], [place]. tel:[phone] 40 [facility], [address] [place] [address], [facility], [place] tel: [phone] [facility] Allergic Rhinitis Nos Nov-1 7-201 4 Norm Glenn. [facility] [address], [facility], [place]. tel:[phone] 40 [facility], [address] [place] [address], [facility], [place] tel: [phone] [facility] Asthma, unspecifiedTestic ular hypofunction Nov-1 0-201 4 Norm Glenn. [address], [facility], [place]. tel:[phone] 40 [facility], [address] [place] [address], [facility], [place] tel: [phone] [facility] Allergic Rhinitis Nos Nov-0 3-201 4 Norm Glenn. [address], [facility], [place]. tel:[phone] 40 [facility], [address] [place] [address], [address], [place] tel: [phone] [facility] Asthma, unspecifiedTestic ular hypofunction Oct-2 4 Norm Glenn. [address], [address], [place]. tel:[phone] 40 [facility], [address] [place] [address], [address], [place] tel: [phone] [facility] Allergic Rhinitis Nos Oct-2 0 4 Norm Glenn. [address], [facility], [place]. tel:[phone] 40 [facility], [address] [place] [address], [facility], [place] tel: [phone] [facility] Other testicular hypofunctionAsthm a, unspecified Nov-0 4 Norm Glenn. [address], [facility], [place]. tel:[phone] 40 [facility], [address] [place] [address], [facility], [place] tel: [phone] [facility] *chest congestion, uri (chief complaint) No Information Sep-2 4 Norm Glenn. [address], [facility], [place]. tel:[phone] 40 [facility], [address] [place] [address], [facility], [place] tel: [phone] [facility] Allergic rhinitis Sep-1 4 Norm Glenn. [address], [facility], [place]. tel:[phone] 40 [facility], [address] [place] [address], [address], [place] tel:[phone] [facility] Allergic rhinitis, cause unspecifiedOther testicular hypofunctionAller gic Rhinitis Nos Sep-0 4 Norm Glenn. [address], [facility], [place]. tel:[phone] 40 [facility], [address] [place] [address], [address], [place] tel: [phone] [facility] No Information 0 4 Norm Glenn. [address], [facility], . tel:[phone] 40 [facility], [address] [place] [address], [facility], tel: [phone] [facility] Allergic rhinitis, cause unspecifiedAllerg ic Rhinitis Nos Sep-2 4 Norm Glenn. [address], [facility], [place]. tel:[phone] 40 [facility], [address] [place] [address], [facility], tel: [phone] [facility] Other testicular hypofunctionAsthm a, unspecified 4 Norm Glenn. [address], [facility], . tel:[phone] 40 [facility], [address] [place] [address], [facility], tel: [phone] [facility] Allergic rhinitis, cause unspecifiedAllerg ic Rhinitis Nos Sep-0 4 Norm Glenn. [address], [facility], [place]. tel:[phone] 40 [facility], [address] [place] [address], [facility], [place] tel: [phone] [facility] Allergic Rhinitis Nos Sep-0 4 Onrm Glenn. [address], [facility], [place]. tel:[phone] 40 [facility], [address] [place] [address], [facility], [place] tel: [phone] [facility] No Information 4 Kb Jamison. [address], [id number], [place]. tel:[phone] 40 [facility], [address] [place] [address], [facility], [place] tel: [phone] [facility] Asthma, unspecifiedTestic ular hypofunction Jluis-3 0-201 4 Norm Glenn. [address], [address], [place]. tel:[phone] 40 [facility], [address] [place] [address], [address], [place] tel: [phone] [facility] No Information 2 2-201 4 Norm Glenn. [address], [address], [place]. tel:[phone] 40 [facility], [address] [place] [address], [address], [place] tel: [phone] [facility] shoulder surgery followup (chief complaint) Shoulder pain 4 Bill Plummer. [address], [place], [place], [id number], [place]. tel:[phone] 40 [facility], [address] [place] [address], [address], [place] tel: [phone] [facility] No Information - 4 Norm Glenn. [address], [facility], [place]. tel:[phone] 40 [facility], [address] [place] [address], [address], [place] tel: [phone] [facility] No Information 0 8 4 Norm Glenn. [address], [address], [place]. tel:[phone] 40 [facility], [address] [place] [address], [address], [place] tel: [phone] [facility] No Information 0 3-201 4 Norm Glenn. [address], [address], [place]. tel:[phone] 40 [facility], [address] [place] [address], [address], [place] tel: [phone] [facility] shoulder pain (chief complaint) No Information 4 Bill Plummer. [address], [place], [place], [id number], [place]. tel:[phone] 40 [facility], [address] [place] [address], [address], tel: [phone] [facility] No Information 6-201 4 Norm Glenn. [address], [facility], . tel:[phone] 40 [facility], [address] [place] [address], [facility], tel: [phone] [facility] No Information Jul-0 2-201 4 Norm Glenn. [address], [facility], [place]. tel:[phone] 40 [facility], [address] [place] [address], [facility], tel: [phone] [facility] No Information 4 Norm Glenn. [address], [facility], . tel:[phone] 40 [facility], [address] [place] [address], [facility], tel: [phone] [facility] No Information 7 4 Norm Glenn. [address], [facility], [place]. tel:[phone] 40 [facility], [address] [place] [address], [facility], tel: [phone] [facility] shoulder surgery (chief complaint) Superior glenoid labrum lesion June- 0 4 Bill Plummer. [address], [place], [place], [id number], [place]. tel:[phone] 40 [facility], [address] [place] [address], [facility], [place] tel: [phone] [facility] No Information 9- 4 Norm Glenn. [address], [facility], [place]. tel:[phone] 40 [facility], [address] [place] [address], [facility], tel: [phone] [facility] Extrinsic asthma June- 3-201 4 Norm Glenn. [address], [facility], [place]. tel:[phone] 40 [facility], [address] [place] [address], [address], [place] tel: [phone] [facility] No Information June-0 4 Norm Glenn. [address], [facility], [place]. tel:[phone] 40 [facility], [address] [place] [address], [address], [place] tel: [phone] [facility] No Information 0 4 Norm Glenn. [address], [address], [place]. tel:[phone] [address], [facility], [place] tel: [phone] [facility] No Information 4 Norm Glenn. [address], [facility], [place]. tel:[phone] 40 [facility], [address] [place] [address], [facility], [place] tel: [phone] [facility] shoulder (chief complaint) Superior glenoid labrum lesion May- 4 Bill Plummer. [address], [place], [place], [id number], [place]. tel:[phone] [address], [address], [place] tel: [phone] [facility] No Information 4 Norm Glenn. [address], [facility], [place]. tel:[phone] 40 [facility], [address] [place] [address], [address], [place] tel: [phone] [facility] Sprain Shoulder/arm NecJt Derangment Nec-shlderLoc Prim Osteoart-shlderRo tator Cuff Synd Nos May- 4 Bill Plummer. [address], [place], [place], [id number], [place]. tel:[phone] 40 [facility], [address], [address], [place] tel:[phone] [facility] shoulder (chief complaint) Pectoralis muscle rupture Apr-1 6-201 4 Bill Plummer. [address], [place], [place], [id number], [place]. tel:[phone] 40 [facility], [address] [place] [address], [address], [place] tel: [phone] [facility] No Information Apr-1 4-201 4 Norm Glenn. [address], [address], [place]. tel:[phone] 40 [facility], [address] [place] [address], [address], [place] tel: [phone] [facility] No Information Apr-1 4-201 4 Norm Glenn. [address], [address], [place]. tel:[phone] 40 [facility], [address] [place] [address], [address], [place] tel:[phone] [facility] [facility] No Information Apr-1 0-201 4 Norm Glenn. [address], [address], [place]. tel:[phone] 40 [facility], [address] [place] [address], [address], [place] tel:[phone] [facility] Joint Pain-shlder Apr-1 0-201 4 Norm Glenn. [address], [address], [place]. tel:[phone] 40 [facility], [address] [place] [address], [address], [place] tel:[phone] [facility] No Information Apr-0 7-201 4 Norm Glenn. [address], [address], [place]. tel:[phone] 40 [facility], [address] [place] [address], [address], [place] tel: [phone] [facility] No Information Apr-0 3-201 4 Norm Glenn. [address], [address], [place]. tel:[phone] 40 [facility], [address] [place] [address], [address], [place] tel: [phone] [facility] No Information Mar-2 7-201 4 Norm Glenn. [address], [address], [place]. tel:[phone] 40 [facility], [address] [place] [address], [address], [place] tel: [phone] [facility] Testicular Dysfunct Nos Mar-2 5-201 4 Norm Glenn. [address], [address], [place]. tel:[phone] 40 [facility], [address] [place] [address], [facility], [place] tel: [phone] [facility] No Information Mar-1 9-201 4 Norm Glenn. [address], [facility], [place]. tel:[phone] 40 [facility], [address] [place] [address], [facility], [place] tel: [phone] [facility] No Information Mar-1 7-201 4 Norm Glenn. [address], [address], [place]. tel:[phone] 40 [facility], [address] [place] [address], [address], [place] tel:[phone] [facility] Extrinsic asthma, unspecified Mar-1 3-201 4 Norm Glenn. [address], [facility], [place]. tel:[phone] 40 [facility], [address] [place] [address], [address], [place] tel: [phone] [facility] No Information Mar-1 0-201 4 Norm Glenn. [address], [address], [place]. tel:[phone] 40 [facility], [address] [place] [address], [address], [place] tel: [phone] [facility] No Information Mar-0 4-201 4 Norm Glenn. [address], [address], [place]. tel:[phone] 40 [facility], [address] [place] [address], [address], [place] tel: [phone] [facility] Asthma 4 Norm Glenn. [address], [address], [place]. tel:[phone] 40 [facility], [address] [place] [address], [address], [place] tel: [phone] [facility] No Information 4 Norm Glenn. [address], [facility], [place]. tel:[phone] 40 [facility], [address] [place] [address], [address], [place] tel: [phone] [facility] No Information 4 Norm Glenn. [address], [facility], [place]. tel:[phone] 40 [facility], [address] [place] [address], [address], [place] tel: [phone] [facility] No Information 4 Norm Glenn. [address], [facility], [place]. tel:[phone] 40 [facility], [address] [place] [address], [address], [place] tel: [phone] [facility] No Information 4 Norm Glenn. [address], [address], [place]. tel:[phone] 40 [facility], [address] [place] [address], [address], [place] tel: [phone] [facility] No Information 4 Norm Glenn. [address], [address], [place]. tel:[phone] 40 [facility], [address] [place] [address], [address], [place] tel: [phone] [facility] No Information 0 4 Norm Glenn. [address], [address], [place]. tel:[phone] 40 [facility], [address] [place] [address], [address], [place] tel:[phone] [facility] CoughInsomnia NecAllergic Rhinitis Nos 0 4 Norm Glenn. [address], [address], [place]. tel:[phone] 40 [facility], [address] [place] [address], [address], [place] tel:[phone] [facility] No Information 4 Norm Glenn. [address], [address], [place]. tel:[phone] 40 [facility], [address] [place] [address], [address], [place] tel: [phone] [facility] No Information 4 Norm Glenn. [address], [address], [place]. tel:[phone] 40 [facility], [address] [place] [address], [address], [place] tel:[phone] [facility] No Information 0 4 Norm Glenn. [address], [address], [place]. tel:[phone] 40 [facility], [address] [place] [address], [address], [place] tel:[phone] [facility] No Information 0 3 Norm Glenn. [address], [address], [place]. tel:[phone] 40 [facility], [address] [place] [address], [address], [place] tel:[phone] [facility] No Information 3201 3 Norm Glenn. [address], [address], [place]. tel:[phone] 40 [facility], [address] [place] [address], [facility], [place] tel: [phone] [facility] No Information Dec-1 7-201 3 Norm Glenn. [address], [facility], [place]. tel:[phone] 40 [facility], [address] [place] [address], [facility], [place] tel: [phone] [facility] No Information Dec-1 2-201 3 Norm Glenn. [address], [facility], [place]. tel:[phone] 40 [facility], [address] [place] [address], [facility], [place] tel: [phone] [facility] No Information Dec-1 0-201 3 Norm Glenn. [address], [facility], [place]. tel:[phone] 40 [facility], [address] [place] [address], [facility], [place] tel: [phone] [facility] No Information Dec-0 5-201 3 Norm Glenn. [address], [facility], [place]. tel:[phone] 40 [facility], [address] [place] [address], [facility], [place] tel: [phone] [facility] No Information Dec-0 2-201 3 Norm Glenn. [address], [facility], [place]. tel:[phone] 40 [facility], [address] [place] [address], [facility], [place] tel: [phone] [facility] No Information Nov-2 5-201 3 Norm Glenn. [address], [facility], [place]. tel:[phone] 40 [facility], [address] [place] [address], [facility], [place] tel: [phone] [facility] No Information Nov-1 9-201 3 Norm Glenn. [address], [facility], [place]. tel:[phone] 40 [facility], [address] [place] [address], [address], [place] tel:[phone] [facility] No Information 3 Norm Glenn. [address], [address], [place]. tel:[phone] 40 [facility], [address] [place] [address], [address], [place] tel:[phone] [facility] Skin lumps Dec-0 3 Norm Glenn. [address], [address], [place]. tel:[phone] 40 [facility], [address] [place] [address], [address], [place] tel:[phone] [facility] Sebaceous cyst 3 Elsi Lui. [address], [id number], [place]. tel:[phone] 40 [facility], [address] [place] [address], [address], [place] tel:[phone] [facility] No Information 0 3 Norm Glenn. [address], [address], [place]. tel:[phone] 40 [facility], [address] [place] [address], [address], [place] tel:[phone] [facility] No Information 2 3 Norm Glenn. [address], [address], [place]. tel:[phone] 40 [facility], [address] [place] [address], [address], [place] tel:[phone] [facility] No Information 2 201 3 Norm Glenn. [address], [address], [place]. tel:[phone] 40 [facility], [address] [place] [address], [address], [place] tel:[phone] [facility] No Information 3 Norm Glenn. [address], [address], [place]. tel:[phone] 40 [facility], [address] [place] [address], [address], [place] tel: [phone] [facility] No Information Oct-1 0-201 3 Norm Glenn. [address], [address], [place]. tel:[phone] 40 [facility], [address] [place] [address], [facility], [place] tel: [phone] [facility] No Information Oct-0 8-201 3 Norm Glenn. [address], [facility], [place]. tel:[phone] 40 [facility], [address] [place] [address], [facility], [place] tel: [phone] [facility] No Information Sep-3 0-201 3 Norm Glenn. [address], [facility], [place]. tel:[phone] 40 [facility], [address] [place] [address], [facility], [place] tel: [phone] [facility] No Information Sep-2 4-201 3 Norm Glenn. [address], [facility], [place]. tel:[phone] 40 [facility], [address] [place] [address], [facility], [place] tel:[phone] [facility] No Information Sep-1 6-201 3 Norm Glenn. [address], [facility], [place]. tel:[phone] 40 [facility], [address] [place] [address], [address], [place] tel: [phone] [facility] Joint Pain-shlderAllerg ic Rhinitis Nos Sep-1 0-201 3 Norm Glenn. [address], [facility], [place]. tel:[phone] 40 [facility], [address] [place] [address], [facility], [place] tel: [phone] [facility] No Information Sep-0 3-201 3 Norm Glenn. [address], [address], [place]. tel:[phone] 40 [facility], [address] [place] [address], [address], [place] tel: [phone] [facility] No Information Aug-2 7-201 3 Norm Glenn. [address], [address], [place]. tel:[phone] 40 [facility], [address] [place] [address], [address], [place] tel: [phone] [facility] No Information Sep-2 2-201 3 Norm Glenn. [address], [facility], [place]. tel:[phone] 40 [facility], [address] [place] [address], [address], [place] tel: [phone] [facility] No Information Sep-2 0-201 3 Norm Glenn. [address], [facility], [place]. tel:[phone] 40 [facility], [address] [place] [address], [address], [place] tel: [phone] [facility] No Information Sep-0 6-201 3 Norm Glenn. [address], [address], [place]. tel:[phone] 40 [facility], [address] [place] [address], [address], [place] tel: [phone] [facility] Asthma Aug-0 1-201 3 Norm Glenn. [address], [address], [place]. tel:[phone] 40 [facility], [address] [place] [address], [address], [place] tel: [phone] [facility] No Information 5-201 3 Norm Glenn. [address], [address], [place]. tel:[phone] 40 [facility], [address] [place] [address], [address], [place] tel:+ [phone] [facility] No Information Jluis-0 8-201 3 Norm Glenn. [address], [facility], [place]. tel:[phone] 40 [facility], [address] [place] [address], [facility], [place] tel: [phone] [facility] No Information Jluis-0 2-201 3 Norm Glenn. [address], [facility], [place]. tel:[phone] 40 [facility], [address] [place] [address], [facility], [place] tel: [phone] [facility] No Information Jluis-0 1-201 3 Norm Glenn. [address], [facility], [place]. tel:[phone] 40 [facility], [address] [place] [address], [facility], [place] tel: [phone] [facility] No Information Hebert-2 5-201 3 Norm Glenn. [address], [facility], [place]. tel:[phone] 40 [facility], [address] [place] [address], [facility], [place] tel: [phone] [facility] No Information Hebert-1 8-201 3 Norm Glenn. [address], [facility], [place]. tel:[phone] 40 [facility], [address] [place] [address], [facility], [place] tel: [phone] [facility] No Information Hebert-1 2-201 3 Norm Glenn. [address], [facility], [place]. tel:[phone] 40 [facility], [address] [place] [address], [facility], [place] tel:[phone] [facility] Extrinsic asthma Hebert-0 6-201 3 Norm Lgenn. [address], [facility], [place]. tel:[phone] 40 [facility], [address] [place] [address], [facility], [place] tel:[phone] [facility] No Information Hebert-0 3-201 3 Norm Glenn. [address], [facility], [place]. tel:[phone] 40 [facility], [address] [place] [address], [facility], tel:[phone] [facility] No Information May-2 9-201 3 Norm Glenn. [address], [facility], [place]. tel:[phone] 40 [facility], [address] [place] [address], [facility], [place] tel:[phone] [facility] No Information May-2 1-201 3 Norm Glenn. [address], [facility], [place]. tel:[phone] 40 [facility], [address] [place] [address], [facility], tel: [phone] [facility] Testicular hypofunctionAller gic rhinitis May-1 3-201 3 Norm Glenn. [address], [facility], [place]. tel:[phone] 40 [facility], [address] [place] [address], [facility], [place] tel:[phone] [facility] No Information May-0 9-201 3 Norm Glenn. [address], [facility], [place]. tel:[phone] 40 [facility], [address] [place] [address], [facility], [place] tel:+ [phone] [facility] No Information May-0 7-201 3 Norm Glenn. [address], [facility], [place]. tel:[phone] 40 [facility], [address] [place] [address], [facility], [place] tel:[phone] [facility] No Information Apr-3 0-201 3 Norm Glenn. [address], [facility], [place]. tel:[phone] 40 [facility], [address] [place] [address], [address], [place] tel: [phone] [facility] No Information Apr-2 3-201 3 Norm Glenn. [address], [address], [place]. tel:[phone] 40 [facility], [address] [place] [address], [address], [place] tel:+ [phone] [facility] No Information Apr-1 6-201 3 Norm Glenn. [address], [address], [place]. tel:[phone] 40 [facility], [address] [place] [address], [facility], [place] tel: [phone] [facility] No Information Apr-1 2-201 3 Norm Glenn. [address], [facility], [place]. tel:[phone] 40 [facility], [address] [place] [address], [facility], [place] tel:[phone] [facility] No Information Apr-0 8-201 3 Norm Glenn. [address], [address], [place]. tel:[phone] 40 [facility], [address] [place] [address], [facility], [place] tel:[phone] [facility] No Information Apr-0 2-201 3 Norm Glenn. [address], [facility], [place]. tel:[phone] 40 [facility], [address] [place] [address], [address], [place] tel:[phone] [facility] No Information Mar-2 9-201 3 Norm Glenn. [address], [facility], [place]. tel:[phone] 40 [facility], [address] [place] [address], [address], [place] tel:[phone] [facility] No Information Mar-2 5-201 3 Norm Glenn. [address], [facility], [place]. tel:[phone] 40 [facility], [address] [place] [address], [address], [place] tel: [phone] [facility] No Information Mar-1 9-201 3 Norm Glenn. [address], [facility], [place]. tel:[phone] 40 [facility], [address] [place] [address], [address], [place] tel: [phone] [facility] No Information Mar-1 5-201 3 Norm Glenn. [address], [address], [place]. tel:[phone] 40 [facility], [address] [place] [address], [facility], [place] tel: [phone] [facility] No Information Mar-0 6-201 3 Norm Glenn. [address], [facility], [place]. tel:[phone] 40 [facility], [address] [place] [address], [facility], [place] tel: [phone] [facility] No Information Mar-0 4-201 3 Norm Glenn. [address], [facility], [place]. tel:[phone] 40 [facility], [address] [place] [address], [address], [place] tel:[phone] [facility] No Information Mar-0 1-201 3 Norm Glenn. [address], [facility], [place]. tel:[phone] 40 [facility], [address] [place] [address], [address], [place] tel:[phone] [facility] No Information Feb-2 2-201 3 Norm Glenn. [address], [facility], [place]. tel:[phone] 40 [facility], [address] [place] [address], [address], [place] tel: [phone] [facility] No Information Feb-1 4-201 3 Norm Glenn. [address], [address], [place]. tel:[phone] 40 [facility], [address] [place] [address], [address], [place] tel: [phone] [facility] No Information 3 Norm Glenn. [address], [address], [place]. tel:[phone] 40 [facility], [address] [place] [address], [address], [place] tel: [phone] [facility] No Information 3 Norm Glenn. [address], [address], [place]. tel:[phone] 40 [facility], [address] [place] [address], [facility], [place] tel: [phone] [facility] No Information 3 Norm Glenn. [address], [facility], [place]. tel:[phone] 40 [facility], [address] [place] [address], [address], [place] tel: [phone] [facility] No Information 3 Norm Glenn. [address], [address], [place]. tel:[phone] 40 [facility], [address] [place] [address], [address], [place] tel: [phone] [facility] No Information 3 Norm Glenn. [address], [facility], [place]. tel:[phone] 40 [facility], [address] [place] [address], [address], [place] tel: [phone] [facility] No Information 3 Norm Glenn. [address], [facility], [place]. tel:[phone] 40 [facility], [address] [place] [address], [address], [place] tel: [phone] [facility] No Information -201 2 Norm Glenn. [address], [address], [place]. tel:[phone] 40 [facility], [address] [place] [address], [address], [place] tel: [phone] [facility] No Information Jan- 0-201 2 Norm Glenn. [address], [facility], [place]. tel:[phone] 40 [facility], [address] [place] [address], [facility], [place] tel: [phone] [facility] No Information Jan-0 6 2 Norm Glenn. [address], [facility], [place]. tel:[phone] 40 [facility], [address] [place] [address], [facility], [place] tel: [phone] [facility] No Information 2 Norm Glenn. [address], [facility], [place]. tel:[phone] 40 [facility], [address] [place] [address], [address], [place] tel: [phone] [facility] No Information 2 2 Norm Glenn. [address], [facility], [place]. tel:[phone] 40 [facility], [address] [place] [address], [facility], [place] tel: [phone] [facility] No Information 2 Norm Glenn. [address], [facility], [place]. tel:[phone] 40 [facility], [address] [place] [address], [address], [place] tel: [phone] [facility] No Information 0 8 2 Norm Glenn. [address], [facility], [place]. tel:[phone] 40 [facility], [address] [place] [address], [facility], [place] tel: [phone] [facility] No Information Nov-0 5-201 2 Norm Glenn. [address], [address], [place]. tel:[phone] 40 [facility], [address] [place] [address], [address], [place] tel:[phone] [facility] No Information Nov-0 1-201 2 Norm Glenn. [address], [address], [place]. tel:[phone] 40 [facility], [address] [place] [address], [address], [place] tel:[phone] [facility] No Information Oct-2 9-201 2 Norm Glenn. [address], [address], [place]. tel:[phone] 40 [facility], [address] [place] [address], [address], [place] tel:[phone] [facility] No Information Oct-2 2-201 2 Norm Glenn. [address], [address], [place]. tel:[phone] 40 [facility], [address] [place] [address], [address], [place] tel:[phone] [facility] No Information Oct-1 6-201 2 [place] Max. [address], [id number], [place]. tel:[phone] 40 [facility], [address] [place] [address], [address], [place] tel:[phone] [facility] No Information Oct-1 5-201 2 Norm Glenn. [address], [address], [place]. tel:[phone] 40 [facility], [address] [place] [address], [address], [place] tel:[phone] [facility] No Information Oct-0 9-201 2 Norm Glenn. [address], [address], [place]. tel:[phone] 40 [facility], [address] [place] [address], [address], [place] tel:+ [phone] [facility] No Information Sep-2 7-201 2 Norm Glenn. [address], [facility], [place]. tel:[phone] 40 [facility], [address] [place] [address], [facility], [place] tel: [phone] [facility] No Information Sep-2 5-201 2 Norm Glenn. [address], [facility], [place]. tel:[phone] 40 [facility], [address] [place] [address], [facility], [place] tel: [phone] [facility] No Information Sep-1 9-201 2 Norm Glenn. [address], [facility], [place]. tel:[phone] 40 [facility], [address] [place] [address], [facility], [place] tel: [phone] [facility] No Information Sep-1 8-201 2 Norm Glenn. [address], [facility], [place]. tel:[phone] 40 [facility], [address] [place] [address], [facility], [place] tel:[phone] [facility] No Information Sep-1 3-201 2 Norm Glenn. [address], [facility], [place]. tel:[phone] 40 [facility], [address] [place] [address], [facility], [place] tel:[phone] [facility] No Information Sep-1 0-201 2 Norm Glenn. [address], [facility], [place]. tel:[phone] 40 [facility], [address] [place] [address], [facility], [place] tel:[phone] [facility] No Information Sep-0 4-201 2 Norm Glenn. [address], [facility], [place]. tel:[phone] 40 [facility], [address] [place] [address], [address], [place] tel: [phone] [facility] No Information Aug-3 0-201 2 Norm Glenn. [address], [address], [place]. tel:[phone] 40 [facility], [address] [place] [address], [address], [place] tel: [phone] [facility] No Information Aug-2 7-201 2 Norm Glenn. [address], [address], [place]. tel:[phone] 40 [facility], [address] [place] [address], [address], [place] tel: [phone] [facility] Joint Pain-shlderDepres brandy Aug-2 0-201 2 Norm Glenn. [address], [facility], [place]. tel:[phone] 40 [facility], [address] [place] [address], [facility], [place] tel: [phone] [facility] No Information Aug-1 6 2 Norm Glenn. [address], [facility], [place]. tel:[phone] 40 [facility], [address] [place] [address], [address], [place] tel: [phone] [facility] No Information Aug-1 3-201 2 Norm Glenn. [address], [facility], [place]. tel:[phone] 40 [facility], [address] [place] [address], [address], [place] tel: [phone] [facility] No Information Aug-1 0-201 2 Norm Glenn. [address], [address], [place]. tel:[phone] 40 [facility], [address] [place] [address], [address], [place] tel: [phone] [facility] No Information Aug-0 6-201 2 Norm Glenn. [address], [facility], [place]. tel:[phone] 40 [facility], [address] [place] [address], [facility], [place] tel: [phone] [facility] No Information Sep-0 2-201 2 Norm Glenn. [address], [facility], [place]. tel:[phone] 40 [facility], [address] [place] [address], [facility], [place] tel: [phone] [facility] No Information Aug-3 0-201 2 Norm Glenn. [address], [facility], [place]. tel:[phone] 40 [facility], [address] [place] [address], [facility], [place] tel: [phone] [facility] No Information Aug- 6-201 2 Norm Glenn. [address], [facility], [place]. tel:[phone] 40 [facility], [address] [place] [address], [facility], [place] tel: [phone] [facility] No Information 3-201 2 Norm Glenn. [address], [facility], [place]. tel:[phone] 40 [facility], [address] [place] [address], [facility], [place] tel: [phone] [facility] No Information 6-201 2 Norm Glenn. [address], [facility], [place]. tel:[phone] 40 [facility], [address] [place] [address], [facility], [place] tel: [phone] [facility] No Information 7201 2 Norm Glenn. [address], [facility], [place]. tel:[phone] 40 [facility], [address] [place] [address], [facility], [place] tel:+ [phone] [facility] No Information 5-201 2 Norm Glenn. [address], [address], [place]. tel:[phone] 40 [facility], [address] [place] [address], [address], [place] tel: [phone] [facility] No Information 2 Norm Glenn. [address], [facility], [place]. tel:[phone] 40 [facility], [address] [place] [address], [facility], [place] tel: [phone] [facility] No Information 2 Norm Glenn. [address], [facility], [place]. tel:[phone] 40 [facility], [address] [place] [address], [facility], [place] tel: [phone] [facility] No Information 2 Norm Glenn. [address], [facility], [place]. tel:[phone] 40 [facility], [address] [place] [address], [address], [place] tel: [phone] [facility] Respiratory Abnorm NecCoughEncntr Long-rx Use NecFatigue Jul- 2 Norm Glenn. [address], [address], [place]. tel:[phone] 40 [facility], [address] [place] [address], [facility], [place] tel: [phone] [facility] No Information 0 2 Norm Glenn. [address], [address], [place]. tel:[phone] 40 [facility], [address] [place] [address], [facility], [place] tel: [phone] [facility] No Information 2 Norm Glenn. [address], [facility], [place]. tel:[phone] 40 [facility], [address] [place] [address], [address], [place] tel:[phone] [facility] No Information May-2 4-201 2 Norm Glenn. [address], [facility], [place]. tel:[phone] 40 [facility], [address] [place] [address], [facility], [place] tel:[phone] [facility] No Information May-2 1-201 2 Norm Glenn. [address], [facility], [place]. tel:[phone] 40 [facility], [address] [place] [address], [facility], [place] tel:[phone] [facility] No Information May-1 0-201 2 Norm Glenn. [address], [facility], [place]. tel:[phone] 40 [facility], [address] [place] [address], [facility], tel: [phone] [facility] No Information May-0 3-201 2 Norm Glenn. [address], [facility], [place]. tel:[phone] 40 [facility], [address] [place] [address], [facility], [place] tel:[phone] [facility] No Information Apr-3 0-201 2 Norm Glenn. [address], [facility], [place]. tel:[phone] 40 [facility], [address] [place] [address], [facility], [place] tel:[phone] [facility] No Information Apr-2 3-201 2 Norm Glenn. [address], [facility], [place]. tel:[phone] 40 [facility], [address] [place] [address], [facility], [place] tel:[phone] [facility] No Information Apr-1 6-201 2 Norm Glenn. [address], [facility], [place]. tel:[phone] 40 [facility], [address] [place] [address], [facility], tel: [phone] [facility] No Information Apr-0 9-201 2 Norm Glenn. [address], [facility], [place]. tel:[phone] 40 [facility], [address] [place] [address], [facility], [place] tel:[phone] [facility] No Information Apr-0 2-201 2 Norm Glenn. [address], [facility], [place]. tel:[phone] 40 [facility], [address] [place] [address], [facility], tel:[phone] [facility] No Information Mar-2 1-201 2 Norm Glenn. [address], [facility], [place]. tel:[phone] 40 [facility], [address] [place] [address], [facility], tel: [phone] [facility] No Information Mar-1 9-201 2 Norm Glenn. [address], [facility], [place]. tel:[phone] 40 [facility], [address] [place] [address], [facility], [place] tel:[phone] [facility] No Information Mar-1 2-201 2 Norm Glenn. [address], [facility], [place]. tel:[phone] 40 [facility], [address] [place] [address], [facility], [place] tel: [phone] [facility] No Information Mar-0 5-201 2 Norm Glenn. [address], [facility], [place]. tel:[phone] 40 [facility], [address] [place] [address], [facility], [place] tel:[phone] [facility] No Information Feb-2 8-201 2 Norm Glenn. [address], [facility], [place]. tel:[phone] 40 [facility], [address] [place] [address], [address], [place] tel: [phone] [facility] No Information Feb-2 1-201 2 Norm Glenn. [address], [facility], [place]. tel:[phone] 40 [facility], [address] [place] [address], [facility], [place] tel: [phone] [facility] No Information Feb-1 7-201 2 Norm Glenn. [address], [facility], [place]. tel:[phone] 40 [facility], [address] [place] [address], [facility], [place] tel: [phone] [facility] No Information b-1 6-201 2 Norm Glenn. [address], [facility], [place]. tel:[phone] 40 [facility], [address] [place] [address], [facility], [place] tel: [phone] [facility] No Information b-1 4201 2 Norm Glenn. [address], [facility], [place]. tel:[phone] 40 [facility], [address] [place] [address], [facility], [place] tel: [phone] [facility] No Information Feb-0 9-201 2 Norm Glenn. [address], [facility], [place]. tel:[phone] 40 [facility], [address] [place] [address], [facility], [place] tel: [phone] [facility] No Information Feb-0 7-201 2 Norm Glenn. [address], [facility], [place]. tel:[phone] 40 [facility], [address] [place] [address], [facility], [place] tel: [phone] [facility] No Information Feb-0 2-201 2 Norm Glenn. [address], [address], [place]. tel:[phone] 40 [facility], [address] [place] [address], [address], [place] tel: [phone] [facility] No Information 2 Norm Glenn. [address], [address], [place]. tel:[phone] 40 [facility], [address] [place] [address], [address], [place] tel: [phone] [facility] No Information 2 Norm Glenn. [address], [address], [place]. tel:[phone] 40 [facility], [address] [place] [address], [address], [place] tel: [phone] [facility] No Information 2 Norm Glenn. [address], [facility], [place]. tel:[phone] 40 [facility], [address] [place] [address], [address], [place] tel: [phone] [facility] No Information 2 Norm Glenn. [address], [address], [place]. tel:[phone] 40 [facility], [address] [place] [address], [address], [place] tel: [phone] [facility] No Information 2 Norm Glenn. [address], [facility], [place]. tel:[phone] 40 [facility], [address] [place] [address], [address], [place] tel: [phone] [facility] No Information 2 Norm Glenn. [address], [facility], [place]. tel:[phone] 40 [facility], [address] [place] [address], [address], [place] tel: [phone] [facility] No Information 2 Norm Glenn. [address], [facility], [place]. tel:[phone] 40 [facility], [address] [place] [address], [facility], [place] tel: [phone] [facility] hip (chief complaint)moles (chief complaint)allergy shot (chief complaint) Pain In LimbSeborrheic Keratosis NecAllergic Rhinitis Nos 2 Norm Glenn. [address], [facility], [place]. tel:[phone] 40 [facility], [address] [place] [address], [facility], [place] tel: [phone] [facility] Ext Asthma W/o Stat Asth 1 Norm Glenn. [address], [facility], [place]. tel:[phone] 40 [facility], [address] [place] [address], [facility], tel: [phone] [facility] No Information 1 Norm Glenn. [address], [facility], [place]. tel:[phone] 40 [facility], [address] [place] [address], [facility], [place] tel: [phone] [facility] No Information 1 Norm Glenn. [address], [facility], [place]. tel:[phone] 40 [facility], [address] [place] [address], [facility], [place] tel: [phone] [facility] No Information 1 Norm Glenn. [address], [facility], [place]. tel:[phone] 40 [facility], [address] [place] [address], [facility], [place] tel: [phone] [facility] No Information 1 Norm Glenn. [address], [facility], [place]. tel:[phone] 40 [facility], [address] [place] [address], [address], [place] tel: [phone] [facility] No Information Dec-0 6 1 Norm Glenn. [address], [facility], [place]. tel:[phone] 40 [facility], [address] [place] [address], [facility], [place] tel: [phone] [facility] No Information Dec-0 6 1 Norm Glenn. [address], [facility], [place]. tel:[phone] 40 [facility], [address] [place] [address], [facility], [place] tel: [phone] [facility] No Information Dec-0 1 Norm Glenn. [address], [facility], [place]. tel:[phone] 40 [facility], [address] [place] [address], [facility], [place] tel: [phone] [facility] No Information 2 1 Norm Glenn. [address], [facility], [place]. tel:[phone] 40 [facility], [address] [place] [address], [facility], [place] tel: [phone] [facility] No Information 1 Norm Glenn. [address], [facility], [place]. tel:[phone] 40 [facility], [address] [place] [address], [facility], [place] tel: [phone] [facility] No Information 1 Norm Glenn. [address], [facility], [place]. tel:[phone] 40 [facility], [address] [place] [address], [facility], [place] tel: [phone] [facility] No Information 0 1 Norm Glenn. [address], [address], [place]. tel:[phone] 40 [facility], [address] [place] [address], [address], [place] tel: [phone] [facility] No Information 1 Norm Glenn. [address] [place], [address], [place]. tel:[phone] 40 [facility], [address] [place] [address], [address], [place] tel: [phone] [facility] No Information 1 Norm Glenn. [address] [place] [address], [address], [place]. tel:[phone] 40 [facility], [address] [place] [address], [address], [place] tel: [phone] [facility] No Information 1 Norm Glenn. [address], [address], [place]. tel:[phone] 40 [facility], [address] [place] [address], [address], [place] tel: [phone] [facility] back pain (chief complaint) Genital Herpes NecGenital Herpes Nos 1 Chris Bower. [address], [place], [place], [id number], [place]. tel:[phone] 40 [facility], [address] [place] [address], [address], [place] tel: [phone] [facility] No Information 1 Norm Glenn. [address] [place], [address], [place]. tel:[phone] 40 [facility], [address] [place] [address], [address], [place] tel: [phone] [facility] No Information 1 Norm Glenn. [address] [place], [address], [place]. tel:[phone] 40 [facility], [address] [place] [address], [address], [place] tel: [phone] [facility] No Information Oct-1 1-201 1 Norm Glenn. [address], [address], [place]. tel:[phone] 40 [facility], [address] [place] [address], [address], [place] tel: [phone] [facility] No Information Oct-0 5-201 1 Norm Glenn. [address], [facility], [place]. tel:[phone] 40 [facility], [address] [place] [address], [facility], [place] tel: [phone] [facility] No Information Sep-2 9-201 1 Norm Glenn. [address], [facility], [place]. tel:[phone] 40 [facility], [address] [place] [address], [facility], [place] tel: [phone] [facility] No Information Sep-2 7-201 1 Norm Glenn. [address], [facility], [place]. tel:[phone] 40 [facility], [address] [place] [address], [address], [place] tel: [phone] [facility] No Information Sep-2 3-201 1 Norm Glenn. [address], [address], [place]. tel:[phone] 40 [facility], [address] [place] [address], [facility], [place] tel: [phone] [facility] No Information Sep-2 2-201 1 Norm Glenn. [address], [facility], [place]. tel:[phone] 40 [facility], [address] [place] [address], [address], [place] tel: [phone] [facility] No Information Sep-2 0-201 1 Norm Glenn. [address], [facility], [place]. tel:[phone] 40 [facility], [address] [place] [address], [facility], [place] tel: [phone] [facility] No Information Sep-1 4- 1 Norm Glenn. [address], [facility], [place]. tel:[phone] 40 [facility], [address] [place] [address], [facility], [place] tel: [phone] [facility] No Information Sep-1 3 1 Norm Glenn. [address], [facility], [place]. tel:[phone] 40 [facility], [address] [place] [address], [facility], [place] tel: [phone] [facility] No Information Sep-0 1 Norm Glenn. [address], [facility], [place]. tel:[phone] 40 [facility], [address] [place] [address], [facility], tel: [phone] [facility] Allergic Rhinitis Nos Sep-0 - 1 Norm Glenn. [address], [facility], [place]. tel:[phone] 40 [facility], [address] [place] [address], [facility], [place] tel: [phone] [facility] No Information Aug-3 0- 1 Norm Glenn. [address], [facility], [place]. tel:[phone] 40 [facility], [address] [place] [address], [facility], [place] tel: [phone] [facility] No Information Aug-2 1 Norm Glenn. [address], [facility], [place]. tel:[phone] 40 [facility], [address] [place] [address], [facility], [place] tel: [phone] [facility] No Information Aug-1 6 1 Norm Glenn. [address], [facility], [place]. tel:[phone] 40 [facility], [address] [place] [address], [facility], [place] tel: [phone] [facility] No Information 1 Norm Glenn. [address], [facility], [place]. tel:[phone] 40 [facility], [address] [place] [address], [address], [place] tel: [phone] [facility] No Information 1 Norm Glenn. [address], [facility], [place]. tel:[phone] 40 [facility], [address] [place] [address], [facility], [place] tel: [phone] [facility] Testicular Hypofunc NecCODING COMPLETE 1 Norm Glenn. [address], [facility], [place]. tel:[phone] 40 [facility], [address] [place] [address], [facility], [place] tel: [phone] [facility] R foot pain (chief complaint) Kidney StonePain In LimbKidney StoneAllergic Rhinitis Nos 1 Norm Glenn. [address], [facility], [place]. tel:[phone] 40 [facility], [address] [place] [address], [address], [place] tel: [phone] [facility] No Information 1 Norm Glenn. [address], [facility], [place]. tel:[phone] 40 [facility], [address] [place] [address], [address], [place] tel: [phone] [facility] No Information 1 Norm Glenn. [address], [facility], [place]. tel:[phone] 40 [facility], [address] [place] [address], [address], [place] tel: [phone] [facility] No Information 1 Norm Glenn. [address], [address], [place]. tel:[phone] 40 [facility], [address] [place] [address], [address], [place] tel: [phone] [facility] No Information 1 Norm Glenn. [address], [address], [place]. tel:[phone] 40 [facility], [address] [place] [address], [address], [place] tel: [phone] [facility] No Information 1 Norm Glenn. [address], [address], [place]. tel:[phone] 40 [facility], [address] [place] [address], [address], [place] tel: [phone] [facility] wound check (chief complaint) No Information 1 Félix Lui. [address], [id number], [place]. tel:[phone] 40 [facility], [address] [place] [address], [address], [place] tel: [phone] [facility] No Information 1 Norm Glenn. [address], [address], [place]. tel:[phone] 40 [facility], [address] [place] [address], [address], [place] tel: [phone] [facility] No Information 1 Norm Glenn. [address], [address], [place]. tel:[phone] 40 [facility], [address] [place] [address], [address], [place] tel: [phone] [facility] No Information 1 Norm Glenn. [address], [address], [place]. tel:[phone] 40 [facility], [address] [place] [address], [address], [place] tel: [phone] [facility] No Information June-3 1-201 1 Norm Glenn. [address], [address], [place]. tel:[phone] 40 [facility], [address] [place] [address], [address], [place] tel: [phone] [facility] No Information June-2 4- 1 Norm Glenn. [address], [address], [place]. tel:[phone] 40 [facility], [address] [place] [address], [address], [place] tel: [phone] [facility] No Information June- 8 1 Norm Glenn. [address], [address], [place]. tel:[phone] 40 [facility], [address] [place] [address], [address], [place] tel: [phone] [facility] UTI (chief complaint) No Information June- 2- 1 Adler Kris. [address], [id number], [place]. tel:[phone] 40 [facility], [address] [place] [address], [address], [place] tel: [phone] [facility] No Information June-0 3-201 1 Norm Glenn. [address], [address], [place]. tel:[phone] 40 [facility], [address] [place] [address], [address], [place] tel: [phone] [facility] No Information May-2 1 Norm Glenn. [address], [address], [place]. tel:[phone] 40 [facility], [address] [place] [address], [address], [place] tel: [phone] [facility] No Information May- 9- 1 Norm Glenn. [address], [address], [place]. tel:[phone] 40 [facility], [address] [place] [address], [facility], tel: [phone] [facility] No Information Apr-1 2-201 1 Norm Glenn. [address], [facility], . tel:[phone] 40 [facility], [address] [place] [address], [facility], [place] tel: [phone] [facility] No Information Apr-0 5-201 1 Norm Glenn. [address], [facility], [place]. tel:[phone] 40 [facility], [address] [place] [address], [facility], tel: [phone] [facility] No Information Apr-0 5-201 1 Norm Glenn. [address], [facility], [place]. tel:[phone] 40 [facility], [address] [place] [address], [facility], tel: [phone] [facility] No Information Mar-3 1-201 1 Norm Glenn. [address], [facility], [place]. tel:[phone] 40 [facility], [address] [place] [address], [facility], [place] tel: [phone] [facility] No Information Mar-2 9-201 1 Norm Glenn. [address], [facility], [place]. tel:[phone] 40 [facility], [address] [place] [address], [facility], [place] tel: [phone] [facility] No Information Mar-2 4-201 1 Norm Glenn. [address], [facility], [place]. tel:[phone] 40 [facility], [address] [place] [address], [facility], [place] tel: [phone] [facility] No Information Mar-1 7-201 1 Norm Glenn. [address], [facility], [place]. tel:[phone] 40 [facility], [address] [place] [address], [address], [place] tel: [phone] [facility] No Information 1 Norm Glenn. [address], [facility], [place]. tel:[phone] 40 [facility], [address] [place] [address], [address], [place] tel: [phone] [facility] No Information Mar-2 1 Norm Glenn. [address], [facility], [place]. tel:[phone] 40 [facility], [address] [place] [address], [facility], [place] tel: [phone] [facility] No Information 1 Norm Glenn. [address], [facility], [place]. tel:[phone] 40 [facility], [address] [place] [address], [facility], [place] tel: [phone] [facility] No Information 1 Norm Glenn. [address], [facility], [place]. tel:[phone] 40 [facility], [address] [place] [address], [facility], [place] tel: [phone] [facility] No Information 0 1 Norm Glenn. [address], [facility], [place]. tel:[phone] 40 [facility], [address] [place] [address], [facility], [place] tel: [phone] [facility] No Information 0 1 Norm Glenn. [address], [facility], [place]. tel:[phone] 40 [facility], [address] [place] [address], [facility], [place] tel: [phone] [facility] No Information 1 Norm Glenn. [address], [facility], [place]. tel:[phone] 40 [facility], [address] [place] [address], [address], [place] tel: [phone] [facility] No Information 1 Norm Glenn. [address], [facility], [place]. tel:[phone] 40 [facility], [address] [place] [address], [facility], [place] tel: [phone] [facility] No Information 1 Norm Glenn. [address], [facility], [place]. tel:[phone] 40 [facility], [address] [place] [address], [facility], [place] tel: [phone] [facility] No Information 1 Norm Glenn. [address], [facility], [place]. tel:[phone] 40 [facility], [address] [place] [address], [facility], [place] tel: [phone] [facility] No Information 1 Norm Glenn. [address], [facility], [place]. tel:[phone] 40 [facility], [address] [place] [address], [facility], [place] tel: [phone] [facility] recheck Medications (chief complaint) No Information 1 Norm Glenn. [address], [facility], [place]. tel:[phone] 40 [facility], [address] [place] [address], [address], [place] tel: [phone] [facility] No Information 1 Norm Glenn. [address], [facility], [place]. tel:[phone] 40 [facility], [address] [place] [address], [facility], [place] tel: [phone] [facility] No Information Dec-2 8-201 0 Norm Glenn. [address], [facility], [place]. tel:[phone] 40 [facility], [address] [place] [address], [facility], [place] tel: [phone] [facility] No Information Dec-2 1-201 0 Norm Glenn. [address], [facility], [place]. tel:[phone] 40 [facility], [address] [place] [address], [facility], [place] tel: [phone] [facility] No Information Dec-1 7-201 0 Norm Glenn. [address], [facility], [place]. tel:[phone] 40 [facility], [address] [place] [address], [facility], [place] tel: [phone] [facility] No Information Dec-1 4-201 0 Norm Glenn. [address], [facility], [place]. tel:[phone] 40 [facility], [address] [place] [address], [facility], [place] tel: [phone] [facility] No Information Dec-0 7-201 0 Norm Glenn. [address], [facility], [place]. tel:[phone] 40 [facility], [address] [place] [address], [facility], [place] tel: [phone] [facility] No Information Dec-0 2-201 0 Norm Glenn. [address], [facility], [place]. tel:[phone] 40 [facility], [address] [place] [address], [facility], [place] tel: [phone] [facility] No Information Nov-3 0-201 0 Norm Glenn. [address], [facility], [place]. tel:[phone] 40 [facility], [address] [place] [address], [facility], [place] tel: [phone] [facility] No Information Dec-2 3-201 0 Norm Glenn. [address], [address], [place]. tel:[phone] 40 [facility], [address] [place] [address], [facility], [place] tel: [phone] [facility] No Information Nov-1 6-201 0 Norm Glenn. [address], [facility], [place]. tel:[phone] 40 [facility], [address] [place] [address], [address], [place] tel: [phone] [facility] No Information Dec-1 3-201 0 Norm Glenn. [address], [facility], [place]. tel:[phone] 40 [facility], [address] [place] [address], [facility], [place] tel: [phone] [facility] No Information Dec-1 1-201 0 Norm Glenn. [address], [facility], [place]. tel:[phone] 40 [facility], [address] [place] [address], [facility], [place] tel: [phone] [facility] No Information Nov-0 9-201 0 Norm Lgenn. [address], [facility], [place]. tel:[phone] 40 [facility], [address] [place] [address], [facility], [place] tel: [phone] [facility] No Information Nov-0 4-201 0 Norm Glenn. [address], [facility], [place]. tel:[phone] 40 [facility], [address] [place] [address], [facility], [place] tel: [phone] [facility] No Information 2 8-201 0 Norm Glenn. [address], [facility], [place]. tel:[phone] 40 [facility], [address] [place] [address], [address], [place] tel: [phone] [facility] No Information Oct-2 6-201 0 Norm Glenn. [address], [facility], [place]. tel:[phone] 40 [facility], [address] [place] [address], [facility], [place] tel: [phone] [facility] No Information Oct-2 1-201 0 Norm Glenn. [address], [facility], [place]. tel:[phone] 40 [facility], [address] [place] [address], [facility], [place] tel: [phone] [facility] No Information Oct-1 9-201 0 Norm Glenn. [address], [facility], [place]. tel:[phone] 40 [facility], [address] [place] [address], [facility], [place] tel: [phone] [facility] No Information Oct-1 5-201 0 Norm Glenn. [address], [facility], [place]. tel:[phone] 40 [facility], [address] [place] [address], [facility], [place] tel:[phone] [facility] No Information Oct-1 2-201 0 Norm Glenn. [address], [facility], [place]. tel:[phone] 40 [facility], [address] [place] [address], [facility], [place] tel:[phone] [facility] No Information Oct-0 7-201 0 Norm Glenn. [address], [facility], [place]. tel:[phone] 40 [facility], [address] [place] [address], [facility], [place] tel:[phone] [facility] No Information Oct-0 5-201 0 Norm Glenn. [address], [facility], [place]. tel:[phone] 40 [facility], [address] [place] [address], [facility], [place] tel: [phone] [facility] No Information Oct-0 1-201 0 Norm Glenn. [address], [facility], [place]. tel:[phone] 40 [facility], [address] [place] [address], [facility], [place] tel: [phone] [facility] No Information Sep-2 9-201 0 Norm Glenn. [address], [facility], [place]. tel:[phone] 40 [facility], [address] [place] [address], [facility], [place] tel: [phone] [facility] No Information Sep-2 3-201 0 Norm Glenn. [address] [place] [address], [facility], [place]. tel:[phone] 40 [facility], [address], [facility], [place] tel: [phone] [facility] No Information Sep-2 2-201 0 Norm Glenn. [address] [place] [address], [facility], [place]. tel:[phone] 40 [facility], [address] [place] [address], [facility], [place] tel: [phone] [facility] No Information Sep-1 6-201 0 Norm Glenn. [address] [place] [address], [facility], [place]. tel:[phone] 40 [facility], [address] [place] [address], [facility], [place] tel: [phone] [facility] allergies (chief complaint) Sleep Apnea, ObstructiveAsthma W/o Status Asthm Sep-0 8-201 0 Norm Glenn. [address] [place] [address], [facility], [place]. tel:[phone] 40 [facility], [address] [place] [address], [facility], [place] tel: [phone] [facility] No Information Sep-0 7-201 0 Norm Glenn. [address], [address], [place]. tel:[phone] 40 [facility], [address] [place] [address], [address], [place] tel: [phone] [facility] depotestosterone inj. (chief complaint) No Information 0-201 0 Norm Glenn. [address], [address], [place]. tel:[phone] 40 [facility], [address] [place] [address], [facility], [place] tel: [phone] [facility] No Information 7-201 0 Sandoval Ted. [address], [id number], [place]. tel:[phone] 40 [facility], [address] [place] [address], [facility], [place] tel: [phone] [facility] No Information 8-201 0 Norm Glenn. [address], [facility], [place]. tel:[phone] 40 [facility], [address] [place] [address], [facility], [place] tel: [phone] [facility] No Information 8-201 0 Norm Glenn. [address], [facility], [place]. tel:[phone] 40 [facility], [address] [place] [address], [address], [place] tel: [phone] [facility] No Information 0-201 0 Norm Glenn. [address], [facility], [place]. tel:[phone] 40 [facility], [address] [place] [address], [facility], [place] tel: [phone] [facility] No Information Jul-0 1-201 0 Norm Glenn. [address], [facility], [place]. tel:[phone] 40 [facility], [address] [place] [address], [facility], [place] tel: [phone] [facility] No Information 0 Norm Glenn. [address], [facility], . [phone] 40 [facility], [address], [facility], tel: [phone] [facility] injection (chief complaint) No Information 0- 0 Nomr Glenn. [address], [facility], . tel:-[phone] 40 [facility], [address], [facility], tel: [phone] [facility] No Information 0 Norm Glenn. [address], [facility], . tel:[phone] [address], [facility], tel: [phone] [facility] No Information 0 Norm Glenn. [address], [facility], . tel:[phone] [address], [facility], tel: [phone] [facility] blood work recheck (chief complaint) No Information 0 Norm Glenn. [address], [facility], . [phone] [address], [facility], tel: [phone] [facility] consult (chief complaint) No Information 0 Norm Glenn. [address], [facility], . tel:[phone] 40 Family History Family Member Type Diagnosis Age At Onset Sister Problem (finding) Alive and well Mother Problem (finding) Alive and well Brother Problem malignant neopla sm of pancreas (Cause Of ) Father Problem (finding) hypertension 66 Immunizations Vaccine Date Status Comments COVID-19 (Moderna) administered Source: [facility] ther Registry FluBlok administered Source: New Imm unization Record COVID-19 (Moderna) administered Source: [facility] COVID-19 (Moderna) administered Source: [facility] SHINGRIX administered Source: New Imm unization Record Influenza, .5mL administered Source: New Immunization Record Prevnar 13 administered Source: New Imm unization Record Influenza, .5mL administered Source: New Immunization Record Influenza, 3 yrs and older - IM administered Source: New Immuniza tion Record Influenza, injectable, quadrivalent administered Source: New Immuniza tion Record Influenza, injectable, quadrivalent administered Source: New Immuniza tion Record Influenza, injectable, quadrivalent administered Source: New Immuniza tion Record Tdap administered Source: New Imm unization Record Payers Payer name Insurance type Covered alliance party ID Authoriza tion(s) [facility] [id number] [facility] [id number] [facility] [id number] [facility] [id number] [facility] [id number] [facility] [id number] [facility] [id number] [facility] [id number] [facility] [id number] Social History Type Description Quantity Date Captured Comments Sex Male Smoking Status No Information Chief Complaint And Reason For Visit No Information Plan Of Treatment Date Type Action Status Goal Zoster vaccine (1st) due Goal ECG. Due on due Goal Zoster vaccine. Due on due Goal Diabetes screeni ng. Due on due Goal Zoster vaccine ( 2nd). Due on due Goal Influenza vaccin e. Due on due Goal Pneumococcal vac cine (Prevnar 13). Due on due Goal PHQ9/Depr/Suicid e Rsk Assessment. Due on due Goal Unhealthy drug u se screening. Due on due Goal Hepatitis C scre ening. Due on due Goal Consider PSA Scr eening. Due on due Goal Tdap due Goal Td vaccine. Due on due Goal Lipid panel. Due on due Goal COVID-19 Vaccine due Goal Colonoscopy. Due on due Goal Zoster vaccine due Goal FOBT. Due on due Goal FIT. Due on due Goal Consider PSA Scr eening. Due on due Goal FIT-DNA (Cologua rd). Due on due Goal Colonoscopy. Due on due Goal Tdap due Goal Td vaccine. Due on due Goal Zoster vaccine (1st) due Goal Influenza vaccin e. Due on due Goal Lipid panel. Due on due Goal Zoster vaccine ( 2nd). Due on due Goal COVID-19 Vaccine due Goal Pneumococcal vaccine (Prevna r 13) due Goal Diabetes screeni ng. Due on due Goal ECG. Due on due Goal PHQ9/Depr/Suicid e Rsk Assessment. Due on due Goal PHQ9/Depr/Suicid e Rsk Assessment. Due on due Goal Tdap due Goal Zoster vaccine due Goal COVID-19 Vaccine due Goal ECG. Due on due Goal Diabetes screeni ng. Due on due Goal Colonoscopy. Due on due Goal FIT-DNA (Cologua rd). Due on due Goal Influenza vaccin e. Due on due Goal Consider PSA Scr eening. Due on due Goal FOBT. Due on due Goal Zoster vaccine ( 2nd). Due on due Goal Pneumococcal vaccine (Prevna r 13) due Goal FIT. Due on due Goal Zoster vaccine (1st) due Goal Td vaccine. Due on due Goal Lipid panel. Due on due Goal COVID-19 Vaccine due Goal Pneumococcal vaccine (Prevna r 13) due Goal Lipid panel. Due on due Goal Consider PSA Scr eening. Due on due Goal Td vaccine. Due on due Goal Tdap due Goal Diabetes screeni ng. Due on due Goal ECG. Due on due Goal PHQ9/Depr/Suicid e Rsk Assessment. Due on due Goal FIT-DNA (Cologua rd). Due on due Goal Zoster vaccine ( 2nd). Due on due Goal FOBT. Due on due Goal Zoster vaccine due Goal Zoster vaccine (1st) due Goal FIT. Due on due Goal Influenza vaccin e. Due on due Goal Colonoscopy. Due on due Goal FOBT. Due on due Goal Tdap due Goal Zoster vaccine due Goal Td vaccine. Due on due Goal Consider PSA Scr eening. Due on due Goal FIT-DNA (Cologua rd). Due on due Goal Pneumococcal vaccine (Prevna r 13) due Goal Lipid panel. Due on due Goal Zoster vaccine ( 2nd). Due on due Goal Diabetes screeni ng. Due on due Goal ECG. Due on due Goal FIT. Due on due Goal Zoster vaccine (1st) due Goal PHQ9/Depr/Suicid e Rsk Assessment. Due on due Goal Colonoscopy. Due on due Goal COVID-19 Vaccine due Goal Influenza vaccin e. Due on due Goal Lipid panel. Due on due Goal COVID-19 Vaccine . Due on due Goal Influenza vaccin e. Due on due Goal FOBT. Due on due Goal Zoster vaccine due Goal Td vaccine. Due on due Goal Consider PSA Scr eening. Due on due Goal FIT. Due on due Goal Zoster vaccine (1st) due Goal PHQ9/Depr/Suicid e Rsk Assessment. Due on due Goal FIT-DNA (Cologua rd). Due on due Goal Colonoscopy. Due on due Goal Zoster vaccine ( 2nd). Due on due Goal ECG. Due on due Goal Pneumococcal vaccine (Prevna r 13) due Goal Diabetes screeni ng. Due on due Goal Tdap due Goal Diabetes screeni ng. Due on due Goal PHQ9/Depr/Suicid e Rsk Assessment. Due on due Goal Zoster vaccine (1st) due Goal Lipid panel. Due on due Goal Consider PSA Scr eening. Due on due Goal Td vaccine. Due on due Goal FOBT. Due on due Goal COVID-19 Vaccine . Due on due Goal Zoster vaccine due Goal FIT. Due on due Goal FIT-DNA (Cologua rd). Due on due Goal Zoster vaccine ( 2nd). Due on due Goal Tdap due Goal Colonoscopy. Due on 022 due Goal Pneumococcal vaccine (Prevna r 13) due Goal ECG. Due on due Goal Influenza vaccin e. Due on due Goal FIT-DNA (Cologua rd). Due on due Goal Pneumococcal vaccine (Prevna r 13) due Goal Diabetes screeni ng. Due on due Goal COVID-19 Vaccine . Due on due Goal FIT. Due on due Goal Consider PSA Scr eening. Due on due Goal FOBT. Due on due Goal Td vaccine. Due on due Goal Zoster vaccine due Goal Lipid panel. Due on 024 due Goal Zoster vaccine (1st) due Goal Colonoscopy. Due on 021 due Goal ECG. Due on due Goal PHQ9/Depr/Suicid e Rsk Assessment. Due on due Goal Tdap due Goal Zoster vaccine ( 2nd). Due on due Goal Influenza vaccin e. Due on due Goal Influenza vaccin e. Due on due Goal Zoster vaccine (1st) due Goal Diabetes screeni ng. Due on due Goal Pneumococcal vaccine (Prevna r 13) due Goal ECG. Due on due Goal PHQ9/Depr/Suicid e Rsk Assessment. Due on due Goal Td vaccine. Due on due Goal Lipid panel. Due on due Goal FOBT. Due on due Goal Consider PSA Scr eening. Due on due Goal Zoster vaccine due Goal Colonoscopy. Due on due Goal Tdap due Goal COVID-19 Vaccine . Due on due Goal Zoster vaccine ( ). Due on due Goal FIT-DNA (Cologua rd). Due on due Goal FIT. Due on due Goal Pneumococcal vaccine (Prevna r 13) due Goal Zoster vaccine () due Goal FIT. Due on due Goal Diabetes screeni ng. Due on due Goal Influenza vaccin e. Due on due Goal ECG. Due on due Goal Colonoscopy. Due on due Goal FIT-DNA (Cologua rd). Due on due Goal Tdap due Goal Zoster vaccine ( ). Due on due Goal Zoster vaccine due Goal PHQ9/Depr/Suicid e Rsk Assessment. Due on due Goal FOBT. Due on due Goal Lipid panel. Due on due Goal Td vaccine. Due on due Goal COVID-19 Vaccine . Due on due Goal Consider PSA Scr eening. Due on due Goal Zoster vaccine due Goal FIT-DNA (Cologua rd). Due on due Goal Zoster vaccine ( 2nd). Due on due Goal Lipid panel. Due on due Goal Diabetes screeni ng. Due on due Goal COVID-19 Vaccine . Due on due Goal Consider PSA Scr eening. Due on due Goal FOBT. Due on due Goal Zoster vaccine (1st) due Goal Influenza vaccin e. Due on due Goal FIT. Due on due Goal ECG. Due on due Goal Pneumococcal vaccine (Prevna r 13) due Goal Colonoscopy. Due on due Goal Tdap due Goal Td vaccine. Due on due Goal PHQ9/Depr/Suicid e Rsk Assessment. Due on due Goal FIT-DNA (Cologua rd). Due on due Goal ECG. Due on due Goal Diabetes screeni ng. Due on due Goal PHQ9/Depr/Suicid e Rsk Assessment. Due on due Goal Zoster vaccine (1st) due Goal Zoster vaccine ( 2nd). Due on due Goal Lipid panel. Due on due Goal FIT. Due on due Goal Tdap due Goal COVID-19 Vaccine . Due on due Goal Td vaccine. Due on due Goal Colonoscopy. Due on due Goal Pneumococcal vaccine (Prevna r 13) due Goal Consider PSA Scr eening. Due on due Goal FOBT. Due on due Goal Influenza vaccin e. Due on due Goal Zoster vaccine due Goal Zoster vaccine (1st) due Goal ECG. Due on due Goal Zoster vaccine due Goal FIT. Due on due Goal Lipid panel. Due on due Goal PHQ9/Depr/Suicid e Rsk Assessment. Due on due Goal Diabetes screeni ng. Due on due Goal Consider PSA Scr eening. Due on due Goal Pneumococcal vaccine (Prevna r 13) due Goal FIT-DNA (Cologua rd). Due on due Goal Colonoscopy. Due on due Goal Zoster vaccine ( 2nd). Due on due Goal Influenza vaccin e. Due on due Goal FOBT. Due on due Goal Tdap due Goal Diabetes screeni ng. Due on due Goal ECG. Due on due Goal Zoster vaccine (1st) due Goal Zoster vaccine due Goal FIT-DNA (Cologua rd). Due on due Goal Lipid panel. Due on due Goal Colonoscopy. Due on due Goal Influenza vaccin e. Due on due Goal Consider PSA Scr eening. Due on due Goal Zoster vaccine ( 2nd). Due on due Goal FOBT. Due on due Goal PHQ9/Depr/Suicid e Rsk Assessment. Due on due Goal FIT. Due on due Goal Tdap due Goal Pneumococcal vaccine (Prevna r 13) due Goal Diabetes screeni ng. Due on due Goal Zoster vaccine due Goal Consider PSA Scr eening. Due on due Goal FOBT. Due on due Goal Tdap due Goal Pneumococcal vaccine (Prevna r 13) due Goal Colonoscopy. Due on due Goal Influenza vaccin e. Due on due Goal PHQ9/Depr/Suicid e Rsk Assessment. Due on due Goal Lipid panel. Due on due Goal FIT. Due on due Goal Zoster vaccine (1st) due Goal ECG. Due on due Goal Zoster vaccine ( 2nd). Due on due Goal FIT-DNA (Cologua rd). Due on due Goal Consider PSA Scr eening. Due on due Goal Lipid panel. Due on due Goal Influenza vaccin e. Due on due Goal Tdap due Goal PHQ9/Depr/Suicid e Rsk Assessment. Due on due Goal ECG. Due on due Goal Diabetes screeni ng. Due on due Goal ECG. Due on due Goal Diabetes screeni ng. Due on due Goal Consider PSA Scr eening. Due on due Goal Influenza vaccin e. Due on due Goal Tdap due Goal Lipid panel. Due on due Goal PHQ9/Depr/Suicid e Rsk Assessment. Due on due Goal PHQ9. Due on due Goal Diabetes screeni ng. Due on due Goal ECG. Due on due Goal Suicide risk ass essment. Due on due Goal Consider PSA Scr eening. Due on due Goal Tdap due Goal Influenza vaccin e. Due on due Goal Lipid panel. Due on due Goal Diabetes screeni ng. Due on due Goal PHQ9. Due on due Goal Suicide risk ass essment. Due on due Goal Influenza vaccin e. Due on due Goal ECG. Due on due Goal Lipid panel. Due on due Goal Tdap due Goal Consider PSA Scr eening. Due on due Goal Suicide risk ass essment. Due on due Goal Lipid panel. Due on due Goal Influenza vaccin e. Due on due Goal Consider PSA Scr eening. Due on due Goal ECG. Due on due Goal Tdap due Goal PHQ9. Due on due Goal Diabetes screeni ng. Due on due Goal Diabetes screeni ng. Due on due Goal Lipid panel. Due on due Goal ECG. Due on due Goal PHQ9. Due on due Goal Consider PSA Scr eening. Due on due Goal Tdap due Goal Influenza vaccin e. Due on due Goal Suicide risk ass essment. Due on due Goal Lipid panel. Due on due Goal Tdap due Goal Consider PSA Scr eening. Due on due Goal Influenza vaccin e. Due on due Goal Suicide risk ass essment. Due on due Goal Diabetes screeni ng. Due on due Goal PHQ9. Due on due Goal ECG. Due on due Goal PHQ9. Due on due Goal ECG. Due on due Goal Suicide risk ass essment. Due on due Goal Influenza vaccin e. Due on due Goal Consider PSA Scr eening. Due on due Goal Tdap due Goal Lipid panel. Due on due Goal Diabetes screeni ng. Due on due Goal PHQ9. Due on due Goal Suicide risk ass essment. Due on due Goal Diabetes screeni ng. Due on due Goal ECG. Due on due Goal Consider PSA Scr eening. Due on due Goal Lipid panel. Due on due Goal Tdap due Goal Influenza vaccin e. Due on due Goal Lipid panel. Due on 022 due Goal Diabetes screeni ng. Due on due Goal ECG. Due on due Goal Suicide risk ass essment. Due on due Goal PHQ9. Due on due Goal Influenza vaccin e. Due on due Goal Tdap due Goal Consider PSA Scr eening. Due on due Goal Lipid panel. Due on due Goal Suicide risk ass essment. Due on due Goal PHQ9. Due on due Goal Influenza vaccin e. Due on due Goal Diabetes screeni ng. Due on due Goal Tdap due Goal Lipid panel. Due on due Goal Consider PSA Scr eening. Due on due Goal Influenza vaccin e. Due on due Goal Tdap due Goal Suicide risk ass essment. Due on due Goal Diabetes screeni ng. Due on due Goal PHQ9. Due on due Goal Consider PSA Scr eening. Due on due Goal Tdap due Goal Diabetes screeni ng. Due on due Goal Suicide risk ass essment. Due on due Goal PHQ9. Due on due Goal Lipid panel. Due on due Goal Influenza vaccin e. Due on due Goal Consider PSA Scr eening. Due on due Goal Suicide risk ass essment. Due on due Goal Tdap due Goal Influenza vaccin e. Due on due Goal Diabetes screeni ng. Due on due Goal Lipid panel. Due on due Goal PHQ9. Due on due Goal Influenza vaccin e. Due on due Goal Lipid panel. Due on due Goal Consider PSA Scr eening. Due on due Goal PHQ9. Due on due Goal Suicide risk ass essment. Due on due Goal Tdap due Goal Diabetes screeni ng. Due on due Goal Tdap due Goal Diabetes screeni ng. Due on due Goal Lipid panel. Due on due Goal Suicide risk ass essment. Due on due Goal PHQ9. Due on due Goal Influenza vaccin e. Due on due Goal Consider PSA Scr eening. Due on due Goal Lipid panel. Due on due Goal Suicide risk ass essment. Due on due Goal Influenza vaccin e. Due on due Goal Mentl Hlth/Subst Abuse Scrn-ie. optl [employer]. Due on due Goal PHQ9. Due on due Goal PHQ9. Due on due Goal Suicide risk ass essment. Due on due Goal Mentl Hlth/Subst Abuse Scrn-ie. optl [employer]. Due on due Goal Influenza vaccin e. Due on due Goal Lipid panel. Due on due Goal Suicide risk ass essment. Due on due Goal Mentl Hlth/Subst Abuse Scrn-ie. optl [employer]. Due on due Goal PHQ9. Due on due Goal Mentl Hlth/Subst Abuse Scrn-ie. optl [employer]. Due on due Goal PHQ9. Due on due Goal Suicide risk ass essment. Due on due Goal Mentl Hlth/Subst Abuse Scrn-ie. optl [employer]. Due on due Goal PHQ9. Due on due Goal Suicide risk ass essment. Due on due Goal Mentl Hlth/Subst Abuse Scrn-ie. optl [employer]. Due on due Goal PHQ9. Due on due Goal Suicide risk ass essment. Due on due Goal Mentl Hlth/Subst Abuse Scrn-ie. optl [employer]. Due on due Goal Suicide risk ass essment. Due on due Goal PHQ9. Due on due Goal Mentl Hlth/Subst Abuse Scrn-ie. optl [employer]. Due on due Goal Suicide risk ass essment. Due on due Goal PHQ9. Due on due Goal Mentl Hlth/Subst Abuse Scrn-ie. optl [employer]. Due on due Goal PHQ9. Due on due Goal Suicide risk ass essment. Due on due Goal Suicide risk ass essment. Due on due Goal PHQ9. Due on due Goal Mentl Hlth/Subst Abuse Scrn-ie. optl [employer]. Due on due Goal PHQ9. Due on due Goal Suicide risk ass essment. Due on due Goal Mentl Hlth/Subst Abuse Scrn-ie. optl [employer]. Due on due Goal Suicide risk ass essment. Due on due Goal PHQ9. Due on due Goal Mentl Hlth/Subst Abuse Scrn-ie. optl [employer]. Due on due Goal Suicide risk ass essment. Due on due Goal PHQ9. Due on due Goal Mentl Hlth/Subst Abuse Scrn-ie. optl [employer]. Due on due Goal Suicide risk ass essment. Due on due Goal PHQ9. Due on due Goal Mentl Hlth/Subst Abuse Scrn-ie. optl [employer]. Due on due Goal Mentl Hlth/Subst Abuse Scrn-ie. optl [employer]. Due on due Goal PHQ9. Due on due Goal Suicide risk ass essment. Due on due Goal Mentl Hlth/Subst Abuse Scrn-ie. optl [employer]. Due on due Goal PHQ9. Due on due Goal Suicide risk ass essment. Due on due Goal Suicide risk ass essment. Due on due Goal PHQ9. Due on due Goal Mentl Hlth/Subst Abuse Scrn-ie. optl [employer]. Due on due Goal Suicide risk ass essment. Due on due Goal PHQ9. Due on due Goal Mentl Hlth/Subst Abuse Scrn-ie. optl [employer]. Due on due Goal Suicide risk ass essment. Due on due Goal Mentl Hlth/Subst Abuse Scrn-ie. optl [employer]. Due on due Goal PHQ9. Due on due Goal Suicide risk ass essment. Due on due Goal PHQ9. Due on due Goal Mentl Hlth/Subst Abuse Scrn-ie. optl [employer]. Due on due Goal PHQ9. Due on due Goal Mentl Hlth/Subst Abuse Scrn-ie. optl [employer]. Due on due Goal Suicide risk ass essment. Due on due Goal Suicide risk ass essment. Due on due Goal Mentl Hlth/Subst Abuse Scrn-ie. optl [employer]. Due on due Goal PHQ9. Due on due Goal PHQ9. Due on due Goal Suicide risk ass essment. Due on due Goal Mentl Hlth/Subst Abuse Scrn-ie. optl [employer]. Due on due Goal Mentl Hlth/Subst Abuse Scrn-ie. optl [employer]. Due on due Goal Suicide risk ass essment. Due on due Goal PHQ9. Due on due Goal Influenza vaccin e. Due on due Goal Suicide risk ass essment. Due on due Goal PHQ9. Due on due Goal Influenza vaccin e. Due on due Goal Mentl Hlth/Subst Abuse Scrn-ie. optl [employer]. Due on due Goal Influenza vaccin e. Due on due Goal Mentl Hlth/Subst Abuse Scrn-ie. optl [employer]. Due on due Goal PHQ9. Due on due Goal Suicide risk ass essment. Due on due Goal Mentl Hlth/Subst Abuse Scrn-ie. optl [employer]. Due on due Goal Suicide risk ass essment. Due on due Goal PHQ9. Due on due Goal PHQ9. Due on due Goal Suicide risk ass essment. Due on due Goal Mentl Hlth/Subst Abuse Scrn-ie. optl [employer]. Due on due Goal Mentl Hlth/Subst Abuse Scrn-ie. optl [employer]. Due on due Goal Suicide risk ass essment. Due on due Goal PHQ9. Due on due Goal Mentl Hlth/Subst Abuse Scrn-ie. optl [employer]. Due on due Goal Suicide risk ass essment. Due on due Goal PHQ9. Due on due Goal Mentl Hlth/Subst Abuse Scrn-ie. optl [employer]. Due on due Goal Suicide risk ass essment. Due on due Goal PHQ9. Due on due Goal Mentl Hlth/Subst Abuse Scrn-ie. optl [employer]. Due on due Goal Suicide risk ass essment. Due on due Goal PHQ9. Due on due Goal Suicide risk ass essment. Due on due Goal PHQ9. Due on due Goal Mentl Hlth/Subst Abuse Scrn-ie. optl [employer]. Due on due Goal Suicide risk ass essment. Due on due Goal PHQ9. Due on due Goal Mentl Hlth/Subst Abuse Scrn-ie. optl [employer]. Due on due Goal Mentl Hlth/Subst Abuse Scrn-ie. optl [employer]. Due on due Goal Suicide risk ass essment. Due on due Goal PHQ9. Due on due Goal Mentl Hlth/Subst Abuse Scrn-ie. optl [employer]. Due on due Goal Suicide risk ass essment. Due on due Goal PHQ9. Due on due Goal Mentl Hlth/Subst Abuse Scrn-ie. optl [employer]. Due on due Goal PHQ9. Due on due Goal Suicide risk ass essment. Due on due Goal PHQ9. Due on due Goal Suicide risk ass essment. Due on due Goal Mentl Hlth/Subst Abuse Scrn-ie. optl [employer]. Due on due Goal PHQ9. Due on due Goal Mentl Hlth/Subst Abuse Scrn-ie. optl [employer]. Due on due Goal Suicide risk ass essment. Due on due Goal PHQ9. Due on due Goal Suicide risk ass essment. Due on due Goal Mentl Hlth/Subst Abuse Scrn-ie. optl [employer]. Due on due Goal Mentl Hlth/Subst Abuse Scrn-ie. optl [employer]. Due on due Goal Suicide risk ass essment. Due on due Goal PHQ9. Due on due Goal PHQ9. Due on due Goal Suicide risk ass essment. Due on due Goal Mentl Hlth/Subst Abuse Scrn-ie. optl [employer]. Due on due Goal PHQ9. Due on due Goal Suicide risk ass essment. Due on due Goal Mentl Hlth/Subst Abuse Scrn-ie. optl [employer]. Due on due Goal Mentl Hlth/Subst Abuse Scrn-ie. optl [employer]. Due on due Goal Suicide risk ass essment. Due on due Goal PHQ9. Due on due Goal Alcohol/chemical dependency screening. Due on due Goal PHQ9. Due on due Goal Suicide risk ass essment. Due on due Goal Alcohol/chemical dependency screening. Due on due Goal PHQ9. Due on due Goal Suicide risk ass essment. Due on due Goal Suicide risk ass essment. Due on due Goal Alcohol/chemical dependency screening. Due on due Goal PHQ9. Due on due Goal Alcohol/chemical dependency screening. Due on due Goal PHQ9. Due on due Goal Suicide risk ass essment. Due on due Goal PHQ9. Due on due Goal Influenza vaccin e. Due on due Goal Suicide risk ass essment. Due on due Goal Alcohol/chemical dependency screening. Due on due Goal PHQ9. Due on due Goal Alcohol/chemical dependency screening. Due on due Goal Influenza vaccin e. Due on due Goal Suicide risk ass essment. Due on due Goal PHQ9. Due on due Goal Suicide risk ass essment. Due on due Goal Alcohol/chemical dependency screening. Due on due Goal PHQ9. Due on due Goal Suicide risk ass essment. Due on due Goal Alcohol/chemical dependency screening. Due on due Goal Alcohol/chemical dependency screening. Due on due Goal PHQ9. Due on due Goal Suicide risk ass essment. Due on due Goal Alcohol/chemical dependency screening. Due on due Goal PHQ9. Due on due Goal Suicide risk ass essment. Due on due Goal Alcohol/chemical dependency screening. Due on due Goal PHQ9. Due on due Goal Suicide risk ass essment. Due on due Goal Suicide risk ass essment. Due on due Goal PHQ9. Due on due Goal Alcohol/chemical dependency screening. Due on due Goal Alcohol/chemical dependency screening. Due on due Goal Suicide risk ass essment. Due on due Goal PHQ9. Due on due Goal Diabetes screeni ng. Due on due Goal Diabetes screeni ng. Due on due Goal Tdap due Goal H&P. Due on due Goal TSH. Due on due Goal ALT. Due on due Goal PSA. Due on due Goal AST. Due on due Goal AST. Due on due Goal TSH. Due on due Goal H&P. Due on due Goal ALT. Due on due Goal PSA. Due on due Goal TSH. Due on due Goal H&P. Due on due Goal PSA. Due on due Goal ALT. Due on due Goal AST. Due on due Goal ALT. Due on due Goal TSH. Due on due Goal PSA. Due on due Goal H&P. Due on due Goal AST. Due on due Goal TSH. Due on due Goal AST. Due on due Goal ALT. Due on due Goal PSA. Due on due Goal H&P. Due on due Goal AST. Due on due Goal PSA. Due on due Goal H&P. Due on due Goal TSH. Due on due Goal ALT. Due on due Goal PSA. Due on due Goal H&P. Due on due Goal TSH. Due on due Goal AST. Due on due Goal ALT. Due on due Goal H&P. Due on due Goal ALT. Due on due Goal TSH. Due on due Goal AST. Due on due Goal PSA. Due on due Goal ALT. Due on due Goal H&P. Due on due Goal PSA. Due on due Goal TSH. Due on due Goal AST. Due on due Goal H&P. Due on due Goal AST. Due on due Goal TSH. Due on due Goal PSA. Due on due Goal ALT. Due on due Goal H&P. Due on due Goal PSA. Due on due Goal TSH. Due on due Goal AST. Due on due Goal ALT. Due on due Goal ALT. Due on due Goal PSA. Due on due Goal H&P. Due on due Goal AST. Due on due Goal TSH. Due on due Goal TSH. Due on due Goal ALT. Due on due Goal PSA. Due on due Goal AST. Due on due Goal H&P. Due on due Goal H&P. Due on due Goal TSH. Due on due Goal ALT. Due on due Goal PSA. Due on due Goal AST. Due on due Goal H&P. Due on due Goal TSH. Due on due Goal AST. Due on due Goal ALT. Due on due Goal PSA. Due on due Goal TSH. Due on due Goal PSA. Due on due Goal AST. Due on due Goal H&P. Due on due Goal ALT. Due on due Goal PSA. Due on due Goal H&P. Due on due Goal Influenza Vaccin e. Due on due Goal TD Vaccine. Due on due Goal ALT. Due on due Goal TSH. Due on due Goal AST. Due on due Referral Ordered: Xray, Foot, Complete, 3 Views Left foot ordered Referral Ordered: Xray, Shoulder, Complete, Ortho Views Left shoulder ordered Referral Ordered: MRI, Upper Extremity, Joint (shoulder, Elbow, Wrist), Wo Contrast Left shoulder ordered Referral Ordered: Hip 2-3 Views Left ordered Referral Ordered: Lower Extremity Venous Doppler Unilateral Right leg ordered Future Order: Radiology Order Xr ay, Shoulder, Complete, Ortho Views Left shoulder ([id number]), Body Site: shoulder, Sent on: Sent Future Order: Radiology Order Xr ay, Foot, Complete, 3 Views Left foot ([id number]), Body Site: foot, Sent on: Sent Future Order: Radiology Order Xr ay, Foot, Complete, 3 Views Left foot ([id number]), Body Site: foot, Sent on: Sent Future Order: Radiology Order Lo wer Extremity Venous Doppler Unilateral Right leg ([id number]), Body Site: leg, Sent on: Sent Future Order: Radiology Order Lo wer Extremity Venous Doppler, Bilateral Right leg ([id number]), Body Site: leg, Sent on: Sent Future Order: Radiology Order MR I, Upper Extremity, Joint (shoulder, Elbow, Wrist), Wo Contrast Left shoulder ([id number]), Body Site: shoulder, Sent on: Sent Future Order: Radiology Order MR I, Upper Extremity, Joint (shoulder, Elbow, Wrist), Wo Contrast Left shoulder ([id number]), Body Site: shoulder, Sent on: Sent Future Order: Radiology Order Xr ay, Shoulder, Complete, Ortho Views Left shoulder ([id number]), Body Site: shoulder, Sent on: Sent Future Order: Radiology Order Hi p 2-3 Views Left ([id number]), Sent on: Sent Future Order: Lab Order Free Tracey t. Index (FTI) ([id number]), Sent on: Sent Future Order: Lab Order PATHOLOG Y, LEVEL IV ([id number]), Sent on: Sent History Of Present Illness Encounter Date Complaint History Of Prese nt Illness *Moving- has questio ns about moving records and allergy left shoulder *Suture Removal Pre op Lt foot *Leg Pain Pt's custom inserts came in, pt billed for 2 pair *Cyst *Allergy Shot ([id number]) Pt called stating he wanted another pair of custom inse *Med Review re check inserts, callus Stress Test *ER F/U Bill for custom inserts bp check and wart on hand Rt leg pain and swelling *Lower back pain Location/Durati on: - Low back pain mainly left side 4 days -Severity/Quality: - BuSpar not getting significantly better but not getting a lot worse - Context/Timing: - Patient was bending over when he felt a pull in his low back pain initially was more bilateral but now is mostly on the left side no numbness weakness or radicular symptoms -Modifying Factors/Associated Signs and Symptoms: --It is occasionally recurrent but not often he is having tightness he has been using a TENS unit which may help a little bit when he standing he has virtually no pain when he starts moving or sitting it starts to hurt more-he no longer has any naproxen which she's taken before Flexeril makes him too tired to take and function but he would be well interested in a less sedating muscle relaxant as he does have tightness Review of Systems: Except as above, no other new HEENT cardiopulmonary GI complaints fevers rashes except: 4 month left shoulder * LT Shoulder (comments) This jean pierre thrasher is a 46-year-old male who comes to the office today for followup of his left shoulder. He is 13.5 weeks status post left shoulder arthroscopic biceps tenodesis, SLAP repair, and glenohumeral joint debridement, and subacromial decompression. He did very well up until postoperative week #8. Since that time he has had some continued pain in his shoulder. He is doing better since having injections. No new concern. * LT Shoulder *Left shoulder Left shoulder Pt has MRI to go over *L shoulder *testosterone injections 4 week left shoulder (comments) Mark returns to the office today now 4 weeks status post left shoulder SLAP repair. He stopped wearing his sling on Thursday. No new concerns. 4 week left shoulder *post Op [place] *L shoulder MRI results *L shoulder (comments) This peter kulkarni is a 46-year-old male who returns to the office today for followup of his left shoulder MRI. The MRI was performed on 03/06/2017. MRI results show a SLAP tear with a large para labral cyst. He has moderate a.c. joint arthropathy and some rotator cuff tendinitis. There were no signs of any full-thickness rotator cuff tear. His shoulder is still painful. No change in history of present illness when compared to his last visit. left shoulder pain *Left Shoulder Injection *Medication Review follow up right shoulder pain with bilateral elbow follow up right ramo mckenna (comments) Mr. Howell comes to the office today with the complaint of bilateral elbow pain. He also wants to recheck the right shoulder. He is status post right shoulder arthroscopy with superior labral repair, SAD, DCR, and open pectoralis muscle repair from 2013. He has done well since his surgery and has now been lifting much more at the gym. He wants to make sure the pectoralis repair is okay as this is how he tore it in the first place. No pain in the shoulder. He does have mild pain in the antecubital region at the level of the distal biceps tendon bilaterally. It is worse with working out. Rest makes it better. No previous treatment. No history of bicpes pain in the past. No other complaint today. * Physical corns B/L foot *back pain Stretching and m assaging the pain has gone away. 6 months on and off. Really bad 1 week ago. *left foot problem *review medications *Physical Exam Patient presents for a physical. He states overall he is doing fine. He denies any chest pain or shortness of breath. No nausea or vomiting. No palpable pain. No headaches. He continues to work out on a regular basis. He denies any change in his bowels or bladder. His past history was reviewed. He does have a history of sleep apnea and its been a while since he had it checked. He also has low testosterone and is on injections. He recently had a DVT and has been on Xarelto. he states that the pain in his calf has resolved.. *Rt Leg Pain Patient presents complaining of pain in his right calf. He states he started noticing pain 2 days ago. He states it felt like a charley horse but is not getting any better. It hurts to move in certain positions. It's worse when he dorsiflexes the ankle. He denies any injuries. No travel. He never had a blood clot before. There's been no bruising. *moles *Sutures out Patient presents for suture removal. We removed the sebaceous cyst. * post op Patient presents complaining of a cyst on his right upper back. It's been there for quite a while and he would like it removed. It causes some discomfort and pain when lying down. *Chest Cold/Bronchitis *chest congestion, uri Instructions Date Instruction Additional Infor teja Provided disease spe cific handouts/patient education. Related to Impingement syndrome of left shoulder Provided disease spe cific handouts/patient education. 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 Related to Impingement syndrome of left shoulder Patient/problem spec ific education/handout(s) given Related to Incomplete rotatr-cuff tear/ruptr of l shoulder, not trauma Provided disease spe cific handouts/patient education. Related to Superior glenoid labrum lesion of left shoulder, subs encntr pt education given Related to [place] pain of left shoulder We will call you tatiana h your blood results. Related to Routine medical exam Followup in 2 or 3 w eeks. Sooner if he should worsen. Related to Deep vein blood clot of right lower extremity Followup in 10 days for suture removal. Watch for any signs of infection. Related to Sebaceous cyst Assessments Type Assessment Date No Information
--- NOTE | 2024-12-13 07:58 | CA_ITS ---
Transthoracic Echocardiogram Patient (Last, First, Middle): Mark Howell, Gender: M Date of : 1970 Age: 54 Procedure Date: 12/13/2024 Procedure Type: Transthoracic Echocardiogram Location: OP Height: 182. cm Weight: 104.33 kg BSA: 2.25 m2 Heart Rate: 65 bpm BP: 130 / 80 mmHg Wire Web Worker: LETICIA Referring MD: Crista HARRISONP- Symptoms: R01.1 - Cardiac murmur, unspecified Study Quality: Good ECG Rhythm: Sinus Conclusions: - The left ventricular systolic function is normal. The calculated ejection fraction is 57% by biplane method. - No obvious valvular pathology seen on this study. - There is mild dilatation of the ascending aorta measuring 4.10 cm. Findings Left Ventricle Normal left ventricular cavity size. There is mildly increased left ventricular wall thickness. The left ventricular systolic function is normal. The calculated ejection fraction is 57% by biplane method. There is no evidence of regional wall motion abnormalities. Diastolic function is normal for age. Right Ventricle Mildly increased right ventricular cavity size. There is normal right ventricular systolic function. Atria Mild biatrial enlargement. Aortic Valve There is a normal trileaflet aortic valve. There is no aortic valve stenosis. There is no aortic valve regurgitation. Mitral Valve The mitral valve appears normal. There is trace mitral valve regurgitation. There is no mitral valve stenosis. Pulmonic Valve The pulmonic valve is likely normal. Tricuspid Valve There is trace tricuspid valve regurgitation. There is no evidence of pulmonary hypertension. Great Vessels The aortic arch is normal in size. There is mild dilatation of the ascending aorta measuring 4.10 cm. Venous The inferior vena cava is dilated and collapses greater than 50% with inspiration. Pericardium/Pleural There is no evidence of pericardial effusion. Prior Study Comparison No prior study available for comparison. Recommendations, Care & Conclusions No obvious valvular pathology seen on this study. Measurements 2D Linear Measurements IVSd: 1.10 0.6-0.9/0.6-1.0 cm LVIDd: 4.73 3.9-5.3/4.2-5.9 cm LVIDd Index: 2.10 2.4-3.2/2.2-3.1 cm/m2 LVIDs: 3.69 2.0-3.6 cm LVPWd: 1.04 0.7-1.1 cm LA Diam: 4.30 2.7-3.8/3.0-4.0 cm LAIDs Index: 1.91 1.5-2.3 cm/m2 LV Mass: 227.16 67-162/88-224 g LV Mass Index: 100.96 43-95/49-115 g/m2 LVOT Diam: 2.20 3.0+(-)1.3 cm 2D Systolic Function EF 4C: 51.80 >55% EF 2C: 62.30 >55% EF BiP: 57.10 >55% Mitral Valve MV Pk E: 1.05 MV PK A: 0.71 MV Decel Time: 224.00 E/A: 1.50 E'Lateral: 10.10 E'Medial: 9.14 E/E' Med: 11.50 E/E' Lat: 10.40 PHT: 66.00 MVA PHT: 3.33 Decel Cedar: 4.67 Aortic Valve AoV Pk Jose: 1.59 AoV Mn Jose: 1.23 AoV VTI: 0.36 AoV Pk Grad: 10.00 Aov Mn Grad: 6.00 CHRISTIANO Cont.VTI: 2.96 LVOT LVOT Pk Jose: 1.35 LVOT Mn Jose: 0.94 LVOT VTI: 0.28 LVOT Pk Grad: 7.00 LVOT Mn Grad: 4.00 LVOT Diam: 2.20 LVOT Area: 3.80 Diastolic Function MV Pk E: 1.05 MV Pk A: 0.71 E/A: 1.50 E'Medial: 9.14 E/E' Med: 11.50 E' Laterial: 10.10 E/E' Lat: 10.40 Right Ventricle TAPSE (mm): 28.60 TVS' Jose: 12.20 Tricuspid Valve TR Pk Jose: 2.22 TR Pk Grad: 20.00 RA Press: 8.00 RVSP: 28.00 Great Vessels Aorta Sinus of Valsalva: 3.80 2.0-3.5 cm Ao Asc: 4.10 2.1-3.4 cm Ao Arch: 3.30 Pulmonary Veins Pulm Vein S/D 1.40 Pulmonary Valve PV Pk Jose: 1.10 Peak PV Grad: 5.00 Updated in Other Vendor System with Status of Final Moses Rosario MD electronically signed on 12/14/2024 10:55:52 AM with status of Final
== END ==
LOC: HO.CARD 07:56
PROVIDERS: Visit Provider Nurse Practitioner Family
DX: R01.1 Cardiac murmur, unspecified (principal); Z86.718 Personal history of other venous thrombosis and embolism
CPT/HCPCS: 93306

== ENCOUNTER → 2024-12-13 07:58 | Outpatient (BNV) | payer BC, SELFPAY | PROVIDERS: Visit Provider Internal Medicine | DX: I51.7 Cardiomegaly (principal); I77.810 Thoracic aortic ectasia | CPT/HCPCS: 93306 ==

== ENCOUNTER 2024-12-26 15:17 | Outpatient (AMB) | payer BC, SELFPAY ==
--- NOTE | 2024-12-26 14:11 | A.OFFPC_ITS ---
Intake Visit Reasons: telehealth to review echo results Intake Note: Telehealth to review echo results. Manager Flight Required: No Allergies No Known Allergies Allergy (Verified 12/26/24 15:17) Medication List - Last Reconciled 12/26/24 by Crista Hammond, [facility]- albuterol sulfate 90 mcg/actuation 2 puffs inhalation Q4-6H PRN 30 days apixaban (Eliquis DVT-PE Treat 30D Start) 5 mg PO BID fenofibrate 160 mg PO DAILY lisinopril-hydrochlorothiazide 20-12.5 mg 0.5 tabs PO DAILY montelukast 10 mg PO DAILY tadalafil 2.5 mg PO DAILY tamsulosin 0.4 mg PO DAILY testosterone 4 pumps topical DAILY Tobacco use date assessed: 12/26/24 Dental Screening Dental Screen Date: 12/26/24 Did you have a dental visit in the last 12 months?: Yes Did you have a dental problem in the last 6 months where you did not have access to dental care?: No Was dental information given to patient?: Patient has dentist HPI HPI Comments History of Present Illness Details 54 y/o M with anemia, R bakers cyst, low Testosterone, Renal cysts, Bilat nephromegaly (US 08/2023, MRI 02/2023 Bosniak IIF L cyst) L renal cyst requires US q6-12months, T11 Vertebral hemangioma, JETT on CPAP, HTN, CHLOE, Asthma, HLD, R banda cyst, chronic low back pain, cigar use, eczema, BPH with LUTS, Hx of DVT RLE, 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 Youngest of 6 siblings, one brother from from pancreatic cancer. No family history of kidney disease or liver disease. Health Maintenance Colon 2020 + polyp, repeat 5 years Tdap 2024 Specialists: Podiatry Ortho Renal Telehealth to review echo that was done in the setting of new cardiac murmur noted at last exam. He denies chest pain. He has DVT and is on eliquis, needs a refill. Has initial heme appt 01/06/25. Limited exam: Alert NAD Speaking in full sentences Engaging, appropriate Assessment and Plan Echo results as below reviewed w/ him. The murmur is related to the trivial regurg. It is the biatrial enlargement and dilation of the aorta in the setting of unprovoked DVT that requires fu. For this i have placed a consult w/ [facility]. I asked him to call me if he doesnt hear from their office. I have sent a refill on his eliquis. He should cont to take this and follow the lead from Heme after his consult. Patient was given time to ask questions. All questions were answered to their satisfaction. Telehealth Attestation The patient has been explained that this is an interactive (audio/video) telehealth encounter and what that consists of. The patient understands and wishes to proceed. Implisit platform was used. Total time spent caring for the patient today was 15 minutes. This includes time spent before the visit reviewing the chart, time spent during the visit, and time spent after the visit on documentation, reviewing laboratory results, diagnostic imaging, medications, performing a medically necessary evaluation, counseling on diagnoses, care coordination, ordering appropriate tests, ordering appropriate medications, review of tests performed by other providers, reporting test results with the patient, communication with other healthcare providers. [facility] Medical History Arthritis High cholesterol Asthma Hemangioma of vertebral body Synovial cyst of popliteal space [Banda], right knee Surgical History H/O shoulder surgery History of colonoscopy (~2020) Family History Father Diabetes Social History Household Members: Spouse Both parents involved: No Caregiver staying overnight: No Housing: House Are you a primary acute care nurse practitioner to a significant other at home: No Do you presently have visiting nurse or other home services: No 75 years or older and lives alone: No Alcohol intake: current Alcohol intake frequency: a few times a month Patient Tobacco Use Status: Never used Tobacco e-Cigarette/Vaping Use: Never Used Second Hand Smoke Exposure: No service: No Current occupational status: unemployed and retired Cognitive needs: No Hearing needs: No Vision needs: No Questionnaire Thrive Questionnaire Date Thrive assessed: 07/19/24 I am a: Patient What is your living situation today?: I have a steady place to live Within the past 12 months, did the food you bought not last and you didn't have the money to get more?: Never true Within the past 12 months, did you worry whether your food would run out before you got money to buy more?: Never true Do you have trouble paying for medicines?: No Do you have trouble getting transportation to medical appointments?: No Do you have trouble paying your heating and electricity bill?: No Do you have trouble taking care of your child, family member or friend?: No Do you have trouble with day-to-day activities such as bathing, preparing meals, shopping, managing finances, etc.?: No Are you currently unemployed and looking for a job?: No Are you interested in more education?: No Please select the resources that you would like help with: None Currently or been in a relationship where the following occur: No concerns reported THRIVE Score: 0 CHLOE-7 AMB Questionnaire CHLOE-7 Date CHLOE - 7 assessed: 12/06/24 Source: Developed by Drs. Yves Gillespie, Yamini Cabrera, Shon Prater and colleagues, with an educational shree from [employer]. Physical exam (Primary Care) Tobacco/Smoking Status: Tobacco use Status Tobacco use date assessed 12/26/24 12/26/24 15:16 Patient Tobacco Use Status Never used Tobacco 12/26/24 14:11 e-Cigarette/Vaping Use Never Used 12/26/24 14:11 Thrive Assessment: Date of Thrive Assessment Date Thrive assessed 07/19/24 12/26/24 14:11 Currently or been in a relationship where the following occur: No concerns reported Telehealth Telehealth Telehealth Platform: [facility] Location of provider rendering services: practice address Location of patient: address on file Patient Identification confirmed using: Name, : Yes Telehealth method: voice only Patient verbally consented to treatment: Yes Patient verbally consented to billing insurance company: Yes Patient informed of any privacy concerns related to visit: Yes Minutes spent on Phone/Video with Pt.: 6 Results Reviewed Results Reviewed: 12/13/24 Conclusions: - The left ventricular systolic function is normal. The calculated ejection fraction is 57% by biplane method. - No obvious valvular pathology seen on this study. - There is mild dilatation of the ascending aorta measuring 4.10 cm. Findings Left Ventricle Normal left ventricular cavity size. There is mildly increased left ventricular wall thickness. The left ventricular systolic function is normal. The calculated ejection fraction is 57% by biplane method. There is no evidence of regional wall motion abnormalities. Diastolic function is normal for age. Right Ventricle Mildly increased right ventricular cavity size. There is normal right ventricular systolic function. Atria Mild biatrial enlargement. Aortic Valve There is a normal trileaflet aortic valve. There is no aortic valve stenosis. There is no aortic valve regurgitation. Mitral Valve The mitral valve appears normal. There is trace mitral valve regurgitation. There is no mitral valve stenosis. Pulmonic Valve The pulmonic valve is likely normal. Tricuspid Valve There is trace tricuspid valve regurgitation. There is no evidence of pulmonary hypertension. Great Vessels The aortic arch is normal in size. There is mild dilatation of the ascending aorta measuring 4.10 cm. Venous The inferior vena cava is dilated and collapses greater than 50% with inspiration. Pericardium/Pleural There is no evidence of pericardial effusion. Prior Study Comparison No prior study available for comparison. Recommendations, Care & Conclusions No obvious valvular pathology seen on this study. Coding Level of Care Code Tele Est Pt Level 2 (98442) Complex EM visit Add On G2211 Diagnoses Newly recognized heart murmur R01.1 Mild ascending aorta dilatation I77.810 History of echocardiogram Z92.89 Acute deep vein thrombosis (DVT) of right lower extremity, unspecified vein I82.401 Affected thrombotic vein of extremity: unspecified vein of extremity Chronicity: acute DVT location: lower extremity Laterality: right Mixed hyperlipidemia E78.2 Hyperlipidemia type: mixed hyperlipidemia Primary hypertension I10 Hypertension type: primary hypertension Assessment & Plan Assessment & Plan (1) Newly recognized heart murmur: Onset Date: ~12/06/24 Code(s): R01.1 - Cardiac murmur, unspecified Category: Medical (2) Mild ascending aorta dilatation: Onset Date: ~11/2024 Comment: 12/13/24 Conclusions: - The left ventricular systolic function is normal. The calculated ejection fraction is 57% by biplane method. - No obvious valvular pathology seen on this study. - There is mild dilatation of the ascending aorta measuring 4.10 cm. Findings Left Ventricle Normal left ventricular cavity size. There is mildly increased left ventricular wall thickness. The left ventricular systolic function is normal. The calculated ejection fraction is 57% by biplane method. There is no evidence of regional wall motion abnormalities. Diastolic function is normal for age. Right Ventricle Mildly increased right ventricular cavity size. There is normal right ventricular systolic function. Atria Mild biatrial enlargement. Aortic Valve There is a normal trileaflet aortic valve. There is no aortic valve stenosis. There is no aortic valve regurgitation. Mitral Valve The mitral valve appears normal. There is trace mitral valve regurgitation. There is no mitral valve stenosis. Pulmonic Valve The pulmonic valve is likely normal. Tricuspid Valve There is trace tricuspid valve regurgitation. There is no evidence of pulmonary hypertension. Great Vessels The aortic arch is normal in size. There is mild dilatation of the ascending aorta measuring 4.10 cm. Venous The inferior vena cava is dilated and collapses greater than 50% with inspiration. Pericardium/Pleural There is no evidence of pericardial effusion. Prior Study Comparison No prior study available for comparison. Recommendations, Care & Conclusions No obvious valvular pathology seen on this study. Code(s): I77.810 - Thoracic aortic ectasia Category: Medical (3) History of echocardiogram: Onset Date: ~11/2024 Comment: 12/13/24 Conclusions: - The left ventricular systolic function is normal. The calculated ejection fraction is 57% by biplane method. - No obvious valvular pathology seen on this study. - There is mild dilatation of the ascending aorta measuring 4.10 cm. Findings Left Ventricle Normal left ventricular cavity size. There is mildly increased left ventricular wall thickness. The left ventricular systolic function is normal. The calculated ejection fraction is 57% by biplane method. There is no evidence of regional wall motion abnormalities. Diastolic function is normal for age. Right Ventricle Mildly increased right ventricular cavity size. There is normal right ventricular systolic function. Atria Mild biatrial enlargement. Aortic Valve There is a normal trileaflet aortic valve. There is no aortic valve stenosis. There is no aortic valve regurgitation. Mitral Valve The mitral valve appears normal. There is trace mitral valve regurgitation. There is no mitral valve stenosis. Pulmonic Valve The pulmonic valve is likely normal. Tricuspid Valve There is trace tricuspid valve regurgitation. There is no evidence of pulmonary hypertension. Great Vessels The aortic arch is normal in size. There is mild dilatation of the ascending aorta measuring 4.10 cm. Venous The inferior vena cava is dilated and collapses greater than 50% with inspiration. Pericardium/Pleural There is no evidence of pericardial effusion. Prior Study Comparison No prior study available for comparison. Recommendations, Care & Conclusions No obvious valvular pathology seen on this study. Code(s): Z92.89 - Personal history of other medical treatment Category: Medical (4) DVT (deep venous thrombosis): Onset Date: ~11/2024 Code(s): I82.409 - Acute embolism and thrombosis of unspecified deep veins of unspecified lower extremity Category: Medical Qualifiers: Affected thrombotic vein of extremity: unspecified vein of extremity Chronicity: acute DVT location: lower extremity Laterality: right Qualified Code(s): I82.401 - Acute embolism and thrombosis of unspecified deep veins of right lower extremity (5) HLD (hyperlipidemia): Comment: on fenofibrate Code(s): E78.5 - Hyperlipidemia, unspecified Category: Medical Qualifiers: Hyperlipidemia type: mixed hyperlipidemia Qualified Code(s): E78.2 - Mixed hyperlipidemia (6) HTN (hypertension): Code(s): I10 - Essential (primary) hypertension Category: Medical Qualifiers: Hypertension type: primary hypertension Qualified Code(s): I10 - Essential (primary) hypertension Plan . Orders: Referrals Cardiology Referral E78.2 - Mixed hyperlipidemia, I10 - Essential (primary) hypertension, I77.810 - Thoracic aortic ectasia, I82.401 - Acute embolism and thrombosis of unspecified deep veins of right lower extremity, R01.1 - Cardiac murmur, unspecified Medications: New apixaban (Eliquis) 5 mg PO BID 180 tabs 0RF 90 days Discontinued apixaban (Eliquis DVT-PE Treat 30D Start) Take 10 mg b.i.d. x7 days followed by 5 mg b.i.d. thereafter. Discontinued Reason: Patient Completed Course 5 mg PO BID 74 ea 0RF dvt
== END 2024-12-26 16:13 | disposition home or self-care (01) ==
LOC: HO.HMCFM 15:17
PROVIDERS: PCP Nurse Practitioner Family; Visit Provider Nurse Practitioner Family
DX: R01.1 Cardiac murmur, unspecified (principal); I82.401 Acute embolism and thrombosis of unspecified deep veins of right lower extremity; I77.810 Thoracic aortic ectasia; I10 Essential (primary) hypertension; E78.2 Mixed hyperlipidemia; Z79.01 Long term (current) use of anticoagulants; Z92.89 Personal history of other medical treatment

== ENCOUNTER → 2025-01-06 13:47 | Outpatient (BNV) | payer BC, SELFPAY | PROVIDERS: PCP Nurse Practitioner Family; Referring Provider Nurse Practitioner Family; Visit Provider Internal Medicine | DX: I82.509 Chronic embolism and thrombosis of unspecified deep veins of unspecified lower extremity (principal); D75.1 Secondary polycythemia; D64.89 Other specified anemias; Z79.01 Long term (current) use of anticoagulants; Z79.890 Hormone replacement therapy | CPT/HCPCS: 99203 ==